=== PATIENT | female | born 1950 | race Caucasian/White ===

== ENCOUNTER 2016-06-03 09:07 | Emergency (ER) | payer OTHER, MEDICARE ==
--- NOTE | 2016-06-03 09:24 | UCPHY ---
H & P Patient Type: New Time Seen by Provider: 06/03/16 09:22 HPI/ROS: 65-year-old female presents complaining of right forearm swelling since last night, concerned because she has a recent history of elevated INR. She states despite her elevated INR she was not told to stop her warfarin. Review of systems General no fever no chills no weakness HEENT no eye pain no eye discharge. No eye redness, no sore throat Respiratory no cough, no shortness of breath Cardiac no chest pain, no peripheral edema GI no abdominal pain, no diarrhea, no constipation, no nausea, no vomiting no flank pain, no hematuria, no dysuria Musculoskeletal positive myalgias, no joint pain Heme no easy bruising, no easy bleeding Endo no polyuria, no polydipsia Skin no rashes, no pruritus Neuro no syncope, no dizziness, no headaches Psych is no suicidal ideation, no homicidal ideation Source: Patient Exam Limitations: Physical impairment - Personal History Current Tetanus/Diphtheria Vaccine: Yes - Medical/Surgical History Other PMH: Patient on long-term anticoagulant for blood clots - Family History Significant Family History: No pertinent family hx - Social History Smoking Status: Unknown if ever smoked Alcohol Use: None Drug Use: None - Physical Exam Exam: 65-year-old female 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, no acute distress nontoxic appearance afebrile Atraumatic normocephalic Neck supple Lungs clear to auscultation Heart regular rate and rhythm Abdomen NABS Right upper extremity with mild swelling to right distal forearm no ecchymosis, no open wounds Good range of motion, good strength Constitutional: Initial Vital Signs Temperature (C) 36.3 C 06/03/16 09:30 Heart Rate 65 06/03/16 09:30 Respiratory Rate 18 06/03/16 09:30 Blood Pressure 99/64 L 06/03/16 09:30 O2 Sat (%) 94 06/03/16 09:30 O2 Delivery Mode Room Air Medical Decision Making ED Course/Re-evaluation: Patient seen and evaluated for right arm swelling in the setting of an elevated INR Labs CBC within normal limits INR 8.5 BMP within normal limits Ultrasound negative for DVT negative for hematoma Impression/plan Warfarin toxicity, coagulopathy with no evidence of bleeding Patient advised to hold her warfarin for the next 4 days to have her INR repeated on [place] [address] Forearm with mild contusion no evidence of hematoma Follow up with primary care physician - Data Points Laboratory Results: Laboratory Results 06/03/16 10:50 06/03/16 10:50 06/03/16 10:50 WBC 8.06 10^3/uL (3.80-9.50) RBC 4.19 10^6/uL (4.18-5.33) Hgb 12.6 g/dL (12.6-16.3) Hct 35.9 L % (38.0-47.0) MCV 85.7 fL (81.5-99.8) MCH 30.1 pg (27.9-34.1) MCHC 35.1 g/dL (32.4-36.7) RDW 13.0 % (11.5-15.2) Plt Count 240 10^3/uL (150-400) MPV 9.8 fL (8.7-11.7) Neut % (Auto) 82.4 H % (39.3-74.2) Lymph % (Auto) 9.3 L % (15.0-45.0) [place] % (Auto) 6.0 % (4.5-13.0) Eos % (Auto) 1.9 % (0.6-7.6) Baso % (Auto) 0.2 L % (0.3-1.7) Nucleat RBC Rel Count 0.0 % (0.0-0.2) Absolute Neuts (auto) 6.64 H 10^3/uL (1.70-6.50) Absolute Lymphs (auto) 0.75 L 10^3/uL (1.00-3.00) Absolute Monos (auto) 0.48 10^3/uL (0.30-0.80) Absolute Eos (auto) 0.15 10^3/uL (0.03-0.40) Absolute Basos (auto) 0.02 10^3/uL (0.02-0.10) Absolute Nucleated RBC 0.00 10^3/uL (0-0.01) Immature Gran % 0.2 % (0.0-1.1) Immature Gran # 0.02 10^3/uL (0.00-0.10) PT 68.4 H SEC (12.0-15.0) INR 8.52 H* (0.83-1.16) APTT 77.9 H SEC (23.0-38.0) Sodium 130 L mEq/L (134-144) Potassium 4.3 mEq/L (3.5-5.2) Chloride 100 mEq/L (97-110) Carbon Dioxide 23 mEq/l (22-31) Anion Gap 7 mEq/L (8-16) BUN 12 mg/dL (7-23) Creatinine 0.5 L mg/dL (0.6-1.0) Estimated GFR > 60 Glucose 110 H mg/dL (70-100) Calcium 8.3 L mg/dL (8.5-10.4) Total Bilirubin 0.4 mg/dL (0.1-1.4) AST 20 IU/L (14-46) ALT 29 IU/L (9-52) Alkaline Phosphatase 88 IU/L (38-126) Total Protein 5.8 L g/dL (6.3-8.2) Albumin 2.9 L g/dL (3.5-5.0) Departure - Departure Disposition: Home, Routine, Self-Care Clinical Impression: Contusion of right forearm, initial encounter, Warfarin-induced coagulopathy Condition: Good Instructions: Contusion in Adults (ED), Warfarin Toxicity (ED) Additional Instructions: STOP warfain completely for the next 4 days, have your INR redrawn on Tuesday, and then your primary can advise how to continue your warfarin. Referrals: Adrian Smyth DO [Primary Care Provider] - As per Instructions - PQRS PQRS Measurement: na
[2016-06-03 09:35] VITALS: BP 99/64; PULSE 65; RESP 18; TEMP 97.3; O2SAT 94
[2016-06-03 11:02] LABS: % IMMATURE GRANULYOCYTES 0.2 % (0.0-1.1); ABSOLUTE IMMATURE GRANULOCYTES 0.02 10^3/uL (0.00-0.10); ADD DIFF? NO; ADD MORPH? NO; ADD SCAN? NO; ATYPICAL LYMPHOCYTE FLAG 10 (0-99); FRAGMENT RBC FLAG 0 (0-99); HEMATOCRIT 35.9 % (38.0-47.0); HEMOGLOBIN 12.6 g/dL (12.6-16.3); LEFT SHIFT FLG 0 (0-99); LIPEMIA HEMOLYSIS FLAG 90 (0-99); MEAN CELL HEMOGLOBIN 30.1 pg (27.9-34.1); MEAN CELL HEMOGLOBIN CONCENTR. 35.1 g/dL (32.4-36.7); MEAN CELL VOLUME 85.7 fL (81.5-99.8); MEAN PLATELET VOLUME 9.8 fL (8.7-11.7); PLATELET CLUMPS FLAG 10 (0-99); PLATELET COUNT 240 10^3/uL (150-400); RED BLOOD CELL COUNT 4.19 10^6/uL (4.18-5.33)
[2016-06-03 11:14] LABS: PROTIME(PATIENT) 68.4 SEC (12.0-15.0)
--- NOTE | 2016-06-03 11:17 | US ---
Duplex Doppler Sonography of the Right Upper Extremity Clinical History: 65-year-old female with an elevated INR and right forearm swelling and tenderness f or a few days. Evaluate for a hematoma, and rule out DVT. Technique: A high frequency transducer was used for imaging and Doppler study of the veins of the rig ht upper extremity. Pulsed Doppler and color Doppler were utilized, along with various maneuvers to assess flow in the veins. Cursory evaluation of the contralateral arm was obtained for comparison pu rposes. COMPARISON STUDY: None. Findings: The right basilic vein, cephalic vein, brachial vein(s), radial and ulnar veins, and the a xillary vein are normally compressible, and had normal waveforms. Normal color doppler flow is seen w ithin the subclavian vein, which is noted to have normal respiratory variation. The internal jugular vein is normally compressible, and has a normal Doppler flow. There is no deep or superficial venous thrombosis identified. There is no localized fluid collection. Impression: There is no sonographic evidence of venous thrombosis in the right arm, nor is there a fo rearm hematoma identified. Results were called to Dr. Macrina Moore. A Document Only message has been documented for Macrina Moore MD in the [employer] Result system on 06/03/2016 11:13, Message ID [id number].
[2016-06-03 11:25] LABS: APTT 77.9 SEC (23.0-38.0)
[2016-06-03 11:27] LABS: ALANINE AMINOTRANSFERASE 29 IU/L (9-52); ALBUMIN 2.9 g/dL (3.5-5.0); ALKALINE PHOSPHATASE 88 IU/L (38-126); ANION GAP 7 mEq/L (8-16); ASPARTATE AMINOTRANSFERASE 20 IU/L (14-46); BILIRUBIN,TOTAL 0.4 mg/dL (0.1-1.4); CALCIUM 8.3 mg/dL (8.5-10.4); CARBON DIOXIDE 23 mEq/l (22-31); CHLORIDE 100 mEq/L (97-110); CREATININE 0.5 mg/dL (0.6-1.0); GLOMERULAR FILTRATION RATE > 60; GLUCOSE 110 mg/dL (70-100); INR 8.52 (0.83-1.16); POTASSIUM 4.3 mEq/L (3.5-5.2); SODIUM 130 mEq/L (134-144); TOTAL PROTEIN 5.8 g/dL (6.3-8.2)
== END 2016-06-03 11:38 | disposition home or self-care (01) ==
LOC: CED 09:07
DX: S50.11XA Contusion of right forearm, initial encounter (principal); X58.XXXA Exposure to other specified factors, initial encounter; Z79.01 Long term (current) use of anticoagulants; Z89.611 Acquired absence of right leg above knee; Z89.612 Acquired absence of left leg above knee; Z99.3 Dependence on wheelchair
CPT/HCPCS: 76882; G0463; 80053-PO; 85025-PO; 85610-PO; 85730-PO; 99203-PO

== ENCOUNTER 2016-08-14 12:55 | Inpatient (IN) | payer OTHER, MEDICARE ==
--- NOTE | 2016-08-14 13:56 | UCPHY ---
H & P Patient Type: Established Smoking Status: Never smoked Time Seen by Provider: 08/14/16 13:52 HPI/ROS: Chief complaint. Abdominal pain HPI. 65-year-old female 3 day history low abdominal pain. She describes as crampy. All the way across the low abdomen. Nausea and vomiting. No diarrhea. No urinary symptoms. No fever. No chest discomfort or shortness of breath. It is associated with decreased appetite ROS Constitutional. no fever/chills, no weakness Eyes. no problems with vision ENT. no sore throat, no nasal drainage Cardiovascular. no chest pain Respiratory. no shortness of breath, no cough Abdominal. Low abdominal pain with nausea and vomiting . no problems urinating MS. no calf pain/swelling, no neck/back pain, no joint pain Skin. no rash Lymph. no swollen glands Neuro. No headache (Manuel Gracia) Past Medical/Surgical History: Seizure disorder, blood clots, bilateral leg amputation (Manuel Gracia) Social History: Single, nonsmoker, no alcohol (Manuel Gracia) Physical Exam: General Appearance: Alert well-developed female mild distress vital signs are stable though initial blood pressure is 98/78 Eyes: Pupils equal and round no pallor or injection. ENT, Mouth: Mucous membranes are moist. Respiratory: There are no retractions, lungs are clear to auscultation. Cardiovascular: Regular rate and rhythm. Gastrointestinal: Abdomen is soft with low abdominal tenderness. No masses. Normal bowel sounds Neurological: Awake and alert, sensory and motor exams grossly normal. Skin: Warm and dry, no rashes. Musculoskeletal: Neck is supple nontender. Extremities bilateral BKA Psychiatric: Patient is oriented X 3, there is no agitation. (Manuel Gracia) Constitutional: Initial Vital Signs Temperature (C) 36.6 C 08/14/16 13:03 Heart Rate 76 08/14/16 13:03 O2 Sat (%) 93 08/14/16 13:03 O2 Delivery Mode Room Air Allergies/Adverse Reactions: pseudoephedrine [From Sudafed] Allergy (Verified 08/14/16 12:59) Home Medications: Medication Instructions Recorded Keppra 08/14/16 Oxybutynin 08/14/16 PHENOBARBITAL 08/14/16 Warfarin Sodium 08/14/16 Medical Decision Making - Diagnostics EKG Interpretation: 12 lead EKG indication generalized weakness electrolyte abnormality rule out ischemia or significant conduction abnormalities 12 lead EKG performed at 4:50 p.m. reveals sinus rhythm at 62 Intervals: Normal throughout [place]: P of 55, QRS of 55, T of 66 ST [id number] elevation in V2 and V3 likely attributable to LVH. Overall assessment: sinus rhythm at 62 with LVH (Hero Marte) Imaging: CT abdomen pelvis: There is circumferential swelling the distal rectal sigmoid colon-[address] Medel, question infectious versus neoplastic. She also has significant constipation. Other abnormalities appear chronic. ( Hero Marte) Procedures: IV normal saline (Manuel Gracia) ED Course/Re-evaluation: Patient is stable. We do not have CT results yet. She has a sodium of 119 so she needs to be admitted. She does have a UTI and is given ceftriaxone. We are did have blood cultures. Her lactate is normal (Manuel Gracia) IV ceftriaxone for her UTI is completed. I counseled patient regarding her CT results and the need for admission. 500 cc normal saline bolus for hyponatremia I spoke with Dr. Drew Steward-hospitalist who accepts this patient for transfer to [facility]. Discussion: This patient presents with lower belly pain found to have a UTI as well as hyponatremia and distal sigmoid/rectal swelling circumferentially the bowel question colitis versus neoplasm warranting admission for further workup and treatment. (Hero Marte) Care Turn Over: Care to Dr. Marte at 3:20 p.m. (Manuel Gracia) - Data Points Laboratory Results: Laboratory Results 08/14/16 14:03 08/14/16 14:03 08/14/16 08/14/16 08/14/16 14:03 14:03 14:03 WBC 10.58 10^3/uL H 10^3/uL (3.80-9.50) RBC 3.11 10^6/uL L 10^6/uL (4.18-5.33) Hgb 9.5 g/dL L g/dL (12.6-16.3) Hct 26.1 % L % (38.0-47.0) MCV 83.9 fL fL (81.5-99.8) MCH 30.5 pg pg (27.9-34.1) MCHC 36.4 g/dL g/dL (32.4-36.7) RDW 13.1 % % (11.5-15.2) Plt Count 193 10^3/uL 10^3/uL (150-400) MPV 10.4 fL fL (8.7-11.7) Neut % (Auto) 86.4 % H % (39.3-74.2) Lymph % (Auto) 6.4 % L % (15.0-45.0) [place] % (Auto) 5.8 % % (4.5-13.0) Eos % (Auto) 0.4 % L % (0.6-7.6) Baso % (Auto) 0.1 % L % (0.3-1.7) Nucleat RBC Rel Count 0.0 % % (0.0-0.2) Absolute Neuts (auto) 9.15 10^3/uL H 10^3/uL (1.70-6.50) Absolute Lymphs (auto) 0.68 10^3/uL L 10^3/uL (1.00-3.00) Absolute Monos (auto) 0.61 10^3/uL 10^3/uL (0.30-0.80) Absolute Eos (auto) 0.04 10^3/uL 10^3/uL (0.03-0.40) Absolute Basos (auto) 0.01 10^3/uL L 10^3/uL (0.02-0.10) Absolute Nucleated RBC 0.00 10^3/uL 10^3/uL (0-0.01) Immature Gran % 0.9 % % (0.0-1.1) Immature Gran # 0.09 10^3/uL 10^3/uL (0.00-0.10) PT 39.7 SEC H SEC (12.0-15.0) INR 4.08 H (0.83-1.16) APTT 45.9 SEC H SEC (23.0-38.0) VBG Lactic Acid Sodium 119 mEq/L L* mEq/L (134-144) Potassium 4.0 mEq/L mEq/L (3.5-5.2) Chloride 90 mEq/L L mEq/L (97-110) Carbon Dioxide 22 mEq/l mEq/l (22-31) Anion Gap 7 mEq/L L mEq/L (8-16) BUN 18 mg/dL mg/dL (7-23) Creatinine 0.6 mg/dL mg/dL (0.6-1.0) Estimated GFR > 60 Glucose 99 mg/dL mg/dL (70-100) Calcium 7.9 mg/dL L mg/dL (8.5-10.4) Total Bilirubin 0.4 mg/dL mg/dL (0.1-1.4) Urine Color Urine Appearance Urine pH Ur Specific [place] Urine Protein Urine Ketones Urine Blood Urine Nitrate Urine Bilirubin Urine Urobilinogen Ur Leukocyte Esterase Urine RBC Urine WBC Ur Epithelial Cells Urine Bacteria Urine Glucose 08/14/16 08/14/16 14:03 13:35 WBC RBC Hgb Hct MCV MCH MCHC RDW Plt Count MPV Neut % (Auto) Lymph % (Auto) [place] % (Auto) Eos % (Auto) Baso % (Auto) Nucleat RBC Rel Count Absolute Neuts (auto) Absolute Lymphs (auto) Absolute Monos (auto) Absolute Eos (auto) Absolute Basos (auto) Absolute Nucleated RBC Immature Gran % Immature Gran # PT INR APTT VBG Lactic Acid 0.9 mmol/L mmol/L (0.7-2.1) Sodium Potassium Chloride Carbon Dioxide Anion Gap BUN Creatinine Estimated GFR Glucose Calcium Total Bilirubin Urine Color YELLOW Urine Appearance CLEAR Urine pH 5.5 (5.0-7.5) Ur Specific [place] <= 1.005 (1.002-1.030) Urine Protein TRACE H (NEGATIVE) Urine Ketones TRACE H (NEGATIVE) Urine Blood 2+ H (NEGATIVE) Urine Nitrate NEGATIVE (NEGATIVE) Urine Bilirubin NEGATIVE (NEGATIVE) Urine Urobilinogen 0.2 EU EU (0.2-1.0) Ur Leukocyte Esterase 2+ H (NEGATIVE) Urine RBC 3-5 /hpf H /hpf (0-3) Urine WBC 25-50 /hpf H /hpf (0-3) Ur Epithelial Cells 2+ /lpf H /lpf (NONE-1+) Urine Bacteria 2+ /hpf H /hpf (NONE SEEN) Urine Glucose NEGATIVE (NEGATIVE) Medications Given: Discontinued Medications Ceftriaxone Sodium 1 gm/ (Sodium Chloride) 100 mls @ 200 mls/hr IV EDNOW ONE PRN Reason: Protocol Stop: 08/14/16 15:52 Last Admin: 08/14/16 16:00 Dose: 100 mls Departure - Departure Disposition: [facility] Inpatient Acute Clinical Impression: Lower abdominal pain, Hyponatremia, Abnormality of colon Urinary tract infection Qualifiers: Urinary tract infection type: catheter-associated UTI Indwelling urinary catheter type: indwelling urethral catheter Encounter type: initial encounter Qualified Code(s): T83.511A - Infection and inflammatory reaction due to indwelling urethral catheter, initial encounter; N39.0 - Urinary tract infection , site not specified Condition: Fair - PQRS PQRS Measurement: 134: Depression screening and followup, PRIME MD-PHQ2 (12 years and older) Over the last 2 weeks, how often have you been bothered by any of the following problems? 1. Feeling down, depressed, or hopeless? 2. Little interest or pleasure in doing things? Patient answered no to both 1 and 2 130: Documentation of medications. Reviewed all patient medications, doses, route and frequency. 226: Do you smoke? [No.] 47: 65 and older: Advanced care planning. The patient has an advanced directive 51: 18 years old and older with diagnosis of COPD, spirometry performance. NA 52: 18 years old and older with COPD and symptoms of COPD or FEV1<60% predicted prescribed a B Agonist. NA (Hero Marte)
[2016-08-14 14:15] LABS: COLOR YELLOW; LEUKOCYTE ESTERASE,URINE 2+ (NEGATIVE); NITRITE,URINE NEGATIVE (NEGATIVE); PH,URINE 5.5 (5.0-7.5)
[2016-08-14] MEDS ORDERED: IOPAMIDOL (ISOVUE-300) 100 ML BTL IV ONE (14:21)
[2016-08-14 14:26] LABS: % IMMATURE GRANULYOCYTES 0.9 % (0.0-1.1); ABSOLUTE IMMATURE GRANULOCYTES 0.09 10^3/uL (0.00-0.10); ADD DIFF? NO; ADD MORPH? NO; ADD SCAN? NO; ATYPICAL LYMPHOCYTE FLAG 0 (0-99); FRAGMENT RBC FLAG 0 (0-99); HEMATOCRIT 26.1 % (38.0-47.0); HEMOGLOBIN 9.5 g/dL (12.6-16.3); LEFT SHIFT FLG 0 (0-99); LIPEMIA HEMOLYSIS FLAG 90 (0-99); MEAN CELL HEMOGLOBIN 30.5 pg (27.9-34.1); MEAN CELL HEMOGLOBIN CONCENTR. 36.4 g/dL (32.4-36.7); MEAN CELL VOLUME 83.9 fL (81.5-99.8); MEAN PLATELET VOLUME 10.4 fL (8.7-11.7); PLATELET CLUMPS FLAG 10 (0-99); PLATELET COUNT 193 10^3/uL (150-400); RED BLOOD CELL COUNT 3.11 10^6/uL (4.18-5.33); RED CELL DISTRIBUTION WIDTH 13.1 % (11.5-15.2)
[2016-08-14 14:31] LABS: WBC,URINE 25-50 /hpf (0-3)
[2016-08-14 14:32] LABS: BACTERIA 2+ /hpf (NONE SEEN)
[2016-08-14 14:39] LABS: INR 4.08 (0.83-1.16); PROTIME(PATIENT) 39.7 SEC (12.0-15.0)
[2016-08-14 14:40] LABS: APTT 45.9 SEC (23.0-38.0)
[2016-08-14 14:42] LABS: ANION GAP 7 mEq/L (8-16); BILIRUBIN,TOTAL 0.4 mg/dL (0.1-1.4); CALCIUM 7.9 mg/dL (8.5-10.4); CARBON DIOXIDE 22 mEq/l (22-31); CHLORIDE 90 mEq/L (97-110); CREATININE 0.6 mg/dL (0.6-1.0); GLOMERULAR FILTRATION RATE > 60; GLUCOSE 99 mg/dL (70-100)
[2016-08-14 14:50] LABS: SODIUM 119 mEq/L (134-144)
[2016-08-14] MEDS ORDERED: NS 500 ML IV ONE (16:50)
--- NOTE | 2016-08-14 16:52 | CPEKG ---
Heart Rate: 62 RR Interval: 968 P-R Interval: 116 QRSD Interval: 80 QT Interval: 408 QTC Interval: 415 P [place]: 55 QRS [place]: 55 T Wave [place]: 66 EKG Severity - ABNORMAL ECG - EKG Impression: SINUS RHYTHM EKG Impression: LEFT VENTRICULAR HYPERTROPHY Electronically Signed By: Hero Marte 14-Aug-2016 16:57:17
[2016-08-14] MEDS ORDERED: ACETAMINOPHEN 325 MG TAB PO PRN (20:58)
[2016-08-14] MEDS ORDERED: NS 1,000 ML IV SCH (21:00)
[2016-08-14] MEDS: OXYBUTYNIN CHLORIDE 5 MG TAB PO SCH (21:55)
[2016-08-14] MEDS: levETIRAcetam 500 MG TAB PO SCH (21:55)
[2016-08-14] MEDS: PHENobarbital 30 MG TAB PO SCH (21:55)
--- NOTE | 2016-08-14 22:12 | GHP ---
[f rep st] HISTORY AND PHYSICAL DATE OF ADMISSION: 08/14/2016 CHIEF COMPLAINT: Abdominal pain. 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 This happened in her 40s. She states she has been having 3 days o f lower abdominal pain which is crampy. She denies any dysuria. No fever or chills. No diarrhea, is actually constipated. She denies any weight loss. No blood in her stool. REVIEW OF SYSTEMS: A 10-point review of systems was obtained and was negative. PAST MEDICAL HISTORY: 1. 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 2. Seizure disorder. 3. Spinal cord injury prior to that, I believe, if I understood her right. MEDICATIONS: Reviewed. SOCIAL HISTORY: No smoking or alcohol. FAMILY HISTORY: Reviewed. PHYSICAL EXAM: VITAL SIGNS: Afebrile, blood pressure is 90/52, heart rate 96, oxygen saturation 91 % on room air. GENERAL: The patient is well developed, no apparent distress. HEENT: Nonicteric sc lerae. Extraocular movements intact. Moist mucous membranes. NECK: Supple. No thyromegaly. TIMOTHY GS: Clear to auscultation bilaterally. CARDIOVASCULAR: Regular rate and rhythm. No murmurs, gall ops. ABDOMEN: Positive bowel sounds. Soft, nontender, nondistended. No hepatosplenomegaly. EXTR EMITIES: Bilateral lower extremity amputations. PSYCH: Normal affect. LABS: White blood cell count 10, hemoglobin 9.5, platelets 193. INR is 4. Sodium 119, potassium 4 .0, BUN 18, creatinine 0.6. UA shows urinary tract infection. ASSESSMENT: This is a 65-year-old female, presenting with urinary tract infection, hyponatremia, an d colonic wall thickening. PLAN: 1. Urinary tract infection. Will treat with ceftriaxone. 2. Hyponatremia, probably related to poor p.o. intake. We will check urine studies. We will give a small amount of IV fluids. We will recheck another sodium in a few hours to make sure it is not c orrecting quickly. 3. Colon wall thickening on CT scan. We will get GI to see the patient tomorrow. Would probably p refer letting INR drift down and bridging her with heparin for colonoscopy. 4. Seizure disorder. Continue Keppra. 5. History of arterial embolism as above. We will hold Coumadin and consider colonoscopy. /[id number]/MODL
[2016-08-15 00:24] LABS: ANION GAP 7 mEq/L (8-16); CALCIUM 7.6 mg/dL (8.5-10.4); CARBON DIOXIDE 17 mEq/l (22-31); CHLORIDE 96 mEq/L (97-110); CREATININE 0.5 mg/dL (0.6-1.0); GLOMERULAR FILTRATION RATE > 60; GLUCOSE 100 mg/dL (70-100); POTASSIUM 3.8 mEq/L (3.5-5.2); SODIUM 120 mEq/L (134-144)
[2016-08-15 04:50] LABS: % IMMATURE GRANULYOCYTES 0.6 % (0.0-1.1); ABSOLUTE IMMATURE GRANULOCYTES 0.05 10^3/uL (0.00-0.10); ADD DIFF? NO; ADD MORPH? NO; ADD SCAN? NO; ATYPICAL LYMPHOCYTE FLAG 0 (0-99); FRAGMENT RBC FLAG 0 (0-99); LEFT SHIFT FLG 0 (0-99); LIPEMIA HEMOLYSIS FLAG 90 (0-99); MEAN CELL VOLUME 86.2 fL (81.5-99.8); MEAN PLATELET VOLUME 10.8 fL (8.7-11.7); PLATELET CLUMPS FLAG 0 (0-99); PLATELET COUNT 183 10^3/uL (150-400); RED CELL DISTRIBUTION WIDTH 13.2 % (11.5-15.2)
[2016-08-15 05:07] LABS: ALANINE AMINOTRANSFERASE 39 IU/L (9-52); ALBUMIN 2.3 g/dL (3.5-5.0); ALKALINE PHOSPHATASE 53 IU/L (38-126); ANION GAP 4 mEq/L (8-16); ASPARTATE AMINOTRANSFERASE 29 IU/L (14-46); BILIRUBIN,TOTAL 0.3 mg/dL (0.1-1.4); CALCIUM 7.2 mg/dL (8.5-10.4); CARBON DIOXIDE 19 mEq/l (22-31); CHLORIDE 98 mEq/L (97-110); CREATININE 0.5 mg/dL (0.6-1.0); GLOMERULAR FILTRATION RATE > 60; GLUCOSE 98 mg/dL (70-100); POTASSIUM 3.9 mEq/L (3.5-5.2); SODIUM 121 mEq/L (134-144); TOTAL PROTEIN 4.4 g/dL (6.3-8.2)
[2016-08-15] MEDS: levETIRAcetam 500 MG TAB PO SCH ×2 (08:53→21:11)
[2016-08-15] MEDS: OXYBUTYNIN CHLORIDE 5 MG TAB PO SCH ×3 (08:53→21:11)
[2016-08-15] MEDS: PHENobarbital 30 MG TAB PO SCH ×2 (08:54→22:17)
[2016-08-15] MEDS ORDERED: NS 1,000 ML IV ONE ×2 (10:29→14:00)
--- NOTE | 2016-08-15 10:49 | HOSPPROG ---
Hospitalist Progress Note Assessment/Plan: #Hypotension: called to bedside for SBP 60. She denies any symptoms. Suspect due UTI with chronic thompson (changed out last ) -+UA. Blood/urine cx pending. No abscess on abd CT. Lactate normal -IV bolus now. Repeat lactate, WBC now normal. Check trop. Less suspicion for PE since INR supratherapeutic on coumadin -cont Ceftriaxone #h/o bilateral DVTs: s/p BL leg amputation -INR supratherapeutic #Epilepsy: Keppra, Phenobarb #Acute abd pain: due to UTI vs. constipation. No abscess on CT, +UA. Plan as above. Bowel regimen #Supratherapeutic INR: holding coumadin #Hypovolemic hyponatremia: 119 at admit (BL 130) #Chronic indwelling thompson: just pulled out when transferring to wheelchair 3 Subjective: no dizziness, cough, bladder spasms, f/c/s Objective: Vital Signs Temp Pulse Resp BP Pulse Ox 36.7 C 105 H 18 60/46 L 97 08/15/16 10:05 08/15/16 10:05 08/15/16 10:05 08/15/16 10:14 08/15/16 10:05 Laboratory Results 08/15/16 04:20 08/15/16 04:20 08/14/16 08/15/16 08/16/16 05:59 05:59 05:59 Intake Total 1300 Output Total 350 Balance 950 PT 39.7 SEC (12.0-15.0) H 08/14/16 14:03 INR 4.08 (0.83-1.16) H 08/14/16 14:03 - Physical Exam Constitutional: no apparent distress, other (pale) Eyes: PERRL Ears, Nose, Mouth, Throat: moist mucous membranes, hearing normal Cardiovascular: regular rate and rhythym, no murmur, rub, or gallop Respiratory: no respiratory distress, no rales or rhonchi Gastrointestinal: normoactive bowel sounds, soft, non-tender abdomen Genitourinary: no bladder fullness, no bladder tenderness, thompson in urethra ( clear, yellow urine) Skin: warm Musculoskeletal: other (bilateral LE amputations) Neurologic: AAOx3 Psychiatric: interacting appropriately Lymph, Heme, Immunologic: no cervical LAD ICD10 Worksheet Patient Problems: Problems Problem Status Onset Abnormality of colon Acute Hyponatremia Acute Lower abdominal pain Acute Urinary tract infection Acute
[2016-08-15 11:28] LABS: % IMMATURE GRANULYOCYTES 0.4 % (0.0-1.1); ABSOLUTE IMMATURE GRANULOCYTES 0.04 10^3/uL (0.00-0.10); ADD DIFF? NO; ADD MORPH? NO; ADD SCAN? NO; ATYPICAL LYMPHOCYTE FLAG 0 (0-99); FRAGMENT RBC FLAG 20 (0-99); HEMATOCRIT 28.6 % (38.0-47.0); HEMOGLOBIN 10.1 g/dL (12.6-16.3); LEFT SHIFT FLG 0 (0-99); LIPEMIA HEMOLYSIS FLAG 90 (0-99); MEAN CELL HEMOGLOBIN CONCENTR. 35.3 g/dL (32.4-36.7); MEAN CELL VOLUME 84.9 fL (81.5-99.8); MEAN PLATELET VOLUME 10.7 fL (8.7-11.7); PLATELET CLUMPS FLAG 10 (0-99); PLATELET COUNT 220 10^3/uL (150-400); RED BLOOD CELL COUNT 3.37 10^6/uL (4.18-5.33); RED CELL DISTRIBUTION WIDTH 13.3 % (11.5-15.2)
[2016-08-15 11:35] LABS: APTT 43.5 SEC (23.0-38.0); INR 4.1 (0.83-1.16); PROTIME(PATIENT) 40.5 SEC (12.0-15.0)
[2016-08-15 11:55] LABS: ALANINE AMINOTRANSFERASE 43 IU/L (9-52); ALBUMIN 2.6 g/dL (3.5-5.0); ALKALINE PHOSPHATASE 61 IU/L (38-126); ANION GAP 8 mEq/L (8-16); ASPARTATE AMINOTRANSFERASE 33 IU/L (14-46); BILIRUBIN,TOTAL 0.3 mg/dL (0.1-1.4); BILIRUBIN-CONJUGATED 0.3 mg/dL (0.0-0.5); CALCIUM 7.7 mg/dL (8.5-10.4); CARBON DIOXIDE 20 mEq/l (22-31); CHLORIDE 95 mEq/L (97-110); CREATININE 0.6 mg/dL (0.6-1.0); GLOMERULAR FILTRATION RATE > 60; GLUCOSE 108 mg/dL (70-100); POTASSIUM 3.8 mEq/L (3.5-5.2); SODIUM 123 mEq/L (134-144); TOTAL PROTEIN 5.1 g/dL (6.3-8.2)
[2016-08-15 12:06] LABS: TROPONIN I 0.226 ng/mL (0-0.034)
--- NOTE | 2016-08-15 12:24 | WOCRNPDOC ---
WOCRN Advanced Assessment Note - Skin Integrity Problem, Advanced Assess Coccyx Pressure Injury Dressing Type: Allevyn Life Dressing Description: Intact Exudate Amount: Scant Exudate Color: Yellow Anastasia Wound Tissue: Erythema, Non-blanching Anastasia Wound Swelling: Mild Wound Bed Color: Red, Yellow Wound Bed Constitution: Granulation Tissue, Adhered Slough Site Odor: None Site Measurement - Head-to-Toe Length X Width X Depth (cm): Coccyx: 3.1cmx0.9cmx0.3cm. R coccyx: 1.9cmx0.5cmx0.1cm Pressure Injury Stage: Unstageable Pressure Injury Present on Admit: Yes (Nursing placed wound care consult upon admission) Skin Integrity Problem Comment: Two discrete areas of full-thickness tissue loss noted on coccyx and immediately to the R of coccyx, consistent in appearance w/ unstageable pressure injury. The wound over the coccyx is 80% adhered slough, 20% granulation tissue, w/ minimal clear yellow exudate. The wound immediately to the R of the coccyx is more shallow, but still has 60% slough indicating full-thickness injury. There is blanching erythema just proximal to the coccyx wound. There is also scar tissue throughout coccyx and surrounding tissue, indicating prior injury to this site. Patient reports she has had wounds to this area before, but was unable to recall any details regarding. Order for Therahoney gel to area to facilitate autolytic debridement , followed by Francisca. Wound care will follow up on Thursday 08/17. Report given to delivery technician Laura.
--- NOTE | 2016-08-15 12:31 | CPEKG ---
Heart Rate: 76 RR Interval: 789 P-R Interval: 140 QRSD Interval: 86 QT Interval: 376 QTC Interval: 423 P [place]: 74 QRS [place]: 21 T Wave [place]: 62 EKG Severity - NORMAL ECG - EKG Impression: SINUS RHYTHM EKG Impression: IN COMPARISON TO PRIOR ECG, THE ST ELEVATION TO V2 AND V3 IS NO LONGER PRESENT. Electronically Signed By: Roderick Bowers 15-Aug-2016 12:42:12
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
[2016-08-15] MEDS ORDERED: ALTEPLASE 2 MG VIAL IVP PRN (14:35)
[2016-08-15] MEDS ORDERED: CALCIUM CARBONATE 500 MG CHEWABLE TAB PO PRN (16:24)
[2016-08-15] MEDS: BISMUTH SUBSALICYLATE 262 MG CHEWABLE TAB PO PRN ×2 (16:56→22:17)
[2016-08-15 17:02] LABS: ANION GAP 8 mEq/L (8-16); CARBON DIOXIDE 20 mEq/l (22-31); CHLORIDE 97 mEq/L (97-110); CREATININE 0.5 mg/dL (0.6-1.0); GLOMERULAR FILTRATION RATE > 60; GLUCOSE 120 mg/dL (70-100); SODIUM 125 mEq/L (134-144)
[2016-08-15] MEDS: ASPIRIN EC 81 MG TAB PO SCH (21:11)
[2016-08-16 06:49] LABS: HEMATOCRIT 21.9 % (38.0-47.0); HEMOGLOBIN 7.8 g/dL (12.6-16.3); MEAN CELL HEMOGLOBIN 30.4 pg (27.9-34.1); MEAN CELL HEMOGLOBIN CONCENTR. 35.6 g/dL (32.4-36.7); MEAN CELL VOLUME 85.2 fL (81.5-99.8); RED BLOOD CELL COUNT 2.57 10^6/uL (4.18-5.33); RED CELL DISTRIBUTION WIDTH 13.4 % (11.5-15.2)
[2016-08-16 06:58] LABS: INR 2.31 (0.83-1.16); PROTIME(PATIENT) 25.6 SEC (12.0-15.0)
[2016-08-16 07:07] LABS: ANION GAP 2 mEq/L (8-16); CALCIUM 7.3 mg/dL (8.5-10.4); CARBON DIOXIDE 20 mEq/l (22-31); CHLORIDE 101 mEq/L (97-110); CREATININE 0.5 mg/dL (0.6-1.0); GLOMERULAR FILTRATION RATE > 60; GLUCOSE 96 mg/dL (70-100); POTASSIUM 3.4 mEq/L (3.5-5.2); SODIUM 123 mEq/L (134-144)
[2016-08-16] MEDS: PHENobarbital 30 MG TAB PO SCH (08:48)
[2016-08-16] MEDS: levETIRAcetam 500 MG TAB PO SCH ×2 (08:48→20:56)
[2016-08-16] MEDS: OXYBUTYNIN CHLORIDE 5 MG TAB PO SCH ×3 (08:49→20:56)
[2016-08-16] MEDS: ASPIRIN EC 81 MG TAB PO SCH (08:49)
[2016-08-16] MEDS: ONDANSETRON DISINTEGRATING 4 MG TAB PO PRN (10:35)
--- NOTE | 2016-08-16 11:05 | HOSPPROG ---
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 During hospitalization she has had very labile blood pressures ranging from a systolic of 60 up to 200 without specific treatment. She is relatively asymptomatic with these blood pressure fluctuations except she does feel like she gets flushed and hot at times. She denies any headache chest pain or shortness of breath. She has had slightly elevated troponins. 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 These changes typically occur while she is in bed. * Monitor blood pressure and would not treat specifically unless she has symptoms * Will rule out other causes such as PHeo or carcinoid or Drea's. Her a.m. cortisol was normal * Attempt to get records from her previous neurologist. # indeterminate troponin, echocardiogram without wall motion abnormalities and no significant LVH. Will continue to monitor and consider Lexiscan while she is here to rule out acute ischemia. I suspect this is from her fluctuating blood pressures. # history of bilateral DVT status post leg amputation, on Coumadin was therapeutic INR # unstageable coccyx ulcers wound care following # epilepsy on Keppra and phenobarb # abdominal pain, improving today, will continue treatment for possible UTI as well as bowel protocol # complicated UTI with chronic indwelling Sandhu catheter. Currently on ceftriaxone will follow up on cultures. # hyponatremia still low despite some fluids. Volume status today appears more euvolemic then hypovolemic as yesterday. Urine electrolytes and osmolality most consistent with this SAIDH * Place on fluid restriction * Push solute intake * Follow daily, reviewed medications unfortunately she is on anti seizure medicines which would be difficult to change. Subjective: Patient states her abdominal complaints are slightly improved she denies any chest pain or shortness of breath with her elevated blood pressures but due to his notes some flushing and feels hot. Objective: Vital Signs Temp Pulse Resp BP Pulse Ox 37.2 C 101 H 12 127/86 H 94 08/16/16 08:00 08/16/16 08:00 08/16/16 08:00 08/16/16 10:42 08/16/16 08:00 Laboratory Results 08/16/16 06:40 08/16/16 06:40 08/15/16 08/16/16 08/17/16 05:59 05:59 05:59 Intake Total 1300 2275 Output Total 350 1600 300 Balance 950 675 -300 PT 25.6 SEC (12.0-15.0) H D 08/16/16 06:40 INR 2.31 (0.83-1.16) H 08/16/16 06:40 - Physical Exam Constitutional: chronically ill appearing, uncomfortable Eyes: PERRL, EOMI Ears, Nose, Mouth, Throat: moist mucous membranes, hearing normal, ears appear normal Cardiovascular: regular rate and rhythym, systolic murmur, No edema (No lower extremities) Respiratory: no respiratory distress, no rales or rhonchi Gastrointestinal: normoactive bowel sounds, no palpable masses, No guarding, No rebound Genitourinary: no bladder fullness Skin: warm, normal color, No mottled Musculoskeletal: other (Status post bilateral AK amputations) Neurologic: AAOx3, No facial droop Psychiatric: interacting appropriately, not anxious, not encephalopathic ICD10 Worksheet Patient Problems: Problems Problem Status Onset Lower abdominal pain Acute Urinary tract infection Acute Hyponatremia Acute Abnormality of colon Acute
--- NOTE | 2016-08-16 12:56 | ECHO ---
[id number] + + [address] : : [place] [address] : : [phone] + + Adult Echocardiographic Report + ---+ :Name: CHASE MENJIVAR LStudy Date: 08/16/2016 09:00 AM : : Hospital Admission Number: [id number] Location: 216: :: 1950 Gender: Female Height: 62 in : :Age: 65 yrs Race: WH Weight: 62 lb : :Reason For Study: Eval LV Fx : : BSA: 1.2 meters2 : :History: Hypertensive Crisis : + ---+ MMode/2D Measurements \T\ Calculations IVSd: 0.69 cm LVIDd: 2.8 cm FS: 41.9 % MV Diam: 2.6 cm LVPWd: 0.88 cm LVIDs: 1.6 cm EDV(Teich): 29.2 ml ESV(Teich): 7.4 ml EF(Teich): 74.7 % Ao root diam: 2.9 cm LVOT diam: 1.4 cm ACS: 1.7 cm LVOT area: 1.7 cm2 Normal Measurement Values: + + :LVIDd (3.5-5.7cm) IVSd (0.6-1.1cm) LVPWd (0.6-1.1cm) Aortic Root (2.0-3.7cm)Left Atrium (1.5-4.0cm): :LV Vol(d) (76-115ml) LV Vol(s) (29-48ml) Ejec Fraction (50-65%)PV Reggie (0.6- 1.2m/s) TV Reggie (0.4-1.0m/s) : :MV E Reggie (0.8-1.0m/s)MV A Reggie (0.3-1.0m/s)LVOT Reggie (0.7-1.2m/s) Asc Ao Reggie ( 0.9-1.8m/s) : + + Doppler Measurements \T\ Calculations MV E max reggie: MV V2 mean: Ao V2 max: LV V1 max: 67.1 cm/sec 50.6 cm/sec 157.0 cm/sec 165.9 cm/sec MV A max reggie: MV mean PG: Ao max P.9 mmHgLV V1 max P.6 cm/sec 1.2 mmHg Ao mean P.0 mmHg MV E/A: 0.96 MV V2 VTI: 21.4 cm 8.6 mmHg LV V1 mean PG: MV area (1 diam): Ao V2 mean: 7.1 mmHg 142.1 cm/sec LV V1 mean: 5.5 cm2 Ao V2 VTI: 33.5 cm 123.4 cm/sec MVA(VTI): 2.5 cm2 LV V1 VTI: 31.7 cm MV Flow area CELESTE(I,D): 1.6 cm2 (1diam): 5.5 cm2 CELETSE(V,D): 1.7 cm2 MR max reggie: MR(RF 1 diam): SV(MV 1 diam): PA V2 max: 452.5 cm/sec 11.6 % 117.2 ml 97.7 cm/sec MR max PG: SI(MV 1 diam): PA max P.8 mmHg 3.8 mmHg 100.9 ml/m2 SV(LVOT): 52.4 ml RF(MV,Ao)(1 diam): -0.95 RF(MV,LVOT) (1diam): 0.55 Left Ventricle The left ventricle is normal in size. There is normal left ventricular wall thickness. The left ventricular ejection fraction is normal. There is Doppler evidence for diastolic dysfunction. Ejection Fraction = 75%. The left ventricular wall motion is normal. Right Ventricle The right ventricle is normal in size and function. Atria The left atrial size is normal. Right atrial size is normal. Mitral Valve The mitral valve is grossly normal in structure. There is moderate mercedes regurgitation directed posteriorly. There is no evidence of mitral valve prolapse. There is no mitral valve stenosis. There is moderate mitral regurgitation. Tricuspid Valve The tricuspid valve is normal in structure and function. There is trace tricuspid regurgitation. Aortic Valve The aortic valve is normal in structure and function. The aortic valve is trileaflet. There is no aortic stenosis. There is no aortic insufficiency. Pulmonic Valve There is no pulmonic valvular regurgitation. Great Vessels The aortic root is normal size. Pericardium/Pleural There is no pericardial effusion. Conclusion A complete two-dimensional transthoracic echocardiogram was performed (2D, M-mode, Doppler and color flow Doppler). 1. The left ventricle is normal in size with hyperdynamic systolic function. The Ejection Fraction = 75%. 2. The mitral valve is grossly normal in structure. There is moderate mercedes regurgitation directed posteriorly. 3. The aortic valve is trileaflet. There is no aortic stenosis. There is no aortic insufficiency. 4. The pulmonary artery pressure could not be adequately estimated. 5. No old studies for comparison. Final Reading Physician: Roderick Castellanos MD electronically signed on 08/16/2016 12:55 PM Ordering Physician: Corin Monroy Performed By: Everette Meyers, RDCS
[2016-08-16] MEDS: BISACODYL 10 MG SUPP PR PRN ×2 (13:37→15:19)
[2016-08-16] MEDS: WARFARIN SODIUM 5 MG TAB PO SCH (16:52)
[2016-08-17 06:38] LABS: % IMMATURE GRANULYOCYTES 0.7 % (0.0-1.1); ABSOLUTE IMMATURE GRANULOCYTES 0.05 10^3/uL (0.00-0.10); ADD DIFF? NO; ADD MORPH? NO; ADD SCAN? NO; ATYPICAL LYMPHOCYTE FLAG 10 (0-99); FRAGMENT RBC FLAG 0 (0-99); HEMATOCRIT 20.6 % (38.0-47.0); HEMOGLOBIN 7.2 g/dL (12.6-16.3); LEFT SHIFT FLG 0 (0-99); LIPEMIA HEMOLYSIS FLAG 90 (0-99); MEAN CELL HEMOGLOBIN 30.3 pg (27.9-34.1); MEAN CELL VOLUME 86.6 fL (81.5-99.8); MEAN PLATELET VOLUME 10.6 fL (8.7-11.7); PLATELET CLUMPS FLAG 10 (0-99); PLATELET COUNT 145 10^3/uL (150-400); RED BLOOD CELL COUNT 2.38 10^6/uL (4.18-5.33); RED CELL DISTRIBUTION WIDTH 13.3 % (11.5-15.2)
[2016-08-17 06:45] LABS: ALANINE AMINOTRANSFERASE 34 IU/L (9-52); ALBUMIN 1.7 g/dL (3.5-5.0); ALKALINE PHOSPHATASE 33 IU/L (38-126); ANION GAP 2 mEq/L (8-16); ASPARTATE AMINOTRANSFERASE 18 IU/L (14-46); BILIRUBIN,TOTAL 0.1 mg/dL (0.1-1.4); CARBON DIOXIDE 19 mEq/l (22-31); CHLORIDE 96 mEq/L (97-110); CREATININE 0.5 mg/dL (0.6-1.0); GLOMERULAR FILTRATION RATE > 60; GLUCOSE 102 mg/dL (70-100); POTASSIUM 3.7 mEq/L (3.5-5.2); TOTAL PROTEIN 3.5 g/dL (6.3-8.2)
[2016-08-17 06:58] LABS: SODIUM 117 mEq/L (134-144)
[2016-08-17 07:02] LABS: INR 2.36 (0.83-1.16)
[2016-08-17] MEDS: PHENobarbital 30 MG TAB PO SCH (08:26)
[2016-08-17] MEDS: OXYBUTYNIN CHLORIDE 5 MG TAB PO SCH ×3 (08:27→22:16)
[2016-08-17] MEDS: levETIRAcetam 500 MG TAB PO SCH ×2 (08:27→20:39)
[2016-08-17] MEDS: ASPIRIN EC 81 MG TAB PO SCH (08:27)
[2016-08-17 09:38] LABS: ANION GAP 1 mEq/L (8-16); CALCIUM 7.1 mg/dL (8.5-10.4); CARBON DIOXIDE 21 mEq/l (22-31); CHLORIDE 97 mEq/L (97-110); CREATININE 0.4 mg/dL (0.6-1.0); GLOMERULAR FILTRATION RATE > 60; GLUCOSE 101 mg/dL (70-100); POTASSIUM 3.9 mEq/L (3.5-5.2)
[2016-08-17] MEDS ORDERED: REGADENOSON 0.4 MG/5 ML SYR IVP ONE (09:43)
[2016-08-17 09:46] LABS: SODIUM 119 mEq/L (134-144)
[2016-08-17 09:47] LABS: % SATURATION 15 % (20-55); TOTAL IRON BINDING CAPACITY 176 ug/dL (260-490)
[2016-08-17 10:14] LABS: FERRITIN - BCH 26.6 ng/mL (6.2-264.0)
--- NOTE | 2016-08-17 10:29 | CPR ---
[f rep st] NONINVASIVE CARDIAC PROCEDURE REPORT DATE OF PROCEDURE: 08/17/2016 PROCEDURE: Nuclear Lexiscan stress test. REASON FOR TEST: Chest pain. RESTING PORTION: EKG shows a sinus rhythm with a rate of 74, late R-wave progression in anterior le ads. No ischemic changes noted. Resting blood pressure 116/68, oxygen saturation 96. STRESS PORTION: Lexiscan was injected rapidly followed by saline flush. Cardiolite was injected fo llowed by saline flush. She had no symptoms related to the infusion of Lexiscan. Her EKG remained stable. There were no ischemic changes noted. Her heart rate appropriately went up with the infusi on. Stress blood pressure 112/72, heart rate 86, peaked at 88, oxygen saturation 94%. Resting EKG remained stable. Resting heart rate 88, blood pressure 114/70, oxygen saturation 94%. She remained asymptomatic throughout the test. At this time, she currently is stable for nuclear im aging. /[id number]/MODL
[2016-08-17] MEDS: PANTOPRAZOLE SODIUM 40 MG in NS 100 ML IV SCH ×2 (12:11→20:41)
--- NOTE | 2016-08-17 13:35 | GCON ---
[f rep st] CONSULTATION NEPHROLOGY CONSULTATION DATE OF CONSULTATION: 08/17/2016 REASON FOR CONSULTATION: Hyponatremia. HISTORY OF PRESENT ILLNESS: This is an unfortunate 65-year-old female whose past medical history is dominated primarily from a spinal cord injury and bilateral leg amputations. She presented to [facility] on the due to lower abdominal pain as well as cramping. History is obtai demarco from the medical records as well as the medical staff. The patient is presently not a good hist orian. Because of her abdominal pain, she presented to the emergency room on the . At the time of her p resentation, her systolic blood pressure was 90 and her sodium level was 119. Her creatinine was 0. 6. During the course of her evaluation, she has been noted to have a urinary tract infection. She does have an indwelling Sandhu catheter. She also has had imaging of her abdomen. 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 Her right kidney was atrophic, and her left kidne y had cortical scarring. There was no comment on her adrenal glands. Her bladder was decompressed and she did not have hydronephrosis. At the time of admission, her serum sodium was low at 119. It gradually improved up to a level of 1 25, but since then has decreased. Her most recent reading is up to 119 from 117 earlier today. TSH is normal. Cortisol level is pending. The patient appears to be having GI bleeding. She has been somewhat hypotensive at times and hypert ensive other times. Presently, her blood pressure is improved. It is running around 130/100. Rela ting to the above findings, we were asked by Dr. Snell to assist in the patient's renal diagnosis and management. PAST MEDICAL HISTORY: 1. 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 2. Seizure disorder. 3. Spinal cord injury. PAST SURGICAL HISTORY: 1. Surgeries as noted above. 2. Suprapubic catheter. FAMILY HISTORY: Noncontributory. SOCIAL HISTORY: The patient does live at home and has assistance in place. She does not smoke ciga rettes or drink alcohol. REVIEW OF SYSTEMS: She denies fevers or chills. She does have occasional headaches. She denies a visual problem. She denies rhinitis or sore throat. She denies cough or shortness of breath. She denies chest pain or palpitations. She has abdominal pain. She does not have a history of diabetes or thyroid disease. PHYSICAL EXAM: GENERAL: At the time of exam, the patient is alert. Her voice is somewhat hoarse a nd soft. She is somewhat tangential in her answers to questions. VITAL SIGNS: Blood pressure 141/ 100, mean arterial pressure 113. HEENT: Eyes: Sclerae clear. Oropharynx: Clear. NECK: No lymp hadenopathy or thyromegaly. LUNGS: Clear to auscultation bilaterally. CARDIOVASCULAR: Tachycardi c. ABDOMEN: Soft, nontender. Suprapubic noted in place. EXTREMITIES: The patient has a very sma ll portion of her left lower extremity left. She has essentially a right-sided disarticulation. NE URO: No focal findings are noted, although this is somewhat difficult to assess. LABORATORY DATA: White count 6.68, hematocrit 20.6, platelets 145. Sodium 119, potassium 3.9, chlo ride 97, creatinine 0.4. Iron saturation 15%. Albumin 1.7. IMPRESSION AND PLAN: 1. Hyponatremia. The patient presented with severe hyponatremia, and she once again has become mor e hyponatremic. There could be several issues relating to this. First, she has had some element of past hyponatremia with a sodium level noted in May. Next, she may have hemodynamically release d ADH relating to gastrointestinal bleeding and hypovolemia. The patient has poor solute intake. F inally, the patient states she does drink large amounts of water. For now, I believe she will corre ct slowly. We will place her on a fluid restriction. Her volume disturbances will be corrected. W e will continue to follow her sodium levels in a serial fashion. Long-term maintenance will need to ensure further evaluation of her cause of hyponatremia and ensure she has complete resolution. How ever, I think it mainly will require a balance between her solute intake and water intake. 2. Gastrointestinal bleeding and CT abnormality. She does need further evaluation of her sigmoid c olon. She is receiving a transfusion at present. She does require chronic anticoagulation. 3. Malnutrition. The patient has an albumin level of 1.7. This will need to be addressed. I woul d like to see her on protein supplementation, which will also help with her hyponatremia. 4. Urinary tract infection. This is somewhat difficult to determine if she has an infection or col onization. We will continue to monitor. 5. Labile blood pressures. The patient did have some hypertensive spikes earlier. The patient may have the physiology of a paraplegic. She may be having pain deriving from bowel or bladder. It is not sensed, but it is causing autonomic discharge. I believe further evaluation is going to be low yield, but we will continue to follow and monitor as needed. A 24-hour urine has been initiated. She may have some element of renovascular disease. I will see if her CT with contrast revealed any clues of this. Thank you for allowing us to participate in this lady's care. We will continue to follow along stephany leonard with you. /[id number]/MODL
--- NOTE | 2016-08-17 15:06 | HOSPPROG ---
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 During hospitalization she has had very labile blood pressures ranging from a systolic of 60 up to 200 without specific treatment. She is relatively asymptomatic with these blood pressure fluctuations except she does feel like she gets flushed and hot at times. She denies any headache chest pain or shortness of breath. She has had slightly elevated troponins. 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 These changes typically occur while she is in bed. Her erratic blood pressure could also be results of sympathetic response to pain that she is unaware of due to her spinal cord injury * Monitor blood pressure and would not treat specifically unless she has symptoms * Will rule out other causes such as PHeo or carcinoid or [place]'s. Her a.m. cortisol was normal * Attempt to get records from her previous neurologist. # indeterminate troponin, echocardiogram without wall motion abnormalities and no significant LVH. Will continue to monitor and consider Lexiscan while she is here to rule out acute ischemia. I suspect this is from her fluctuating blood pressures. * Adenosine stress test showed no ischemia but they were not able to visualize the inferior wall * Her troponins have been flat and her echo is normal, will treat medically # anemia: Acute drop over the last 2 days relatively asymptomatic. Patient has had no hematemesis or black stools. She did receive a L of fluid and given her small body habitus I wonder if this is all dilutional. * Will transfuse slowly 1 unit possibly stopping at half the unit if she develops any symptoms * Check iron studies vitamin B12 and monitor * Hold her warfarin until her H&H stable * If her H&H remained stable, can proceed with outpatient workup in the meantime will start her on a proton pump inhibitor # history of bilateral DVT status post leg amputation, on Coumadin with supratherapeutic INR on admission currently between 2 and 3 however will hold until we know her H&H is stable # unstageable coccyx ulcers wound care following # epilepsy on Keppra and phenobarb # abdominal pain, improving today, will continue treatment for possible UTI as well as bowel protocol # complicated UTI with chronic indwelling Sandhu catheter. Will transition to ampicillin for enterococcus infection # hyponatremia significantly lower today. Patient was drinking fluids yesterday and also is quite anemic. Will follow up sodium tomorrow after unit of blood is given and continue fluid restriction. Appreciate Nephrology follow- up. Subjective: No symptoms today. His abdominal pain is better Objective: Vital Signs Temp Pulse Resp BP Pulse Ox 36.4 C 116 H 16 141/100 H 86 L 08/17/16 11:14 08/17/16 11:14 08/17/16 11:14 08/17/16 11:14 08/17/16 12:16 Laboratory Results 08/17/16 06:25 08/17/16 08:30 08/16/16 08/17/16 08/18/16 05:59 05:59 05:59 Intake Total 2275 650 300 Output Total 1600 950 300 Balance 675 -300 0 PT 26.0 SEC (12.0-15.0) H 08/17/16 06:25 INR 2.36 (0.83-1.16) H 08/17/16 06:25 - Physical Exam Constitutional: chronically ill appearing, uncomfortable Eyes: PERRL, anicteric sclera, EOMI Ears, Nose, Mouth, Throat: moist mucous membranes Cardiovascular: regular rate and rhythym, no murmur, rub, or gallop Respiratory: no respiratory distress, clear to auscultation, reduced air movement Gastrointestinal: normoactive bowel sounds, tenderness (Very mild without rebound or guarding), No ascites Genitourinary: no bladder fullness Skin: warm, No erythema Musculoskeletal: other (Bilateral lower extremity amputation) Neurologic: AAOx3 Psychiatric: interacting appropriately ICD10 Worksheet Patient Problems: Problems Problem Status Onset Lower abdominal pain Acute Urinary tract infection Acute Hyponatremia Acute Abnormality of colon Acute
[2016-08-17 17:19] LABS: RANDOM URINE POTASSIUM 30.6 mEq/L (0.5-35.0)
[2016-08-17 17:27] LABS: HEMATOCRIT 33.2 % (38.0-47.0)
[2016-08-17 18:03] LABS: ANION GAP 7 mEq/L (8-16); CALCIUM 7.8 mg/dL (8.5-10.4); CARBON DIOXIDE 21 mEq/l (22-31); CHLORIDE 92 mEq/L (97-110); CREATININE 0.6 mg/dL (0.6-1.0); GLOMERULAR FILTRATION RATE > 60; GLUCOSE 109 mg/dL (70-100); POTASSIUM 4.4 mEq/L (3.5-5.2); SODIUM 120 mEq/L (134-144)
[2016-08-17 18:26] LABS: FERRITIN - BCH 31.4 ng/mL (6.2-264.0)
--- NOTE | 2016-08-17 19:09 | WOCRNPDOC ---
[facility] Advanced Assessment Note - Skin Integrity Problem, Advanced Assess Buttock Dressing Type: Allevyn Life (small ) Dressing Description: Clean/Dry, Intact Exudate Color: Clear Exudate Characteristic(s): Serous (probably liquified Therahoney gel) Integumentary Issue Intervention: Dressing Changed, Dressing Initialed & Dated Anastasia Wound Tissue: Erythema, Non-blanching Anastasia Wound Swelling: None Wound Bed Color: Red, Yellow Wound Bed Constitution: Granulation Tissue, Adhered Slough Wound Edges: Well Defined Site Odor: None Site Measurement - Head-to-Toe Length X Width X Depth (cm): coccyx: 2.8 x 0.8 x 0.4. coccyx @ right: 1 x 0.5 x 0.2 Pressure Injury Stage: Unstageable Skin Integrity Problem Comment: Appearance at this assessment is consistent with [facility] description of 08/15. Continuing plan of care as ordered at that time. Assisted patient with turn to rest on left side after dressing change. Report to RAND Ochoa.
[2016-08-18] MEDS: BISMUTH SUBSALICYLATE 262 MG CHEWABLE TAB PO PRN (00:36)
[2016-08-18 00:43] LABS: HEMATOCRIT 23.7 % (38.0-47.0); HEMOGLOBIN 8.5 g/dL (12.6-16.3)
[2016-08-18 05:55] LABS: HEMATOCRIT 24.1 % (38.0-47.0); HEMOGLOBIN 8.6 g/dL (12.6-16.3)
[2016-08-18 06:05] LABS: INR 2.01 (0.83-1.16); PROTIME(PATIENT) 22.9 SEC (12.0-15.0)
[2016-08-18] MEDS: OXYBUTYNIN CHLORIDE 5 MG TAB PO SCH ×3 (09:20→21:37)
[2016-08-18] MEDS: ASPIRIN EC 81 MG TAB PO SCH (09:20)
[2016-08-18] MEDS: levETIRAcetam 500 MG TAB PO SCH ×2 (09:20→21:36)
[2016-08-18] MEDS: PHENobarbital 30 MG TAB PO SCH (09:20)
[2016-08-18] MEDS: PANTOPRAZOLE SODIUM 40 MG in NS 100 ML IV SCH ×2 (09:21→21:36)
[2016-08-18] MEDS: ONDANSETRON DISINTEGRATING 4 MG TAB PO PRN (09:30)
[2016-08-18 10:04] LABS: ANION GAP 3 mEq/L (8-16); CALCIUM 7.2 mg/dL (8.5-10.4); CARBON DIOXIDE 22 mEq/l (22-31); CHLORIDE 94 mEq/L (97-110); CREATININE 0.5 mg/dL (0.6-1.0); GLOMERULAR FILTRATION RATE > 60; GLUCOSE 87 mg/dL (70-100); POTASSIUM 3.8 mEq/L (3.5-5.2)
[2016-08-18 10:09] LABS: SODIUM 119 mEq/L (134-144)
[2016-08-18 11:55] LABS: HEMATOCRIT 25.4 % (38.0-47.0); HEMOGLOBIN 8.9 g/dL (12.6-16.3)
--- NOTE | 2016-08-18 12:10 | HOSPPROG ---
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 During hospitalization she has had very labile blood pressures ranging from a systolic of 60 up to 200 without specific treatment. She is relatively asymptomatic with these blood pressure fluctuations except she does feel like she gets flushed and hot at times. She denies any headache chest pain or shortness of breath. She has had slightly elevated troponins. 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 These changes typically occur while she is in bed. Her erratic blood pressure could also be results of sympathetic response to pain that she is unaware of due to her spinal cord injury * Monitor blood pressure and would not treat specifically unless she has symptoms * Will rule out other causes such as PHeo or carcinoid or [place]mer's. Her a.m. cortisol was normal * Attempt to get records from her previous neurologist. # indeterminate troponin, echocardiogram without wall motion abnormalities and no significant LVH. Will continue to monitor and consider Lexiscan while she is here to rule out acute ischemia. I suspect this is from her fluctuating blood pressures. * Adenosine stress test showed no ischemia but they were not able to visualize the inferior wall * Her troponins have been flat and her echo is normal, will treat medically * No CP, palpitations, or SOB at this time # anemia: Etiology unclear. Acute drop over the last 2 days relatively asymptomatic. Patient has had no hematemesis or black stools. * s/p transfusion of 1 unit 4/4 * iron studies and vitamin B12 unrevealing * Hold her warfarin until her H&H stable * Will cont serial H/H * Cont PPI BID # history of bilateral DVT status post leg amputation, on Coumadin with supratherapeutic INR on admission currently between 2 and 3 however will hold until we know her H&H is stable # unstageable coccyx ulcers wound care following # epilepsy on Keppra and phenobarb # abdominal pain, improving today, will continue treatment for possible UTI as well as bowel protocol # Acute complicated UTI with chronic indwelling Sandhu catheter. Will transition to ampicillin for enterococcus infection # hyponatremia, etiology is unclear. Urine studies consistent with appropriate retention of Na. Renal is following. On Fluid restriction. Plan: -She appears Hemodynamically stable -Cont PPI BID -Cont Serial H/H -Repeat Na and Hgb this afternoon. -await Renal reccs -Optimize Nutrition: order pediatrics physician Subjective: denies cp, sob, n/v/abd pain. VSS. First encounter with this patient Objective: Vital Signs Temp Pulse Resp BP Pulse Ox 36.7 C 86 19 83/56 L 96 08/18/16 11:38 08/18/16 11:38 08/18/16 11:38 08/18/16 11:38 08/18/16 11:38 Microbiology 08/15/16 12:30 Urine Culture - Final Urine,Catheterized Enterococcus Faecalis Pseudomonas Aeruginosa Laboratory Results 08/18/16 11:52 08/17/16 08/18/16 08/19/16 05:59 05:59 05:59 Intake Total 650 1950 Output Total 950 700 Balance -300 1250 PT 22.9 SEC (12.0-15.0) H 08/18/16 05:30 INR 2.01 (0.83-1.16) H 08/18/16 05:30 - Physical Exam Constitutional: no apparent distress, appears nourished, not in pain Eyes: PERRL, anicteric sclera, EOMI Ears, Nose, Mouth, Throat: moist mucous membranes, ears appear normal Cardiovascular: regular rate and rhythym, No JVD, No edema Respiratory: no respiratory distress, no rales or rhonchi, clear to auscultation Gastrointestinal: normoactive bowel sounds, soft, non-tender abdomen, No tenderness Genitourinary: no bladder fullness Skin: warm, normal color Neurologic: AAOx3 Psychiatric: interacting appropriately, not anxious ICD10 Worksheet Patient Problems: Problems Problem Status Onset Abnormality of colon Acute Hyponatremia Acute Lower abdominal pain Acute Urinary tract infection Acute
[2016-08-18 12:35] LABS: CALCIUM 7.2 mg/dL (8.5-10.4); CARBON DIOXIDE 20 mEq/l (22-31); CHLORIDE 93 mEq/L (97-110); CREATININE 0.4 mg/dL (0.6-1.0); GLOMERULAR FILTRATION RATE > 60; GLUCOSE 121 mg/dL (70-100); POTASSIUM 3.9 mEq/L (3.5-5.2)
[2016-08-18 12:46] LABS: ANION GAP 5 mEq/L (8-16)
[2016-08-18 12:50] LABS: SODIUM 118 mEq/L (134-144)
[2016-08-18] MEDS: BISACODYL 10 MG SUPP PR PRN (17:36)
--- NOTE | 2016-08-18 22:50 | SOAPPROG ---
SOAP Progress Note Assessment/Plan: Assessment: 1. Hyponatremia. Na back down to 118 at noon today. TSH, cortisol nl. Ur Na only 13, osm 545. Likely SIADH but low Ur Na and initial response to saline suggest possible hemodynamic issue. Will start by adding Na tabs. May need to tighten FR. Consider NS bolus again tomorrow. 2. Abdominal pain. CT showed rectosigmoid wall thickening. Will need GI/ endoscopic eval. H/h fairly stable right now. 3. UTI. Primarily enterococcus, sens to amp. Continue amox. Has SPC. 4. Labile BP. Possible neurogenic related to spinal cord injury. Running on low side. May need addl volume. Plan: 08/18/16 22:48 08/18/16 22:49 08/18/16 22:49 08/18/16 22:50 08/18/16 22:56 08/18/16 22:57 08/18/16 22:58 08/18/16 22:59 08/18/16 22:59 08/18/16 23:00 08/18/16 23:01 Subjective: C/o pain on her bottom. O/w no complaints. Objective: Vital Signs Temp Pulse Resp BP Pulse Ox 36.8 C 80 18 83/54 L 80 L 08/18/16 20:00 08/18/16 20:00 08/18/16 20:00 08/18/16 20:00 08/18/16 20:00 Microbiology 08/15/16 12:30 Urine Culture - Final Urine,Catheterized Enterococcus Faecalis Pseudomonas Aeruginosa Laboratory Results 08/18/16 11:52 08/18/16 11:52 08/17/16 08/18/16 08/19/16 05:59 05:59 05:59 Intake Total 650 1950 350 Output Total 950 700 350 Balance -300 1250 0 PT 22.9 SEC (12.0-15.0) H 08/18/16 05:30 INR 2.01 (0.83-1.16) H 08/18/16 05:30 Hoarse voice, mildly dyspneic wf in bed RRR, no m/b/r CTAB Abdom soft, nt Bilat leg amputations at hips ICD10 Worksheet Patient Problems: Problems Problem Status Onset Lower abdominal pain Acute Urinary tract infection Acute Hyponatremia Acute Abnormality of colon Acute
[2016-08-18] MEDS: SODIUM CHLORIDE 1,000 MG TAB PO SCH (23:37)
[2016-08-19 06:39] LABS: % IMMATURE GRANULYOCYTES 2.4 % (0.0-1.1); ABSOLUTE IMMATURE GRANULOCYTES 0.18 10^3/uL (0.00-0.10); ADD DIFF? NO; ADD MORPH? NO; ADD SCAN? NO; ATYPICAL LYMPHOCYTE FLAG 30 (0-99); FRAGMENT RBC FLAG 0 (0-99); HEMATOCRIT 29.7 % (38.0-47.0); HEMOGLOBIN 10.7 g/dL (12.6-16.3); LEFT SHIFT FLG 20 (0-99); LIPEMIA HEMOLYSIS FLAG 90 (0-99); MEAN CELL HEMOGLOBIN 30.6 pg (27.9-34.1); MEAN CELL VOLUME 84.9 fL (81.5-99.8); PLATELET CLUMPS FLAG 0 (0-99); PLATELET COUNT 237 10^3/uL (150-400); RED CELL DISTRIBUTION WIDTH 14.3 % (11.5-15.2)
[2016-08-19 06:59] LABS: INR 1.23 (0.83-1.16); PROTIME(PATIENT) 15.5 SEC (12.0-15.0)
[2016-08-19 07:46] LABS: ANION GAP 5 mEq/L (8-16); CARBON DIOXIDE 23 mEq/l (22-31); CHLORIDE 91 mEq/L (97-110); CREATININE 0.5 mg/dL (0.6-1.0); GLOMERULAR FILTRATION RATE > 60; GLUCOSE 90 mg/dL (70-100); POTASSIUM 4.1 mEq/L (3.5-5.2)
[2016-08-19] MEDS: levETIRAcetam 500 MG TAB PO SCH ×2 (08:14→20:17)
[2016-08-19] MEDS: SODIUM CHLORIDE 1,000 MG TAB PO SCH ×3 (08:14→18:29)
[2016-08-19] MEDS: PHENobarbital 30 MG TAB PO SCH (08:14)
[2016-08-19] MEDS: ASPIRIN EC 81 MG TAB PO SCH (08:14)
[2016-08-19] MEDS: OXYBUTYNIN CHLORIDE 5 MG TAB PO SCH ×3 (08:15→20:18)
[2016-08-19] MEDS: PANTOPRAZOLE SODIUM 40 MG in NS 100 ML IV SCH (08:23)
[2016-08-19 08:37] LABS: SODIUM 119 mEq/L (134-144)
--- NOTE | 2016-08-19 11:20 | SOAPPROG ---
SOAP Progress Note Assessment/Plan: Assessment: 1. Labile hemodynamics Seem better. 2. Anemia Stable, monitor 3. Severe hyponatremia Expect slow improvement on fluid restriction and NaCl orally 4. Cardiac Trop excursion, nuc study ok 5. Treating for enteroccus in urine Plan: 08/19/16 11:17 Subjective: Stable, no pain, no complaints Objective: Vital Signs Temp Pulse Resp BP Pulse Ox 37.0 C 85 16 110/81 H 93 08/19/16 07:52 08/19/16 07:52 08/19/16 07:52 08/19/16 07:52 08/19/16 07:52 Microbiology 08/15/16 12:30 Urine Culture - Final Urine,Catheterized Enterococcus Faecalis Pseudomonas Aeruginosa Laboratory Results 08/19/16 06:30 08/19/16 06:30 08/18/16 08/19/16 08/20/16 05:59 05:59 05:59 Intake Total 1950 500 Output Total 700 725 Balance 1250 -225 PT 15.5 SEC (12.0-15.0) H 08/19/16 06:30 INR 1.23 (0.83-1.16) H 08/19/16 06:30 Physical Exam - Physical Exam General Appearance: no apparent distress Respiratory: lungs clear Cardiac/Chest: regular rate, rhythm Pelvic Exam: other (suprapubic) Extremities: other (no hip edema) Neuro/Psych: alert ICD10 Worksheet Patient Problems: Problems Problem Status Onset Abnormality of colon Acute Hyponatremia Acute Lower abdominal pain Acute Urinary tract infection Acute
--- NOTE | 2016-08-19 13:41 | WOCRNPDOC ---
WOCRN Advanced Assessment Note - Skin Integrity Problem, Advanced Assess Buttock Dressing Type: Allevyn Life, Honey Gel, Telfa Dressing Description: Soiled Exudate Amount: Scant Exudate Color: Yellow (liquified Therahoney gel) Exudate Characteristic(s): Clear Integumentary Issue Intervention: Dressing Changed, Dressing Initialed & Dated Anastasia Wound Tissue: Erythema, Non-blanching Anastasia Wound Swelling: None Wound Bed Color: Red, Yellow Wound Bed Constitution: Granulation Tissue (15-20%), Adhered Slough (approx 80- 85%) Site Odor: None Skin Integrity Problem Comment: RAND Chery and aide on hand to assist w/anastasia care of soiling. Adherent slough occluding wound bases appears to be lessening in thickness of coverage. An opening through the slough in the larger wound reveals a spot of red, granular-appearing tissue. After a NS and gauze cleansing , skin prep was applied to intact periwounds, therahoney gel was applied to base , covered by Telfa, secured with an Allevyn sacrum dressing. Tx to continue with weekly monitoring by Wound Care.
[2016-08-19 15:13] LABS: COLLECTION DURATION VMA 24 h; URINE VOLUME VMA 825 mL; VANILLYLMANDELIC ACID URINE 5.3 mg/24 h (<8.0)
[2016-08-19 16:24] LABS: ANION GAP 2 mEq/L (8-16); CALCIUM 7.1 mg/dL (8.5-10.4); CARBON DIOXIDE 24 mEq/l (22-31); CHLORIDE 94 mEq/L (97-110); CREATININE 0.5 mg/dL (0.6-1.0); GLOMERULAR FILTRATION RATE > 60; GLUCOSE 127 mg/dL (70-100); POTASSIUM 3.5 mEq/L (3.5-5.2); SODIUM 120 mEq/L (134-144)
[2016-08-19] MEDS ORDERED: PANTOPRAZOLE SODIUM 40 MG TAB PO ONE (16:39)
--- NOTE | 2016-08-19 16:39 | HOSPPROG ---
Hospitalist Progress Note Assessment/Plan: # labile hemodynamics likely d/t autonomic dysregulation # elevated trop - davon non-diagnostic - cards c/s - discussed with Dr Ortiz # colon wall thickening/Fe defic anemia - needs colonoscopy - I have placed a call to GI - s/p 1U PRBC transfusion - change to daily PO PPI # hypoNa - low Zara - fluid restrict, salt tabe # hx bilat LE amputations - she tells me venous clots but the H&P states arterial - hold warfarin, start lovenox # enterococcus UTI - initially treated with rocephin, now on amoxicillin # seizure d/o - phenobarb, keppra # unstageable coccyx ulcers ## chart reviewed discussed with Dr Ortiz - she will c/s Subjective: abd pain better Objective: Vital Signs Temp Pulse Resp BP Pulse Ox 36.3 C 71 17 87/47 L 91 L 08/19/16 15:29 08/19/16 15:29 08/19/16 15:29 08/19/16 15:50 08/19/16 15:29 Laboratory Results 08/19/16 06:30 08/19/16 15:55 08/18/16 08/19/16 08/20/16 05:59 05:59 05:59 Intake Total 1950 500 225 Output Total 700 725 Balance 1250 -225 225 PT 15.5 SEC (12.0-15.0) H 08/19/16 06:30 INR 1.23 (0.83-1.16) H 08/19/16 06:30 - Physical Exam Constitutional: no apparent distress, appears nourished Cardiovascular: regular rate and rhythym, systolic murmur, No irregularly irregular, No diastolic murmur Respiratory: no respiratory distress, no rales or rhonchi, clear to auscultation Gastrointestinal: normoactive bowel sounds, soft, non-tender abdomen, no palpable masses Musculoskeletal: other (bilat LE amputations) ICD10 Worksheet Patient Problems: Problems Problem Status Onset Lower abdominal pain Acute Urinary tract infection Acute Hyponatremia Acute Abnormality of colon Acute
[2016-08-19] MEDS: ENOXAPARIN 40 MG/0.4 ML SYR SC SCH (20:18)
[2016-08-20 05:51] LABS: ADD DIFF? YES; ADD MORPH? NO; ADD SCAN? NO; ATYPICAL LYMPHOCYTE FLAG 30 (0-99); FRAGMENT RBC FLAG 0 (0-99); HEMATOCRIT 26.3 % (38.0-47.0); HEMOGLOBIN 9.4 g/dL (12.6-16.3); LEFT SHIFT FLG 30 (0-99); LIPEMIA HEMOLYSIS FLAG 90 (0-99); MEAN CELL HEMOGLOBIN 30.9 pg (27.9-34.1); MEAN CELL HEMOGLOBIN CONCENTR. 35.7 g/dL (32.4-36.7); MEAN CELL VOLUME 86.5 fL (81.5-99.8); MEAN PLATELET VOLUME 10.6 fL (8.7-11.7); PLATELET CLUMPS FLAG 0 (0-99); PLATELET COUNT 204 10^3/uL (150-400); RED BLOOD CELL COUNT 3.04 10^6/uL (4.18-5.33); RED CELL DISTRIBUTION WIDTH 14.4 % (11.5-15.2)
[2016-08-20 06:04] LABS: INR 1.17 (0.83-1.16); PROTIME(PATIENT) 14.9 SEC (12.0-15.0)
[2016-08-20 06:23] LABS: PLATELET ESTIMATE ADEQUATE (ADEQ); POLYCHROMASIA 1+
[2016-08-20] MEDS: ONDANSETRON DISINTEGRATING 4 MG TAB PO PRN (06:24)
[2016-08-20] MEDS: ONDANSETRON 4 MG/2 ML VIAL IVP PRN (07:22)
[2016-08-20] MEDS: SODIUM CHLORIDE 1,000 MG TAB PO SCH ×3 (07:22→17:28)
[2016-08-20] MEDS: PHENobarbital 30 MG TAB PO SCH (07:39)
[2016-08-20] MEDS: ENOXAPARIN 40 MG/0.4 ML SYR SC SCH ×2 (08:33→21:08)
[2016-08-20] MEDS: levETIRAcetam 500 MG TAB PO SCH ×2 (08:33→21:08)
[2016-08-20] MEDS: ASPIRIN EC 81 MG TAB PO SCH (08:33)
[2016-08-20] MEDS: OXYBUTYNIN CHLORIDE 5 MG TAB PO SCH ×3 (08:33→21:08)
[2016-08-20 10:01] LABS: 5-HYDROXYINDOLEACETIC ACID UR 5.4 mg/24 h (<=8.0); COLLECTION DURATION 24 h; URINE VOLUME 825 mL
--- NOTE | 2016-08-20 10:15 | HOSPPROG ---
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 During hospitalization she has had very labile blood pressures ranging from a systolic of 60 up to 200 without specific treatment. She is relatively asymptomatic with these blood pressure fluctuations except she does feel like she gets flushed and hot at times. She denies any headache chest pain or shortness of breath. She has had slightly elevated troponin. Today is my first encounter w the patient/ chart reviewed. Discussed her care with Dr Annie Ortiz (cardiology) and Dr Pankaj Klein (with nephrology). # labile hemodynamics likely d/t autonomic dysregulation bp stable # indeterminate troponin, echocardiogram without wall motion abnormalities and no significant LVH. davon scan non diagnostic # Iron def anemia/colon wall thickening - spoke with GI physician who will see [place] - colonoscopy in apr 2016/rectal ulcers due to constipation (left report in chart) - s/p 1U PRBC transfusion - change to daily PO PPI - needs further evaluation by GI / cont to bleed - has 2 positive heme stools # history of bilateral DVT status post leg amputation -on Lovenox /treatment dose -Coumadin on hold due to concern of bleeding # unstageable coccyx ulcers wound care following # seizure d/o - phenobarb, keppra # constipation -check an abd xray/ patient has been having some abdominal discomfort -add lactulose # complicated UTI with chronic indwelling Sandhu catheter. Will transition to ampicillin for enterococcus infection # hyponatremia -slowly improving / on fluid restriction #Plan: cont supportive management/ suspect much of her abdominal pain is from constipation. Subjective: [place] has no specific complaints. Objective: Vital Signs Temp Pulse Resp BP Pulse Ox 36.4 C 76 18 122/86 H 95 08/20/16 07:00 08/20/16 07:00 08/20/16 07:00 08/20/16 07:00 08/20/16 07:00 Laboratory Results 08/20/16 05:00 08/19/16 15:55 08/19/16 08/20/16 08/21/16 05:59 05:59 05:59 Intake Total 500 775 Output Total 725 750 Balance -225 25 PT 14.9 SEC (12.0-15.0) 08/20/16 05:00 INR 1.17 (0.83-1.16) H 08/20/16 05:00 - Physical Exam Constitutional: no apparent distress, appears nourished, chronically ill appearing Eyes: PERRL Ears, Nose, Mouth, Throat: hearing normal Cardiovascular: regular rate and rhythym Respiratory: no respiratory distress Gastrointestinal: normoactive bowel sounds, distension (slight) Genitourinary: other (suprapubic catheter) Skin: warm, normal color Musculoskeletal: other (no lower extremities) Neurologic: AAOx3 Psychiatric: interacting appropriately, not anxious, not encephalopathic ICD10 Worksheet Patient Problems: Problems Problem Status Onset Abnormality of colon Acute Hyponatremia Acute Lower abdominal pain Acute Urinary tract infection Acute
--- NOTE | 2016-08-20 10:49 | GCON ---
[f rep st] CONSULTATION CARDIOLOGY CONSULTATION DATE OF CONSULTATION: 08/20/2016 CHIEF COMPLAINT: Positive troponin. HISTORY OF PRESENT ILLNESS: We were asked by Dr. Villalobos to visit with the patient. The patient is a 65-year-old female who has had an unfortunate history of spinal cord injury as well as bilateral lower extremity amputations. The latter was apparently due to embolic phenomenon. We do not have t he detailed history around this. She also has a seizure disorder and chronic hyponatremia as well a s an indwelling Sandhu catheter. She was admitted on August 14 with abdominal pain. She was found to have an enterococcal UTI, signi ficant iron-deficiency anemia with fecal blood testing positive. Her abdominal CT is abnormal, show ing thickening of the rectosigmoid, concerning for neoplasm. She has received a transfusion. She h as been seen by [facility] for her hyponatremia, which appears to be multifactorial, and her blood pressu re has been labile. With all of this, she was found to have a troponin of 0.2. She did have an echocardiogram, which I reviewed. Overall normal LV size and systolic function. No regional wall motion abnormalities. Moderate mitral regurgitation. She also had a nuclear stress test, which I personally reviewed. There is significant bowel artifact present on the stress images which limits interpretation of the inferolateral wall. However, I do not think that there is signi ficant ischemic myocardium. The patient reports that she really only notices chest discomfort if she has eaten something unusual . She states that she is short of breath all the time. In general, she seems to be a poor historia n. REVIEW OF SYSTEMS: Unable as the patient is not a good historian. ALLERGIES: Pseudoephedrine. PAST MEDICAL HISTORY: 1. 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 2. Seizure disorder. 3. Hyponatremia. 4. Anemia. 5. Cervical spine injury with autonomic dysfunction. 6. Chronic Sandhu catheter. MEDICATIONS: Keppra, multivitamin, Ditropan, phenobarbital, senna/Colace, and warfarin. SOCIAL HISTORY: The patient is single. Her mother is her primary caregiver. She does not smoke ci garettes or drink alcohol. FAMILY HISTORY: Not applicable to the current case. PHYSICAL EXAM: VITAL SIGNS: Blood pressure 122/86, heart rate 76, oxygen saturation 95% on 1 L coleman al cannula, respiratory rate is 18. She is afebrile. GENERAL: Chronically ill-appearing older fem gabriel in no acute distress. HEENT: Sclerae are clear and free of jaundice. Mucous membranes are paresh st. CARDIOVASCULAR: Regular rate and rhythm with soft systolic murmur at the apex. LUNGS: Clear to auscultation bilaterally without wheezes, rhonchi, or rales. EXTREMITIES: Bilateral lower extre mity amputations from the hips down. LABORATORY DATA: White count 4.8, hematocrit 26.3, platelets 204. INR 1.17. Sodium 120, potassium 3.5, chloride 95, bicarb 24, BUN 11, creatinine 0.5, calcium 7.1. LFTs are normal except for an al bumin that has ranged from 1.7-2.6. TSH is normal. Morning cortisol is 19, which is normal. Plasm a metanephrines are pending. Stool occult blood screen is positive. 24-hour urine is pending. Her urine sodium is low. Urinalysis shows Enterococcus faecalis. EKG reviewed by me times 2: Sinus rhythm with minimal anterior ST elevation, not consistent with is chemic pattern, likely early repolarization. Echocardiogram reviewed by me as detailed above. Nuclear stress test detailed above. Abdomen CT reviewed with radiology. 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 After this, the aorta tapers essentially to virtually no lumen. There is evidence of likely decreased trena w to the right kidney based on its small size. There is not significant atherosclerotic disease. ASSESSMENT AND PLAN: A 65-year-old female with a long medical history surrounding her cervical spin e injury and bilateral lower extremity amputations. She is admitted with abdominal pain, urinary tr act infection, and borderline positive troponin. I do not think that her troponin represents acute coronary syndrome, but likely demand ischemia in the setting of her labile blood pressure. She is n ot having anginal chest pain. EKG is not diagnostic of significant ischemia. Her nuclear stress te st appears fairly normal, as does her echocardiogram. 1. Positive troponin: No further cardiac intervention at this time. She is anticoagulated long-te rm with warfarin, currently on Lovenox. I see no indication for statin therapy. Certainly, if she has concerning chest pain, change in troponin or EKG, we could consider coronary angiogram from a ra dial approach. 2. Labile hypertension: This is likely related to autonomic dysfunction from her cervical spine in [facility]. She is not on antihypertensives, and I would avoid this at this time. 3. Abdominal pain and abnormal abdominal CT: She does have significant constipation on admission. She did have a colonoscopy at an outside institution in April with pathology from that showing n o malignancy. The case has been discussed with GI by the hospitalist. She does continue to have ir on deficiency, however. May require outpatient followup. 4. 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 Followed by Renal. 5. Bilateral lower extremity amputations: Etiology of this is not completely clear. This happened several years ago, perhaps around the time of childbirth. 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 6. Urinary tract infection and chronic Sandhu: I believe she is seeing urology. She has been treat ed with antibiotics. Thank you for allowing us to participate in this patient's care. At this point, we will sign off as there is no further cardiac intervention or evaluation. Please feel free to call with questions. /[id number]/MODL
--- NOTE | 2016-08-20 11:11 | SOAPPROG ---
SOAP Progress Note Assessment/Plan: Assessment: 1. Hyponatremia. Na 120. TSH, cortisol nl. Ur Na only 13, osm 545. Likely SIADH but low Ur Na and initial response to saline suggest possible hemodynamic issue. Would suspect low solute intake contributing. Continue Na tabs, fluid restriction. Anticipate gradual improvement. Reluctant to add demeclocycline given GI issues. Schedule ensure TID. 2. Abdominal pain. CT showed rectosigmoid wall thickening. Will need GI/ endoscopic eval at some point, would wait until Na >125. H/h fairly stable right now. 3. UTI. Primarily enterococcus, sens to amp. Continue amox. Has SPC. 4. Labile BP. Possible neurogenic related to spinal cord injury. Running on low side. May need addl volume. Plan: 08/18/16 22:48 08/18/16 22:49 08/18/16 22:49 08/18/16 22:50 08/18/16 22:56 08/18/16 22:57 08/18/16 22:58 08/18/16 22:59 08/18/16 22:59 08/18/16 23:00 08/18/16 23:01 08/20/16 11:08 08/20/16 11:09 08/20/16 11:10 08/20/16 11:11 Subjective: No complaints. Still with some abdominal pain. Objective: Vital Signs Temp Pulse Resp BP Pulse Ox 36.4 C 76 18 122/86 H 95 08/20/16 07:00 08/20/16 07:00 08/20/16 07:00 08/20/16 07:00 08/20/16 07:00 Laboratory Results 08/20/16 05:00 08/19/16 15:55 08/19/16 08/20/16 08/21/16 05:59 05:59 05:59 Intake Total 500 775 Output Total 725 750 Balance -225 25 PT 14.9 SEC (12.0-15.0) 08/20/16 05:00 INR 1.17 (0.83-1.16) H 08/20/16 05:00 Eating a small lunch In bed RRR, no m/g/r CTAB Abdom soft, mildly distended, nontender No detectable edema ICD10 Worksheet Patient Problems: Problems Problem Status Onset Lower abdominal pain Acute Urinary tract infection Acute Hyponatremia Acute Abnormality of colon Acute
--- NOTE | 2016-08-20 13:44 | GCON ---
[f rep st] CONSULTATION GASTROENTEROLOGY CONSULTATION ASSESSMENT: The patient is a 65-year-old female with a history of spinal cord injury and bilateral leg amputations, who initially presented to the hospital with hyponatremia. In addition, was found to have abnormal abdominal CT scan which showed a distal rectosigmoid 9 cm length circumferential wall thickening. Infectious inflammatory malignant etiologies were considered. She also has intermittent rectal bleeding. She had a recent colonoscopy in April of last year which showed rectal ulcers are related to constipation. Stercoral ulcers were biopsied and were negative for malignancy. Most likely, her rectal bleeding is related to constipation and stercoral ulcers. Given a normal colonoscopy in April, I think it is unlikely that she has a malignancy in her sigmoid colon. However, an infectious and inflammatory process is possible. With her low sodium, at this point I do not feel it is safe to have her undergo a colon prep or sedation. We did discuss the option of repeating a colonoscopy in the future, however, to exclude/further evaluate the findings on her recent CT scan. RECOMMENDATIONS: 1. Treatment for her constipation. 2. Consider getting abdominal x-ray, and if she is markedly constipated, to be more aggressive with her stool regimen. 3. Will follow along. CHIEF COMPLAINT: I was asked to see the patient in consultation by Dr. Steward for the chief complaint of rectal bleeding and abnormal CT scan. HISTORY OF PRESENT ILLNESS: The patient is a 65-year-old female who has a history of spinal cord injury and bilateral leg amputation secondary to embolic phenomenon, who initially presented with lower abdominal crampy pain. She was found to have a urinary tract infection which was treated with ceftriaxone. She was also found to have marked hyponatremia, as well as colonic wall thickening on CT scan. She has 9 cm abnormal area in her rectosigmoid junction. She recently had a colonoscopy in April [address] Giron which showed constipation and stercoral ulcers in the rectum. Since hospital admission, she has had some intermittent rectal bleeding, as well as labile blood pressures. Her hemoglobin is 9.4 today. Today she denies any abdominal pain. REVIEW OF SYSTEMS: CONSTITUTIONAL: Negative. HEENT: Negative. RESPIRATORY: Negative. CARDIOVASCULAR: Negative. GASTROINTESTINAL: See History of Present Illness. GENITOURINARY: Positive for Enterococcus UTI currently being treated. REPRODUCTIVE/ENDOCRINE: Negative. MUSCULOSKELETAL: Bilateral lower extremity amputations. HEMATOLOGIC/LYMPHATIC: Negative. IMMUNOLOGIC/ALLERGIC/RHEUMATOLOGIC: Negative. SKIN: Negative. NEUROLOGIC: Negative. MENTAL HEALTH: Negative. PAST MEDICAL HISTORY: 1. 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 2. Spinal cord injury. 3. Seizure disorder. FAMILY HISTORY: No family history noted related to the chief complaint. SOCIAL HISTORY: The patient lives at home and has an grooming assistant available for care giving. She does not smoke cigarettes or drink alcohol. ALLERGIES: She has no known drug allergies. MEDICATIONS: 1. Tylenol. 2. Amoxicillin. 3. Aspirin. 4. Bisacodyl. 5. TUMS. 6. Lovenox. 7. Keppra. 8. Zofran. 9. Oxybutynin. 10. Phenobarbital. 11. Salt tablet. 12. Coumadin. 13. IV pantoprazole. PHYSICAL EXAMINATION: VITAL SIGNS: Blood pressure is 153/59, heart rate 82, respirations 20, O2 saturation 94% on 1 L. She is afebrile at 36.3. GENERAL: She is awake, alert and oriented, lying in bed. HEENT: PERRLA. Oral mucosa is intact. CHEST: Clear to auscultation bilaterally. No wheezing. CARDIOVASCULAR: Regular rate and rhythm. No murmurs, rubs, or gallops. ABDOMEN: Soft, nontender, nondistended. \E\ MUSCULOSKELETAL: She has bilateral lower extremity amputations. She has full range of motion in her arms. SKIN: Gypsy, warm, well perfused. NEUROLOGIC: Grossly nonfocal. LYMPHATICS: No palpable lymph nodes. PSYCHIATRIC: Oriented x3. No mood disorder. LABORATORY: Hemoglobin 9.4, hematocrit 26, platelets 204. INR is 1.17. Sodium is 120 today, potassium 3.5, chloride 94, BUN 12, creatinine 0.5, glucose 127, calcium 7. Abdominal CT scan shows distal rectal sigmoid 9 cm circumferential wall thickening which may represent neoplasm or colitis such as infectious or inflammatory etiology. PROCEDURES: Recent colonoscopy by Dr. Giron, which showed rectal stercoral ulceration secondary to constipation. Biopsies negative for malignancy. /[id number]/MODL MTDD
[2016-08-20] MEDS: BISACODYL 10 MG SUPP PR PRN (15:48)
[2016-08-20] MEDS: LACTULOSE 20 GM/30 ML UDCUP PO PRN (21:09)
[2016-08-21 03:32] LABS: ADD DIFF? YES; ADD MORPH? NO; ADD SCAN? NO; ATYPICAL LYMPHOCYTE FLAG 20 (0-99); FRAGMENT RBC FLAG 0 (0-99); HEMATOCRIT 25.4 % (38.0-47.0); HEMOGLOBIN 8.9 g/dL (12.6-16.3); LEFT SHIFT FLG 20 (0-99); LIPEMIA HEMOLYSIS FLAG 90 (0-99); MEAN CELL HEMOGLOBIN 30.1 pg (27.9-34.1); MEAN CELL VOLUME 85.8 fL (81.5-99.8); PLATELET CLUMPS FLAG 0 (0-99); PLATELET COUNT 219 10^3/uL (150-400); RED BLOOD CELL COUNT 2.96 10^6/uL (4.18-5.33); RED CELL DISTRIBUTION WIDTH 14.5 % (11.5-15.2)
[2016-08-21 04:10] LABS: ALBUMIN 2.2 g/dL (3.5-5.0); ANION GAP 3 mEq/L (8-16); CALCIUM 7.6 mg/dL (8.5-10.4); CARBON DIOXIDE 24 mEq/l (22-31); CHLORIDE 94 mEq/L (97-110); CREATININE 0.4 mg/dL (0.6-1.0); GLOMERULAR FILTRATION RATE > 60; GLUCOSE 104 mg/dL (70-100); POTASSIUM 3.9 mEq/L (3.5-5.2); SODIUM 121 mEq/L (134-144)
[2016-08-21 04:38] LABS: MICROCYTES 1+; PLATELET ESTIMATE ADEQUATE (ADEQ)
--- NOTE | 2016-08-21 09:50 | SOAPPROG ---
SOAP Progress Note Assessment/Plan: Assessment: 1. Abnormal CT - DDx includes false positive study, ischemia, infection, inflammation, malignancy - malignancy unlikely, however, given recent colonoscopy (04/2016) 2. Heme positive stool - prior w/u of BRBPR, heme positive stool showed stercoral ulceration - could be infectious, inflammatory, ischemia too (assuming new diagnosis at play?) - no overt evidence of bleeding 3. Constipation Plan: 1. continue laxative care 2. no merit to colonoscopy at this point - infectious/inflammatory/ischemic etiologies for abn CT seem unlikely given lack of diarrhea and abdominal pain - even if one of those factors is at play, endoscopy not indicated at this point anyway - consider stool testing if diarrhea occurs - continue supportive care - colonoscopy and prep would be high risk in setting of hyponatremia - if has more clinically significant blood loss, or change in clinical picture (worsening pain, fever, etc), would reconsider - 25min spent in patient care, over 50% spent in coordination of care. - will sign off, call with questions of for evidence of clinical worsening 08/21/16 09:52 Subjective: CC: "problems with bowel movement" S: feeling hungry no fever mild abdominal pain "difficulty" with BMs continues RN reports no diarrhea, but overall more constipation Objective: Vital Signs Temp Pulse Resp BP Pulse Ox 36.4 C 80 24 H 137/87 H 94 08/21/16 04:00 08/21/16 04:00 08/21/16 04:00 08/21/16 04:00 08/21/16 04:00 Laboratory Results 08/21/16 03:25 08/21/16 03:25 08/20/16 08/21/16 08/22/16 05:59 05:59 05:59 Intake Total 775 860 150 Output Total 750 700 Balance 25 160 150 PT 14.9 SEC (12.0-15.0) 08/20/16 05:00 INR 1.17 (0.83-1.16) H 08/20/16 05:00 Physical Exam - Physical Exam General Appearance: alert, no apparent distress Respiratory: lungs clear Cardiac/Chest: regular rate, rhythm Abdomen: normal bowel sounds, non-tender, soft, No organomegaly, No distended, No rebound, No mass, No hepatomegaly Skin: normal color ICD10 Worksheet Patient Problems: Problems Problem Status Onset Abnormality of colon Acute Hyponatremia Acute Lower abdominal pain Acute Urinary tract infection Acute
[2016-08-21] MEDS: levETIRAcetam 500 MG TAB PO SCH ×2 (10:20→21:31)
[2016-08-21] MEDS: ASPIRIN EC 81 MG TAB PO SCH (10:20)
[2016-08-21] MEDS: PHENobarbital 30 MG TAB PO SCH (10:20)
[2016-08-21] MEDS: SODIUM CHLORIDE 1,000 MG TAB PO SCH ×3 (10:20→18:08)
[2016-08-21] MEDS: OXYBUTYNIN CHLORIDE 5 MG TAB PO SCH ×3 (10:21→21:31)
[2016-08-21] MEDS: ENOXAPARIN 40 MG/0.4 ML SYR SC SCH ×2 (10:21→21:32)
[2016-08-21] MEDS: FLUDROCORTISONE ACETATE 0.1 MG TAB PO SCH (13:33)
--- NOTE | 2016-08-21 14:31 | SOAPPROG ---
SOAP Progress Note Assessment/Plan: Assessment: hyponatremia, slow to improve despite fluid restriction and salt tablets Plan: add Yumiko follow sodiums 08/21/16 14:26 Subjective: family at bedside, spirits good denies pain nausea or vomiting no cp or SOB Objective: Vital Signs Temp Pulse Resp BP Pulse Ox 35.8 C L 81 21 H 138/78 H 98 08/21/16 12:00 08/21/16 12:00 08/21/16 12:00 08/21/16 12:00 08/21/16 12:00 Laboratory Results 08/21/16 03:25 08/21/16 03:25 08/20/16 08/21/16 08/22/16 05:59 05:59 05:59 Intake Total 775 860 150 Output Total 750 700 Balance 25 160 150 PT 14.9 SEC (12.0-15.0) 08/20/16 05:00 INR 1.17 (0.83-1.16) H 08/20/16 05:00 Physical Exam - Physical Exam General Appearance: alert Respiratory: No rales, No rhonchi, No wheezing Cardiac/Chest: regular rate, rhythm, No edema, No friction rub Abdomen: normal bowel sounds, non-tender, soft, No organomegaly Skin: normal color, warm/dry Neuro/Psych: alert, oriented x 3 ICD10 Worksheet Patient Problems: Problems Problem Status Onset Abnormality of colon Acute Hyponatremia Acute Lower abdominal pain Acute Urinary tract infection Acute
[2016-08-21] MEDS: WARFARIN SODIUM 5 MG TAB PO SCH ×3 (15:43→15:58)
--- NOTE | 2016-08-21 16:03 | HOSPPROG ---
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 During hospitalization she has had very labile blood pressures ranging from a systolic of 60 up to 200 without specific treatment. She is relatively asymptomatic with these blood pressure fluctuations except she does feel like she gets flushed and hot at times. She denies any headache chest pain or shortness of breath. She has had slightly elevated troponin. Today is my first encounter w the patient/ chart reviewed. Discussed her care with Dr Annie Ortiz (cardiology) and Dr Pankaj Klein (with nephrology). labile hemodynamics likely d/t autonomic dysregulation from spinal cord injury bp stable pheochromocytoma workup sent hyponatremia: fluid restriction and salt tabs edwina added indeterminate troponin, echocardiogram without wall motion abnormalities and no significant LVH. davon scan non diagnostic seen by cardiolog- no further workup recommended Iron def anemia/colon wall thickening - spoke with GI physician who will see [place] - colonoscopy in apr 2016/rectal ulcers due to constipation (left report in chart) - s/p 1U PRBC transfusion discussed w GI- no plan for inpatient endoscopy history of bilateral DVT status post leg amputation -on Lovenox /treatment dose restart coumadin follow inr daily unstageable coccyx ulcers wound care following seizure d/o - phenobarb, keppra constipation -check an abd xray/ patient has been having some abdominal discomfort -add lactulose complicated UTI with chronic indwelling Thompson catheter. Will transition to ampicillin for enterococcus infection hyponatremia -slowly improving / on fluid restriction Plan: cont supportive management/ suspect much of her abdominal pain is from constipation. Subjective: case d/w dr ritter. tele: no events (interp by me) Objective: Vital Signs Temp Pulse Resp BP Pulse Ox 35.8 C L 81 21 H 138/78 H 98 08/21/16 12:00 08/21/16 12:00 08/21/16 12:00 08/21/16 12:00 08/21/16 12:00 Laboratory Results 08/21/16 03:25 08/21/16 03:25 08/20/16 08/21/16 08/22/16 05:59 05:59 05:59 Intake Total 775 860 150 Output Total 750 700 Balance 25 160 150 PT 14.9 SEC (12.0-15.0) 08/20/16 05:00 INR 1.17 (0.83-1.16) H 08/20/16 05:00 - Physical Exam Constitutional: no apparent distress, appears nourished Eyes: PERRL, anicteric sclera Ears, Nose, Mouth, Throat: moist mucous membranes, hearing normal Cardiovascular: regular rate and rhythym, no murmur, rub, or gallop Respiratory: no respiratory distress, no rales or rhonchi Gastrointestinal: normoactive bowel sounds, soft, non-tender abdomen Genitourinary: No thompson in urethra Skin: warm Musculoskeletal: other (s/p b/l leg amputation) Neurologic: AAOx3, sensation intact bilaterally Psychiatric: interacting appropriately ICD10 Worksheet Patient Problems: Problems Problem Status Onset Abnormality of colon Acute Hyponatremia Acute Lower abdominal pain Acute Urinary tract infection Acute
[2016-08-22] MEDS: LACTULOSE 20 GM/30 ML UDCUP PO PRN (05:49)
[2016-08-22 07:10] LABS: % IMMATURE GRANULYOCYTES 2.2 % (0.0-1.1); ABSOLUTE IMMATURE GRANULOCYTES 0.15 10^3/uL (0.00-0.10); ADD DIFF? NO; ADD MORPH? NO; ADD SCAN? NO; ATYPICAL LYMPHOCYTE FLAG 10 (0-99); FRAGMENT RBC FLAG 0 (0-99); HEMATOCRIT 27.5 % (38.0-47.0); HEMOGLOBIN 9.6 g/dL (12.6-16.3); LEFT SHIFT FLG 20 (0-99); LIPEMIA HEMOLYSIS FLAG 90 (0-99); MEAN CELL HEMOGLOBIN 30.3 pg (27.9-34.1); MEAN CELL HEMOGLOBIN CONCENTR. 34.9 g/dL (32.4-36.7); MEAN CELL VOLUME 86.8 fL (81.5-99.8); MEAN PLATELET VOLUME 9.6 fL (8.7-11.7); PLATELET CLUMPS FLAG 0 (0-99); PLATELET COUNT 263 10^3/uL (150-400); RED BLOOD CELL COUNT 3.17 10^6/uL (4.18-5.33); RED CELL DISTRIBUTION WIDTH 14.7 % (11.5-15.2)
[2016-08-22 07:21] LABS: INR 1.03 (0.83-1.16); PROTIME(PATIENT) 13.4 SEC (12.0-15.0)
[2016-08-22 07:36] LABS: ALBUMIN 2.4 g/dL (3.5-5.0); ANION GAP 2 mEq/L (8-16); CALCIUM 7.9 mg/dL (8.5-10.4); CARBON DIOXIDE 28 mEq/l (22-31); CHLORIDE 95 mEq/L (97-110); CREATININE 0.4 mg/dL (0.6-1.0); GLOMERULAR FILTRATION RATE > 60; GLUCOSE 96 mg/dL (70-100); POTASSIUM 3.9 mEq/L (3.5-5.2); SODIUM 125 mEq/L (134-144)
[2016-08-22] MEDS: ENOXAPARIN 40 MG/0.4 ML SYR SC SCH ×2 (11:16→20:30)
[2016-08-22] MEDS: SODIUM CHLORIDE 1,000 MG TAB PO SCH ×3 (11:21→17:22)
[2016-08-22] MEDS: ASPIRIN EC 81 MG TAB PO SCH (11:22)
[2016-08-22] MEDS: levETIRAcetam 500 MG TAB PO SCH ×2 (11:22→20:30)
[2016-08-22] MEDS: OXYBUTYNIN CHLORIDE 5 MG TAB PO SCH ×3 (11:22→20:32)
[2016-08-22] MEDS: FLUDROCORTISONE ACETATE 0.1 MG TAB PO SCH (11:22)
[2016-08-22] MEDS: PHENobarbital 30 MG TAB PO SCH (11:23)
--- NOTE | 2016-08-22 12:29 | SOAPPROG ---
SOAP Progress Note Assessment/Plan: Assessment: hyponatremia, slow to improve despite fluid restriction and salt tablets nice increase with addition of Florinef Plan: added Florinef yesterday follow sodiums continue Na and fluid restriction 08/21/16 14:26 08/22/16 12:25 Subjective: up to chair warm today, turned on the fan for her no cp sob nausea or vomiting spirits good Objective: Vital Signs Temp Pulse Resp BP Pulse Ox 36.8 C 68 16 123/80 H 98 08/22/16 08:00 08/22/16 08:00 08/22/16 08:00 08/22/16 08:00 08/22/16 08:00 Laboratory Results 08/22/16 07:00 08/22/16 07:00 08/21/16 08/22/16 08/23/16 05:59 05:59 05:59 Intake Total 860 710 Output Total 700 450 Balance 160 260 PT 13.4 SEC (12.0-15.0) 08/22/16 07:00 INR 1.03 (0.83-1.16) 08/22/16 07:00 Physical Exam - Physical Exam General Appearance: alert Respiratory: No rhonchi, No wheezing Cardiac/Chest: regular rate, rhythm, No edema, No friction rub Abdomen: normal bowel sounds, non-tender Neuro/Psych: alert, normal mood/affect, oriented x 3 ICD10 Worksheet Patient Problems: Problems Problem Status Onset Abnormality of colon Acute Hyponatremia Acute Lower abdominal pain Acute Urinary tract infection Acute
--- NOTE | 2016-08-22 14:30 | HOSPPROG ---
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 During hospitalization she has had very labile blood pressures ranging from a systolic of 60 up to 200 without specific treatment. She is relatively asymptomatic with these blood pressure fluctuations except she does feel like she gets flushed and hot at times. She denies any headache chest pain or shortness of breath. She has had slightly elevated troponin. Today is my first encounter w the patient/ chart reviewed. Discussed her care with Dr Annie Ortiz (cardiology) and Dr Pankaj Klein (with nephrology). labile hemodynamics likely d/t autonomic dysregulation from spinal cord injury bp stable pheochromocytoma workup sent hyponatremia: fluid restriction and salt tabs florinef added improving indeterminate troponin, echocardiogram without wall motion abnormalities and no significant LVH. davon scan non diagnostic seen by cardiology- no further workup recommended ok to dc tele Iron def anemia/colon wall thickening - colonoscopy in apr 2016/rectal ulcers due to constipation (left report in chart) - s/p 1U PRBC transfusion discussed w GI- no plan for inpatient endoscopy 08/22- is having ongoing bleeding- will follow hct daily history of bilateral DVT status post leg amputation -on Lovenox /treatment dose restart coumadin follow inr daily unstageable coccyx ulcers wound care following afebruile seizure d/o - phenobarb, keppra constipation -check an abd xray/ patient has been having some abdominal discomfort -add lactulose complicated UTI with chronic indwelling Thompson catheter. day 6/7 ampicillin for enterococcal uti will ensure that thompson has been changed dispo: lives at home w family will likely benefit from inpatient rehab Subjective: case d/w dr ritter. no events tele (interp by me) Objective: Vital Signs Temp Pulse Resp BP Pulse Ox 36.6 C 81 23 H 81/53 L 98 08/22/16 12:00 08/22/16 12:00 08/22/16 12:00 08/22/16 12:00 08/22/16 12:00 Laboratory Results 08/22/16 07:00 08/22/16 07:00 08/21/16 08/22/16 08/23/16 05:59 05:59 05:59 Intake Total 860 710 Output Total 700 450 Balance 160 260 PT 13.4 SEC (12.0-15.0) 08/22/16 07:00 INR 1.03 (0.83-1.16) 08/22/16 07:00 - Physical Exam Constitutional: no apparent distress, appears nourished Eyes: PERRL, anicteric sclera Ears, Nose, Mouth, Throat: moist mucous membranes, hearing normal Cardiovascular: regular rate and rhythym, no murmur, rub, or gallop, No systolic murmur, No tachycardia Respiratory: no respiratory distress, no rales or rhonchi Gastrointestinal: normoactive bowel sounds, soft, non-tender abdomen, No guarding, No rebound Genitourinary: thompson in urethra Skin: warm, normal color, other (did not see coccyx wounds (POA)) Neurologic: AAOx3 Psychiatric: interacting appropriately ICD10 Worksheet Patient Problems: Problems Problem Status Onset Abnormality of colon Acute Hyponatremia Acute Lower abdominal pain Acute Urinary tract infection Acute
[2016-08-22] MEDS: WARFARIN SODIUM 5 MG TAB PO SCH (17:22)
[2016-08-23 05:28] LABS: % IMMATURE GRANULYOCYTES 2.5 % (0.0-1.1); ABSOLUTE IMMATURE GRANULOCYTES 0.13 10^3/uL (0.00-0.10); ADD DIFF? NO; ADD MORPH? NO; ADD SCAN? NO; ATYPICAL LYMPHOCYTE FLAG 10 (0-99); FRAGMENT RBC FLAG 0 (0-99); HEMATOCRIT 28.3 % (38.0-47.0); HEMOGLOBIN 9.5 g/dL (12.6-16.3); LEFT SHIFT FLG 20 (0-99); LIPEMIA HEMOLYSIS FLAG 80 (0-99); MEAN CELL HEMOGLOBIN 30.2 pg (27.9-34.1); MEAN CELL HEMOGLOBIN CONCENTR. 33.6 g/dL (32.4-36.7); MEAN CELL VOLUME 89.8 fL (81.5-99.8); MEAN PLATELET VOLUME 9.6 fL (8.7-11.7); PLATELET CLUMPS FLAG 0 (0-99); PLATELET COUNT 285 10^3/uL (150-400); RED BLOOD CELL COUNT 3.15 10^6/uL (4.18-5.33); RED CELL DISTRIBUTION WIDTH 15.1 % (11.5-15.2)
[2016-08-23 05:35] LABS: INR 1.05 (0.83-1.16); PROTIME(PATIENT) 13.6 SEC (12.0-15.0)
[2016-08-23 05:42] LABS: ALBUMIN 2.3 g/dL (3.5-5.0); ANION GAP 3 mEq/L (8-16); CALCIUM 7.6 mg/dL (8.5-10.4); CARBON DIOXIDE 28 mEq/l (22-31); CHLORIDE 98 mEq/L (97-110); CREATININE 0.4 mg/dL (0.6-1.0); GLOMERULAR FILTRATION RATE > 60; GLUCOSE 89 mg/dL (70-100); POTASSIUM 3.6 mEq/L (3.5-5.2); SODIUM 129 mEq/L (134-144)
[2016-08-23] MEDS: PHENobarbital 30 MG TAB PO SCH (10:15)
[2016-08-23] MEDS: ASPIRIN EC 81 MG TAB PO SCH (10:16)
[2016-08-23] MEDS: FLUDROCORTISONE ACETATE 0.1 MG TAB PO SCH (10:17)
[2016-08-23] MEDS: SODIUM CHLORIDE 1,000 MG TAB PO SCH ×3 (10:17→17:08)
[2016-08-23] MEDS: levETIRAcetam 500 MG TAB PO SCH ×2 (10:18→21:29)
[2016-08-23] MEDS: OXYBUTYNIN CHLORIDE 5 MG TAB PO SCH ×3 (10:18→21:29)
[2016-08-23] MEDS: ENOXAPARIN 40 MG/0.4 ML SYR SC SCH ×2 (10:19→21:29)
--- NOTE | 2016-08-23 10:26 | SOAPPROG ---
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 Now improving nicely with addition of Florinef, Na up to 129 today. - Will continue Florinef. - Will continue salt tablets, ideally would like to decrease tomorrow if Na continues to uptrend. - Continue fluid restriction of 1000ml daily. - Will continue to monitor. Subjective: No acute events overnight. Pt notes that she is coughing and gets short of breath sometimes. She struggles with fluid restriction as she usually drinks a lot of water. Objective: Vital Signs Temp Pulse Resp BP Pulse Ox 36.6 C 81 14 136/88 H 90 L 08/22/16 20:00 08/23/16 08:00 08/23/16 08:00 08/23/16 08:00 08/23/16 08:00 Laboratory Results 08/23/16 04:10 08/23/16 04:10 08/22/16 08/23/16 08/24/16 05:59 05:59 05:59 Intake Total 710 750 Output Total 450 550 Balance 260 200 PT 13.6 SEC (12.0-15.0) 08/23/16 04:10 INR 1.05 (0.83-1.16) 08/23/16 04:10 General: alert and oriented, no acute distress Eyes; EOMI, PERRL OP: Clear CV: RRR Resp: nonlabored respirations on RA Abd; Soft, NT Neuro: CN II-XII grossly intact, no asterixis Psych: cooperative, appropriate mood and affect ICD10 Worksheet Patient Problems: Problems Problem Status Onset Abnormality of colon Acute Hyponatremia Acute Lower abdominal pain Acute Urinary tract infection Acute
--- NOTE | 2016-08-23 16:52 | HOSPPROG ---
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 During hospitalization she has had very labile blood pressures ranging from a systolic of 60 up to 200 without specific treatment. She is relatively asymptomatic with these blood pressure fluctuations except she does feel like she gets flushed and hot at times. She denies any headache chest pain or shortness of breath. She has had slightly elevated troponin. Today is my first encounter w the patient/ chart reviewed. Discussed her care with Dr Annie Ortiz (cardiology) and Dr Pankaj Klein (with nephrology). labile hemodynamics likely d/t autonomic dysregulation from spinal cord injury bp stable pheochromocytoma workup sent hyponatremia: fluid restriction and salt tabs edwina added improving would like to liberalize fluid restriction and decrease salt tabs in AM I have learned that keppra is a relatively new medicine and should she have recurrent hyponatremia, alternative AED should be considered indeterminate troponin, echocardiogram without wall motion abnormalities and no significant LVH. davon scan non diagnostic seen by cardiology- no further workup recommended ok to dc tele Iron def anemia/colon wall thickening - colonoscopy in apr 2016/rectal ulcers due to constipation (left report in chart) - s/p 1U PRBC transfusion discussed w GI- no plan for inpatient endoscopy 08/22- is having ongoing bleeding- will follow hct daily history of bilateral DVT status post leg amputation -on Lovenox /treatment dose restart coumadin follow inr daily unstageable coccyx ulcers wound care following afebruile seizure d/o - phenobarb, keppra constipation -check an abd xray/ patient has been having some abdominal discomfort -add lactulose complicated UTI with chronic indwelling Thompson catheter. day 6/7 ampicillin for enterococcal uti will ensure that thompson has been changed dispo: lives at home w family will likely benefit from inpatient rehab Subjective: case discussed w renal Objective: Vital Signs Temp Pulse Resp BP Pulse Ox 36.9 C 73 20 103/62 93 08/23/16 16:15 08/23/16 16:15 08/23/16 16:15 08/23/16 16:15 08/23/16 16:15 Laboratory Results 08/23/16 04:10 08/23/16 04:10 08/22/16 08/23/1608/24/17 05:59 05:59 05:59 Intake Total 710 750 Output Total 450 550 Balance 260 200 PT 13.6 SEC (12.0-15.0) 08/23/16 04:10 INR 1.05 (0.83-1.16) 08/23/16 04:10 - Physical Exam Constitutional: no apparent distress, appears nourished Eyes: PERRL, anicteric sclera Ears, Nose, Mouth, Throat: moist mucous membranes, hearing normal Cardiovascular: regular rate and rhythym, no murmur, rub, or gallop Respiratory: no respiratory distress, no rales or rhonchi Gastrointestinal: normoactive bowel sounds, soft, non-tender abdomen Genitourinary: No thompson in urethra Skin: warm Musculoskeletal: full muscle strength ICD10 Worksheet Patient Problems: Problems Problem Status Onset Abnormality of colon Acute Hyponatremia Acute Lower abdominal pain Acute Urinary tract infection Acute
[2016-08-23] MEDS: WARFARIN SODIUM 5 MG TAB PO SCH (17:05)
--- NOTE | 2016-08-23 19:52 | WOCRNPDOC ---
WOCRN Advanced Assessment Note - Skin Integrity Problem, Advanced Assess Buttock Dressing Type: Allevyn Life, Honey Gel Dressing Description: Clean/Dry, Intact Exudate Amount: Scant Exudate Color: Yellow (therahoney) Exudate Characteristic(s): Serous Integumentary Issue Intervention: Dressing Changed (Continuing per orders: sskin prep to periwound; therahoney gel to base; telfa, Allevyn), Dressing Initialed & Dated Anastasia Wound Tissue: Intact Anastasia Wound Swelling: None Wound Bed Color: [place], Yellow Wound Bed Constitution: Granulation Tissue, Adhered Slough (75%, thinning) Wound Edges: Well Defined Site Odor: None Site Measurement - Head-to-Toe Length X Width X Depth (cm): Coccyx: 1.5 x 0.5 x 0.2. R of coccyx: 0.8 x 0.3 x 0.2 Skin Integrity Problem Comment: Slough at bases continues to thin; margins appear to be re-epithelializing inward. Continuing plan of care. Wound Care to round next: Alfie 08/31
[2016-08-24 05:29] LABS: % IMMATURE GRANULYOCYTES 1.8 % (0.0-1.1); ABSOLUTE IMMATURE GRANULOCYTES 0.09 10^3/uL (0.00-0.10); ADD DIFF? NO; ADD MORPH? NO; ADD SCAN? NO; ATYPICAL LYMPHOCYTE FLAG 10 (0-99); FRAGMENT RBC FLAG 0 (0-99); HEMATOCRIT 28.7 % (38.0-47.0); HEMOGLOBIN 9.7 g/dL (12.6-16.3); LEFT SHIFT FLG 10 (0-99); LIPEMIA HEMOLYSIS FLAG 90 (0-99); MEAN CELL HEMOGLOBIN CONCENTR. 33.8 g/dL (32.4-36.7); MEAN CELL VOLUME 88.9 fL (81.5-99.8); MEAN PLATELET VOLUME 9.1 fL (8.7-11.7); PLATELET CLUMPS FLAG 10 (0-99); PLATELET COUNT 317 10^3/uL (150-400); RED BLOOD CELL COUNT 3.23 10^6/uL (4.18-5.33); RED CELL DISTRIBUTION WIDTH 14.8 % (11.5-15.2)
[2016-08-24 05:41] LABS: INR 1.32 (0.83-1.16); PROTIME(PATIENT) 16.4 SEC (12.0-15.0)
[2016-08-24 05:44] LABS: ALBUMIN 2.3 g/dL (3.5-5.0); ANION GAP 5 mEq/L (8-16); CALCIUM 7.6 mg/dL (8.5-10.4); CARBON DIOXIDE 28 mEq/l (22-31); CHLORIDE 97 mEq/L (97-110); CREATININE 0.4 mg/dL (0.6-1.0); GLOMERULAR FILTRATION RATE > 60; GLUCOSE 84 mg/dL (70-100); POTASSIUM 3.1 mEq/L (3.5-5.2); SODIUM 130 mEq/L (134-144)
[2016-08-24] MEDS: ONDANSETRON 4 MG/2 ML VIAL IVP PRN ×2 (10:14→16:00)
[2016-08-24] MEDS: FLUDROCORTISONE ACETATE 0.1 MG TAB PO SCH (11:22)
[2016-08-24] MEDS: ASPIRIN EC 81 MG TAB PO SCH (11:22)
[2016-08-24] MEDS: PHENobarbital 30 MG TAB PO SCH (11:22)
[2016-08-24] MEDS: SODIUM CHLORIDE 1,000 MG TAB PO SCH ×3 (11:23→17:58)
[2016-08-24] MEDS: levETIRAcetam 500 MG TAB PO SCH ×2 (11:23→20:57)
[2016-08-24] MEDS: ENOXAPARIN 40 MG/0.4 ML SYR SC SCH ×2 (11:24→20:57)
[2016-08-24] MEDS: OXYBUTYNIN CHLORIDE 5 MG TAB PO SCH ×3 (11:24→20:57)
--- NOTE | 2016-08-24 11:28 | HOSPPROG ---
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 During hospitalization she has had very labile blood pressures ranging from a systolic of 60 up to 200 without specific treatment. She is relatively asymptomatic with these blood pressure fluctuations except she does feel like she gets flushed and hot at times. She denies any headache chest pain or shortness of breath. She has had slightly elevated troponin. Today is my first encounter w the patient/ chart reviewed. Discussed her care with Dr Annie Ortiz (cardiology) and Dr Pankaj Klein (with nephrology). labile hemodynamics likely d/t autonomic dysregulation from spinal cord injury bp stable pheochromocytoma workup sent resolved hyponatremia: fluid restriction and salt tabs edwina added increase fluids to 1500 per day decrease salt tabs I have learned that keppra is a relatively new medicine and should she have recurrent hyponatremia, alternative AED should be considered indeterminate troponin, echocardiogram without wall motion abnormalities and no significant LVH. davon scan non diagnostic seen by cardiology- no further workup recommended ok to dc tele Iron def anemia/colon wall thickening - colonoscopy in apr 2016/rectal ulcers due to constipation (left report in chart) - s/p 1U PRBC transfusion discussed w GI- no plan for inpatient endoscopy 08/22- is having ongoing bleeding- will follow hct daily history of bilateral DVT status post leg amputation -on Lovenox /treatment dose restart coumadin follow inr daily unstageable coccyx ulcers wound care following afebruile seizure d/o - phenobarb, keppra constipation -check an abd xray/ patient has been having some abdominal discomfort -add lactulose add miralax complicated UTI with chronic indwelling Thompson catheter. day 11/19 ampicillin for enterococcal uti will ensure that thompson has been changed dispo: lives at home w family will likely benefit from inpatient rehab Subjective: constipated Objective: Vital Signs Temp Pulse Resp BP Pulse Ox 36.3 C 92 16 123/82 H 93 08/24/16 07:23 08/24/16 07:23 08/24/16 07:23 08/24/16 07:23 08/24/16 07:23 Laboratory Results 08/24/16 05:00 08/24/16 05:00 08/23/16 08/24/16 08/25/16 05:59 05:59 05:59 Intake Total 750 1080 Output Total 550 1325 Balance 200 -245 PT 16.4 SEC (12.0-15.0) H 08/24/16 05:00 INR 1.32 (0.83-1.16) H 08/24/16 05:00 - Physical Exam Constitutional: no apparent distress, appears nourished Eyes: PERRL, anicteric sclera Ears, Nose, Mouth, Throat: moist mucous membranes, hearing normal Cardiovascular: regular rate and rhythym, no murmur, rub, or gallop Respiratory: no respiratory distress, no rales or rhonchi Gastrointestinal: normoactive bowel sounds, soft, non-tender abdomen, No guarding, No rebound Genitourinary: No thompson in urethra Skin: warm, normal color Musculoskeletal: full muscle strength, no muscle tenderness ICD10 Worksheet Patient Problems: Problems Problem Status Onset Abnormality of colon Acute Hyponatremia Acute Lower abdominal pain Acute Urinary tract infection Acute
--- NOTE | 2016-08-24 15:10 | SOAPPROG ---
SOAP Progress Note Assessment/Plan: Assessment: 1. hypoNa: steadily improving on current rx. Changes made earlier today noted, seem reasonable. Plan: 08/24/16 15:06 Subjective: No particular c/o. Objective: Vital Signs Temp Pulse Resp BP Pulse Ox 36.3 C 92 16 123/82 H 93 08/24/16 07:23 08/24/16 07:23 08/24/16 07:23 08/24/16 07:23 08/24/16 07:23 Laboratory Results 08/24/16 05:00 08/24/16 05:00 08/23/16 08/24/16 08/25/16 05:59 05:59 05:59 Intake Total 750 1080 Output Total 550 1325 Balance 200 -245 PT 16.4 SEC (12.0-15.0) H 08/24/16 05:00 INR 1.32 (0.83-1.16) H 08/24/16 05:00 Physical Exam - Physical Exam General Appearance: no apparent distress Respiratory: lungs clear Cardiac/Chest: regular rate, rhythm Back: Other (no dependent edema) ICD10 Worksheet Patient Problems: Problems Problem Status Onset Abnormality of colon Acute Hyponatremia Acute Lower abdominal pain Acute Urinary tract infection Acute
[2016-08-24] MEDS: WARFARIN SODIUM 5 MG TAB PO SCH (15:57)
[2016-08-24] MEDS: POLYETHYLENE GLYCOL 3350 17 GM PKT PO SCH (15:58)
[2016-08-24 16:07] LABS: COLLECTION DURATION CORTISOL U 24 h; URINE VOLUME CORTISOL URINE 825 mL
[2016-08-25 05:31] LABS: % IMMATURE GRANULYOCYTES 1.2 % (0.0-1.1); ABSOLUTE IMMATURE GRANULOCYTES 0.06 10^3/uL (0.00-0.10); ADD DIFF? NO; ADD MORPH? NO; ADD SCAN? NO; ATYPICAL LYMPHOCYTE FLAG 40 (0-99); FRAGMENT RBC FLAG 0 (0-99); HEMATOCRIT 27.2 % (38.0-47.0); HEMOGLOBIN 9.2 g/dL (12.6-16.3); LEFT SHIFT FLG 10 (0-99); LIPEMIA HEMOLYSIS FLAG 90 (0-99); MEAN CELL HEMOGLOBIN 29.9 pg (27.9-34.1); MEAN CELL HEMOGLOBIN CONCENTR. 33.8 g/dL (32.4-36.7); MEAN CELL VOLUME 88.3 fL (81.5-99.8); MEAN PLATELET VOLUME 8.7 fL (8.7-11.7); PLATELET CLUMPS FLAG 0 (0-99); PLATELET COUNT 293 10^3/uL (150-400); RED BLOOD CELL COUNT 3.08 10^6/uL (4.18-5.33); RED CELL DISTRIBUTION WIDTH 14.7 % (11.5-15.2)
[2016-08-25 05:44] LABS: INR 1.53 (0.83-1.16); PROTIME(PATIENT) 18.4 SEC (12.0-15.0)
[2016-08-25 05:59] LABS: ALBUMIN 2.1 g/dL (3.5-5.0); ANION GAP 1 mEq/L (8-16); CALCIUM 7.1 mg/dL (8.5-10.4); CARBON DIOXIDE 33 mEq/l (22-31); CHLORIDE 96 mEq/L (97-110); CREATININE 0.4 mg/dL (0.6-1.0); GLOMERULAR FILTRATION RATE > 60; GLUCOSE 86 mg/dL (70-100); POTASSIUM 3.3 mEq/L (3.5-5.2); SODIUM 130 mEq/L (134-144)
[2016-08-25 07:45] VITALS: BP 151/95; PULSE 79; RESP 18; TEMP 97.6; O2SAT 92
[2016-08-25] MEDS: FLUDROCORTISONE ACETATE 0.1 MG TAB PO SCH (08:25)
[2016-08-25] MEDS: ASPIRIN EC 81 MG TAB PO SCH (08:25)
[2016-08-25] MEDS: OXYBUTYNIN CHLORIDE 5 MG TAB PO SCH (08:25)
[2016-08-25] MEDS: PHENobarbital 30 MG TAB PO SCH (08:25)
[2016-08-25] MEDS: SODIUM CHLORIDE 1,000 MG TAB PO SCH ×2 (08:25→12:49)
[2016-08-25] MEDS: levETIRAcetam 500 MG TAB PO SCH (08:25)
[2016-08-25] MEDS: ENOXAPARIN 40 MG/0.4 ML SYR SC SCH (08:25)
[2016-08-25] MEDS: POLYETHYLENE GLYCOL 3350 17 GM PKT PO SCH (08:25)
--- NOTE | 2016-08-25 10:03 | SOAPPROG ---
SOAP Progress Note Assessment/Plan: Assessment: 1. Hyponatremia. Na improved to 130 on florinef, Na tabs. Ur Na was low. May have SIADH, also suspect poor perfusion due to neurogenic hypotension. 2. Hypokalemia. Will decrease florinef to 0.05 micrograms po daily, replace. 3. Hypotension. BPs labile but fewer lows on florinef. Plan: 08/25/16 10:01 Subjective: Sleeping soundly. Objective: Vital Signs Temp Pulse Resp BP Pulse Ox 36.4 C 79 18 151/95 H 92 08/25/16 07:45 08/25/16 07:45 08/25/16 07:45 08/25/16 07:45 08/25/16 07:45 Laboratory Results 08/25/16 05:15 08/25/16 05:15 08/24/16 08/25/16 08/26/16 05:59 05:59 05:59 Intake Total 1080 1070 Output Total 1325 1275 Balance -245 -205 PT 18.4 SEC (12.0-15.0) H 08/25/16 05:15 INR 1.53 (0.83-1.16) H 08/25/16 05:15 Comfortably sleeping RRR, no m/g/r CTAB Abdom soft, nontender Bilat LE absent ICD10 Worksheet Patient Problems: Problems Problem Status Onset Lower abdominal pain Acute Urinary tract infection Acute Hyponatremia Acute Abnormality of colon Acute
[2016-08-25] MEDS ORDERED: POTASSIUM CL 20 MEQ/15 ML UDCUP PO ONE ×2 (10:05→13:00)
[2016-08-25] MEDS ORDERED: FLUDROCORTISONE ACETATE 0.1 MG TAB PO SCH (10:06)
--- NOTE | 2016-08-25 13:43 | HOSPPROG ---
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 During hospitalization she has had very labile blood pressures ranging from a systolic of 60 up to 200 without specific treatment. She is relatively asymptomatic with these blood pressure fluctuations except she does feel like she gets flushed and hot at times. She denies any headache chest pain or shortness of breath. She has had slightly elevated troponin. Today is my first encounter w the patient/ chart reviewed. Discussed her care with Dr Annie Ortiz (cardiology) and Dr Pankaj Klein (with nephrology). labile hemodynamics likely d/t autonomic dysregulation from spinal cord injury bp stable pheochromocytoma workup sent resolved hyponatremia: fluid restriction and salt tabs edwina added increase fluids to 1500 per day decrease salt tabs I have learned that keppra is a relatively new medicine and should she have recurrent hyponatremia, alternative AED should be considered indeterminate troponin, echocardiogram without wall motion abnormalities and no significant LVH. 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 day 7/ ampicillin for enterococcal uti will ensure that thompson has been changed dispo: lives at home w family will likely benefit from inpatient rehab Subjective: has bed at inpatient rehab. amenable to dc Objective: Vital Signs Temp Pulse Resp BP Pulse Ox 36.4 C 79 18 151/95 H 92 08/25/16 07:45 08/25/16 07:45 08/25/16 07:45 08/25/16 07:45 08/25/16 07:45 Laboratory Results 04/12/17 05:15 08/25/16 05:15 08/24/16 08/25/16 08/26/16 05:59 05:59 05:59 Intake Total 1080 1070 370 Output Total 1325 1275 Balance -245 -205 370 PT 18.4 SEC (12.0-15.0) H 08/25/16 05:15 INR 1.53 (0.83-1.16) H 08/25/16 05:15 - Physical Exam Constitutional: no apparent distress, appears nourished, other (more alert) Eyes: PERRL, anicteric sclera Ears, Nose, Mouth, Throat: moist mucous membranes, hearing normal Cardiovascular: regular rate and rhythym, no murmur, rub, or gallop Respiratory: no respiratory distress, no rales or rhonchi Gastrointestinal: normoactive bowel sounds, soft, non-tender abdomen Genitourinary: No thompson in urethra Skin: warm, normal color Musculoskeletal: full muscle strength, no muscle tenderness Neurologic: AAOx3 Psychiatric: interacting appropriately, not anxious Lymph, Heme, Immunologic: no cervical LAD ICD10 Worksheet Patient Problems: Problems Problem Status Onset Abnormality of colon Acute Hyponatremia Acute Lower abdominal pain Acute Urinary tract infection Acute
[2016-08-25] MEDS ORDERED: RIVAROXABAN 20 MG TAB PO SCH ×2 (14:00→18:30)
--- NOTE | 2016-08-25 14:19 | PDIAF ---
- Diagnosis Diagnosis: hyponatremia Code Status: Full Code - Medication Management Discharge Medications: Medications to Continue on Transfer Multivitamins [Multivitamin (*)] 1 each PO DAILY 08/14/16 [Last Taken 08/14/16] Oxybutynin Chloride [Ditropan] 5 mg PO TID 08/14/16 [Last Taken Unknown] PHENobarbital [PHENobarbital 30mg (*)] 15 mg PO AD 08/14/16 [Last Taken 09:00] Sennosides/Docusate Sodium [Senokot-S] 1 each PO MWF 08/14/16 [Last Taken ] levETIRAcetam [Keppra 500 mg (*)] 500 mg PO BID 08/14/16 [Last Taken 08/14/16 07 :00] Alteplase [Cathflo Activase 2 mg (*)] 2 mg IVP PRN PRN #0 vial 08/25/16 [Last Taken Unknown] Aspirin EC [Aspirin EC 81 mg (*)] 81 mg PO DAILY #0 tab 08/25/16 [Last Taken Unknown] Bismuth Subsalicylate [Pepto-Bismol (*)] 262 mg PO QID PRN #0 tab.chew 08/25/16 [Last Taken Unknown] Calcium Carbonate [Tums 500MG (*)] 500 mg PO TID PRN #0 tab.chew 08/25/16 [Last Taken Unknown] Fludrocortisone Acetate [Florinef] 0.05 mg PO DAILY #0 tab 08/25/16 [Last Taken Unknown] Rivaroxaban [Xarelto] 20 mg PO DAILY #0 tab 08/25/16 [Last Taken Unknown] Discharge Medications: Refer to the Discharge Home Medication list for PRN reason. - Orders Services needed: Registered Nurse, Physical Therapy, Occupational Therapy Diet Texture: Regular Texture Diet, Thin Liquids - Follow Up Care Current Providers and Referrals: Lianna Ulloa MD [Primary Care Provider] - As per Instructions
--- NOTE | 2016-08-25 14:47 | GDS ---
[f rep st] DISCHARGE SUMMARY DISCHARGE DIAGNOSES: 1. Hyponatremia, felt secondary to poor p.o. intake and hypovolemia. 2. 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 It is unclear these are ve nous or arterial; I suspect they are venous. 3. Seizure disorder. 4. Remote spinal cord injury in her 20s. 5. Labile blood pressures. Pending studies at the time of this dictation include a 24-hour urine f or epinephrine, norepinephrine, and metabolites. This is part of a pheochromocytoma workup. She di d have a high urine cortisol. 6. Colon thickening with negative colonoscopy and some bright red blood per rectum with stable madhu tocrit. 7. Functional debility. 8. Enterococcal urinary tract infection, status post 7 days of amoxicillin. 9. Weakly positive troponin with nondiagnostic stress test; cardiology consult recommended aspirin. HOSPITAL COURSE: Please see admission history and physical by Dr. Drew Steward. The patient presente d from home where she was living with lower abdominal pain that was crampy. 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 She was admitted. She was found to be profoundly hyponatremic to 119. 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 Sodium was slow to correct, initially corrected to 125 and then dipped as low as 118. She was started on salt tabs and Florinef and fluid restriction. Her sodium has corrected to 130. At this point in time, I have discontinued her salt tabs for discharge. We are going to keep her on Florinef, and I recommended this be weaned in the coming days. Her sodium should be followed q.3 days. The patient's Keppra is relatively new, and t his may be contributing to her hyponatremia. If it becomes refractory, this is worth considering. Regarding her rectosigmoid thickening, she had a little bit of bright red blood per rectum. GI revi ewed her colonoscopies. Her previous one was without malignancy. No further workup was undertaken. She had a stable hematocrit despite systemic anticoagulation while here. Regarding anticoagulation, she has seen a microsoft bi architect as an outpatient. I discussed this with her primary care physician, and there is a plan to switch her over to a novel oral anticoagulant. I yen ified the dose of Xarelto. She is being discharged on Xarelto 20 daily. She will receive her 1st d ose here. Indwelling Sandhu: She had a nosocomial UTI. She completed 7 days of antibiotics. Her Sandhu was ch anged on the 3rd. Functional debility: She is going to inpatient rehab. /[id number]/MODL
--- NOTE | 2016-08-30 10:20 | PQFORM ---
PHYSICIAN QUERY FORM Needs Your Response This query form is being sent to you to assure this patient record is coded properly. Please respond to the question below: RETAIL WORKER QUESTION: Dear Dr. Whittaker, This patient presented with a UTI, noted to have a 'chronic indwelling Sandhu. ' After study, can this patient UTI be further specified as: Please document your response below without deleting any of the text below. Catheter associated UTI present on admission _yes UTI likely due to indwelling Sandhu catheter Other more appropriate diagnosis Unable to determine Thank you [facility] HIM/Coding Dept. [phone] INSTRUCTIONS FOR RESPONSE: Answer question by clicking on the "Edit Document" button. Move cursor to area below the stars. When complete, hit "Save." Click on the "Sign" button, then click "Sign" again. Type in your PIN and hit "Enter." MTDD
[2016-09-09 17:53] LABS: NOREPINEPHRINE URINE 24 HOUR 69 ug/24 hr (15-100); URINE VOLUME 825 mL
[2016-09-09 17:54] LABS: COLLECTION DURATION METU 24 hours; METANEPHRINES QUEST 156 ug/24hrs (90-315); NORMETANEPHRINES QUEST 549 ug/24hrs (122-676); TOTAL METANEPHRINES (M+N) QST 705 ug/24hrs (224-832); URINE VOLUME METU 825 mL
== END 2016-08-25 14:41 | DRG 699 ==
LOC: CED 12:55 → CEDHOLD 16:35 → F1N 18:17 → F2W 08-15 18:42
PROVIDERS: ADMIT Internal Medicine; ATTEND Internal Medicine
PROC: 05HA33Z Insertion of Infusion Device into Left Brachial Vein, Percutaneous Approach (ICD-10-PCS; principal; 2016-08-16)
PROC: 30233N1 Transfusion of Nonautologous Red Blood Cells into Peripheral Vein, Percutaneous Approach (ICD-10-PCS; 2016-08-17)
DX: T83.518A Infection and inflammatory reaction due to other urinary catheter, initial encounter (principal); E87.1 Hypo-osmolality and hyponatremia; E86.1 Hypovolemia; G40.909 Epilepsy, unspecified, not intractable, without status epilepticus; B95.2 Enterococcus as the cause of diseases classified elsewhere; K59.00 Constipation, unspecified; D50.9 Iron deficiency anemia, unspecified; L89.150 Pressure ulcer of sacral region, unstageable; Z86.718 Personal history of other venous thrombosis and embolism; Z99.3 Dependence on wheelchair; Z89.511 Acquired absence of right leg below knee; Z89.512 Acquired absence of left leg below knee; Z79.01 Long term (current) use of anticoagulants
CPT/HCPCS: 74177-PO; 80048-PO; 81003-PO; 81015-PO; 82247-PO; 82384-90; 82530-90; 82607-90; 83497-90; 83605-PO; 83835-90; 84585-90; 85025-PO; 85610-PO; 85730-PO; 92610-GN; 96361-PO; 96365-PO; 97163-GP; 97165-GO; 97168-GO; 97530-GO; 97530-GP; 97535-GO; A9500; C1751; C1769; G0463-PO; G8978-GP-CM; G8979-GP-CJ; G8987-GO-CJ; G8987-GO-CK; G8987-GO-CL; G8988-GO-CJ; G8989-GO-CJ; G8996-GN-CH; G8997-GN-CH; G8998-GN-CH; J0696; J1650; J2405; J2785; J2997; P9016; Q9967

== ENCOUNTER 2016-08-25 15:21 | Inpatient (IN) | payer OTHER, MEDICARE ==
[2016-08-25] MEDS ORDERED: CALCIUM CARBONATE 500 MG CHEWABLE TAB PO PRN (17:09)
[2016-08-25] MEDS ORDERED: ALTEPLASE 2 MG VIAL IVP PRN (17:09)
[2016-08-25] MEDS ORDERED: SENNOSIDES 1 TAB PO PRN (17:12)
[2016-08-25] MEDS ORDERED: MAG HYDROX/AL HYDROX/SIMETH 30 ML UDCUP PO PRN (17:14)
[2016-08-25] MEDS ORDERED: PHENobarbital 30 MG TAB PO SCH (17:30)
[2016-08-25] MEDS: BISACODYL 10 MG SUPP PR SCH ×3 (18:08→18:27)
--- NOTE | 2016-08-25 18:13 | GHP ---
[f rep st] HISTORY AND PHYSICAL POST ADMISSION PHYSICIAN EVALUATION AND REHABILITATION TREATMENT PLAN DATE OF ADMISSION: 08/25/2016 DATE OF EVALUATION: 08/25/2016 TIME OF EVALUATION: 1600 REFERRING FACILITY: [facility]. REFERRING PHYSICIAN: Dr. Whittaker. IMPAIRMENT GROUP: 16 ETIOLOGIC DIAGNOSIS: Debility (noncardiac, nonpulmonary). DATE OF ONSET: 08/14/2016 CONSULTING PHYSICIANS: She had consultations in the hospital with: 1. Nephrology, Dr. Casanova. 2. Cardiology, Dr. Ortiz. 3. Gastroenterology, Dr. Patterson. 4. Also seen by the wound care nurse. REHABLITATION DIAGNOSIS: Debility following hospitalization for multiple conditions. HISTORY OF PRESENT ILLNESS: The patient is a 65-year-old woman with a history of a spinal cord injury when she was 27, and bilateral [id number] amputations for thromboses in the . She was admitted to [facility] on 08/18/2016 with abdominal pain. Evaluation revealed a urinary tract infection, profound hyponatremia, colon wall thickening on abdominal CT scan, and unstageable coccyx ulcer. She had episodes of hypotension and hypertension that were suspected to be due to autonomic dysreflexia in a spinal cord injury patient. She had an elevated troponin in evaluation for chest pain. This was felt to be due to demand ischemia from labile blood pressure. An echocardiogram was done, which was unremarkable, as was a nuclear cardiac scan. She had anemia with heme-positive stools. Coagulation studies revealed a supratherapeutic INR at 4.08. She was taken off warfarin, and rivaroxaban was begun. She had a blood transfusion. Gastroenterology nursing education consultant considered the source to be stercoral ulcers, and given the hyponatremia and anemia that she was suffering, did not think it was appropriate to do a colonoscopy, specifically because of the hyponatremia and the effect of the bowel prep. She had a colonoscopy in April, which was negative for malignancy, and there was no explanation at present, during the current hospitalization, for the colon wall thickening. The plan was to repeat a colonoscopy once her other issues were stabilized. She was seen by Nephrology for her hyponatremia. The etiology was considered multifactorial, including low oral intake, and possible polydipsia. Her anemia was stabilized. Her bowels moved with the addition of laxatives; however her last bowel movement was 2 days ago. She was treated with amoxicillin for urinary tract infection. Her hyponatremia improved, though it did not normaliz,e and was stable, and she was considered ready for inpatient rehabilitation. Other labs and studies during her hospitalization: On the day of discharge, CBC revealed anemia with a hemoglobin of 9.2 and hematocrit of 27.2. The day before, hemoglobin was 9.7 and hematocrit was 28.7. At her mannie, hemoglobin was 7.2 and hematocrit was 20.6. Serum chemistry on admission revealed a sodium of 119. Renal function and electrolytes were otherwise overall within normal limits. Her albumin was 2.3 the day after admission, and otherwise liver function tests were unremarkable. TSH was normal. Morning cortisol was normal. There was an evaluation done for possible pheochromocytoma due to her labile blood pressure, and results are still pending. Urine studies were consistent with a urinary tract infection with elevated leukocyte esterase and white blood cells. She also had elevated urine epithelial cells. Urinary cortisol was markedly elevated at 338 with the upper limit of normal being 45. Microbiology of the urine grew Enterococcus faecalis with resistance to tetracycline and a pansensitive pseudomonas. The enterococcus grew a 100,000 colony-forming units per mL and the pseudomonas at 8000 colony-forming units per mL. She currently reports a reduced appetite and no bowel movement x2 days. She has some mild abdominal pain at the left upper quadrant and otherwise is without acute complaints. She has been on oxygen while in the hospital, but did not use oxygen previously. Her mother reports that she has had abdominal bloating since hospitalization at [facility] in January of 2016; her mother is not completely sure why she was hospitalized at that time. PRECAUTIONS: She has seizure precautions. ACTIVE COMORBIDITIES: There are no active tier 1, tier 2, or tier 3 comorbidities. PAST MEDICAL HISTORY: 1. Spinal cord injury at age 27. 2. Bilateral lower extremity amputations for thrombosis in the . 3. Seizure disorder since childhood with recurrent seizures when phenobarbital was stopped in the past. 4. Neurogenic bladder. PAST SURGICAL HISTORY: She has had the amputations, and she has had placement of a suprapubic catheter. MEDICATIONS: Prior to admission: 1. Keppra. 2. Oxybutynin. 3. Phenobarbital. 4. Warfarin. ADMISSION MEDICATIONS: 1. Alteplase p.r.n. PICC line occlusion. 2. Aspirin 81 mg p.o. daily. 3. Bismuth subsalicylate 260 mg p.o. q.i.d. p.r.n. 4. Calcium carbonate 500 mg p.o. t.i.d. p.r.n. 5. Fludrocortisone 0.05 mg p.o. daily. 6. Levetiracetam 500 mg p.o. b.i.d. 7. Multivitamin 1 p.o. daily. 8. Oxybutynin 5 mg p.o. t.i.d. 9. Phenobarbital 15 mg as directed. I understood from the patient's mother that this was to be discontinued. 10. Rivaroxaban 20 mg p.o. daily. 11. Senna/docusate 1 tab p.o. every Tuesday, Tuesday, and Tuesday. ALLERGIES: There is an allergy listed to pseudoephedrine. FAMILY HISTORY: Noncontributory. PSYCHOSOCIAL HISTORY: She lives with her mother, and she has 1 adult son who is involved in her care. She is a nonsmoker and does not use alcohol. REVIEW OF SYSTEMS: She reports she was not using oxygen before this hospitalization. She denies cough or dyspnea. She denies chest pain or palpitations. She has a reduced appetite. Her last bowel movement was 2 days ago. She has some abdominal pain in the left upper quadrant. She reports that she does not have a sensory level and has sensation throughout her body, though her mother reports that she does not have sensation from the waist down. She reports that prior to admission, she was completely independent in self-care, including transfers, bathing, and dressing. She was not driving. Otherwise, a 10-point review of systems is negative. PHYSICAL EXAM: VITAL SIGNS: Blood pressure is 143/91, heart rate is 80, respiratory rate is 18, oxygen saturation is 95% on 2 L. Temperature is 36.6 degrees centigrade. GENERAL: This is a well-nourished, well-developed woman, appears younger than her chronologic age, cooperative, and in no acute distress , in bed in hospital garb. HEENT: Extraocular movements are intact. Pupils are equal, round, and reactive to light. Mucous membranes are moist. Dentition is in good condition. NECK: Supple. HEART: There is a regular rate and rhythm with no murmurs, rubs, or gallops. LUNGS: Clear to auscultation bilaterally. ABDOMEN: Soft, slightly tender in the left upper quadrant, moderately distended, with normoactive bowel sounds. EXTREMITIES: She is a bilateral pzwbk-fan-[id number] amputee. Her upper extremities are without cyanosis, clubbing, or edema. NEUROLOGIC: She is alert and oriented x3. Cranial nerves 2 through 12 are grossly intact. There is no focal weakness in the upper extremities or trunk. Her bed mobility is independent in terms of rolling from [id number]. Sensation appears to be intact to light touch overall. SKIN: There is approximately a 1/2 x 2 cm linear ulcer over her coccyx that is approximately 1/2 cm deep, and there is slough at the base. There is surrounding blanching erythema. CURRENT LEVEL OF FUNCTION: Per the pre-admission screen: DIET, FEEDING AND SWALLOWING: She was taking a regular texture diet with thin liquids. GROOMING: She required set up. BATHING: She required assistance. DRESSING: She required assistance. TOILETING: She needed total assistance for clothing management. BLADDER: She was noted to be incontinent, however, she also has a suprapubic catheter. BOWEL: She was continent. BED MOBILITY: Required minimal to moderate assistance of 2. TRANSFERS: Required minimal to moderate assistance with prone positioning and commando crawling. EQUIPMENT: She was using a wheelchair and a transfer board. BALANCE: Seated required minimal to moderate assistance of 2. ENDURANCE: Poor to fair, though she was able to tolerate therapies. COMMUNICATION: Not impaired. COGNITION: Regarding cognition, she was noted to have decreased insight into her current situation. She was considered a fall risk. IMPRESSION: The patient is a 65-year-old woman with a long history of spinal cord injury, seizure disorder, and status post bilateral lower extremity above- the-knee amputations. She has been hospitalized for the past 12 days, initially for abdominal pain. She was found to have a profoundly low sodium, which was slowly corrected. She was found to have anemia and Hemoccult- positive stools, which were likely due to stercoral ulcers related to constipation. She received blood transfusions. She was treated for urinary tract infection. Her hemoglobin and hematocrit were relatively stable, and her sodium was still low but stable. She was debilitated after her prolonged hospitalization and is appropriate for inpatient rehabilitation. She will benefit from physical and occupational therapy to optimize her mobility and functional status. She needs nursing care regarding bowel and bladder, skin integrity, fall risk, and medication management, and she needs the care of a physician regarding anemia, hyponatremia, and seizure disorder. Her goal is to complete a rehabilitation stay and return home with her family. For a safe discharge, it is anticipated that she will be independent with eating , grooming, and bed mobility. She will be modified independent for transfers. It is likely that she will continue to require standby assist to minimal assist for bathing and dressing. She will require assistance for instrumental activities of daily living, including shopping, meal preparation, and household management. She will require reassessment of her seating system due to her pressure ulcer. She will have physical therapy, occupational therapy on a modified schedule, 60- 90 minutes per day for each discipline on 5-7 days per week to total 15 hours per week or more. Her expected duration of stay is 7-10 days. It is anticipated that upon return home, she will continue to benefit from home health services, including nursing, a nurse's aide, social media specialist, occupational therapy, physical therapy, and amputation as well as spinal cord injury support groups. ASSESSMENT/PLAN: 1. Debility following hospitalization in a previously independent woman with history of spinal cord injury and bilateral lower extremity amputations. Physical therapy and occupational therapy to optimize mobility and activities of daily living. 2. Hyponatremia. Continue fludrocortisone. Salt supplement has been discontinued shortly prior to her hospital discharge. Her basic metabolic profile and sodium status will be followed. 3. Seizure disorder. Continue levetiracetam, though this was suspected as a possible contributing etiology to her hyponatremia. Phenobarbital had been continued in the acute care hospital, though Mrs. Saab's mother indicated that the intention was to discontinue it; will not continue phenobarbital for now. She will have seizure precautions. Would consider discontinuation of levetiracetam and initiation of an alternative anticonvulsant should she become more hyponatremic. 4. Anemia and bright red blood per rectum. Likely stercoral ulcers due to constipation. Will monitor her blood counts. 5. Constipation. Will establish a bowel regimen and rehabilitation bowel program for possible neurogenic contribution to her constipation. 6. Neurogenic bladder with suprapubic catheter. Unclear utility of oxybutynin in this situation. Oxybutynin will be discontinued, and she will be observed for recurrence of any symptoms. Family reports that she has been on it ever since her spinal cord injury with no clear indication. 7. Urinary tract infection was treated in the hospital, and the suprapubic catheter was changed during the first week of August. 8. Colon thickening seen on abdominal CT of unclear etiology, likely not malignant, given report of a colonoscopy in April. She will follow up with Gastroenterology after her discharge. 9. Labile blood pressure possibly due to autonomic dysreflexia. Laboratory studies are pending to evaluate for possible pheochromocytoma. 10. History of thrombotic events causing bilateral lower extremity amputation. Continue rivaroxaban. If she has worsening anemia, this may be reconsidered. 11. Positive troponin in the hospital with normal cardiac function on echocardiogram and no ischemia seen on nuclear cardiac imaging. Continue aspirin as recommended by the advertising consultant. 12. Presence of a PICC line. This will be continued as she and her family report that she is a rather difficult blood draw, until it is certain that her sodium is stable and her anemia is stable or improving. 13. Report of abdominal bloating since hospitalization in January. We will request records from [facility]. 14. Prophylaxis. She is on rivaroxaban, which is sufficient for deep venous thrombosis prophylaxis. There is no indication that she had an upper GI bleed, so there is no indication for a proton pump inhibitor. She has very minimal residual limbs on the lower extremities, and so there is no indication for DAVID hose or sequential compression devices. /[id number]/MODL MTDD
[2016-08-25] MEDS: RIVAROXABAN 20 MG TAB PO SCH (21:02)
[2016-08-25] MEDS: levETIRAcetam 500 MG TAB PO SCH (21:02)
[2016-08-26 08:18] LABS: % IMMATURE GRANULYOCYTES 0.6 % (0.0-1.1); ABSOLUTE IMMATURE GRANULOCYTES 0.04 10^3/uL (0.00-0.10); ADD DIFF? NO; ADD MORPH? NO; ADD SCAN? NO; ATYPICAL LYMPHOCYTE FLAG 30 (0-99); FRAGMENT RBC FLAG 0 (0-99); HEMATOCRIT 29.8 % (38.0-47.0); HEMOGLOBIN 9.8 g/dL (12.6-16.3); LEFT SHIFT FLG 0 (0-99); LIPEMIA HEMOLYSIS FLAG 80 (0-99); MEAN CELL HEMOGLOBIN 29.6 pg (27.9-34.1); MEAN CELL HEMOGLOBIN CONCENTR. 32.9 g/dL (32.4-36.7); MEAN PLATELET VOLUME 9.7 fL (8.7-11.7); PLATELET CLUMPS FLAG 10 (0-99); PLATELET COUNT 350 10^3/uL (150-400); RED BLOOD CELL COUNT 3.31 10^6/uL (4.18-5.33); RED CELL DISTRIBUTION WIDTH 14.6 % (11.5-15.2)
[2016-08-26 08:34] LABS: ANION GAP 0 mEq/L (8-16); CALCIUM 7.3 mg/dL (8.5-10.4); CARBON DIOXIDE 32 mEq/l (22-31); CHLORIDE 96 mEq/L (97-110); CREATININE 0.4 mg/dL (0.6-1.0); GLOMERULAR FILTRATION RATE > 60; GLUCOSE 86 mg/dL (70-100); SODIUM 128 mEq/L (134-144)
--- NOTE | 2016-08-26 08:46 | SOAPPROG ---
SOAP Progress Note Assessment/Plan: Assessment:Plan: Courtesy Note Patient discharged to Rehab Hyponatremia Na = 128 Goal is to normalize this as even mild hyponatremia can be symptomatic, leading to gait instability and falls. Patient had been on sodium chloride tablets up until 08/25/16. Would resume with 1 gram Bid. Daily labs ordered On florinef, which may allow us to decrease sodium chloride tab dose. I do not see that patient is on any fluid restriction. We can see how that works. Will follow peripherally. 08/26/16 08:46 Objective: Vital Signs Temp Pulse Resp BP Pulse Ox 36.4 C 83 16 137/101 H 96 08/26/16 06:17 08/26/16 06:17 08/26/16 06:17 08/26/16 06:17 08/26/16 06:17 Laboratory Results 08/26/16 06:10 08/26/16 06:10 08/25/16 08/26/16 08/27/16 05:59 05:59 05:59 Intake Total 150 Output Total 1200 Balance -1050 ICD10 Worksheet Patient Problems: Problems Problem Status Onset Abnormality of colon Acute Hyponatremia Acute Lower abdominal pain Acute Urinary tract infection Acute
[2016-08-26] MEDS ORDERED: RIVAROXABAN 20 MG TAB PO SCH (09:00)
[2016-08-26] MEDS ORDERED: LIDOCAINE 2% JELLY 5 ML TUBE TP PRN (09:16)
[2016-08-26] MEDS: levETIRAcetam 500 MG TAB PO SCH ×2 (09:36→21:22)
[2016-08-26] MEDS: POLYETHYLENE GLYCOL 3350 17 GM PKT PO SCH (09:51)
--- NOTE | 2016-08-26 09:59 | PDOREHIP ---
Admission [facility] - Admission - 3 Day Assessment Period Admission Date/Day 1: 08/25/16 Day 2: 08/26/16 Day 3: 08/27/16 - Active Diagnoses Comorbidities and Co-existing Conditions at Admission: 56072. None of the Above - Skin Conditions Unhealed Pressure Ulcer (1 or more/Stage 1 or >)-Admission: 1. Yes # Unstageable Pressure Ulcers (Slough/Eschar)-Admission: 1 (Coccyx)
--- NOTE | 2016-08-26 09:59 | SOAPPROG ---
SOAP Progress Note Assessment/Plan: Assessment: * Debility following hospitalization in a previously independent woman with history of spinal cord injury and bilateral lower extremity amputations. Physical therapy and occupational therapy to optimize mobility and activities of daily living. * Hyponatremia. Appreciate the assistance of Nephrology. Continue fludrocortisone. Salt supplement was discontinued shortly prior to her hospital discharge; restarted 08/26/16 per Nephrology. Na decreased 130 to 128 as of 08/26/16. COnsider fluid restriction; consider changing anticonvulsant. * Seizure disorder. Continue levetiracetam, though this was suspected as a possible contributing etiology to her hyponatremia. Phenobarbital had been continued in the acute care hospital, though Mrs. Saab's mother indicated that the intention was to discontinue it; will not continue phenobarbital for now. She will have seizure precautions. * Anemia and bright red blood per rectum. Likely stercoral ulcers due to constipation. Will monitor her blood counts. * Constipation. Will establish a bowel regimen and rehabilitation bowel program for possible neurogenic contribution to her constipation. * Neurogenic bladder with suprapubic catheter. Unclear utility of oxybutynin in this situation, but may have reduced leakage around catheter; consider restarting. Family reports that she has been on it ever since her spinal cord injury. * Urinary tract infection was treated in the hospital, and the suprapubic catheter was changed during the first week of August. * Colon thickening seen on abdominal CT of unclear etiology, likely not malignant, given report of a colonoscopy in April. She will follow up with Gastroenterology after her discharge. 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 Laboratory studies are pending to evaluate for possible pheochromocytoma. 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 Continue rivaroxaban. If she has worsening anemia, this may be reconsidered. * Positive troponin in the hospital with normal cardiac function on echocardiogram and no ischemia seen on nuclear cardiac imaging. Continue aspirin as recommended by the mgmt consultant. * Presence of a PICC line. This will be continued as she and her family report that she is a rather difficult blood draw, until it is certain that her sodium is stable and her anemia is stable or improving. * Report of abdominal bloating since hospitalization in January. We will request records from [facility]. * Prophylaxis. She is on rivaroxaban, which is sufficient for deep venous thrombosis prophylaxis. There is no indication that she had an upper GI bleed, so there is no indication for a proton pump inhibitor. She has very minimal residual limbs on the lower extremities, and so there is no indication for DAVID hose or sequential compression devices. 08/26/16 12:34 Subjective: No complaints. Slept well. Denies pain, f/c, cough/dyspnea. Nurse notes suprapubic catheter leakage. Objective: Vital Signs Temp Pulse Resp BP Pulse Ox 36.4 C 83 16 137/101 H 96 08/26/16 06:17 08/26/16 06:17 08/26/16 06:17 08/26/16 06:17 08/26/16 06:17 Laboratory Results 08/26/16 06:10 08/26/16 06:10 08/25/16 08/26/16 08/27/16 05:59 05:59 05:59 Intake Total 150 Output Total 1200 Balance -1050 Physical Exam - Physical Exam General Appearance: WD/WN, alert, no apparent distress Respiratory: normal breath sounds, No crackles, No rhonchi, No wheezing Cardiac/Chest: regular rate, rhythm, No diastolic murmur, No systolic murmur Skin: normal color, warm/dry Neuro/Psych: no motor/sensory deficits, alert, normal mood/affect, cognition abnormalities (concrete thinking, reduced memory) ICD10 Worksheet Patient Problems: Problems Problem Status Onset Abnormality of colon Acute Hyponatremia Acute Lower abdominal pain Acute Urinary tract infection Acute
[2016-08-26] MEDS: FLUDROCORTISONE ACETATE 0.1 MG TAB PO SCH (10:07)
[2016-08-26] MEDS: MULTIVITAMINS 1 EACH TAB PO SCH (10:08)
[2016-08-26] MEDS: ASPIRIN EC 81 MG TAB PO SCH (10:08)
[2016-08-26] MEDS: SODIUM CHLORIDE 1,000 MG TAB PO SCH ×2 (11:16→18:30)
--- NOTE | 2016-08-26 16:14 | WOCRNPDOC ---
WOCRN Advanced Assessment Note - Skin Integrity Problem, Advanced Assess Coccyx Dressing Type: Allevyn Life Dressing Description: Clean/Dry, Intact Exudate Amount: None Integumentary Issue Intervention: Dressing Changed Niles Wound Tissue: Blanching, Erythema Niles Wound Swelling: None Wound Bed Constitution: Adhered Slough (100% slough mixed loose and adhered), Loose Slough Wound Edges: Attached (from 12-6), Epibole (from 6-12 oclock) Site Odor: None Site Measurement - Head-to-Toe Length X Width X Depth (cm): 2x1.5x0.3 Pressure Injury Stage: Stage 3 (after debridement) Skin Integrity Problem Comment: Cleaned with ns and gauze after debridement. Skin prep niles directly niles wound. Anti fungal barrier cream to satellite lesions /erythema niles wound that appears to have some fungal involvement. Iodosorb to wound bed and that was covered with a small piece of telfa and secured with Allevyn life. Wound care will round again on 09/01. Conservative Sharp Bedside Debridement Performed: Yes Consent Signed for Debridement: Yes Timeout Performed per Protocol: Yes Instrument Used for Debridement: Currette Measurements After Debridement: same as post debridement Conservative Sharp Bedside Debridement Outcome: Down to Viable Tissue, Hemostasis Achieved
[2016-08-26] MEDS ORDERED: SODIUM CHLORIDE 1,000 MG TAB PO SCH (18:00)
[2016-08-26] MEDS: RIVAROXABAN 20 MG TAB PO SCH (21:22)
[2016-08-27 07:40] LABS: ALBUMIN 2.4 g/dL (3.5-5.0); ANION GAP 3 mEq/L (8-16); CALCIUM 7.7 mg/dL (8.5-10.4); CARBON DIOXIDE 30 mEq/l (22-31); CHLORIDE 100 mEq/L (97-110); CREATININE 0.5 mg/dL (0.6-1.0); GLOMERULAR FILTRATION RATE > 60; GLUCOSE 86 mg/dL (70-100); POTASSIUM 3.9 mEq/L (3.5-5.2); SODIUM 133 mEq/L (134-144)
[2016-08-27] MEDS: POLYETHYLENE GLYCOL 3350 17 GM PKT PO SCH (08:57)
[2016-08-27] MEDS: SODIUM CHLORIDE 1,000 MG TAB PO SCH ×2 (08:58→17:21)
[2016-08-27] MEDS: FLUDROCORTISONE ACETATE 0.1 MG TAB PO SCH (08:58)
[2016-08-27] MEDS: ASPIRIN EC 81 MG TAB PO SCH (08:58)
[2016-08-27] MEDS: levETIRAcetam 500 MG TAB PO SCH ×2 (08:59→21:57)
[2016-08-27] MEDS: MULTIVITAMINS 1 EACH TAB PO SCH (08:59)
--- NOTE | 2016-08-27 13:32 | SOAPPROG ---
SOAP Progress Note Assessment/Plan: Assessment: * Debility following hospitalization in woman with history of spinal cord injury and bilateral lower extremity amputations. Initial FIM 55. Does prone crawl transfers; concern re effect of suprapubic catheter. Slide board transfers to commode. Her custom wheelchair needs repair, arranged by PT. Concern re slide board and wheelchair positioning re coccyx decubitus ulcer. Continue physical therapy and occupational therapy to optimize mobility and activities of daily living. * Hyponatremia. Appreciate the assistance of Nephrology. Continue fludrocortisone. Salt supplement was discontinued shortly prior to her hospital discharge; restarted 08/26/16 per Nephrology. Na decreased 130 to 128 as of 08/26/16. Consider fluid restriction; consider changing anticonvulsant. * Seizure disorder. Continue levetiracetam, though this was suspected as a possible contributing etiology to her hyponatremia. Phenobarbital had been continued in the acute care hospital, though Mrs. Saab's mother indicated that the intention was to discontinue it; will not continue phenobarbital for now. She will have seizure precautions. * Anemia and bright red blood per rectum. Likely stercoral ulcers due to constipation. Will monitor her blood counts. * Decubitus ulcer over coccyx, stage 3. Appreciate assistance of wound nurse. PT & OT to work on wheelchair portioning and transfer issues to promote healing. Frequent turning while in bed per nursing. * Constipation. Will establish a bowel regimen and rehabilitation bowel program for possible neurogenic contribution to her constipation. * Neurogenic bladder with suprapubic catheter. Restart oxybutynin leakage around catheter; d/c if leakage continues * Urinary tract infection was treated in the hospital, and the suprapubic catheter was changed during the first week of August. * Colon thickening seen on abdominal CT of unclear etiology, likely not malignant, given report of a colonoscopy in April. She will follow up with Gastroenterology after her discharge. 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 Laboratory studies are pending to evaluate for possible pheochromocytoma. 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 Continue rivaroxaban. If she has worsening anemia, this may be reconsidered. * Positive troponin in the hospital with normal cardiac function on echocardiogram and no ischemia seen on nuclear cardiac imaging. Continue aspirin as recommended by the digital marketing consultant. * Presence of a PICC line. This will be continued as she and her family report that she is a rather difficult blood draw, until it is certain that her sodium is stable and her anemia is stable or improving. * Report of abdominal bloating since hospitalization in January. We will request records from [facility]. * Prophylaxis. She is on rivaroxaban, which is sufficient for deep venous thrombosis prophylaxis. There is no indication that she had an upper GI bleed, so there is no indication for a proton pump inhibitor. She has very minimal residual limbs on the lower extremities, and so there is no indication for DAVID hose or sequential compression devices. Attended staffing, 15 min. D/W case mgmt, nursing, PT, OT, pharmacist, calender roll operator. She had assistance with dressing at home; was o/w I with ADLs. Goal to recover independence, and promote healing of coccyx decubitus ulcer. Plan for discharge home 09/09/16. 08/27/16 13:36 Subjective: No complaints. Bowels moving easier. Not in pain, slept well, no f/c, cough/ dyspnea. Objective: Vital Signs Temp Pulse Resp BP Pulse Ox 36.7 C 74 16 152/101 H 95 08/27/16 07:04 08/27/16 07:04 08/27/16 07:04 08/27/16 07:04 08/27/16 07:04 Laboratory Results 08/26/16 06:10 08/27/16 06:15 08/26/16 08/27/16 08/28/16 05:59 05:59 05:59 Intake Total 150 1080 900 Output Total 1200 2000 Balance -1050 -920 900 - Time Spent With Patient Time Spent With Patient: Greater than 35 minutes floor time today, including more than 50% of time in coordination of care during staffing meeting, and counseling patient. Physical Exam - Physical Exam General Appearance: WD/WN, alert, no apparent distress Respiratory: No respiratory distress, No accessory muscle use Skin: normal color, warm/dry Neuro/Psych: alert, normal mood/affect ICD10 Worksheet Patient Problems: Problems Problem Status Onset Abnormality of colon Acute Hyponatremia Acute Lower abdominal pain Acute Urinary tract infection Acute
[2016-08-27] MEDS: OXYBUTYNIN CHLORIDE 5 MG TAB PO SCH ×2 (17:15→21:57)
[2016-08-27] MEDS: RIVAROXABAN 20 MG TAB PO SCH (21:57)
[2016-08-27] MEDS: BISACODYL 10 MG SUPP PR SCH (21:58)
[2016-08-28] MEDS: ONDANSETRON DISINTEGRATING 4 MG TAB PO PRN (09:53)
[2016-08-28 10:33] LABS: ALBUMIN 2.3 g/dL (3.5-5.0); ANION GAP 5 mEq/L (8-16); CALCIUM 7.6 mg/dL (8.5-10.4); CARBON DIOXIDE 28 mEq/l (22-31); CHLORIDE 101 mEq/L (97-110); CREATININE 0.5 mg/dL (0.6-1.0); GLOMERULAR FILTRATION RATE > 60; GLUCOSE 69 mg/dL (70-100); SODIUM 134 mEq/L (134-144)
[2016-08-28] MEDS: POLYETHYLENE GLYCOL 3350 17 GM PKT PO SCH (10:50)
[2016-08-28] MEDS: SODIUM CHLORIDE 1,000 MG TAB PO SCH ×2 (10:50→17:47)
[2016-08-28] MEDS: FLUDROCORTISONE ACETATE 0.1 MG TAB PO SCH (10:51)
[2016-08-28] MEDS: ASPIRIN EC 81 MG TAB PO SCH (10:51)
[2016-08-28] MEDS: MULTIVITAMINS 1 EACH TAB PO SCH (10:52)
[2016-08-28] MEDS: OXYBUTYNIN CHLORIDE 5 MG TAB PO SCH ×3 (10:52→20:49)
[2016-08-28] MEDS: levETIRAcetam 500 MG TAB PO SCH ×2 (10:52→20:48)
--- NOTE | 2016-08-28 12:35 | SOAPPROG ---
SOAP Progress Note Assessment/Plan: Assessment: sessment/Plan: Assessment: * Debility following hospitalization in woman with history of spinal cord injury and bilateral lower extremity amputations. Initial FIM 55. Does prone crawl transfers; concern re effect of suprapubic catheter. Slide board transfers to commode. Her custom wheelchair needs repair, arranged by PT. Concern re slide board and wheelchair positioning re coccyx decubitus ulcer. Continue physical therapy and occupational therapy to optimize mobility and activities of daily living. * Hyponatremia. Appreciate the assistance of Nephrology. Continue fludrocortisone. SODIUM LEVEL THIS AM 134. Salt supplement was discontinued shortly prior to her hospital discharge; restarted 08/26/16 per Nephrology. Na decreased 130 to 128 as of 08/26/16. Consider fluid restriction; consider changing anticonvulsant. * Seizure disorder. Continue levetiracetam, though this was suspected as a possible contributing etiology to her hyponatremia. Phenobarbital had been continued in the acute care hospital, though Mrs. Saab's mother indicated that the intention was to discontinue it; will not continue phenobarbital for now. She will have seizure precautions. * Anemia and bright red blood per rectum. Likely stercoral ulcers due to constipation. Will monitor her blood counts. HGB/HCT 9.8/29.8 PULSE 80 * Decubitus ulcer over coccyx, stage 3. Appreciate assistance of wound nurse. PT & OT to work on wheelchair portioning and transfer issues to promote healing. Frequent turning while in bed per nursing. THIS IS GOING TO BE AGGRAVATED BY PROLONGED PERIODS OF SITTING IN WHEELCHAIR. * Constipation. Will establish a bowel regimen and rehabilitation bowel program for possible neurogenic contribution to her constipation. * Neurogenic bladder with suprapubic catheter. SHE REPORTS NO LEAKAGE AT CATHETER SITE. * Urinary tract infection was treated in the hospital, and the suprapubic catheter was changed during the first week of August. * Colon thickening seen on abdominal CT of unclear etiology, likely not malignant, given report of a colonoscopy in April. She will follow up with Gastroenterology after her discharge. 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 Laboratory studies are pending to evaluate for possible pheochromocytoma. 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 Continue rivaroxaban. If she has worsening anemia, this may be reconsidered. * Positive troponin in the hospital with normal cardiac function on echocardiogram and no ischemia seen on nuclear cardiac imaging. Continue aspirin as recommended by the etl consultant. * Presence of a PICC line. This will be continued as she and her family report that she is a rather difficult blood draw, until it is certain that her sodium is stable and her anemia is stable or improving. * Report of abdominal bloating since hospitalization in January. We will request records from [facility]. * Prophylaxis. She is on rivaroxaban, which is sufficient for deep venous thrombosis prophylaxis. There is no indication that she had an upper GI bleed, so there is no indication for a proton pump inhibitor. She has very minimal residual limbs on the lower extremities, and so there is no indication for DAVID hose or sequential compression devices. Plan: 08/28/16 12:36 Subjective: No c/o this am. She reports no leakage from suprapubic catheter. She reports her LBP HAS RESOLVED. Objective: Vital Signs Temp Pulse Resp BP Pulse Ox 37.0 C 80 15 130/88 H 92 08/28/16 06:10 08/28/16 06:10 08/28/16 06:10 08/28/16 06:10 08/28/16 06:10 Laboratory Results 08/26/16 06:10 08/28/16 05:40 08/27/16 08/28/16 08/29/16 05:59 05:59 05:59 Intake Total 1080 1640 236 Output Total 2000 1300 Balance -920 340 236 Physical Exam - Physical Exam General Appearance: WD/WN, alert, no apparent distress Respiratory: chest non-tender, lungs clear, normal breath sounds Cardiac/Chest: edema (no UE edema), No JVD Abdomen: normal bowel sounds, non-tender, soft, distended, No rebound Skin: normal color, warm/dry, No cyanosis Extremities: normal range of motion (UEs. B/L AKA. RESIDUAL LIMBS NONTENDER), other (NO RIGHT OR LEFT SUBACROMIAL PAIN.) Neuro/Psych: normal mood/affect, No motor weakness (UPPER EXTREMITY STRENGTH WFLS. ) ICD10 Worksheet Patient Problems: Problems Problem Status Onset Abnormality of colon Acute Hyponatremia Acute Lower abdominal pain Acute Urinary tract infection Acute
[2016-08-28] MEDS: RIVAROXABAN 20 MG TAB PO SCH (20:49)
[2016-08-29 08:00] LABS: ALBUMIN 2.3 g/dL (3.5-5.0); ANION GAP 2 mEq/L (8-16); CALCIUM 7.7 mg/dL (8.5-10.4); CARBON DIOXIDE 28 mEq/l (22-31); CHLORIDE 99 mEq/L (97-110); CREATININE 0.5 mg/dL (0.6-1.0); GLOMERULAR FILTRATION RATE > 60; GLUCOSE 85 mg/dL (70-100); POTASSIUM 4.6 mEq/L (3.5-5.2); SODIUM 129 mEq/L (134-144)
[2016-08-29] MEDS: SODIUM CHLORIDE 1,000 MG TAB PO SCH ×2 (08:06→17:57)
[2016-08-29] MEDS: POLYETHYLENE GLYCOL 3350 17 GM PKT PO SCH (08:51)
[2016-08-29] MEDS: ASPIRIN EC 81 MG TAB PO SCH (08:52)
[2016-08-29] MEDS: levETIRAcetam 500 MG TAB PO SCH ×2 (08:52→20:21)
[2016-08-29] MEDS: OXYBUTYNIN CHLORIDE 5 MG TAB PO SCH ×3 (08:52→20:24)
[2016-08-29] MEDS: FLUDROCORTISONE ACETATE 0.1 MG TAB PO SCH (08:53)
[2016-08-29] MEDS: MULTIVITAMINS 1 EACH TAB PO SCH (08:53)
--- NOTE | 2016-08-29 09:59 | SOAPPROG ---
SOAP Progress Note Assessment/Plan: Assessment: sessment/Plan: Assessment: * Debility following hospitalization in woman with history of spinal cord injury and bilateral lower extremity amputations. Initial FIM 55. Does prone crawl transfers; concern re effect of suprapubic catheter. Slide board transfers to commode. Her custom wheelchair needs repair, arranged by PT. Concern re slide board and wheelchair positioning re coccyx decubitus ulcer. Continue physical therapy and occupational therapy to optimize mobility and activities of daily living. * Hyponatremia. Appreciate the assistance of Nephrology. Continue fludrocortisone. SODIUM LEVEL THIS AM 129. Salt supplement was discontinued shortly prior to her hospital discharge; restarted 08/26/16 per Nephrology. Na decreased 130 to 128 as of 08/26/16. NEERAJ BEGIN FLUID RESTRICTION 1500 CC/24 HRS * Seizure disorder. Continue levetiracetam, though this was suspected as a possible contributing etiology to her hyponatremia. Phenobarbital had been continued in the acute care hospital, though Mrs. Saab's mother indicated that the intention was to discontinue it; will not continue phenobarbital for now. She will have seizure precautions. * Anemia and bright red blood per rectum. Likely stercoral ulcers due to constipation. Will monitor her blood counts. HGB/HCT 9.8/29.8 PULSE 80 * Decubitus ulcer over coccyx, stage 3. Appreciate assistance of wound nurse. PT & OT to work on wheelchair portioning and transfer issues to promote healing. Frequent turning while in bed per nursing. THIS IS GOING TO BE AGGRAVATED BY PROLONGED PERIODS OF SITTING IN WHEELCHAIR. * Constipation. Will establish a bowel regimen and rehabilitation bowel program for possible neurogenic contribution to her constipation. * Neurogenic bladder with suprapubic catheter. SHE REPORTS NO LEAKAGE AT CATHETER SITE. * Urinary tract infection was treated in the hospital, and the suprapubic catheter was changed during the first week of August. * Colon thickening seen on abdominal CT of unclear etiology, likely not malignant, given report of a colonoscopy in April. She will follow up with Gastroenterology after her discharge. 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 Laboratory studies are pending to evaluate for possible pheochromocytoma. 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 Continue rivaroxaban. If she has worsening anemia, this may be reconsidered. * Positive troponin in the hospital with normal cardiac function on echocardiogram and no ischemia seen on nuclear cardiac imaging. Continue aspirin as recommended by the proposal consultant. * Presence of a PICC line. This will be continued as she and her family report that she is a rather difficult blood draw, until it is certain that her sodium is stable and her anemia is stable or improving. * Report of abdominal bloating since hospitalization in January. We will request records from [facility]. * Prophylaxis. She is on rivaroxaban, which is sufficient for deep venous thrombosis prophylaxis. There is no indication that she had an upper GI bleed, so there is no indication for a proton pump inhibitor. She has very minimal residual limbs on the lower extremities, and so there is no indication for DAVID hose or sequential compression devices. Plan: 08/28/16 12:36 08/29/16 09:55 Subjective: No c/o this am. Objective: Vital Signs Temp Pulse Resp BP Pulse Ox 36.5 C 92 16 132/84 H 92 08/29/16 05:44 08/29/16 05:44 08/29/16 05:44 08/29/16 05:44 08/29/16 05:44 Laboratory Results 08/26/16 06:10 08/29/16 06:20 08/28/16 08/29/16 08/30/16 05:59 05:59 05:59 Intake Total 1640 386 Output Total 1300 900 Balance 340 -514 Physical Exam - Physical Exam General Appearance: WD/WN, alert, no apparent distress Respiratory: lungs clear, normal breath sounds Cardiac/Chest: No edema, No JVD Abdomen: normal bowel sounds, non-tender, soft Back: Normal inspection Skin: normal color, warm/dry Neuro/Psych: alert (blunt affect. Truncated speech) ICD10 Worksheet Patient Problems: Problems Problem Status Onset Abnormality of colon Acute Hyponatremia Acute Lower abdominal pain Acute Urinary tract infection Acute
[2016-08-29] MEDS: ONDANSETRON DISINTEGRATING 4 MG TAB PO PRN (12:34)
[2016-08-29] MEDS: RIVAROXABAN 20 MG TAB PO SCH (20:21)
[2016-08-30] MEDS: SODIUM CHLORIDE 1,000 MG TAB PO SCH ×2 (08:12→17:28)
[2016-08-30] MEDS: POLYETHYLENE GLYCOL 3350 17 GM PKT PO SCH (09:04)
[2016-08-30] MEDS: levETIRAcetam 500 MG TAB PO SCH ×2 (09:04→20:49)
[2016-08-30] MEDS: FLUDROCORTISONE ACETATE 0.1 MG TAB PO SCH (09:04)
[2016-08-30] MEDS: MULTIVITAMINS 1 EACH TAB PO SCH (09:05)
[2016-08-30] MEDS: OXYBUTYNIN CHLORIDE 5 MG TAB PO SCH ×3 (09:05→20:49)
[2016-08-30] MEDS: ASPIRIN EC 81 MG TAB PO SCH (09:05)
[2016-08-30] MEDS: BISACODYL 10 MG SUPP PR SCH (09:40)
[2016-08-30 10:37] LABS: ALBUMIN 2.4 g/dL (3.5-5.0); ANION GAP 3 mEq/L (8-16); CALCIUM 7.7 mg/dL (8.5-10.4); CARBON DIOXIDE 27 mEq/l (22-31); CHLORIDE 100 mEq/L (97-110); CREATININE 0.5 mg/dL (0.6-1.0); GLOMERULAR FILTRATION RATE > 60; GLUCOSE 74 mg/dL (70-100); POTASSIUM 4.6 mEq/L (3.5-5.2); SODIUM 130 mEq/L (134-144)
[2016-08-30] MEDS: ONDANSETRON DISINTEGRATING 4 MG TAB PO PRN (13:11)
--- NOTE | 2016-08-30 14:32 | SOAPPROG ---
SOAP Progress Note Assessment/Plan: Assessment: * Debility following hospitalization in woman with history of spinal cord injury and bilateral lower extremity amputations. Initial FIM 55. Does prone crawl transfers; concern re effect on suprapubic catheter. Slide board transfers to commode. Her custom wheelchair needs repair, arranged by PT. Concern re slide board and wheelchair positioning re coccyx decubitus ulcer. Continue physical therapy and occupational therapy to optimize mobility and activities of daily living. * Hyponatremia. Appreciate the assistance of Nephrology. Continue fludrocortisone. Salt supplement was discontinued shortly prior to her hospital discharge; restarted 08/26/16 per Nephrology. Na stable in rangeof 128 - 134. Consider fluid restriction. * Seizure disorder. Continue levetiracetam, though this was suspected as a possible contributing etiology to her hyponatremia. Phenobarbital had been continued in the acute care hospital, though Mrs. Saab's mother indicated that the intention was to discontinue it; will not continue phenobarbital for now. She will have seizure precautions. * Anemia and bright red blood per rectum. Likely stercoral ulcers due to constipation. Will monitor her blood counts. * Decubitus ulcer over coccyx, stage 3. Appreciate assistance of wound nurse. PT & OT to work on wheelchair portioning and transfer issues to promote healing. Frequent turning while in bed per nursing. * Constipation. Will establish a bowel regimen and rehabilitation bowel program for possible neurogenic contribution to her constipation. Bowel movement 08/30/16 with manual disimpaction. * Neurogenic bladder with suprapubic catheter. Restart oxybutynin leakage around catheter; leakage resolved. * Urinary tract infection was treated in the hospital, and the suprapubic catheter was changed during the first week of August. * Colon thickening seen on abdominal CT of unclear etiology, likely not malignant, given report of a colonoscopy in April. She will follow up with Gastroenterology after her discharge. 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 Laboratory studies are pending to evaluate for possible pheochromocytoma. 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 Continue rivaroxaban. If she has worsening anemia, this may be reconsidered. * Positive troponin in the hospital with normal cardiac function on echocardiogram and no ischemia seen on nuclear cardiac imaging. Continue aspirin as recommended by the senior analytic consultant. * Presence of a PICC line. This will be continued as she and her family report that she is a rather difficult blood draw, until it is certain that her sodium is stable and her anemia is stable or improving. * Report of abdominal bloating since hospitalization in January. We will request records from [facility]. * Prophylaxis. She is on rivaroxaban, which is sufficient for deep venous thrombosis prophylaxis. There is no indication that she had an upper GI bleed, so there is no indication for a proton pump inhibitor. She has very minimal residual limbs on the lower extremities, and so there is no indication for DAVID hose or sequential compression devices. he had assistance with dressing at home; was o/w I with ADLs. Goal to recover independence, and promote healing of coccyx decubitus ulcer. Plan for discharge home 09/09/16. 08/30/16 14:29 Subjective: No complaints other than wanting to go home. Suprapubic cath not leaking. Denies pain, f/c, cough/dyspnea. Objective: Vital Signs Temp Pulse Resp BP Pulse Ox 36.6 C 84 16 130/89 H 93 08/30/16 07:55 08/30/16 08:00 08/30/16 08:00 08/30/16 07:55 08/30/16 08:36 Laboratory Results 08/26/16 06:10 08/30/16 06:23 08/29/16 08/30/16 08/31/16 05:59 05:59 05:59 Intake Total 386 950 510 Output Total 900 950 Balance -514 0 510 Physical Exam - Physical Exam General Appearance: WD/WN, alert, no apparent distress Respiratory: normal breath sounds, No crackles, No rhonchi, No wheezing Cardiac/Chest: regular rate, rhythm, No diastolic murmur, No systolic murmur Skin: normal color, warm/dry ICD10 Worksheet Patient Problems: Problems Problem Status Onset Abnormality of colon Acute Hyponatremia Acute Lower abdominal pain Acute Urinary tract infection Acute
[2016-08-30] MEDS: RIVAROXABAN 20 MG TAB PO SCH (20:49)
[2016-08-31] MEDS: ASPIRIN EC 81 MG TAB PO SCH (08:22)
[2016-08-31] MEDS: SODIUM CHLORIDE 1,000 MG TAB PO SCH ×2 (08:22→17:10)
[2016-08-31] MEDS: FLUDROCORTISONE ACETATE 0.1 MG TAB PO SCH (08:23)
[2016-08-31] MEDS: MULTIVITAMINS 1 EACH TAB PO SCH (08:23)
[2016-08-31] MEDS: levETIRAcetam 500 MG TAB PO SCH ×2 (08:23→20:59)
[2016-08-31] MEDS: OXYBUTYNIN CHLORIDE 5 MG TAB PO SCH ×3 (08:23→20:59)
[2016-08-31] MEDS: POLYETHYLENE GLYCOL 3350 17 GM PKT PO SCH (08:24)
[2016-08-31 08:29] LABS: ALBUMIN 2.6 g/dL (3.5-5.0); ANION GAP 7 mEq/L (8-16); CALCIUM 7.8 mg/dL (8.5-10.4); CARBON DIOXIDE 24 mEq/l (22-31); CHLORIDE 100 mEq/L (97-110); CREATININE 0.5 mg/dL (0.6-1.0); GLOMERULAR FILTRATION RATE > 60; GLUCOSE 79 mg/dL (70-100); POTASSIUM 4.6 mEq/L (3.5-5.2); SODIUM 131 mEq/L (134-144)
[2016-08-31] MEDS: ONDANSETRON DISINTEGRATING 4 MG TAB PO PRN ×2 (10:53→15:55)
[2016-08-31] MEDS ORDERED: NITROGLYCERIN 2% 1 GM PACKET TP PRN (12:35)
[2016-08-31] MEDS ORDERED: hydrALAZINE 10 MG TAB PO PRN (12:39)
--- NOTE | 2016-08-31 13:26 | SOAPPROG ---
SOAP Progress Note Assessment/Plan: Assessment/ plan: 08/31/2016- sodium improving, 131 today, fluid restriction started over weekend by Dr. De Luna, but order just entered today by me. 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 She is not familiar with the term, and will need education. A liberalized AD protocol was instituted today with staff education, difficult given the likelihood that she is frequently in a state of low level AD due to her pressure ulcer and rectal pathology. Regardless, will attempt to control at high BP to reduce risk of re-stroke or cardiac event, etc. To clarify, her spinal cord injury level per her report is C6-7 incomplete. Will also work with staff on overall AD education and consider sending patient with an AD kit on discharge. 60 minutes was spent on her care today on the floor, the majority of which was spent in the counseling and coordination of care regarding AD management. * Debility following hospitalization in woman with history of spinal cord injury and bilateral lower extremity amputations. Initial FIM 55. Does prone crawl transfers; concern re effect on suprapubic catheter. Slide board transfers to commode. Her custom wheelchair needs repair, arranged by PT. Concern re slide board and wheelchair positioning re coccyx decubitus ulcer. Continue physical therapy and occupational therapy to optimize mobility and activities of daily living. * Hyponatremia. Appreciate the assistance of Nephrology. Continue fludrocortisone. Salt supplement was discontinued shortly prior to her hospital discharge; restarted 08/26/16 per Nephrology. Na stable in range of 128 - 134. Fluid restriction started over weekend, but order being placed today - 1500 cc daily, started by Dr. De Luna. * Seizure disorder. Continue levetiracetam, though this was suspected as a possible contributing etiology to her hyponatremia. Phenobarbital had been continued in the acute care hospital, though Mrs. Saab's mother indicated that the intention was to discontinue it; will not continue phenobarbital for now. She will have seizure precautions. * Anemia and bright red blood per rectum. Likely stercoral ulcers due to constipation. Will monitor her blood counts. * Pressure ulcer over coccyx, stage 3. Appreciate assistance of wound nurse. PT & OT to work on wheelchair portioning and transfer issues to promote healing. Frequent turning while in bed per nursing. * Constipation. Will establish a bowel regimen and rehabilitation bowel program for possible neurogenic contribution to her constipation. Bowel movement 08/30/16 with manual disimpaction. * Neurogenic bladder with suprapubic catheter. Restarted oxybutynin leakage around catheter; leakage resolved. * Urinary tract infection was treated in the hospital, and the suprapubic catheter was changed during the first week of August. * Colon thickening seen on abdominal CT of unclear etiology, likely not malignant, given report of a colonoscopy in April. She will follow up with Gastroenterology after her discharge. 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 Laboratory studies are pending to evaluate for possible pheochromocytoma. Liberalized AD guidelines in place with PRN nitropaste and hydralazine. Her AD symptoms in the past have been a throbbing headache, often associated with a clogged urinary catheter. 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 Continue rivaroxaban. If she has worsening anemia, this may be reconsidered. * Positive troponin in the hospital with normal cardiac function on echocardiogram and no ischemia seen on nuclear cardiac imaging. Continue aspirin as recommended by the workforce management consultant. * Presence of a PICC line. This will be continued as she and her family report that she is a rather difficult blood draw, until it is certain that her sodium is stable and her anemia is stable or improving. * Report of abdominal bloating since hospitalization in January. We will request records from [facility]. * Prophylaxis. She is on rivaroxaban, which is sufficient for deep venous thrombosis prophylaxis. There is no indication that she had an upper GI bleed, so there is no indication for a proton pump inhibitor. She has very minimal residual limbs on the lower extremities, and so there is no indication for DAVID hose or sequential compression devices. he had assistance with dressing at home; was o/w I with ADLs. Goal to recover independence, and promote healing of coccyx pressure ulcer. Plan for discharge home 09/09/16. 08/31/16 13:17 Subjective: CC: labile blood pressures and hyponatremia No acute events overnight. Pt relays hx of C6-7 incomplete SCI with history of headaches associated with clogged foleys or injury below the level of her injury. She is not familiar with the term "Autonomic Dysreflexia". She had a niles- stroke in the years following her SCI. She has never taken her blood pressure during episodes of headache, etiology and plan around her niles- stroke was not readily clear. Otherwise participating well in therapies. Home structure not particularly supportive per staff reports. Objective: Vital Signs Temp Pulse Resp BP Pulse Ox 36.4 C 81 16 137/94 H 94 08/31/16 07:17 08/31/16 07:17 08/31/16 07:17 08/31/16 07:17 08/31/16 07:17 Laboratory Results 08/26/16 06:10 08/31/16 06:36 08/30/16 08/31/16 09/01/16 05:59 05:59 05:59 Intake Total 950 1820 240 Output Total 950 800 300 Balance 0 1020 -60 Physical Exam - Physical Exam General Appearance: alert, no apparent distress EENT: other (scar on face), No scleral icterus (R), No scleral icterus (L) Neck: No full range of motion Respiratory: lungs clear, normal breath sounds, No respiratory distress, No accessory muscle use, No rales, No rhonchi, No stridor Cardiac/Chest: normal peripheral pulses, regular rate, rhythm Abdomen: normal bowel sounds, non-tender, soft Pelvic Exam: other (Sandhu in place, suprapubic. Urine clear. ) Skin: normal color, warm/dry Lymphatic: no adenopathy Extremities: other (bilat AKA, not closely examined. ) Neuro/Psych: alert, normal mood/affect, sensory deficit, speech abnormalities ( slowed speech, difficulty hearing) ICD10 Worksheet Patient Problems: Problems Problem Status Onset At risk for autonomic dysreflexia Acute Abnormality of colon Acute Hyponatremia Acute Lower abdominal pain Acute Urinary tract infection Acute - ICD10 Problem Qualifiers (1) At risk for autonomic dysreflexia
[2016-08-31] MEDS: RIVAROXABAN 20 MG TAB PO SCH (20:59)
[2016-09-01] MEDS: POLYETHYLENE GLYCOL 3350 17 GM PKT PO SCH (08:32)
[2016-09-01] MEDS: SODIUM CHLORIDE 1,000 MG TAB PO SCH ×2 (08:33→18:59)
[2016-09-01] MEDS: ASPIRIN EC 81 MG TAB PO SCH (08:34)
[2016-09-01] MEDS: FLUDROCORTISONE ACETATE 0.1 MG TAB PO SCH (08:34)
[2016-09-01] MEDS: OXYBUTYNIN CHLORIDE 5 MG TAB PO SCH ×3 (08:35→21:41)
[2016-09-01] MEDS: MULTIVITAMINS 1 EACH TAB PO SCH (08:35)
[2016-09-01] MEDS: levETIRAcetam 500 MG TAB PO SCH ×2 (08:36→21:41)
[2016-09-01 09:03] LABS: ALBUMIN 2.2 g/dL (3.5-5.0); ANION GAP 2 mEq/L (8-16); CALCIUM 7.6 mg/dL (8.5-10.4); CARBON DIOXIDE 26 mEq/l (22-31); CHLORIDE 101 mEq/L (97-110); CREATININE 0.5 mg/dL (0.6-1.0); GLOMERULAR FILTRATION RATE > 60; GLUCOSE 76 mg/dL (70-100); POTASSIUM 4.5 mEq/L (3.5-5.2); SODIUM 129 mEq/L (134-144)
--- NOTE | 2016-09-01 09:48 | SOAPPROG ---
SOAP Progress Note Assessment/Plan: Assessment: * Debility following hospitalization in woman with history of spinal cord injury and bilateral lower extremity amputations. Initial FIM 55 on 08/27/16; improved to 60 as of 09/01/16. Does prone crawl transfers. Slide board transfers to commode. Her custom wheelchair needs repair, arranged by PT; has custom back for scoliosis. Concern re slide board and wheelchair positioning re coccyx decubitus ulcer. Continue physical therapy and occupational therapy to optimize mobility and activities of daily living. * Hyponatremia. Appreciate the assistance of Nephrology. Continue fludrocortisone. Salt supplement was discontinued shortly prior to her hospital discharge; restarted 08/26/16 per Nephrology. On low-dose fludrocortisone. Na stable in rangeof 128 - 134. Initiated fluid restriction 1500 cc/day. * Seizure disorder. Continue levetiracetam, though this was suspected as a possible contributing etiology to her hyponatremia. Phenobarbital had been continued in the acute care hospital, though Mrs. Saab's mother indicated that the intention was to discontinue it; will not continue phenobarbital for now. She will have seizure precautions. * Autonomic dysreflexia. Protocol initiated 08/31/16 with NTG paste and hydralazine. Laboratory studies are pending to evaluate for possible pheochromocytoma. * Anemia and bright red blood per rectum. Likely stercoral ulcers due to constipation. Will monitor her blood counts. * Decubitus ulcer over coccyx, stage 3. Appreciate assistance of wound nurse. PT & OT to work on wheelchair portioning and transfer issues to promote healing. Frequent turning while in bed per nursing. Healing. * Constipation. Continue polyethylene glycol scheduled and senna PRN. Continue rehabilitation bowel program for possible neurogenic contribution to her constipation. Bowel movement 08/30/16 with manual disimpaction. * Neurogenic bladder with suprapubic catheter. Restarted oxybutynin for leakage around catheter; leakage resolved initially but still leaks at times. Skin care per nursing.. * Urinary tract infection was treated in the hospital, and the suprapubic catheter was changed during the first week of August. * Colon thickening seen on abdominal CT of unclear etiology, likely not malignant, given report of a colonoscopy in April. She will follow up with Gastroenterology after her discharge. 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 Continue rivaroxaban. If she has worsening anemia, this may be reconsidered. * Positive troponin in the hospital with normal cardiac function on echocardiogram and no ischemia seen on nuclear cardiac imaging. Continue aspirin as recommended by the disaster recovery consultant. * Presence of a PICC line. This will be continued as she and her family report that she is a rather difficult blood draw, until it is certain that her sodium is stable and her anemia is stable or improving. * Prophylaxis. She is on rivaroxaban, which is sufficient for deep venous thrombosis prophylaxis. There is no indication that she had an upper GI bleed, so there is no indication for a proton pump inhibitor. She has very minimal residual limbs on the lower extremities, and so there is no indication for DAVID hose or sequential compression devices. Attended staffing, 15 min. D/W case mgmt, nursing, PT, OT, patternmaker helper, pharmacist. Had impromptu family meeting, 20 min. May not return to level of independence prior to hospitalization. She had assistance with dressing at home ; was o/w I with ADLs. Goal to optimize independence, and promote healing of coccyx decubitus ulcer. Plan for discharge home 09/09/16. Follow-up wheelchair clinic 09/14/16. 09/01/16 12:04 Subjective: No complaints. Nurse reported that she was coughing and had abnormal lung sounds. She denies cough or dyspnea, f/c, CP. Objective: Vital Signs Temp Pulse Resp BP Pulse Ox 36.9 C 82 18 145/94 H 94 09/01/16 07:44 09/01/16 07:44 09/01/16 07:44 09/01/16 07:44 09/01/16 07:44 Laboratory Results 08/26/16 06:10 09/01/16 06:12 08/31/16 09/01/16 09/02/16 05:59 05:59 05:59 Intake Total 1820 1160 300 Output Total 800 900 Balance 1020 260 300 - Time Spent With Patient Time Spent With Patient: Greater than 35 minutes floor time today, including more than 50% of time in coordination of care during staffing and family meetings, and counseling patient and family. Physical Exam - Physical Exam General Appearance: WD/WN, alert, no apparent distress Respiratory: normal breath sounds, No crackles, No rhonchi, No wheezing Cardiac/Chest: regular rate, rhythm, No diastolic murmur, No systolic murmur Skin: normal color, warm/dry ICD10 Worksheet Patient Problems: Problems Problem Status Onset At risk for autonomic dysreflexia Acute Abnormality of colon Acute Hyponatremia Acute Lower abdominal pain Acute Urinary tract infection Acute
[2016-09-01] MEDS: ONDANSETRON DISINTEGRATING 4 MG TAB PO PRN (13:16)
--- NOTE | 2016-09-01 17:50 | WOCRNPDOC ---
WOCRN Advanced Assessment Note - Skin Integrity Problem, Advanced Assess Coccyx Dressing Type: Allevyn Life, Iodosorb, Telfa Dressing Description: Clean/Dry, Intact Exudate Amount: None Exudate Characteristic(s): None Integumentary Issue Intervention: Visualized Under Dressing Anastasia Wound Tissue: Erythema (associated with margin) Anastasia Wound Swelling: None Wound Bed Color: Red, Yellow Wound Bed Constitution: Granulation Tissue (80%), Adhered Slough (20%) Wound Edges: Attached, Epibole (absent), Well Defined Site Odor: None Site Measurement - Head-to-Toe Length X Width X Depth (cm): 2 x 1.5 x 0.4 Pressure Injury Stage: Stage 3 Pressure Injury Present on Admit: Yes (on admission to ) Skin Integrity Problem Comment: Follow-up eval: Visualized wound with RAND Elaine , who had earlier changed the dressing per orders. Moving the iodosorb gel aside , a thin, linear tract of adherent slough is visible at the wound base; with early granulation appearance of tissue along cabrales. Erythema that has been noted previously, along with fungal appearance of intact periwound tissue appears to be receding. RAND Elaine commented that she has observed improvement with the use of the antifungal cream. Iodosorb and dressing were put back in place. The general impression is of improvement, and that current plan of care may be continued. Wound Care will round next: Tuesday, 09/08.
[2016-09-01 18:53] LABS: COLOR YELLOW; LEUKOCYTE ESTERASE,URINE 3+ (NEGATIVE); NITRITE,URINE NEGATIVE (NEGATIVE)
[2016-09-01 19:11] LABS: AMORPHOUS PRESENT /hpf (NONE-1+); BACTERIA TRACE /hpf (NONE SEEN); WBC,URINE 50-182 /hpf (0-3)
[2016-09-01 19:14] LABS: RENAL EPITHELIAL CELLS OCCASIONAL /hpf (NONE SEEN)
[2016-09-01] MEDS: BISACODYL 10 MG SUPP PR SCH (19:51)
[2016-09-01] MEDS: RIVAROXABAN 20 MG TAB PO SCH (21:41)
[2016-09-01 22:55] LABS: HEMATOCRIT 30.8 % (38.0-47.0); MEAN CELL HEMOGLOBIN 29.5 pg (27.9-34.1); MEAN CELL HEMOGLOBIN CONCENTR. 32.5 g/dL (32.4-36.7); MEAN CELL VOLUME 90.9 fL (81.5-99.8); RED BLOOD CELL COUNT 3.39 10^6/uL (4.18-5.33); RED CELL DISTRIBUTION WIDTH 14.6 % (11.5-15.2)
[2016-09-02] MEDS: OXYBUTYNIN CHLORIDE 5 MG TAB PO SCH ×3 (08:11→20:50)
[2016-09-02] MEDS: POLYETHYLENE GLYCOL 3350 17 GM PKT PO SCH (08:11)
[2016-09-02] MEDS: FLUDROCORTISONE ACETATE 0.1 MG TAB PO SCH (08:11)
[2016-09-02] MEDS: SODIUM CHLORIDE 1,000 MG TAB PO SCH ×2 (08:12→17:00)
[2016-09-02] MEDS: levETIRAcetam 500 MG TAB PO SCH ×2 (08:12→20:50)
[2016-09-02] MEDS: ASPIRIN EC 81 MG TAB PO SCH (08:12)
[2016-09-02] MEDS: MULTIVITAMINS 1 EACH TAB PO SCH (08:12)
[2016-09-02 08:18] LABS: ALBUMIN 2.3 g/dL (3.5-5.0); ANION GAP 2 mEq/L (8-16); CALCIUM 7.9 mg/dL (8.5-10.4); CARBON DIOXIDE 26 mEq/l (22-31); CHLORIDE 103 mEq/L (97-110); CREATININE 0.5 mg/dL (0.6-1.0); GLOMERULAR FILTRATION RATE > 60; GLUCOSE 79 mg/dL (70-100); POTASSIUM 4.6 mEq/L (3.5-5.2); SODIUM 131 mEq/L (134-144)
--- NOTE | 2016-09-02 11:44 | SOAPPROG ---
SOAP Progress Note Assessment/Plan: Assessment/ plan: 09/02: UA + but likely colonization, no other systemic signs or symptoms of infection. Low level AD may be related, but more likely AD is related to wounds or other source. SP catheter leak, OK to change out catheter. Expressed desire to go home, ok with working with team for now. Sodium mildly low but stable today at 131, monitor and continue plan. * Debility following hospitalization in woman with history of spinal cord injury and bilateral lower extremity amputations. Initial FIM 55 on 08/27/16; improved to 60 as of 09/01/16. Does prone crawl transfers. Slide board transfers to commode. Her custom wheelchair needs repair, arranged by PT; has custom back for scoliosis. Concern re slide board and wheelchair positioning re coccyx decubitus ulcer. Continue physical therapy and occupational therapy to optimize mobility and activities of daily living. Goal to make sure she is safe and capable upon discharge. * Hyponatremia. Appreciate the assistance of Nephrology. Continue fludrocortisone. Salt supplement was discontinued shortly prior to her hospital discharge; restarted 08/26/16 per Nephrology. On low-dose fludrocortisone. Na stable in range of 128 - 134. Initiated fluid restriction 08/31/16 1500 cc/day. Stable hyponatremia. * Seizure disorder. Continue levetiracetam, though this was suspected as a possible contributing etiology to her hyponatremia. Phenobarbital had been continued in the acute care hospital, though Mrs. Saab's mother indicated that the intention was to discontinue it; will not continue phenobarbital for now. She will have seizure precautions. * Autonomic dysreflexia. Protocol initiated 08/31/16 with NTG paste and hydralazine. Laboratory studies are pending to evaluate for possible pheochromocytoma. Education * Anemia and bright red blood per rectum. Likely stercoral ulcers due to constipation. Will monitor her blood counts. * Decubitus ulcer over coccyx, stage 3. Appreciate assistance of wound nurse. PT & OT to work on wheelchair portioning and transfer issues to promote healing. Frequent turning while in bed per nursing. Healing. May be contributing to low level AD. * Constipation. Continue polyethylene glycol scheduled and senna PRN. Continue rehabilitation bowel program for possible neurogenic contribution to her constipation. Bowel movement 08/30/16 with manual disimpaction. * Neurogenic bladder with suprapubic catheter. Restarted oxybutynin for leakage around catheter; leakage resolved initially but still leaks at times. Skin care per nursing. * Urinary tract infection was treated in the hospital, and the suprapubic catheter was changed during the first week of August. 09/02 has +UA but likely colonization, will culture and monitor clinically. * Colon thickening seen on abdominal CT of unclear etiology, likely not malignant, given report of a colonoscopy in April. She will follow up with Gastroenterology after her discharge. 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 Continue rivaroxaban. If she has worsening anemia, this may be reconsidered. * Positive troponin in the hospital with normal cardiac function on echocardiogram and no ischemia seen on nuclear cardiac imaging. Continue aspirin as recommended by the compensation consultant. * Presence of a PICC line. This will be continued as she and her family report that she is a rather difficult blood draw, until it is certain that her sodium is stable and her anemia is stable or improving. * Prophylaxis. She is on rivaroxaban, which is sufficient for deep venous thrombosis prophylaxis. There is no indication that she had an upper GI bleed, so there is no indication for a proton pump inhibitor. She has very minimal residual limbs on the lower extremities, and so there is no indication for DAVID hose or sequential compression devices. Attended staffing, 15 min. D/W case mgmt, nursing, PT, OT, ammunition assembly ii laborer, pharmacist. Had impromptu family meeting, 20 min. May not return to level of independence prior to hospitalization. She had assistance with dressing at home ; was o/w I with ADLs. Goal to optimize independence, and promote healing of coccyx decubitus ulcer. Plan for discharge home 09/09/16. Follow-up wheelchair clinic 09/14/16. 08/31/16 13:17 09/02/16 11:40 Subjective: CC: Hyponatremia, neurogenic bladder No acute events overnight, pt has mild catheter leak. + UA, but denies fever, chills, sweats, etc. Continues to have labile blood pressure, 81-145/52-98 range in the past 24 hr. Denies headaches or other symptoms of AD. Denies confusion. Otherwise no changes, working with therapies. Wants to go home, tired of the hospital. Objective: Vital Signs Temp Pulse Resp BP Pulse Ox 36.9 C 90 16 143/98 H 96 09/02/16 06:42 09/02/16 06:42 09/02/16 06:42 09/02/16 06:42 09/02/16 06:42 Laboratory Results 09/01/16 21:06 09/02/16 06:20 09/01/16 09/02/16 09/03/16 05:59 05:59 05:59 Intake Total 1160 650 Output Total 900 400 Balance 260 250 Physical Exam - Physical Exam General Appearance: alert, no apparent distress EENT: No scleral icterus (R), No scleral icterus (L) Respiratory: normal breath sounds, No respiratory distress Cardiac/Chest: normal peripheral pulses, regular rate, rhythm Pelvic Exam: other (thompson in place, urine not checked) Skin: normal color, warm/dry Extremities: other (B AKA), No swelling Neuro/Psych: alert, normal mood/affect (appears a bit down, declined to talk about mood), cognition abnormalities, speech abnormalities (slow speech) ICD10 Worksheet Patient Problems: Problems Problem Status Onset At risk for autonomic dysreflexia Acute Abnormality of colon Acute Hyponatremia Acute Lower abdominal pain Acute Urinary tract infection Acute - ICD10 Problem Qualifiers (1) At risk for autonomic dysreflexia
[2016-09-02] MEDS: RIVAROXABAN 20 MG TAB PO SCH (20:50)
[2016-09-03] MEDS: POLYETHYLENE GLYCOL 3350 17 GM PKT PO SCH (08:40)
[2016-09-03] MEDS: OXYBUTYNIN CHLORIDE 5 MG TAB PO SCH ×3 (08:40→22:01)
[2016-09-03] MEDS: levETIRAcetam 500 MG TAB PO SCH ×2 (08:40→22:01)
[2016-09-03] MEDS: MULTIVITAMINS 1 EACH TAB PO SCH (08:40)
[2016-09-03] MEDS: SODIUM CHLORIDE 1,000 MG TAB PO SCH ×2 (08:40→18:09)
[2016-09-03] MEDS: FLUDROCORTISONE ACETATE 0.1 MG TAB PO SCH (08:40)
[2016-09-03] MEDS: ASPIRIN EC 81 MG TAB PO SCH (08:40)
--- NOTE | 2016-09-03 14:22 | SOAPPROG ---
SOAP Progress Note Assessment/Plan: Assessment: 09/03: UA +, culture with Pseudomonas, south-sensitive, and second bacteria, not yet identified, Likely colonization, no other systemic signs or symptoms of infection. Low level AD may be related, but more likely AD is related to wounds or other source. * Debility following hospitalization in woman with history of spinal cord injury and bilateral lower extremity amputations. Initial FIM 55 on 08/27/16; improved to 60 as of 09/01/16. Does prone crawl transfers. Slide board transfers to commode. Her custom wheelchair needs repair, arranged by PT; has custom back for scoliosis. Concern re slide board and wheelchair positioning re coccyx decubitus ulcer. Continue physical therapy and occupational therapy to optimize mobility and activities of daily living. * Hyponatremia. Appreciate the assistance of Nephrology. Continue fludrocortisone. Salt supplement was discontinued shortly prior to her hospital discharge; restarted 08/26/16 per Nephrology. On low-dose fludrocortisone. Na stable in rangeof 128 - 134. Initiated fluid restriction 1500 cc/day. * Seizure disorder. Continue levetiracetam, though this was suspected as a possible contributing etiology to her hyponatremia. Phenobarbital had been continued in the acute care hospital, though Mrs. Saab's mother indicated that the intention was to discontinue it; will not continue phenobarbital for now. She will have seizure precautions. * Autonomic dysreflexia. Protocol initiated 08/31/16 with NTG paste and hydralazine. Laboratory studies are pending to evaluate for possible pheochromocytoma. * Anemia and bright red blood per rectum. Likely stercoral ulcers due to constipation. Will monitor her blood counts. * Decubitus ulcer over coccyx, stage 3. Appreciate assistance of wound nurse. PT & OT to work on wheelchair portioning and transfer issues to promote healing. Frequent turning while in bed per nursing. Healing. * Constipation. Continue polyethylene glycol scheduled and senna PRN. Continue rehabilitation bowel program for possible neurogenic contribution to her constipation. Bowel movement 08/30/16 with manual disimpaction. * Neurogenic bladder with suprapubic catheter. Restarted oxybutynin for leakage around catheter; leakage resolved initially but still leaks at times. Skin care per nursing.. * Urinary tract infection was treated in the hospital, and the suprapubic catheter was changed during the first week of August. * Colon thickening seen on abdominal CT of unclear etiology, likely not malignant, given report of a colonoscopy in April. She will follow up with Gastroenterology after her discharge. 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 Continue rivaroxaban. If she has worsening anemia, this may be reconsidered. * Positive troponin in the hospital with normal cardiac function on echocardiogram and no ischemia seen on nuclear cardiac imaging. Continue aspirin as recommended by the learning consultant. * Presence of a PICC line. This will be continued as she and her family report that she is a rather difficult blood draw, until it is certain that her sodium is stable and her anemia is stable or improving. * Prophylaxis. She is on rivaroxaban, which is sufficient for deep venous thrombosis prophylaxis. There is no indication that she had an upper GI bleed, so there is no indication for a proton pump inhibitor. She has very minimal residual limbs on the lower extremities, and so there is no indication for DAVID hose or sequential compression devices. May not return to level of independence prior to hospitalization. She had assistance with dressing at home; was o/w I with ADLs. Goal to optimize independence, and promote healing of coccyx decubitus ulcer. Plan for discharge home 09/09/16. Follow-up wheelchair clinic 09/14/16. 09/03/16 14:16 Subjective: No complaints. Denies f/c, pelvic or flank pain/discomfort, cough, dyspnea. Objective: Vital Signs Temp Pulse Resp BP Pulse Ox 36.5 C 85 18 137/96 H 94 09/03/16 08:00 09/03/16 08:00 09/03/16 08:00 09/03/16 08:00 09/03/16 08:00 Laboratory Results 09/01/16 21:06 09/02/16 06:20 09/02/16 09/03/16 09/04/16 05:59 05:59 05:59 Intake Total 650 970 Output Total 400 300 Balance 250 670 Physical Exam - Physical Exam General Appearance: WD/WN, alert, no apparent distress Respiratory: No respiratory distress, No accessory muscle use Skin: normal color, warm/dry Neuro/Psych: alert, normal mood/affect ICD10 Worksheet Patient Problems: Problems Problem Status Onset At risk for autonomic dysreflexia Acute Abnormality of colon Acute Hyponatremia Acute Lower abdominal pain Acute Urinary tract infection Acute
[2016-09-03] MEDS: BISACODYL 10 MG SUPP PR SCH (19:45)
[2016-09-03] MEDS: RIVAROXABAN 20 MG TAB PO SCH (22:00)
[2016-09-04] MEDS: ASPIRIN EC 81 MG TAB PO SCH (08:32)
[2016-09-04] MEDS: FLUDROCORTISONE ACETATE 0.1 MG TAB PO SCH (08:32)
[2016-09-04] MEDS: MULTIVITAMINS 1 EACH TAB PO SCH (08:33)
[2016-09-04] MEDS: levETIRAcetam 500 MG TAB PO SCH ×2 (08:33→20:04)
[2016-09-04] MEDS: OXYBUTYNIN CHLORIDE 5 MG TAB PO SCH ×3 (08:34→20:04)
[2016-09-04] MEDS: POLYETHYLENE GLYCOL 3350 17 GM PKT PO SCH (08:34)
[2016-09-04] MEDS: SODIUM CHLORIDE 1,000 MG TAB PO SCH ×2 (08:35→16:31)
--- NOTE | 2016-09-04 13:51 | SOAPPROG ---
SOAP Progress Note Assessment/Plan: Assessment: 09/04: Pseudomonas and ecoli susceptible to levofloxacin, with WBC on UA, sediment, catheter leakage, and low level AD. Will initiate 7 day course with thompson change on Tuesday. Remainder of plan unchanged below. * Debility following hospitalization in woman with history of spinal cord injury and bilateral lower extremity amputations. Initial FIM 55 on 08/27/16; improved to 60 as of 09/01/16. Does prone crawl transfers. Slide board transfers to commode. Her custom wheelchair needs repair, arranged by PT; has custom back for scoliosis. Concern re slide board and wheelchair positioning re coccyx decubitus ulcer. Continue physical therapy and occupational therapy to optimize mobility and activities of daily living. * Hyponatremia. Appreciate the assistance of Nephrology. Continue fludrocortisone. Salt supplement was discontinued shortly prior to her hospital discharge; restarted 08/26/16 per Nephrology. On low-dose fludrocortisone. Na stable in range of 128 - 134. Initiated fluid restriction 08/31/16 1500 cc/day. * Seizure disorder. Continue levetiracetam, though this was suspected as a possible contributing etiology to her hyponatremia. Phenobarbital had been continued in the acute care hospital, though Mrs. Saab's mother indicated that the intention was to discontinue it; will not continue phenobarbital for now. She will have seizure precautions. * Autonomic dysreflexia. Protocol initiated 08/31/16 with NTG paste and hydralazine. Laboratory studies are pending to evaluate for possible pheochromocytoma. * Anemia and bright red blood per rectum. Likely stercoral ulcers due to constipation. Will monitor her blood counts. * Decubitus ulcer over coccyx, stage 3. Appreciate assistance of wound nurse. PT & OT to work on wheelchair portioning and transfer issues to promote healing. Frequent turning while in bed per nursing. Healing. * Constipation. Continue polyethylene glycol scheduled and senna PRN. Continue rehabilitation bowel program for possible neurogenic contribution to her constipation. Bowel movement 08/30/16 with manual disimpaction. * Neurogenic bladder with suprapubic catheter. Restarted oxybutynin for leakage around catheter; leakage resolved initially but still leaks at times. Skin care per nursing. Treating pseudomonas and ecoli UTI with 7 day course of levofloxacin (per susceptibilities). * Colon thickening seen on abdominal CT of unclear etiology, likely not malignant, given report of a colonoscopy in April. She will follow up with Gastroenterology after her discharge. 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 Continue rivaroxaban. If she has worsening anemia, this may be reconsidered. * Positive troponin in the hospital with normal cardiac function on echocardiogram and no ischemia seen on nuclear cardiac imaging. Continue aspirin as recommended by the makeup sales consultant. * Presence of a PICC line. This will be continued as she and her family report that she is a rather difficult blood draw, until it is certain that her sodium is stable and her anemia is stable or improving. * Prophylaxis. She is on rivaroxaban, which is sufficient for deep venous thrombosis prophylaxis. There is no indication that she had an upper GI bleed, so there is no indication for a proton pump inhibitor. She has very minimal residual limbs on the lower extremities, and so there is no indication for DAVID hose or sequential compression devices. May not return to level of independence prior to hospitalization. She had assistance with dressing at home; was o/w I with ADLs. Goal to optimize independence, and promote healing of coccyx decubitus ulcer. Plan for discharge home 09/09/16. Follow-up wheelchair clinic 09/14/16. Subjective: CC: UTI No acute events overnight. She continues to have some urine leakage, no fever, chills, or sweats. No new numbness, tingling or weakness. Participating well in therapies. Thompson with sediment, foul fruity smell per Inga (nursing). Objective: Vital Signs Temp Pulse Resp BP Pulse Ox 36.4 C 85 15 123/83 H 95 09/04/16 05:43 09/04/16 05:43 09/04/16 05:43 09/04/16 05:43 09/04/16 05:43 Microbiology 09/01/16 18:55 Urine Culture - Final Urine,Clean Catch Pseudomonas Aeruginosa Escherichia Coli Laboratory Results 09/01/16 21:06 09/02/16 06:20 09/03/16 09/04/16 09/05/16 05:59 05:59 05:59 Intake Total 970 1050 600 Output Total 300 450 500 Balance 670 600 100 Physical Exam - Physical Exam General Appearance: alert, no apparent distress EENT: anisocoria, No scleral icterus (R), No scleral icterus (L) Respiratory: No respiratory distress, No accessory muscle use Cardiac/Chest: regular rate, rhythm, No edema Abdomen: soft Pelvic Exam: other (Thompson with sediment, fruity smell in room) Skin: normal color, warm/dry Extremities: other (B AKA) Neuro/Psych: alert, normal mood/affect, cognition abnormalities, speech abnormalities ICD10 Worksheet Patient Problems: Problems Problem Status Onset At risk for autonomic dysreflexia Acute Abnormality of colon Acute Hyponatremia Acute Lower abdominal pain Acute Urinary tract infection Acute - ICD10 Problem Qualifiers (1) At risk for autonomic dysreflexia
[2016-09-04] MEDS: RIVAROXABAN 20 MG TAB PO SCH (20:05)
[2016-09-05] MEDS: FLUDROCORTISONE ACETATE 0.1 MG TAB PO SCH (09:41)
[2016-09-05] MEDS: ASPIRIN EC 81 MG TAB PO SCH (09:41)
[2016-09-05] MEDS: levETIRAcetam 500 MG TAB PO SCH ×2 (09:42→20:22)
[2016-09-05] MEDS: SODIUM CHLORIDE 1,000 MG TAB PO SCH ×2 (09:42→17:38)
[2016-09-05] MEDS: OXYBUTYNIN CHLORIDE 5 MG TAB PO SCH ×3 (09:42→22:30)
[2016-09-05] MEDS: MULTIVITAMINS 1 EACH TAB PO SCH (09:43)
[2016-09-05] MEDS: POLYETHYLENE GLYCOL 3350 17 GM PKT PO SCH (09:43)
--- NOTE | 2016-09-05 12:44 | SOAPPROG ---
SOAP Progress Note Assessment/Plan: Assessment: 09/05/2016: Continued mildly elevated blood pressure. Consider addition of low dose antihypertensive if it continues. Likely related to low level AD, may improve with improving wound healing. Urine clearing on levofloxacin, will monitor BP and catheter leakage. * Debility following hospitalization in woman with history of spinal cord injury and bilateral lower extremity amputations. Initial FIM 55 on 08/27/16; improved to 60 as of 09/01/16. Does prone crawl transfers. Slide board transfers to commode. Her custom wheelchair needs repair, arranged by PT; has custom back for scoliosis. Concern re slide board and wheelchair positioning re coccyx decubitus ulcer. Continue physical therapy and occupational therapy to optimize mobility and activities of daily living. * Hyponatremia. Appreciate the assistance of Nephrology. Continue fludrocortisone. Salt supplement was discontinued shortly prior to her hospital discharge; restarted 08/26/16 per Nephrology. On low-dose fludrocortisone. Na stable in range of 128 - 134. Initiated fluid restriction 08/31/16 1500 cc/day. * Seizure disorder. Continue levetiracetam, though this was suspected as a possible contributing etiology to her hyponatremia. Phenobarbital had been continued in the acute care hospital, though Mrs. Saab's mother indicated that the intention was to discontinue it; will not continue phenobarbital for now. She will have seizure precautions. * Autonomic dysreflexia. Protocol initiated 08/31/16 with NTG paste and hydralazine. Laboratory studies are pending to evaluate for possible pheochromocytoma. * Anemia and bright red blood per rectum. Likely stercoral ulcers due to constipation. Will monitor her blood counts. * Decubitus ulcer over coccyx, stage 3. Appreciate assistance of wound nurse. PT & OT to work on wheelchair portioning and transfer issues to promote healing. Frequent turning while in bed per nursing. Healing. * Constipation. Continue polyethylene glycol scheduled and senna PRN. Continue rehabilitation bowel program for possible neurogenic contribution to her constipation. Bowel movement 08/30/16 with manual disimpaction. * Neurogenic bladder with suprapubic catheter. Restarted oxybutynin for leakage around catheter; leakage resolved initially but still leaks at times. Skin care per nursing. Treating pseudomonas and ecoli UTI with 7 day course of levofloxacin (per susceptibilities). Will change catheter on 09/06 * Colon thickening seen on abdominal CT of unclear etiology, likely not malignant, given report of a colonoscopy in April. She will follow up with Gastroenterology after her discharge. 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 Continue rivaroxaban. If she has worsening anemia, this may be reconsidered. * Positive troponin in the hospital with normal cardiac function on echocardiogram and no ischemia seen on nuclear cardiac imaging. Continue aspirin as recommended by the customer care consultant. * Presence of a PICC line. This will be continued as she and her family report that she is a rather difficult blood draw, until it is certain that her sodium is stable and her anemia is stable or improving. * Prophylaxis. She is on rivaroxaban, which is sufficient for deep venous thrombosis prophylaxis. There is no indication that she had an upper GI bleed, so there is no indication for a proton pump inhibitor. She has very minimal residual limbs on the lower extremities, and so there is no indication for DAVID hose or sequential compression devices. May not return to level of independence prior to hospitalization. She had assistance with dressing at home; was o/w I with ADLs. Goal to optimize independence, and promote healing of coccyx decubitus ulcer. Plan for discharge home 09/09/16. Follow-up wheelchair clinic 09/14/16. 09/05/16 12:40 Subjective: cc: UTI, HTN No acute events overnight. Denies fever, chills, sweats, or headache/ vision changes. Working well with therapies. No other concerns today Objective: Vital Signs Temp Pulse Resp BP Pulse Ox 36.5 C 82 16 140/96 H 94 09/05/16 06:17 09/05/16 06:17 09/05/16 06:17 09/05/16 06:17 09/05/16 06:17 Microbiology 09/01/16 18:55 Urine Culture - Final Urine,Clean Catch Pseudomonas Aeruginosa Escherichia Coli Laboratory Results 09/01/16 21:06 09/02/16 06:20 09/04/16 09/05/16 09/06/16 05:59 05:59 05:59 Intake Total 1050 900 480 Output Total 450 1700 150 Balance 600 -800 330 Physical Exam - Physical Exam General Appearance: alert, no apparent distress EENT: anisocoria, No scleral icterus (R), No scleral icterus (L) Respiratory: No respiratory distress, No accessory muscle use Cardiac/Chest: normal peripheral pulses, regular rate, rhythm Skin: normal color, warm/dry Extremities: other (B AKA) Neuro/Psych: alert, normal mood/affect, other (slightly slurred speech, unchanged. ) ICD10 Worksheet Patient Problems: Problems Problem Status Onset At risk for autonomic dysreflexia Acute Abnormality of colon Acute Hyponatremia Acute Lower abdominal pain Acute Urinary tract infection Acute - ICD10 Problem Qualifiers (1) At risk for autonomic dysreflexia
[2016-09-05] MEDS: RIVAROXABAN 20 MG TAB PO SCH (20:22)
[2016-09-06] MEDS: ASPIRIN EC 81 MG TAB PO SCH (10:11)
[2016-09-06] MEDS: FLUDROCORTISONE ACETATE 0.1 MG TAB PO SCH (10:12)
[2016-09-06] MEDS: OXYBUTYNIN CHLORIDE 5 MG TAB PO SCH ×3 (10:12→20:46)
[2016-09-06] MEDS: levETIRAcetam 500 MG TAB PO SCH ×2 (10:12→20:46)
[2016-09-06] MEDS: MULTIVITAMINS 1 EACH TAB PO SCH (10:12)
[2016-09-06] MEDS: POLYETHYLENE GLYCOL 3350 17 GM PKT PO SCH (10:13)
[2016-09-06] MEDS: SODIUM CHLORIDE 1,000 MG TAB PO SCH ×2 (10:19→17:28)
--- NOTE | 2016-09-06 14:31 | SOAPPROG ---
SOAP Progress Note Assessment/Plan: Assessment: * Debility following hospitalization in woman with history of spinal cord injury and bilateral lower extremity amputations. Initial FIM 55 on 08/27/16; improved to 60 as of 09/01/16. Does prone crawl transfers. Slide board transfers to commode. Her custom wheelchair needs repair, arranged by PT; has custom back for scoliosis. Concern re slide board and wheelchair positioning re coccyx decubitus ulcer. Continue physical therapy and occupational therapy to optimize mobility and activities of daily living. * Hyponatremia. Appreciate the assistance of Nephrology. Continue fludrocortisone. Salt supplement was discontinued shortly prior to her hospital discharge; restarted 08/26/16 per Nephrology. Na stable in rangeof 128 - 134. Initiated fluid restriction 08/31/16 1500 cc/day. * Seizure disorder. Continue levetiracetam, though this was suspected as a possible contributing etiology to her hyponatremia. Phenobarbital had been continued in the acute care hospital, though Mrs. Saab's mother indicated that the intention was to discontinue it; will not continue phenobarbital for now. She will have seizure precautions. * Autonomic dysreflexia. Protocol initiated 08/31/16 with NTG paste and hydralazine. Laboratory studies are pending to evaluate for possible pheochromocytoma. * Anemia and bright red blood per rectum. Likely stercoral ulcers due to constipation. Will monitor her blood counts. * Decubitus ulcer over coccyx, stage 3, healed. Appreciate assistance of wound nurse. PT & OT to work on wheelchair portioning and transfer issues to promote healing. Frequent turning while in bed per nursing. Continue progressive seating schedule. * Constipation. Continue polyethylene glycol scheduled and senna PRN. Continue rehabilitation bowel program for possible neurogenic contribution to her constipation. Bowel movement 08/30/16 with manual disimpaction. * Neurogenic bladder with suprapubic catheter. Restarted oxybutynin for leakage around catheter; leakage resolved initially but still leaks at times. Skin care per nursing.. * Urinary tract infection with south-sensitive Pseudomonas, on appropriate Abx. * Colon thickening seen on abdominal CT of unclear etiology, likely not malignant, given report of a colonoscopy in April. She will follow up with Gastroenterology after her discharge. 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 Continue rivaroxaban. If she has worsening anemia, this may be reconsidered. * Positive troponin in the hospital with normal cardiac function on echocardiogram and no ischemia seen on nuclear cardiac imaging. Continue aspirin as recommended by the software security consultant. * Presence of a PICC line. This will be continued as she and her family report that she is a rather difficult blood draw, until it is certain that her sodium is stable and her anemia is stable or improving. * Prophylaxis. She is on rivaroxaban, which is sufficient for deep venous thrombosis prophylaxis. There is no indication that she had an upper GI bleed, so there is no indication for a proton pump inhibitor. She has very minimal residual limbs on the lower extremities, and so there is no indication for DAVID hose or sequential compression devices. May not return to level of independence prior to hospitalization. She had assistance with dressing at home; was o/w I with ADLs. Goal to optimize independence, and promote healing of coccyx decubitus ulcer. Plan for discharge home 09/09/16. Follow-up wheelchair clinic 09/14/16. 09/06/16 14:27 Subjective: No complaints. Nurse notes coccyx decubitus ulcer has healed. Objective: Vital Signs Temp Pulse Resp BP Pulse Ox 36.6 C 88 15 125/90 H 90 L 09/06/16 06:22 09/06/16 06:22 09/06/16 06:22 09/06/16 06:22 09/06/16 06:22 Laboratory Results 09/01/16 21:06 09/02/16 06:20 09/05/16 09/06/16 09/07/16 05:59 05:59 05:59 Intake Total 900 1360 240 Output Total 1700 375 Balance -800 985 240 Physical Exam - Physical Exam General Appearance: WD/WN, alert, no apparent distress Respiratory: No respiratory distress, No accessory muscle use Skin: normal color, warm/dry Neuro/Psych: alert, normal mood/affect, oriented x 3 ICD10 Worksheet Patient Problems: Problems Problem Status Onset At risk for autonomic dysreflexia Acute Abnormality of colon Acute Hyponatremia Acute Lower abdominal pain Acute Urinary tract infection Acute
[2016-09-06] MEDS: BISACODYL 10 MG SUPP PR SCH (19:13)
[2016-09-06] MEDS: RIVAROXABAN 20 MG TAB PO SCH (20:46)
[2016-09-07] MEDS: OXYBUTYNIN CHLORIDE 5 MG TAB PO SCH ×3 (08:59→21:07)
[2016-09-07] MEDS: POLYETHYLENE GLYCOL 3350 17 GM PKT PO SCH (08:59)
[2016-09-07] MEDS: MULTIVITAMINS 1 EACH TAB PO SCH (08:59)
[2016-09-07] MEDS: SODIUM CHLORIDE 1,000 MG TAB PO SCH ×2 (08:59→17:09)
[2016-09-07] MEDS: FLUDROCORTISONE ACETATE 0.1 MG TAB PO SCH (09:00)
[2016-09-07] MEDS: levETIRAcetam 500 MG TAB PO SCH ×2 (09:00→21:07)
[2016-09-07] MEDS: ASPIRIN EC 81 MG TAB PO SCH (09:04)
[2016-09-07] MEDS ORDERED: NS 500 ML IV ONE (10:08)
--- NOTE | 2016-09-07 10:26 | SOAPPROG ---
SOAP Progress Note Assessment/Plan: Assessment: 09/07/2016- Hypotension, symptomatic, mildly tachy with no localizing symptoms. Nausea treated with ondansetron. Given 500 cc NS bolus, pinky CBC (anemia check) and BMP for sodium. No hx of Long QT, recent ECG had normal QT. Patient will require a re-evaluation of her home care plan including ability to do bowel program, frequency of program, and equipment. Starting SCI additional education. SCI level approx C6, incomplete. * Debility following hospitalization in woman with history of spinal cord injury and bilateral lower extremity amputations. Initial FIM 55 on 08/27/16; improved to 60 as of 09/01/16. Does prone crawl transfers. Slide board transfers to commode. Her custom wheelchair needs repair, arranged by PT; has custom back for scoliosis. Concern re slide board and wheelchair positioning re coccyx decubitus ulcer. Continue physical therapy and occupational therapy to optimize mobility and activities of daily living. * Hyponatremia. Appreciate the assistance of Nephrology. Continue fludrocortisone. Salt supplement was discontinued shortly prior to her hospital discharge; restarted 08/26/16 per Nephrology. Na stable in rangeof 128 - 134. rechecking 09/07 along with fluid bolus, liberalizing fluid intake to 2000 cc per day. * Seizure disorder. Continue levetiracetam, though this was suspected as a possible contributing etiology to her hyponatremia. Phenobarbital had been continued in the acute care hospital, though Mrs. Saab's mother indicated that the intention was to discontinue it; will not continue phenobarbital for now. She will have seizure precautions. * Autonomic dysreflexia. Protocol initiated 08/31/16 with NTG paste and hydralazine. Laboratory studies are pending to evaluate for possible pheochromocytoma. * Anemia and bright red blood per rectum. Likely stercoral ulcers due to constipation. Will monitor her blood counts. * pressure ulcer over coccyx, stage 3, healed. Appreciate assistance of wound nurse. PT & OT to work on wheelchair portioning and transfer issues to promote healing. Frequent turning while in bed per nursing. Continue progressive seating schedule. * Constipation. Continue polyethylene glycol scheduled and senna PRN. Continue rehabilitation bowel program for possible neurogenic contribution to her constipation. Bowel movement 08/30/16 with manual disimpaction. Re-eval frequency and protocol for bowel program, equipment. * Neurogenic bladder with suprapubic catheter. Restarted oxybutynin for leakage around catheter; leakage resolved initially but still leaks at times. Skin care per nursing.. * Urinary tract infection with south-sensitive Pseudomonas, on appropriate Abx. * Colon thickening seen on abdominal CT of unclear etiology, likely not malignant, given report of a colonoscopy in April. She will follow up with Gastroenterology after her discharge. 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 Continue rivaroxaban. If she has worsening anemia, this may be reconsidered. * Positive troponin in the hospital with normal cardiac function on echocardiogram and no ischemia seen on nuclear cardiac imaging. Continue aspirin as recommended by the independent beauty consultant. * Presence of a PICC line. This will be continued as she and her family report that she is a rather difficult blood draw, until it is certain that her sodium is stable and her anemia is stable or improving. * Prophylaxis. She is on rivaroxaban, which is sufficient for deep venous thrombosis prophylaxis. There is no indication that she had an upper GI bleed, so there is no indication for a proton pump inhibitor. She has very minimal residual limbs on the lower extremities, and so there is no indication for DAVID hose or sequential compression devices. May not return to level of independence prior to hospitalization. She had assistance with dressing at home; was o/w I with ADLs. Goal to optimize independence, and promote healing of coccyx pressure ulcer. Plan for discharge home 09/09/16, but will need intensive SW and self care re-eval. Follow-up wheelchair clinic 09/14/16. 09/07/16 10:19 Subjective: CC: hypotension called into the room by RAND Xiong for hypotension. Pt describes some nausea, but no other new symptoms. Ate good breakfast, on fluid restriction. No fever, chills, sweats, dyspnea. Also notified by Inga that patient was observed to be unsafe with home commode chair transfers and bowel program. pt performed an aggressive bowel program, which she does MWF, but has significantly impaired hand function. Has had to be disimpacted this hospitalization. No headache. Objective: Vital Signs Temp Pulse Resp BP Pulse Ox 36.8 C 81 18 142/89 H 92 09/06/16 20:00 09/06/16 20:00 09/06/16 20:00 09/06/16 20:00 09/06/16 20:00 Laboratory Results 09/01/16 21:06 09/02/16 06:20 09/06/16 09/07/16 09/08/16 05:59 05:59 05:59 Intake Total 1360 540 Output Total 375 1550 Balance 985 -1010 Physical Exam - Physical Exam General Appearance: alert, mild distress EENT: anisocoria, No scleral icterus (R), No scleral icterus (L) Respiratory: lungs clear, No respiratory distress, No accessory muscle use Cardiac/Chest: normal peripheral pulses, regular rate, rhythm, systolic murmur Abdomen: normal bowel sounds, non-tender, soft Skin: normal color, warm/dry, No cyanosis Extremities: other (B AKA), No swelling Neuro/Psych: alert, normal mood/affect, oriented x 3 ICD10 Worksheet Patient Problems: Problems Problem Status Onset At risk for autonomic dysreflexia Acute Abnormality of colon Acute Hyponatremia Acute Lower abdominal pain Acute Urinary tract infection Acute - ICD10 Problem Qualifiers (1) At risk for autonomic dysreflexia
[2016-09-07] MEDS: ONDANSETRON DISINTEGRATING 4 MG TAB PO PRN ×3 (10:47→20:01)
[2016-09-07 11:02] LABS: % IMMATURE GRANULYOCYTES 0.2 % (0.0-1.1); ABSOLUTE IMMATURE GRANULOCYTES 0.01 10^3/uL (0.00-0.10); ADD DIFF? NO; ADD MORPH? NO; ADD SCAN? NO; ATYPICAL LYMPHOCYTE FLAG 40 (0-99); FRAGMENT RBC FLAG 0 (0-99); HEMATOCRIT 28.3 % (38.0-47.0); HEMOGLOBIN 9.4 g/dL (12.6-16.3); LEFT SHIFT FLG 70 (0-99); LIPEMIA HEMOLYSIS FLAG 80 (0-99); MEAN CELL HEMOGLOBIN 29.5 pg (27.9-34.1); MEAN CELL HEMOGLOBIN CONCENTR. 33.2 g/dL (32.4-36.7); MEAN CELL VOLUME 88.7 fL (81.5-99.8); PLATELET CLUMPS FLAG 10 (0-99); PLATELET COUNT 191 10^3/uL (150-400); RED BLOOD CELL COUNT 3.19 10^6/uL (4.18-5.33); RED CELL DISTRIBUTION WIDTH 14.1 % (11.5-15.2)
[2016-09-07 11:31] LABS: ANION GAP 5 mEq/L (8-16); CALCIUM 7.9 mg/dL (8.5-10.4); CARBON DIOXIDE 23 mEq/l (22-31); CHLORIDE 104 mEq/L (97-110); CREATININE 0.7 mg/dL (0.6-1.0); GLOMERULAR FILTRATION RATE > 60; GLUCOSE 114 mg/dL (70-100); POTASSIUM 3.4 mEq/L (3.5-5.2); SODIUM 132 mEq/L (134-144)
[2016-09-07] MEDS: BISACODYL 10 MG SUPP PR SCH (13:41)
[2016-09-07] MEDS ORDERED: MAGNESIUM CITRATE 300 ML BOTTLE PO ONE (16:16)
[2016-09-07] MEDS ORDERED: POTASSIUM CL 20 MEQ/15 ML UDCUP PO ONE ×2 (18:00→22:00)
[2016-09-07] MEDS: RIVAROXABAN 20 MG TAB PO SCH (21:07)
[2016-09-07] MEDS ORDERED: POTASSIUM CL 20 MEQ/15 ML UDCUP ONE (21:23)
[2016-09-08] MEDS: ONDANSETRON DISINTEGRATING 4 MG TAB PO PRN (00:05)
[2016-09-08 08:19] LABS: ANION GAP 1 mEq/L (8-16); CARBON DIOXIDE 26 mEq/l (22-31); CHLORIDE 106 mEq/L (97-110); CREATININE 0.6 mg/dL (0.6-1.0); GLOMERULAR FILTRATION RATE > 60; GLUCOSE 102 mg/dL (70-100); POTASSIUM 4.9 mEq/L (3.5-5.2); SODIUM 133 mEq/L (134-144)
[2016-09-08] MEDS: SODIUM CHLORIDE 1,000 MG TAB PO SCH ×2 (08:45→17:27)
[2016-09-08] MEDS: POLYETHYLENE GLYCOL 3350 17 GM PKT PO SCH (08:45)
[2016-09-08] MEDS: ASPIRIN EC 81 MG TAB PO SCH (08:46)
[2016-09-08] MEDS: levETIRAcetam 500 MG TAB PO SCH ×2 (08:46→21:53)
[2016-09-08] MEDS: FLUDROCORTISONE ACETATE 0.1 MG TAB PO SCH (08:47)
[2016-09-08] MEDS: MULTIVITAMINS 1 EACH TAB PO SCH (08:47)
[2016-09-08] MEDS: OXYBUTYNIN CHLORIDE 5 MG TAB PO SCH ×3 (08:48→21:53)
--- NOTE | 2016-09-08 16:35 | WOCRNPDOC ---
[facility] Advanced Assessment Note - Skin Integrity Problem, Advanced Assess Coccyx Dressing Type: Allevyn Life Dressing Description: Clean/Dry, Intact Exudate Amount: None Integumentary Issue Intervention: Dressing Changed, Dressing Initialed & Dated Anastasia Wound Tissue: Blanching, Erythema, Intact Anastasia Wound Swelling: None Wound Bed Color: Opdyke, Red Wound Bed Constitution: Granulation Tissue Wound Edges: Epithelizing, Well Defined Site Odor: None Site Measurement - Head-to-Toe Length X Width X Depth (cm): 1.1 x 0.5 x 0.1 Pressure Injury Stage: Stage 3 (healing) Skin Integrity Problem Comment: Significantly improved: 100% granular base, surrounded by pink, blanchable intact tissue. DC'ing iodosorb gel, maintaining dressing for protection as healing process continues. Discussed with patient. RAND Elaine present at assessment. WC management Complete: Please re-consult [facility] if any new concerns. Measurements After Debridement: same as post debridement
--- NOTE | 2016-09-08 17:26 | SOAPPROG ---
SOAP Progress Note Assessment/Plan: Assessment: * Debility following hospitalization in woman with history of spinal cord injury and bilateral lower extremity amputations. Initial FIM 55 on 08/27/16; improved to 60 as of 09/01/16; decline to 57 on 09/08/16 but lost 5 points on eating due to IV hydration yesterday. Does prone crawl transfers, min to mod A. Slide board transfers to commode, 2 person assist. Would benefit from custom commode. Continue physical therapy and occupational therapy to optimize mobility and activities of daily living. * Hyponatremia. Appreciate the assistance of Nephrology. Continue fludrocortisone. Salt supplement was discontinued shortly prior to her hospital discharge; restarted 08/26/16 per Nephrology. Na stable in rangeof 128 - 134. Initiated fluid restriction 08/31/16 1500 cc/day. * Cognitive impairment. SLUMS 04/14. * Seizure disorder. Continue levetiracetam, though this was suspected as a possible contributing etiology to her hyponatremia. Phenobarbital had been continued in the acute care hospital, though Mrs. Saab's mother indicated that the intention was to discontinue it; will not continue phenobarbital for now. She will have seizure precautions. * Autonomic dysreflexia. Protocol initiated 08/31/16 with NTG paste and hydralazine. Laboratory studies are pending to evaluate for possible pheochromocytoma. * Anemia and bright red blood per rectum. Likely stercoral ulcers due to constipation. Will monitor her blood counts. * Decubitus ulcer over coccyx, stage 3, healed. Appreciate assistance of wound nurse. PT & OT to work on wheelchair portioning and transfer issues to promote healing. Frequent turning while in bed per nursing. Continue progressive seating schedule. * Constipation. Continue polyethylene glycol scheduled and senna PRN. Continue rehabilitation bowel program for possible neurogenic contribution to her constipation. * Neurogenic bladder with suprapubic catheter. Restarted oxybutynin for leakage around catheter; leakage resolved initially but still leaks at times. Skin care per nursing.. * Urinary tract infection with south-sensitive Pseudomonas, on appropriate Abx. * Colon thickening seen on abdominal CT of unclear etiology, likely not malignant, given report of a colonoscopy in April. She will follow up with Gastroenterology after her discharge. 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 Continue rivaroxaban. If she has worsening anemia, this may be reconsidered. * Positive troponin in the hospital with normal cardiac function on echocardiogram and no ischemia seen on nuclear cardiac imaging. Continue aspirin as recommended by the [employer] database consultant. * Presence of a PICC line. This will be continued as she and her family report that she is a rather difficult blood draw, until it is certain that her sodium is stable and her anemia is stable or improving. * Prophylaxis. She is on rivaroxaban, which is sufficient for deep venous thrombosis prophylaxis. There is no indication that she had an upper GI bleed, so there is no indication for a proton pump inhibitor. She has very minimal residual limbs on the lower extremities, and so there is no indication for DAVID hose or sequential compression devices. Attended staffing, 15 min. D/W case mgmt, nursing, PT, OT, PHYSICAL LABORATORY ASSISTANT, statistics manager, pharmacist. SNF discharge tomorrow 09/09/16. 09/08/16 17:27 Subjective: No complaints, other than feeling bored. Denies cough, dyspnea, f/c. No BM today despite mag citrate yesterday. Expects to be "cleaned out" today per M, W , F bowel protocol. Objective: Vital Signs Temp Pulse Resp BP Pulse Ox 36.8 C 98 18 95/63 L 93 09/08/16 10:15 09/08/16 10:15 09/08/16 10:15 09/08/16 10:15 09/08/16 10:15 Laboratory Results 09/07/16 10:37 09/08/16 06:00 09/07/16 09/08/16 09/09/16 05:59 05:59 05:59 Intake Total 540 2180 1900 Output Total 1550 300 350 Balance -1010 1880 1550 - Time Spent With Patient Time Spent With Patient: Greater than 35 minutes floor time today, including more than 50% of time in coordination of care during staffing meeting, and counselingpatient. Physical Exam - Physical Exam General Appearance: WD/WN, alert, no apparent distress Respiratory: normal breath sounds, No crackles, No rhonchi, No wheezing Cardiac/Chest: regular rate, rhythm, No diastolic murmur, No systolic murmur Skin: normal color, warm/dry Neuro/Psych: alert, normal mood/affect ICD10 Worksheet Patient Problems: Problems Problem Status Onset At risk for autonomic dysreflexia Acute Abnormality of colon Acute Hyponatremia Acute Lower abdominal pain Acute Urinary tract infection Acute
[2016-09-08] MEDS: RIVAROXABAN 20 MG TAB PO SCH (21:53)
[2016-09-09] MEDS: POLYETHYLENE GLYCOL 3350 17 GM PKT PO SCH (08:04)
[2016-09-09] MEDS: SODIUM CHLORIDE 1,000 MG TAB PO SCH ×2 (08:05→18:44)
[2016-09-09] MEDS: levETIRAcetam 500 MG TAB PO SCH ×2 (08:05→21:41)
[2016-09-09] MEDS: MULTIVITAMINS 1 EACH TAB PO SCH (08:05)
[2016-09-09] MEDS: OXYBUTYNIN CHLORIDE 5 MG TAB PO SCH ×3 (08:05→21:41)
[2016-09-09] MEDS: ASPIRIN EC 81 MG TAB PO SCH (08:05)
[2016-09-09] MEDS: FLUDROCORTISONE ACETATE 0.1 MG TAB PO SCH (08:09)
[2016-09-09] MEDS ORDERED: MAGNESIUM CITRATE 300 ML BOTTLE PO ONE (09:43)
--- NOTE | 2016-09-09 11:18 | SOAPPROG ---
SOAP Progress Note Assessment/Plan: Assessment/ plan: 09/09/2016- Pt was not able to tolerate full mag citrate, minimal bowel movements per pt and reports. Last KUB showed substantial stool, has had poor appetite and nausea intermittently. Mag citrate today, enema, regular daily bowel program. Hold on patient DC to SNF until resolved. * Debility following hospitalization in woman with history of spinal cord injury and bilateral lower extremity amputations. Initial FIM 55 on 08/27/16; improved to 60 as of 09/01/16; decline to 57 on 09/08/16 but lost 5 points on eating due to IV hydration yesterday. Does prone crawl transfers, min to mod A. Slide board transfers to commode, 2 person assist. Would benefit from custom commode. Continue physical therapy and occupational therapy to optimize mobility and activities of daily living. * Neurogenic bowel: Aggressive treatment with mag citrate, enema, and daily bowel program with suppository. She appears to have significant complications of neurogenic bowel and she will require additional education and retraining. Goal to at least disimpact before discharge, goal to have education done and be on a regular scheduled bowel program. May benefit from an evaluation by a colorectal surgeon after discharge, possibly one at an [facility] given the complexity of her neurogenic bowel and history of stroke with procedures (likely related to AD). * Hyponatremia. Appreciate the assistance of Nephrology. Continue fludrocortisone. Salt supplement was discontinued shortly prior to her hospital discharge; restarted 08/26/16 per Nephrology. Na stable in rangeof 128 - 134. Initiated fluid restriction 08/31/16 1500 cc/day. * Cognitive impairment. SLUMS 04/14. * Seizure disorder. Continue levetiracetam, though this was suspected as a possible contributing etiology to her hyponatremia. Phenobarbital had been continued in the acute care hospital, though Mrs. Saab's mother indicated that the intention was to discontinue it; will not continue phenobarbital for now. She will have seizure precautions. * Autonomic dysreflexia. Protocol initiated 08/31/16 with NTG paste and hydralazine. Laboratory studies are pending to evaluate for possible pheochromocytoma. * Anemia and bright red blood per rectum. Likely stercoral ulcers due to constipation. Will monitor her blood counts. Treat neurogenic bowel. * Pressure ulcer over coccyx, stage 3, healed. Appreciate assistance of wound nurse. PT & OT to work on wheelchair portioning and transfer issues to promote healing. Frequent turning while in bed per nursing. Continue progressive seating schedule. * Neurogenic bladder with suprapubic catheter. Restarted oxybutynin for leakage around catheter; leakage resolved initially but still leaks at times. Skin care per nursing.. * Urinary tract infection with south-sensitive Pseudomonas, on appropriate Abx. * Colon thickening seen on abdominal CT of unclear etiology, likely not malignant, given report of a colonoscopy in April. She will follow up with Gastroenterology after her discharge. 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 Continue rivaroxaban. If she has worsening anemia, this may be reconsidered. * Positive troponin in the hospital with normal cardiac function on echocardiogram and no ischemia seen on nuclear cardiac imaging. Continue aspirin as recommended by the outplacement consultant. * PICC DCd on 09/08 * Prophylaxis. She is on rivaroxaban, which is sufficient for deep venous thrombosis prophylaxis. There is no indication that she had an upper GI bleed, so there is no indication for a proton pump inhibitor. She has very minimal residual limbs on the lower extremities, and so there is no indication for DAVID hose or sequential compression devices. SNF discharge pending soon, goal for 09/10/16. 09/09/16 11:12 Subjective: CC: neurogenic bowel No acute events overnight. Poor appetite, low results from bowel program since last KUB. Occasional nausea, better today. She is amenable to additional bowel management and teaching, as well as longer IPR admission if necessary. She has some resistance to change, I expressed understanding and options for improving her longstanding cares. No new numbness, tingling, or weakness. No dyspnea, but she has a worsening cough. Objective: Vital Signs Temp Pulse Resp BP Pulse Ox 36.4 C 94 17 114/85 H 93 09/09/16 06:30 09/09/16 06:30 09/09/16 06:30 09/09/16 06:30 09/09/16 06:30 Laboratory Results 09/07/16 10:37 09/08/16 06:00 09/08/16 09/09/16 09/10/16 05:59 05:59 05:59 Intake Total 2180 2250 Output Total 300 675 Balance 1880 1575 Physical Exam - Physical Exam General Appearance: alert, no apparent distress EENT: anisocoria, No scleral icterus (R), No scleral icterus (L) Respiratory: lungs clear, normal breath sounds (decreased breath sounds on the right. ), No respiratory distress, No accessory muscle use Cardiac/Chest: normal peripheral pulses, regular rate, rhythm, No edema Abdomen: soft, distended, No guarding, No rebound Pelvic Exam: other (suprapubic catheter in place) Rectal: hemorrhoids (also has extra discolored tissue, extending from the rectum. Retained fecal matter, no bleeding. ) Skin: normal color, warm/dry Extremities: other (B AKA) Neuro/Psych: alert, normal mood/affect, cognition abnormalities ICD10 Worksheet Patient Problems: Problems Problem Status Onset At risk for autonomic dysreflexia Acute Neurogenic bowel Acute Spinal cord injury at C5-C7 level without injury of spinal bone Acute Spinal cord injury, incomplete Acute Abnormality of colon Acute Hyponatremia Acute Lower abdominal pain Acute Urinary tract infection Acute - ICD10 Problem Qualifiers (1) At risk for autonomic dysreflexia (2) Neurogenic bowel (3) Spinal cord injury at C5-C7 level without injury of spinal bone Qualifiers: Encounter type: sequela Qualified Code(s): S14.109S - Unspecified injury at unspecified level of cervical spinal cord, sequela (4) Spinal cord injury, incomplete
[2016-09-09] MEDS: RIVAROXABAN 20 MG TAB PO SCH (21:41)
[2016-09-10] MEDS: SODIUM CHLORIDE 1,000 MG TAB PO SCH ×2 (07:55→17:52)
[2016-09-10 08:44] LABS: ANION GAP 2 mEq/L (8-16); CALCIUM 7.4 mg/dL (8.5-10.4); CARBON DIOXIDE 24 mEq/l (22-31); CHLORIDE 99 mEq/L (97-110); CREATININE 0.5 mg/dL (0.6-1.0); GLOMERULAR FILTRATION RATE > 60; GLUCOSE 93 mg/dL (70-100); POTASSIUM 3.7 mEq/L (3.5-5.2); SODIUM 125 mEq/L (134-144)
[2016-09-10] MEDS: MULTIVITAMINS 1 EACH TAB PO SCH (09:17)
[2016-09-10] MEDS: FLUDROCORTISONE ACETATE 0.1 MG TAB PO SCH (09:17)
[2016-09-10] MEDS: ASPIRIN EC 81 MG TAB PO SCH (09:17)
[2016-09-10] MEDS: levETIRAcetam 500 MG TAB PO SCH ×2 (09:17→21:01)
[2016-09-10] MEDS: OXYBUTYNIN CHLORIDE 5 MG TAB PO SCH ×3 (09:17→21:01)
[2016-09-10] MEDS: POLYETHYLENE GLYCOL 3350 17 GM PKT PO SCH (09:20)
--- NOTE | 2016-09-10 09:47 | SOAPPROG ---
SOAP Progress Note Assessment/Plan: Assessment: * Debility following hospitalization in woman with history of spinal cord injury and bilateral lower extremity amputations. Initial FIM 55 on 08/27/16; improved to 60 as of 09/01/16; decline to 57 on 09/08/16 but lost 5 points on eating due to IV hydration yesterday. Does prone crawl transfers, min to mod A. Slide board transfers to commode, 2 person assist. Would benefit from custom commode. Continue physical therapy and occupational therapy to optimize mobility and activities of daily living. * Hyponatremia. Appreciate the assistance of Nephrology. Continue fludrocortisone. Salt supplement was discontinued shortly prior to her hospital discharge; restarted 08/26/16 per Nephrology. Na stable in rangeof 128 - 134. Initiated fluid restriction 08/31/16 1500 cc/day. Na dropped to 125 today 09/10/16 after fluid restriction liberalized to 3000 cc/day. Resume 1500 cc/day. * Hypoxia, cough: chest CT today to follow-up on pleural effusion+/- pneumonia on CXR yesterday: has RUL pneumonia, pulmonary embolus RUL and pleural effusion (mod on R, small on L) . Will treat with enoxaparin and initiate warfarin, and 5 days levofloxacin. Discharge delayed until 09/13/16 to ensure she's stable. Should have follow-up CXR in 4 weeks to ensure that pleural effusion has resolved. Plan for anticoagulation 3 - 6 months. Follow-up with pulmonology. * Cognitive impairment. SLUMS 04/14. * Seizure disorder. Continue levetiracetam, though this was suspected as a possible contributing etiology to her hyponatremia. Phenobarbital had been continued in the acute care hospital, though Mrs. Saab's mother indicated that the intention was to discontinue it; will not continue phenobarbital for now. She will have seizure precautions. * Autonomic dysreflexia. Protocol initiated 08/31/16 with NTG paste and hydralazine. Laboratory studies are pending to evaluate for possible pheochromocytoma. * Anemia and bright red blood per rectum. Likely stercoral ulcers due to constipation. Will monitor her blood counts. * Decubitus ulcer over coccyx, stage 3, healed. Appreciate assistance of wound nurse. PT & OT to work on wheelchair portioning and transfer issues to promote healing. Frequent turning while in bed per nursing. Continue progressive seating schedule. * Constipation. Continue polyethylene glycol scheduled and senna PRN. Continue rehabilitation bowel program for possible neurogenic contribution to her constipation. * Neurogenic bladder with suprapubic catheter. Restarted oxybutynin for leakage around catheter; leakage resolved initially but still leaks at times. Skin care per nursing.. * Urinary tract infection with south-sensitive Pseudomonas, on appropriate Abx. * Colon thickening seen on abdominal CT of unclear etiology, likely not malignant, given report of a colonoscopy in April. She will follow up with Gastroenterology after her discharge. 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 Continue rivaroxaban. If she has worsening anemia, this may be reconsidered. * Positive troponin in the hospital with normal cardiac function on echocardiogram and no ischemia seen on nuclear cardiac imaging. Continue aspirin as recommended by the consultant nurse. * Presence of a PICC line. This will be continued as she and her family report that she is a rather difficult blood draw, until it is certain that her sodium is stable and her anemia is stable or improving. * Prophylaxis. She is on rivaroxaban, which is sufficient for deep venous thrombosis prophylaxis. There is no indication that she had an upper GI bleed, so there is no indication for a proton pump inhibitor. She has very minimal residual limbs on the lower extremities, and so there is no indication for DAVID hose or sequential compression devices. SNF discharge 09/13/16. 09/10/16 14:22 Subjective: Has a cough, no sputum. Otherwise w/out complaint. Denies f/c, sweats, nocturnal dyspnea, chest pain. Large liquid stool yesterday. Objective: Vital Signs Temp Pulse Resp BP Pulse Ox 36.4 C 93 18 103/75 91 L 09/10/16 06:41 09/10/16 06:41 09/10/16 06:41 09/10/16 06:41 09/10/16 06:41 Laboratory Results 09/07/16 10:37 09/10/16 06:00 09/09/16 09/10/16 09/11/16 05:59 05:59 05:59 Intake Total 2250 1245 Output Total 675 1975 Balance 1575 730 - Time Spent With Patient Time Spent With Patient: Greater than 35 minutes floor time today, including detailed physical exam, and discussion with radiologist, nurse and case management director. Physical Exam - Physical Exam General Appearance: WD/WN, alert, no apparent distress Respiratory: decreased breath sounds (LLL), No crackles, No rhonchi, No wheezing Cardiac/Chest: regular rate, rhythm, No bradycardia, No tachycardia, No diastolic murmur, No systolic murmur Neuro/Psych: alert, normal mood/affect ICD10 Worksheet Patient Problems: Problems Problem Status Onset At risk for autonomic dysreflexia Acute Neurogenic bowel Acute Spinal cord injury at C5-C7 level without injury of spinal bone Acute Spinal cord injury, incomplete Acute Abnormality of colon Acute Hyponatremia Acute Lower abdominal pain Acute Urinary tract infection Acute
[2016-09-10] MEDS ORDERED: IOPAMIDOL (ISOVUE 370) 100 ML BTL IV ONE (12:40)
[2016-09-10] MEDS ORDERED: FUROSEMIDE 20 MG TAB PO ONE (15:07)
[2016-09-10] MEDS: BISACODYL 10 MG SUPP PR SCH (19:51)
[2016-09-10] MEDS: RIVAROXABAN 20 MG TAB PO SCH (21:01)
[2016-09-11] MEDS: SODIUM CHLORIDE 1,000 MG TAB PO SCH ×2 (09:13→16:34)
[2016-09-11] MEDS: ASPIRIN EC 81 MG TAB PO SCH (09:13)
[2016-09-11] MEDS: MULTIVITAMINS 1 EACH TAB PO SCH (09:14)
[2016-09-11] MEDS: FLUDROCORTISONE ACETATE 0.1 MG TAB PO SCH (09:14)
[2016-09-11] MEDS: levETIRAcetam 500 MG TAB PO SCH ×2 (09:14→21:35)
[2016-09-11] MEDS: BENZONATATE 100 MG CAP PO PRN ×2 (09:15→16:34)
[2016-09-11] MEDS: OXYBUTYNIN CHLORIDE 5 MG TAB PO SCH ×3 (09:15→21:35)
[2016-09-11] MEDS: POLYETHYLENE GLYCOL 3350 17 GM PKT PO SCH (09:15)
--- NOTE | 2016-09-11 15:37 | SOAPPROG ---
SOAP Progress Note Assessment/Plan: Assessment/Plan: Assessment: * Debility following hospitalization in woman with history of spinal cord injury and bilateral lower extremity amputations. Initial FIM 55 on 08/27/16; improved to 60 as of 09/01/16; decline to 57 on 09/08/16 but lost 5 points on eating due to IV hydration yesterday. Does prone crawl transfers, min to mod A. Slide board transfers to commode, 2 person assist. Would benefit from custom commode. Continue physical therapy and occupational therapy to optimize mobility and activities of daily living. * Hyponatremia. Appreciate the assistance of Nephrology. Continue fludrocortisone. Salt supplement was discontinued shortly prior to her hospital discharge; restarted 08/26/16 per Nephrology. Na stable in rangeof 128 - 134. Initiated fluid restriction 08/31/16 1500 cc/day. Na dropped to 125 today 09/10/16 after fluid restriction liberalized to 3000 cc/day. Resume 1500 cc/day. * Hypoxia, cough: chest CT to follow-up on pleural effusion+/- pneumonia on CXR yesterday: has RUL pneumonia, pulmonary embolus RUL and pleural effusion ( mod on R, small on L) . Will treat with enoxaparin and initiate warfarin, and 5 days levofloxacin. Discharge delayed until 09/13/16 to ensure she's stable. Should have follow-up CXR in 4 weeks to ensure that pleural effusion has resolved. Plan for anticoagulation 3 - 6 months. Follow-up with pulmonology. * Cognitive impairment. SLUMS 04/14. * Seizure disorder. Continue levetiracetam, though this was suspected as a possible contributing etiology to her hyponatremia. Phenobarbital had been continued in the acute care hospital, though Mrs. Saab's mother indicated that the intention was to discontinue it; will not continue phenobarbital for now. She will have seizure precautions. * Autonomic dysreflexia. Protocol initiated 08/31/16 with NTG paste and hydralazine. Laboratory studies are pending to evaluate for possible pheochromocytoma. * Anemia and bright red blood per rectum. Likely stercoral ulcers due to constipation. Will monitor her blood counts. * Decubitus ulcer over coccyx, stage 3, healed. Appreciate assistance of wound nurse. PT & OT to work on wheelchair portioning and transfer issues to promote healing. Frequent turning while in bed per nursing. Continue progressive seating schedule. * Constipation-> Now diarrhea, Cdiff neg will hold polyethylene glycol scheduled and senna PRN. Continue rehabilitation bowel program for possible neurogenic contribution * Neurogenic bladder with suprapubic catheter. Restarted oxybutynin for leakage around catheter; leakage resolved initially but still leaks at times. Skin care per nursing.. * Urinary tract infection with south-sensitive Pseudomonas s/p Levaquin 7 day course, Stopped 09/11 * Colon thickening seen on abdominal CT of unclear etiology, likely not malignant, given report of a colonoscopy in April. She will follow up with Gastroenterology after her discharge. 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 Continue rivaroxaban. If she has worsening anemia, this may be reconsidered. * Positive troponin in the hospital with normal cardiac function on echocardiogram and no ischemia seen on nuclear cardiac imaging. Continue aspirin as recommended by the custom decorating consultant. * Presence of a PICC line. This will be continued as she and her family report that she is a rather difficult blood draw, until it is certain that her sodium is stable and her anemia is stable or improving. * Prophylaxis. She is on rivaroxaban, which is sufficient for deep venous thrombosis prophylaxis. There is no indication that she had an upper GI bleed, so there is no indication for a proton pump inhibitor. She has very minimal residual limbs on the lower extremities, and so there is no indication for DAVID hose or sequential compression devices. SNF discharge 09/13/16. Subjective: Notes ongoing nonproductive cough overnight, Better with Tesselon pearls this a.m. Ongoing loose stools, Cdiff neg. Denies pain/SOB. Objective: Vital Signs Temp Pulse Resp BP Pulse Ox 36.8 C 95 19 149/74 H 93 09/11/16 06:44 09/11/16 06:44 09/11/16 06:44 09/11/16 06:44 09/11/16 06:44 Laboratory Results 09/07/16 10:37 09/10/16 06:00 09/10/16 09/11/16 09/12/16 05:59 05:59 05:59 Intake Total 1245 1764 250 Output Total 1975 1150 550 Balance -730 614 -300 - Pending Discharge Pending Discharge Within 24 Hours: No Pending Discharge Within 48 Hours: Yes Pending Discharge Date: 09/13/16 Pending Discharge Time: 11:00 Physical Exam - Physical Exam General Appearance: alert, no apparent distress Neck: supple Respiratory: lungs clear, normal breath sounds, No respiratory distress Cardiac/Chest: regular rate, rhythm Abdomen: non-tender, soft Pelvic Exam: other (+cath) Skin: decubitus Extremities: other (b/l high AKA) Neuro/Psych: alert, normal mood/affect ICD10 Worksheet Patient Problems: Problems Problem Status Onset At risk for autonomic dysreflexia Acute Neurogenic bowel Acute Spinal cord injury at C5-C7 level without injury of spinal bone Acute Spinal cord injury, incomplete Acute Abnormality of colon Acute Hyponatremia Acute Lower abdominal pain Acute Urinary tract infection Acute
[2016-09-11] MEDS ORDERED: FUROSEMIDE 20 MG/2 ML VIAL IVP ONE (16:31)
[2016-09-11] MEDS ORDERED: FUROSEMIDE 40 MG/4 ML VIAL IVP ONE (17:00)
--- NOTE | 2016-09-11 17:09 | GCON ---
[f rep st] CONSULTATION PULMONARY CONSULTATION DATE OF CONSULTATION: 09/11/2016 REFERRING PHYSICIAN: Kev Shaw MD REASON FOR CONSULTATION: Evaluation and management of pleural effusion and pulmonary infiltrate, as well as pulmonary embolism. 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 She was admitted to [facility] 3 weeks ago with abdominal pain. She was found to have a urinary tract and hyponatremia. She has been on chronic anticoagulation with Coumadin, which was changed to rivaroxaban during the hospitali zation. She also had hyponatremia that was treated with fluid restriction. She was transferred to rehabilitation on 08/25. She developed a urinary tract infection on about September 05, and started o n a 7-day course of Levaquin. For the last few days, she has been a bit more short of breath. A [facility] x-ray showed a possible right lower lobe pneumonia on 09/07. She has also had a cough for the p ast few days, and it was a bit bothersome last night, but is improved today. She has been treated w beto Tessalon, but does not think that has particularly helped the cough. She denies any fevers or c hest pains. She had a PICC line in her left upper extremity, but has not had any swelling, redness or tenderness associated with that. PAST MEDICAL HISTORY: 1. 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 2. Hyponatremia. 3. History of a seizure disorder. 4. Anemia. 5. Constipation. 6. Recent urinary tract infection. MEDICATIONS: Include aspirin, Tessalon, fludrocortisone, hydralazine, Keppra, oxybutynin, and rivar oxaban 20 mg daily. ALLERGIES: Pseudoephedrine. SOCIAL HISTORY: The patient does not smoke or use alcohol. FAMILY HISTORY: Unremarkable. REVIEW OF SYSTEMS: A 10-point review of systems adds nothing to the History of Present Illness. PHYSICAL EXAMINATION: GENERAL: The patient is awake, alert, and in no acute distress. VITAL SIGNS : Blood pressure is 149/74, heart rate of 95. She is afebrile. Oxygen saturations are 93% on 2 L, and 91% on room air. HEENT: Normocephalic and atraumatic. No icterus. NECK: No adenopathy. Tr achea is midline. CHEST: Decreased breath sounds in the right base. She has a few rales in the le ft base. CARDIAC: Regular rate and rhythm without murmur. No jugular venous distention. ABDOMEN: Soft, nontender. Bowel sounds are present. EXTREMITIES: Legs are surgically absent below mid fe mur. No edema. In her left upper extremity, her PICC line site is nontender, with no erythema or p alpable cord. LABORATORY DATA: White blood count is 4.3, hemoglobin is 9.4. Sodium is 125 yesterday, down from 1 33. INR is 1.5. A CT scan from 09/10 demonstrates a moderate right and small left pleural effusion. She has minimal atelectasis associated with this. There is a small faint area of alveolar infiltrate in the right upper lobe. There is a small right upper lobe pulmonary embolism. ASSESSMENT: 1. Pleural effusions. These are present on the right more so than left, and are the predominant fi nding on a CAT scan. She has minimal hypoxemia from this. This could be residual from her recent h ospitalization/illness. She is currently on fluid restriction, and does not appear to be fluid over loaded, but might benefit from a small dose of Lasix. I do not think that thoracentesis is warrante d, given that she is asymptomatic and currently afebrile. In addition, this would be complicated a bit by her anticoagulation. 2. An area of pneumonitis. This could represent a small area of pneumonia. The patient has been o n 7 days of Levaquin, which I think is appropriate, and no further antibiotics are warranted. 3. Pulmonary embolism. This is a small right upper lobe pulmonary embolism. I do not see any prio r imaging to determine if this is new, but I think it should be presumed to be new. There is a niles od from approximately from August 19 to August 25, during which time, she was only on prophylactic doses of enoxaparin prior to being started on rivaroxaban. She could have had a thrombosis starting at that time. In addition, she had a PICC line, and this could be associated with that PICC line. She is anticoagulated with rivaroxaban, currently at 20 mg daily. I do not think that doing a furt her investigation for the source, such as an ultrasound of her upper extremities, to look for a thro mbosis or an ultrasound to look for ileal thrombosis, or a CT scan to look for IVC thrombosis would be fruitful, but I think that given that this is most likely a new thrombosis, I would treat her wit h a higher dose rivaroxaban for 3 weeks. RECOMMENDATIONS: 1. Increase rivaroxaban to 15 twice daily for 3 weeks, then reduce back down to 20 daily. 2. Repeat a dose of Lasix 20 mg. 3. Follow up with a chest x-ray in approximately 3-4 weeks, sooner if she has increased dyspnea or hypoxemia. 4. Reinstitute fluid restriction, as previously done. /[id number]/MODL
[2016-09-11] MEDS: RIVAROXABAN 20 MG TAB PO SCH (21:35)
[2016-09-12] MEDS: BENZONATATE 100 MG CAP PO PRN (02:06)
[2016-09-12] MEDS: FLUDROCORTISONE ACETATE 0.1 MG TAB PO SCH (08:59)
[2016-09-12] MEDS: ASPIRIN EC 81 MG TAB PO SCH (08:59)
[2016-09-12 09:00] LABS: ANION GAP 3 mEq/L (8-16); CALCIUM 7.3 mg/dL (8.5-10.4); CARBON DIOXIDE 26 mEq/l (22-31); CHLORIDE 102 mEq/L (97-110); CREATININE 0.5 mg/dL (0.6-1.0); GLOMERULAR FILTRATION RATE > 60; GLUCOSE 91 mg/dL (70-100); POTASSIUM 3.4 mEq/L (3.5-5.2); SODIUM 131 mEq/L (134-144)
[2016-09-12] MEDS: MULTIVITAMINS 1 EACH TAB PO SCH (09:00)
[2016-09-12] MEDS: levETIRAcetam 500 MG TAB PO SCH ×2 (09:00→21:50)
[2016-09-12] MEDS: OXYBUTYNIN CHLORIDE 5 MG TAB PO SCH ×3 (09:00→22:40)
[2016-09-12] MEDS: RIVAROXABAN 15 MG TAB PO SCH ×2 (09:00→17:07)
[2016-09-12] MEDS: SODIUM CHLORIDE 1,000 MG TAB PO SCH ×2 (09:00→17:07)
--- NOTE | 2016-09-12 22:27 | SOAPPROG ---
SOAP Progress Note Assessment/Plan: Assessment/Plan: Assessment: * Debility following hospitalization in woman with history of spinal cord injury and bilateral lower extremity amputations. Initial FIM 55 on 08/27/16; improved to 60 as of 09/01/16; decline to 57 on 09/08/16 but lost 5 points on eating due to IV hydration yesterday. Does prone crawl transfers, min to mod A. Slide board transfers to commode, 2 person assist. Would benefit from custom commode. Continue physical therapy and occupational therapy to optimize mobility and activities of daily living. * Hyponatremia. Appreciate the assistance of Nephrology. Continue fludrocortisone. Salt supplement was discontinued shortly prior to her hospital discharge; restarted 08/26/16 per Nephrology. Na stable in rangeof 128 - 134. Initiated fluid restriction 08/31/16 1500 cc/day. Na dropped to 125 today 09/10/16 after fluid restriction liberalized to 3000 cc/day. Resume 1500 cc/day on 09/10 with Na improvment to 131 on 09/11. * Hypoxia, cough: chest CT to follow-up on pleural effusion+/- pneumonia on CXR yesterday: has RUL pneumonia, pulmonary embolus RUL and pleural effusion ( mod on R, small on L) . Will treat with enoxaparin and initiate warfarin, and 5 days levofloxacin. Discharge delayed until 09/13/16 to ensure she's stable. Should have follow-up CXR in 4 weeks to ensure that pleural effusion has resolved. Plan for anticoagulation 3 - 6 months, on xeralto 15BID for 3 weeks then 20daily until Follow-up with pulmonology. 20mg lasix today, appreciate pulm recs, improving symptoms * Cognitive impairment. SLUMS 04/14. * Seizure disorder. Continue levetiracetam, though this was suspected as a possible contributing etiology to her hyponatremia. Phenobarbital had been continued in the acute care hospital, though Mrs. Saab's mother indicated that the intention was to discontinue it; will not continue phenobarbital for now. She will have seizure precautions. * Autonomic dysreflexia. Protocol initiated 08/31/16 with NTG paste and hydralazine. Laboratory studies are pending to evaluate for possible pheochromocytoma. * Anemia and bright red blood per rectum. Likely stercoral ulcers due to constipation. Will monitor her blood counts. * Decubitus ulcer over coccyx, stage 3, healed. Appreciate assistance of wound nurse. PT & OT to work on wheelchair portioning and transfer issues to promote healing. Frequent turning while in bed per nursing. Continue progressive seating schedule. * Constipation-> Now diarrhea, Cdiff neg will hold polyethylene glycol scheduled and senna PRN, improving. Continue rehabilitation bowel program for possible neurogenic contribution * Neurogenic bladder with suprapubic catheter. Restarted oxybutynin for leakage around catheter; leakage resolved initially but still leaks at times. Skin care per nursing.. * Urinary tract infection with south-sensitive Pseudomonas s/p Levaquin 7 day course, Stopped 09/11 * Colon thickening seen on abdominal CT of unclear etiology, likely not malignant, given report of a colonoscopy in April. She will follow up with Gastroenterology after her discharge. 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 Continue rivaroxaban. If she has worsening anemia, this may be reconsidered. * Positive troponin in the hospital with normal cardiac function on echocardiogram and no ischemia seen on nuclear cardiac imaging. Continue aspirin as recommended by the senior sales consultant. * Presence of a PICC line. This will be continued as she and her family report that she is a rather difficult blood draw, until it is certain that her sodium is stable and her anemia is stable or improving. * Prophylaxis. She is on rivaroxaban, which is sufficient for deep venous thrombosis prophylaxis. There is no indication that she had an upper GI bleed, so there is no indication for a proton pump inhibitor. She has very minimal residual limbs on the lower extremities, and so there is no indication for DAVID hose or sequential compression devices. SNF discharge 09/13/16. Subjective: No events. No complaints today reports improving cough and SOB. Denies chills or CP Objective: Vital Signs Temp Pulse Resp BP Pulse Ox 36.8 C 85 18 140/86 H 93 09/12/16 19:58 09/12/16 19:58 09/12/16 19:58 09/12/16 19:58 09/12/16 19:58 Laboratory Results 09/07/16 10:37 09/12/16 06:00 09/11/16 09/12/16 09/13/16 05:59 05:59 05:59 Intake Total 4399 002 7606 Output Total 1150 2250 300 Balance 614 -1660 700 - Pending Discharge Pending Discharge Within 24 Hours: Yes Pending Discharge Within 48 Hours: Yes Pending Discharge Date: 09/13/16 Pending Discharge Time: 11:00 Physical Exam - Physical Exam General Appearance: alert, no apparent distress Neck: supple Respiratory: lungs clear, decreased breath sounds, No respiratory distress, No accessory muscle use Cardiac/Chest: regular rate, rhythm Abdomen: non-tender, soft Skin: normal color, warm/dry Extremities: other (Bilat AKA) Neuro/Psych: alert, normal mood/affect, oriented x 3 ICD10 Worksheet Patient Problems: Problems Problem Status Onset At risk for autonomic dysreflexia Acute Neurogenic bowel Acute Spinal cord injury at C5-C7 level without injury of spinal bone Acute Spinal cord injury, incomplete Acute Abnormality of colon Acute Hyponatremia Acute Lower abdominal pain Acute Urinary tract infection Acute
[2016-09-13 06:46] VITALS: BP 135/94; PULSE 79; RESP 16; TEMP 97.5; O2SAT 91
[2016-09-13] MEDS: RIVAROXABAN 15 MG TAB PO SCH (08:40)
[2016-09-13] MEDS: MULTIVITAMINS 1 EACH TAB PO SCH (08:41)
[2016-09-13] MEDS: SODIUM CHLORIDE 1,000 MG TAB PO SCH (08:41)
[2016-09-13] MEDS: levETIRAcetam 500 MG TAB PO SCH (08:41)
[2016-09-13] MEDS: FLUDROCORTISONE ACETATE 0.1 MG TAB PO SCH (08:41)
[2016-09-13] MEDS: OXYBUTYNIN CHLORIDE 5 MG TAB PO SCH (08:41)
[2016-09-13] MEDS: ASPIRIN EC 81 MG TAB PO SCH (08:41)
[2016-09-13] MEDS ORDERED: FUROSEMIDE 20 MG TAB PO ONE (09:31)
[2016-09-13] MEDS: BISACODYL 10 MG SUPP PR SCH (12:22)
--- NOTE | 2016-09-14 05:14 | GDS ---
[f rep st] DISCHARGE SUMMARY ADMITTING DIAGNOSIS: Debility status post hospitalization. DISCHARGE DIAGNOSIS: Debility status post hospitalization. ADDITIONAL DIAGNOSES: 1. Hyponatremia. 2. Hypoxia with pneumonia and pulmonary emboli. 3. Cognitive impairment. 4. Seizure disorder. 5. Autonomic dysreflexia. 6. Coccyx decubitus ulcer. 7. Constipation and neurogenic bowel. 8. Neurogenic bladder with suprapubic catheter. 9. Urinary tract infection. CONSULTATIONS: There was consultation with Dr. Pollard, Pulmonology, and with the wound care nurse. PROCEDURES: There were none. COMPLICATIONS: There were none. HISTORY AND HOSPITAL COURSE: 1. The patient was admitted to inpatient rehabilitation after being hospitalized with abdominal pain and noted to have markedly reduced functional status regarding mobility and activities of daily living. She has a history of seizure disorder, spinal cord injury, and bilateral [id number] amputations for thrombotic complications. She came to inpatient rehabilitation where she had gradual improvement in her functional status. Her initial functional independence measure on 08/27/2016 was 55, consistent with usp level of function. Her FIM improved to 60 on 09/01/2016 and to 63 on 09/08/2016. She was able to do transfers with a prone crawl with minimal to moderate assistance. She could transfer by slide board to the commode with a 2-person assist. 2. She had hyponatremia. This has been a chronic issue. Nephrology assisted in managing, though they did not come to see her on the inpatient rehabilitation unit. She was on fludrocortisone, a sodium chloride supplement, and a 1,500 cc per day fluid restriction. The fluid restriction was liberalized and her sodium dropped to 125 and it improved to 131 when the fluid restriction was resumed. 3. There was hypoxia and cough. This worsened during her stay. She had a chest x-ray which showed a pleural effusion and possibly a pneumonia. There was a chest CT done to evaluate this further. She was found to have a right upper lobe pneumonia and pulmonary embolus in the right upper lobe. Additionally, there were pleural effusions seen, moderate on the right and small on the left. She was seen by Pulmonology who considered the pneumonia to be rather trivial and possibly resolving, but it was unclear the acuity of the pulmonary embolus. She had been on rivaroxaban 20 mg daily due to her history of thromboses. At the advice of Pulmonology, this was increased to 15 mg b.i.d. for 3 weeks with a plan to then reduce it back to 20 mg daily. She had a dose of IV Lasix per Pulmonology and then today, on the day of discharge, she had a dose of oral Lasix. She was advised to have a followup chest x-ray in 4 weeks and to follow up with Pulmonology subsequently. 4. She was noted to have cognitive impairment. The [facility] mental status exam was administered and she scored 11/30 which is significantly in the demented range. 5. Regarding her seizure disorder, she was continued on levetiracetam. Phenobarbital had been discontinued while she was in the acute hospital. She had no evidence of active seizure disorder while she was in inpatient rehabilitation. 6. She had variable blood pressures. A laboratory workup had been initiated in the acute care hospital for pheochromocytoma. At inpatient rehabilitation, it was considered more consistent with autonomic dysreflexia with the stimulus being either her bladder infection, her constipation, or her decubitus ulcer. An autonomic dysreflexia protocol was initiated with hydralazine and nitroglycerin, but this was not needed during the course of her stay. The results of serum metanephrines and normetanephrines study were found to be within normal limits, as were urinary tests to screen for a pheochromocytoma. 7. Anemia and bright-red blood per rectum. In the acute hospital, this was considered to be due to stercoral ulcers due to constipation. Her blood counts were monitored. She had a slight decrease in her hemoglobin and hematocrit. On 09/07/2016, these were 9.5 and 28.3. 8. Decubitus ulcer over the coccyx. This was a stage III when she was admitted and it healed during the course of her stay with frequent turning and with a specialty mattress and a progressive seating schedule. 9. She had constipation, as well as neurogenic bladder. She was initiated on a bowel protocol with laxatives. She had diarrhea eventually, after being treated finally with magnesium citrate, and subsequently had improved regularity of her bowel movements and less difficulty evacuating her rectum with her neurogenic bowel. 10. She had a neurogenic bladder with a suprapubic catheter. Oxybutynin was continued, as it prevented leakage around the catheter. 11. She had a urinary tract infection with pansensitive Pseudomonas which was treated with levofloxacin. 12. In the acute care hospital, she had colon thickening noted on abdominal CT. There had been a colonoscopy in April of last year and it was considered likely not malignant. She was advised to follow up with Gastroenterology. PHYSICAL EXAMINATION: GENERAL: On the day of discharge, this is a chronically ill-appearing woman in a wheelchair with bilateral [id number] amputations, cooperative and in no acute distress. VITALS: Blood pressure is 135/94, heart rate is 79, respiratory rate is 16, oxygen saturation is 91% on 2 L, temperature is 36.4 degrees Celsius. HEART: There is regular rate and rhythm with no murmurs, rubs, or gallops. LUNGS: There are crackles audible in the left lower lung field. Otherwise, lungs are clear to auscultation bilaterally. ABDOMEN: Soft, nontender, nondistended with normoactive bowel sounds. DISCHARGE PLAN: CONDITION ON DISCHARGE: Fair. ACTIVITY: Ad kay when she is in her power wheelchair. She requires assistance for all transfers and for lower extremity dressing. DIET: Regular. FOLLOWUP: Date of next appointment: She will follow up with her new attending at the senior care facility to which she is discharging which is [facility]. She is to follow up with [facility], presumably, regarding her seizure disorder, within 3 days. She is to follow up with [facility] and with her primary care provider, Dr. Adrian Smyth. Additionally, she should follow up with [facility] of the [facility] regarding colon thickening and with Pulmonology with a chest x-ray in approximately 3-4 weeks regarding her pulmonary issues. DISCHARGE MEDICATIONS: 1. Fludrocortisone 0.5 mg p.o. daily. 2. Hydralazine 10 mg p.o. q.i.d. 3. Ondansetron 4 mg p.o. q.4 hours p.r.n. 4. Polyethylene glycol 17 g p.o. daily. 5. Senna 1-2 tabs p.o. b.i.d. p.r.n. 6. Sodium chloride tablets 1,000 mg p.o. b.i.d. with meals. 7. Benzonatate 100 mg p.o. t.i.d. p.r.n. cough. 8. Rivaroxaban 15 mg p.o. b.i.d. through September 30 and then resuming 20 mg daily starting October 01. 9. Oxybutynin 5 mg p.o. t.i.d. 10. Levetiracetam 500 mg p.o. b.i.d. 11. Multivitamin 1 p.o. daily. 12. Aspirin 81 mg p.o. daily. 13. Calcium carbonate 500 mg p.o. t.i.d. p.r.n. 14. Pepto-Bismol p.o. q.i.d. p.r.n. indigestion. Greater than 35 minutes floor time today, including physical exam and medication adjustment, and coordination of care for discharge. /[id number]/MODL [email or web address]
--- NOTE | 2016-09-14 15:40 | PDOREHIP ---
Admission IRF-CHARU - Admission - 3 Day Assessment Period Admission Date/Day 1: 08/25/16 Day 2: 08/26/16 Day 3: 08/27/16 Discharge IRF-CHARU - Discharge - 3 Day Assessment Period 2 Days Prior to Anticipated Discharge Date: 09/11/16 1 Day Prior to Anticipated Discharge Date: 09/12/16 Anticipated Discharge Date: 09/13/16 - Discharge Skin Conditions Unhealed Pressure Ulcer (1 or more/Stage 1 or >)-Discharge: 0. No - Healed Pressure Ulcer(s) # Stage 3 Pressure Ulcers Present on Admit and Healed on DC: 1 (Coccyx)
--- NOTE | 2016-09-21 22:37 | GPROG ---
[f rep st] PROGRESS NOTE DISCHARGE ORDER The patient was discharged on 09/13/2016, and this is her discharge order. /[id number]/MODL
== END 2016-09-13 14:30 | DRG 945 ==
LOC: BREH 15:21
PROVIDERS: ADMIT Internal Medicine; ATTEND Internal Medicine
PROC: F0636ZZ Communicative/Cognitive Integration Skills Treatment of Neurological System - Whole Body (ICD-10-PCS; principal; 2016-08-25)
PROC: F07M3ZZ Motor Function Treatment of Musculoskeletal System - Whole Body (ICD-10-PCS; principal; 2016-08-25)
DX: R53.81 Other malaise (principal); E87.1 Hypo-osmolality and hyponatremia; G40.909 Epilepsy, unspecified, not intractable, without status epilepticus; D64.9 Anemia, unspecified; K59.00 Constipation, unspecified; N31.9 Neuromuscular dysfunction of bladder, unspecified; Z86.718 Personal history of other venous thrombosis and embolism; Z89.611 Acquired absence of right leg above knee; Z89.612 Acquired absence of left leg above knee; Z99.3 Dependence on wheelchair; J18.9 Pneumonia, unspecified organism; I26.99 Other pulmonary embolism without acute cor pulmonale; L89.153 Pressure ulcer of sacral region, stage 3; N39.0 Urinary tract infection, site not specified; J90 Pleural effusion, not elsewhere classified; K59.2 Neurogenic bowel, not elsewhere classified; R41.89 Other symptoms and signs involving cognitive functions and awareness
CPT/HCPCS: 92507-GN; 92522-GN; 97110-GO; 97110-GP; 97116-GP; 97163-GP; 97167-GO; 97530-GO; 97530-GP; 97535-GO; 97542-GP; Q9967

== ENCOUNTER → 2016-11-19 | Outpatient (CLI) | payer OTHER, MEDICARE | LOC: CIMAGING 16:42 | PROVIDERS: ATTEND Family Medicine | DX: R22.31 Localized swelling, mass and lump, right upper limb (principal); Z86.718 Personal history of other venous thrombosis and embolism | CPT/HCPCS: 93971-PO ==

== ENCOUNTER → 2016-11-23 | Outpatient (CLI) | payer OTHER, MEDICARE ==
[~2016-11-23] MED LIST: IOPAMIDOL (ISOVUE-300) 100 ML BTL ONE
== END ==
LOC: CIMAGING 11:04
PROVIDERS: ATTEND Family Medicine
DX: L89.159 Pressure ulcer of sacral region, unspecified stage (principal); I74.09 Other arterial embolism and thrombosis of abdominal aorta; I70.1 Atherosclerosis of renal artery; I31.9 Disease of pericardium, unspecified; E27.9 Disorder of adrenal gland, unspecified; K44.9 Diaphragmatic hernia without obstruction or gangrene; K59.00 Constipation, unspecified; Z86.718 Personal history of other venous thrombosis and embolism; Z89.619 Acquired absence of unspecified leg above knee
CPT/HCPCS: 72132; Q9967

== ENCOUNTER → 2018-02-01 | Day surgery (SDC) | payer OTHER, MEDICARE | END | disposition home or self-care (01) | LOC: FIMAGING 13:08 | PROVIDERS: ATTEND Internal Medicine Hematology & Oncology | PROC: 02HV33Z Insertion of Infusion Device into Superior Vena Cava, Percutaneous Approach (ICD-10-PCS; principal; 2018-02-01) | DX: I82.512 Chronic embolism and thrombosis of left femoral vein (principal) | CPT/HCPCS: 36569; 77001; C1751; C1769; 84481-90; Q9967 ==

== ENCOUNTER → 2018-02-09 | Outpatient (CLI) | payer OTHER, MEDICARE | LOC: CIMAGING 17:47 | PROVIDERS: ATTEND Family Medicine | DX: I82.722 Chronic embolism and thrombosis of deep veins of left upper extremity (principal) | CPT/HCPCS: 93971-PO ==

== ENCOUNTER 2018-02-10 15:34 | Inpatient (IN) | payer OTHER, MEDICARE ==
--- NOTE | 2018-02-10 15:51 | EDPHY ---
H & P Time Seen by Provider: 02/10/18 15:44 HPI/ROS: Chief complaint. DVT left arm HPI. 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 She had a PICC line in her left arm placed February 01 and removed February 07. Subsequent swelling to the left upper extremity an ultrasound yesterday shows extensive DVT in the subclavian, axillary, brachial, basilic veins. The PICC line was removed and she had 1 placed in the right arm for an iron infusion it was taken out and now she has swelling in the right arm. She apparently had been on oral anticoagulation and had a GI bleed in November secondary to a anticoagulation. She has also a pressure sore in the left thigh that is ongoing and getting worse. She has been seen by Dr. Kapoor and for General surgery. Patient did get a Xarelto last night after the finding of the upper extremity DVT. Her PCP has been in contact with Dr. Casey for Hematology and Dr. Rutledge for surgery. The plan is admission with heparin for better control should bleeding developed. She has no fever, chest discomfort, shortness of breath. ROS 10 systems were reviewed and negative with the exception of the elements mentioned in the history of present illness Past Medical/Surgical History: Past medical history significant for seizure disorder, CVA, DVT, brain aneurysm couple, double amputee, indwelling Sandhu catheter, pressure sores Social History: Single, nonsmoker, no alcohol Smoking Status: Never smoked Physical Exam: General Appearance: Alert well-developed female mild distress vital signs show temp 37.2 degrees heart rate 115 Eyes: Pupils equal and round no pallor or injection. ENT, Mouth: Mucous membranes are moist. Respiratory: There are no retractions, lungs are clear to auscultation. Cardiovascular: Regular rate and rhythm. Gastrointestinal: Abdomen is soft and nontender, no masses, bowel sounds normal. Neurological: Awake and alert, sensory and motor exams grossly normal. Skin: Deep pressure sore that is foul smelling in the left medial thigh. Pressure sores over the coccyx Musculoskeletal: Neck is supple nontender. Extremities both upper extremities are swollen down to the hand. Both legs have been amputated Psychiatric: Patient is oriented X 3, there is no agitation. Constitutional: Initial Vital Signs Temperature (C) 37.2 C 02/10/18 15:38 Heart Rate 115 H 02/10/18 15:38 Respiratory Rate 18 02/10/18 15:38 Blood Pressure 132/109 H 02/10/18 15:38 O2 Sat (%) 95 02/10/18 15:38 O2 Delivery Mode Room Air Allergies/Adverse Reactions: pseudoephedrine [From Sudafed] Allergy (Verified 08/14/16 12:59) Home Medications: Medication Instructions Recorded Multivitamins [Multivitamin (*)] 1 each PO DAILY 08/14/16 Oxybutynin Chloride [Ditropan] 5 mg PO TID 08/14/16 levETIRAcetam [Keppra 500 mg (*)] 500 mg PO BID 08/14/16 Aspirin EC [Aspirin EC 81 mg (*)] 81 mg PO DAILY #0 tab 08/25/16 Calcium Carbonate [Tums 500MG (*)] 500 mg PO TID PRN #0 tab.chew 08/25/16 Bismuth Subsalicylate 262 mg PO QID PRN #0 tab.chew 09/08/16 [Pepto-Bismol (*)] Fludrocortisone Acetate [Florinef] 0.05 mg PO DAILY #0 tab 09/08/16 Lidocaine 2% Jelly [Lidocaine 2% 1 lety TP DAILY PRN #0 jelly 09/08/16 Jelly (*)] Ondansetron Odt [Zofran Odt 4 mg 4 mg PO Q4HRS PRN #0 tab 09/08/16 (*)] Polyethylene Glycol 3350 [Miralax 17 gm PO DAILY #0 pkt 09/08/16 17 gm (*)] Sennosides [Senokot] 1 - 2 tab PO BID PRN #0 tab 09/08/16 Sodium Chloride [Salt Tablet] 1,000 mg PO BIDMEAL #0 tab 09/08/16 hydrALAZINE [Apresoline 10 mg (*)] 10 mg PO QID PRN #0 tab 09/08/16 levOFLOXACIN [levAQUIN (*)] 500 mg PO DAILY AT 10AM #0 tab 09/08/16 Benzonatate [Tessalon Pearles] 100 mg PO TID PRN #0 cap 09/13/16 Rivaroxaban [Xarelto 15mg (*)] 15 mg PO BIDMEAL #0 tab 05/01/17 Rivaroxaban [Xarelto] 20 mg PO DAILY #0 tab 09/13/16 Medical Decision Making - Diagnostics Imaging Results: Imaging Impressions Extremity Venous Study 02/10/18 16:21 Impression: Bilateral upper extremity DVT as described. These findings were discussed with Dr. Gracia in the emergency department at 6:00 PM on 02/10/2018. Ultrasound right upper extremity also shows extensive DVT ; reviewed by me and discussed with Radiology Procedures: IV normal saline ED Course/Re-evaluation: I consulted discussed case Dr. Durán who will see the patient in the emergency department for evaluation of her pressure sore I consulted discussed the case with Hematology and they are agreeable with the plan for heparin drip I consulted and discussed case Dr. Oglesby, hospitalist, who agrees to the admission Differential Diagnosis: Bilateral upper extremity DVT apparently secondary to PICC line. She also has a deep pressure sore on her left thigh and will go to the operating room tonight. - Data Points Laboratory Results: Laboratory Results 02/10/18 17:05 02/10/18 17:05 02/10/18 02/10/18 02/10/18 17:05 17:05 17:05 WBC RBC Hgb Hct MCV MCH MCHC RDW Plt Count MPV Neut % (Auto) Lymph % (Auto) Harney % (Auto) Eos % (Auto) Baso % (Auto) Nucleat RBC Rel Count Absolute Neuts (auto) Absolute Lymphs (auto) Absolute Monos (auto) Absolute Eos (auto) Absolute Basos (auto) Absolute Nucleated RBC Immature Gran % Seg Neutrophils % Band Neutrophils % Lymphocytes % Monocytes % Eosinophils % Basophils % Metamyelocytes % Myelocytes % Promyelocytes % Blast Cells % Immature Gran # Absolute Seg Neuts Absolute Band Neuts Absolute Lymphocytes Absolute Monocytes Absolute Eosinophils Absolute Basophils Absolute Metamyelocyte Absolute Myelocytes Absolute Promyelocytes Absolute Plasma Cells Nucleated RBCs Absolute Blast Cells Plasma Cells % Platelet Estimate Polychromasia Hypochromasia Keratocytes PT INR APTT VBG Lactic Acid 1.9 mmol/L mmol/L (0.7-2.1) Sodium 134 mEq/L L mEq/L (135-145) Potassium 3.9 mEq/L mEq/L (3.3-5.0) Chloride 105 mEq/L mEq/L (97-110) Carbon Dioxide 23 mEq/l mEq/l (22-31) Anion Gap 6 mEq/L L mEq/L (8-16) BUN 19 mg/dL mg/dL (7-23) Creatinine 0.7 mg/dL mg/dL (0.6-1.0) Estimated GFR > 60 Glucose 107 mg/dL H mg/dL (70-100) Calcium 8.0 mg/dL L mg/dL (8.5-10.4) Patient ABO/Rh A POSITIVE Antibody Screen POSITIVE Antibody Identification Pending 02/10/18 02/10/18 17:05 17:05 WBC 14.76 10^3/uL H 10^3/uL (3.80-9.50) RBC 2.92 10^6/uL L 10^6/uL (4.18-5.33) Hgb 7.1 g/dL L g/dL (12.6-16.3) Hct 23.0 % L % (38.0-47.0) MCV 78.8 fL L fL (81.5-99.8) MCH 24.3 pg L pg (27.9-34.1) MCHC 30.9 g/dL L g/dL (32.4-36.7) RDW 22.0 % H % (11.5-15.2) Plt Count 140 10^3/uL L 10^3/uL (150-400) MPV 10.7 fL fL (8.7-11.7) Neut % (Auto) Not Reported Lymph % (Auto) Not Reported Harney % (Auto) Not Reported Eos % (Auto) Not Reported Baso % (Auto) Not Reported Nucleat RBC Rel Count Not Reported Absolute Neuts (auto) Not Reported Absolute Lymphs (auto) Not Reported Absolute Monos (auto) Not Reported Absolute Eos (auto) Not Reported Absolute Basos (auto) Not Reported Absolute Nucleated RBC Not Reported Immature Gran % Not Reported Seg Neutrophils % 88.8 % % Band Neutrophils % 9.2 % % Lymphocytes % 0.0 % % Monocytes % 1.0 % % Eosinophils % 0.0 % % Basophils % 0.0 % % Metamyelocytes % 1.0 % % Myelocytes % 0.0 % % Promyelocytes % 0.0 % % Blast Cells % 0.0 % % Immature Gran # Not Reported Absolute Seg Neuts 13.11 10^/uL H 10^/uL (1.70-6.50) Absolute Band Neuts 1.36 10^3/uL H 10^3/uL (0.00-0.70) Absolute Lymphocytes 0.00 10^3/uL L 10^3/uL (1.00-3.00) Absolute Monocytes 0.15 10^3/uL L 10^3/uL (0.30-0.80) Absolute Eosinophils 0.00 10^3/uL L 10^3/uL (0.03-0.40) Absolute Basophils 0.00 10^3/uL L 10^3/uL (0.02-0.10) Absolute Metamyelocyte 0.15 10^3/mL H 10^3/mL (0.00-0.00) Absolute Myelocytes 0.00 10^3/mL 10^3/mL (0.00-0.00) Absolute Promyelocytes 0.00 10^3/uL 10^3/uL (0.00-0.00) Absolute Plasma Cells 0.00 10^3/uL 10^3/uL (0.00-0.00) Nucleated RBCs 0 /100 WBC /100 WBC (0-0) Absolute Blast Cells 0.00 10^3/uL 10^3/uL (0.00-0.00) Plasma Cells % 0.0 % % Platelet Estimate DECREASED L (ADEQ) Polychromasia 1+ H Hypochromasia 1+ H Keratocytes 1+ H PT 35.2 SEC H SEC (12.0-15.0) INR 3.54 H (0.83-1.16) APTT 49.5 SEC H SEC (23.0-38.0) VBG Lactic Acid Sodium Potassium Chloride Carbon Dioxide Anion Gap BUN Creatinine Estimated GFR Glucose Calcium Patient ABO/Rh Antibody Screen Antibody Identification Microbiology Results: MICROBIOLOGY 02/10/18 16:00 Thigh - Swab Gram Stain - Final Medications Given: Discontinued Medications Lactated Ringer's (Lr) 1,000 mls @ 0 mls/hr IV ONCE ONE PRN Reason: As Directed Stop: 02/10/18 17:20 Last Admin: 02/10/18 17:57 Dose: 1,000 mls Departure - Departure Disposition: [facility] Acute Clinical Impression: DVT of axillary vein, acute bilateral Pressure ulcer Qualifiers: Pressure injury location: thigh Pressure injury stage: unspecified pressure injury stage Laterality: left Qualified Code(s): L89.229 - Pressure ulcer of left hip, unspecified stage Condition: Fair
[2018-02-10] MEDS ORDERED: HEPARIN/DEXTROSE 500 ML IV ONE (16:34)
[2018-02-10 17:17] LABS: PLATELET COUNT 140 10^3/uL (150-400)
[2018-02-10] MEDS ORDERED: LR 1,000 ML IV ONE (17:19)
[2018-02-10] MEDS ORDERED: BUPIVACAINE 0.5% 30 ML SDV ONE (17:31)
--- NOTE | 2018-02-10 17:55 | PDGENHP ---
History and Physical - Chief Complaint arm pain, foul smelling ulcer - History of Present Illness 67yo F. Longstanding paraplegic, had both legs amputated in 20s 2/2 infection. Has been seen in the wound clinic and is followed by Zain. Briefly, presents with arm pain, has nasty foul smelling leg/devub ulcer. Denies fevers. 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 History Information - Allergies/Home Medication List Allergies/Adverse Reactions: pseudoephedrine [From Sudafed] Allergy (Verified 08/14/16 12:59) Home Medications: Multivitamins [Multivitamin (*)] 1 each PO DAILY 08/14/16 [Last Taken 08/14/16] Oxybutynin Chloride [Ditropan] 5 mg PO TID 08/14/16 [Last Taken 08/25/16 08:25] levETIRAcetam [Keppra 500 mg (*)] 500 mg PO BID 08/14/16 [Last Taken 08/25/16 08 :25] I have personally reviewed and updated: medical history, social history, surgical history Past Medical History: seizure disorder, CVA, DVT, brain aneurysm, chronic pressure sores - Surgical History Additional surgical history: AKA for infecion, s/p debridement of ulcers - Family History Positive for: non-pertinent - Social History Smoking Status: Never smoked Additional social history: 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 alone, 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 Review of Systems Review of Systems: ROS: 10pt was reviewed & negative except for what was stated in HPI & below Physical Exam Physical Exam: Temp Pulse Resp BP Pulse Ox 36.6 C 98 16 129/90 H 93 02/10/18 17:40 02/10/18 17:40 02/10/18 17:40 02/10/18 17:40 02/10/18 17:40 Constitutional: no apparent distress, appears nourished, not in pain Eyes: PERRL, anicteric sclera, EOMI Ears, Nose, Mouth, Throat: moist mucous membranes, hearing normal, ears appear normal, no oral mucosal ulcers Cardiovascular: regular rate and rhythym, no murmur, rub, or gallop, No edema Respiratory: no respiratory distress, no rales or rhonchi, clear to auscultation Gastrointestinal: normoactive bowel sounds, soft, non-tender abdomen, no palpable masses Genitourinary: no bladder fullness, no bladder tenderness Skin: warm, normal color, no rashes or abrasions, no fluctuance, no induration, No mottled Musculoskeletal: full muscle strength, no muscle tenderness, normal joint ROM, no joint effusions, other (ricardo [place] amputee, L groin/ischium there is a 5x5cm ulcer with necrotic tissue and is foul smelling. ) Psychiatric: interacting appropriately, not anxious, not encephalopathic, thought process linear Lymph, Heme, Immunologic: no cervical LAD, no supraclavicular LAD Lab Data & Imaging Review 02/10/18 17:05 02/10/18 17:05 WBC 14.76 10^3/uL (3.80-9.50) H 02/10/18 17:05 RBC 2.92 10^6/uL (4.18-5.33) L 02/10/18 17:05 Hgb 7.1 g/dL (12.6-16.3) L 02/10/18 17:05 Hct 23.0 % (38.0-47.0) L 02/10/18 17:05 MCV 78.8 fL (81.5-99.8) L 02/10/18 17:05 MCH 24.3 pg (27.9-34.1) L 02/10/18 17:05 MCHC 30.9 g/dL (32.4-36.7) L 02/10/18 17:05 RDW 22.0 % (11.5-15.2) H 02/10/18 17:05 Plt Count 140 10^3/uL (150-400) L 02/10/18 17:05 MPV 10.7 fL (8.7-11.7) 02/10/18 17:05 VBG Lactic Acid 1.9 mmol/L (0.7-2.1) 02/10/18 17:05 Sodium 134 mEq/L (135-145) L 02/10/18 17:05 Potassium 3.9 mEq/L (3.3-5.0) 02/10/18 17:05 Chloride 105 mEq/L (97-110) 02/10/18 17:05 Carbon Dioxide 23 mEq/l (22-31) 02/10/18 17:05 Anion Gap 6 mEq/L (8-16) L 02/10/18 17:05 BUN 19 mg/dL (7-23) 02/10/18 17:05 Creatinine 0.7 mg/dL (0.6-1.0) 02/10/18 17:05 Estimated GFR > 60 02/10/18 17:05 Glucose 107 mg/dL (70-100) H 02/10/18 17:05 Calcium 8.0 mg/dL (8.5-10.4) L 02/10/18 17:05 Assessment & Plan Assessment: 67yo F c decub ulcer Plan: to OR for debridement before she start anticoag. RBA dsicussed. Plan for VAC. Zain had already spoke with plastics in [place] for flap, will eventually need Tx there for definitive management
[2018-02-10] MEDS ORDERED: ceFAZolin 2 GM/DEXTROSE 100 ML IV ONE (18:30)
[2018-02-10] MEDS ORDERED: MIDAZOLAM 2 MG/2 ML VIAL IVP ONE (18:49)
--- NOTE | 2018-02-10 18:49 | PDANEPAE ---
ANE Past Medical History - Cardiovascular History Hx Hypertension: No Hx Arrhythmias: No Hx Chest Pain: No Hx Coronary Artery / Peripheral Vascular Disease: No Hx CHF / Valvular Disease: No Hx Palpitations: No - Pulmonary History Hx COPD: No Hx Asthma/Reactive Airway Disease: No Hx Recent Upper Respiratory Infection: No Hx Oxygen in Use at Home: No Hx Sleep Apnea: No - Endocrine History Hx Diabetes: No Hypothyroid: No Hyperthyroid: No Obesity: no - Neurological & Psychiatric Hx Hx Neurological and Psychiatric Disorders: Yes - Other Health History Other Health History: b/l aka - Chronic Pain History Chronic Pain: No ANE Review of Systems Review of Systems: - Exercise capacity Exercise capacity: limited by disability ANE Patient History - Allergies Allergies/Adverse Reactions: pseudoephedrine [From Sudafed] Allergy (Verified 08/14/16 12:59) - Home Medications Home Medications: Multivitamins [Multivitamin (*)] 1 each PO DAILY 08/14/16 [Last Taken 08/14/16] Oxybutynin Chloride [Ditropan] 5 mg PO TID 08/14/16 [Last Taken 08/25/16 08:25] levETIRAcetam [Keppra 500 mg (*)] 500 mg PO BID 08/14/16 [Last Taken 08/25/16 08 :25] - NPO status NPO Since - Liquids (Date): 02/10/18 NPO Since - Liquids (Time): 09:00 NPO Since - Solids (Date): 02/10/18 NPO Since - Solids (Time): 09:00 - Smoking Hx Smoking Status: Never smoked ANE Labs/Vital Signs - Labs Result Diagrams: 02/10/18 17:05 02/10/18 17:05 - Vital Signs Blood Pressure: 120/90 Heart Rate: 98 Respiratory Rate: 16 O2 Sat (%): 93 Height: 121.92 cm Weight: 38.555 kg ANE Anesthesia Plan Anesthesia Plan: MAC Total IV Anesthesia: Yes
[2018-02-10] MEDS ORDERED: MIDAZOLAM 2 MG/2 ML VIAL ONE (18:50)
[2018-02-10] MEDS ORDERED: fentaNYL 100 MCG/2 ML INJ ONE ×3 (18:59→20:47)
[2018-02-10] MEDS ORDERED: PROPOFOL/EMULSION 500 MG/50 ML BOTTLE IV ONE (19:01)
[2018-02-10 19:07] LABS: INR 3.54 (0.83-1.16); PROTIME(PATIENT) 35.2 SEC (12.0-15.0)
[2018-02-10] MEDS ORDERED: LIDOCAINE 2% 2 ML INJ ONE (19:07)
[2018-02-10] MEDS ORDERED: PHENYLEPHRINE HCL 100 MCG/ML SYR ONE (19:22)
--- NOTE | 2018-02-10 20:30 | POSTOPPROG ---
Post Op Note Date of Operation: 02/10/18 Surgeon: Sky Durán Anesthesiologist: Eric Anesthesia: GET(General Endotracheal) Pre-op Diagnosis: Stage 4 pressure ulcer Post-op Diagnosis: same Procedure: I&D of large decubitus pressulcer Findings: tracked to bone [id number] Inf/Abcess present in the surg proc area at time of surgery?: Yes Depth: Deep Incisional (Fascial) EBL: Minimal Total fluids administered: 3L wshout Drains: Wound Vac Specimen(s): tissue for cx
[2018-02-10] MEDS ORDERED: PHENYLEPHRINE HCL 100 MCG/ML SYR IVP PRN (20:37)
[2018-02-10] MEDS ORDERED: LR 500 ML IV PRN (20:37)
[2018-02-10] MEDS ORDERED: ONDANSETRON 4 MG/2 ML VIAL IVP PRN (20:37)
[2018-02-10] MEDS ORDERED: HYDROCODONE/APAP 5/325 TAB PO PRN (20:37)
[2018-02-10] MEDS ORDERED: ACETAMINOPHEN 500 MG TAB PO PRN (20:37)
[2018-02-10] MEDS ORDERED: NALOXONE HCL 0.4 MG/ML INJ IVP PRN (20:37)
[2018-02-10] MEDS ORDERED: PROMETHAZINE HCL 25 MG/ML INJ IVP PRN (20:37)
--- NOTE | 2018-02-10 20:38 | POSTANESTH ---
Post Anesthetic Evaluation Cardiovascular Status: Similar to Pre-Op Cond Respiratory Status: Similar to Pre-op Cond. Level of Consciousness/Mental Status: Can Participate in Eval Pain Control: Adequate, Prn Tx Ordered Nausea/Vomiting Control: Adequate, Prn Tx Ordered Complications Possibly Related to Anesthesia: None Noted
[2018-02-10] MEDS ORDERED: fentaNYL 100 MCG/2 ML INJ IVP PRN (20:45)
[2018-02-10] MEDS: NS 1,000 ML IV SCH (22:23)
[2018-02-10] MEDS: HEPARIN/DEXTROSE 500 ML IV SCH (22:26)
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
--- NOTE | 2018-02-10 22:46 | GOP ---
DATE OF OPERATION: 02/10/2018 SURGEON: Sky Durán MD CUSTOMER RESOURCE SPECIALIST: None. ANESTHESIA: General endotracheal. ANESTHESIOLOGIST: Dr. Arun Reyes. PREOPERATIVE DIAGNOSIS: Stage IV decubitus ulcer. POSTOPERATIVE DIAGNOSIS: Stage IV decubitus ulcer. PROCEDURE PERFORMED: Incision and drainage with washout of large decubitus ulcer. FINDINGS: Wound measured 5 x 5 x 4. It tracked down to bone. It was debrided down to bone, to good , healthy, bleeding tissue. Hemostasis was achieved with gentle pressure. SPECIMENS: Tissue taken for culture. ESTIMATED BLOOD LOSS: 10 cc. DESCRIPTION OF PROCEDURE: The patient was greeted in the preoperative suite. Once again, risks, prabha efits, and alternatives were discussed. The consent was then signed. She was then brought back to t operative suite, placed on the OR table in supine position. After all anesthesia machines includi ng SCDs were on and functioning, a [employer] time-out was performed. After successfu l induction of anesthesia, the patient's pelvic and perineal area was prepped and draped in typical s terile fashion. I commenced the procedure by sharply debriding a significant amount of what appeared to be necrotic fat and skin. I did this circumferentially. It did appear to track down to the pelv ic bone, which I debrided sharply with a curette. After all necrotic material was successfully remov ed, hemostasis was achieved with gentle pressure and electrocautery. I then irrigated the wound with 3 L sterile saline. After successfully irrigation, I once again achieved hemostasis with gentle pre ssure. I then packed the area with a single black sponge, covered it with the wound VAC drapes and a ttached it to suction at 125 mmHg, which was well tolerated by the patient. She was then gently awak ened and taken to the PACU in satisfactory condition. COUNTS: All counts were reported as correct x2. /[id number]/MODL
[2018-02-10] MEDS: HYDROmorphONE/DILAUDID 1 MG/ML INJ IVP PRN (23:07)
[2018-02-10] MEDS ORDERED: NS 1,000 ML IV ONE (23:44)
[2018-02-11 00:19] LABS: PLATELET COUNT 109 10^3/uL (150-400)
--- NOTE | 2018-02-11 00:31 | HOSPPROG ---
Hospitalist Progress Note Assessment/Plan: XC: BP low/normal this evening 80s/40s so administered 1 L NS bolus and checked stat CBC. BP improved to 128/68 after bolus but CBC resulted H/H 5.5/17.5. No signs of active bleeding noted. I will order 2u pRBCs and repeat CBC in the morning. Objective: Vital Signs Temp Pulse Resp BP Pulse Ox 36.6 C 81 12 88/48 L 96 02/10/18 22:00 02/10/18 23:59 02/10/18 23:59 02/10/18 23:59 02/10/18 23:59 Microbiology 02/10/18 19:50 Gram Stain - Final Arm - Other Laboratory Results 02/10/18 21:30 02/09/18 02/10/18 02/11/18 05:59 05:59 05:59 Intake Total 1520 Output Total 120 Balance 1400 PT 35.2 SEC (12.0-15.0) H 02/10/18 17:05 INR 3.54 (0.83-1.16) H 02/10/18 17:05 ICD10 Worksheet Patient Problems: Problems Problem Status Onset Lower abdominal pain Acute Urinary tract infection Acute Hyponatremia Acute Abnormality of colon Acute At risk for autonomic dysreflexia Acute Neurogenic bowel Acute Spinal cord injury at C5-C7 level without injury of spinal bone Acute Spinal cord injury, incomplete Acute DVT of axillary vein, acute bilateral Acute Pressure ulcer Acute
[2018-02-11] MEDS: NS 1,000 ML IV SCH ×2 (00:41→18:21)
[2018-02-11 06:36] LABS: PLATELET COUNT 135 10^3/uL (150-400)
[2018-02-11 06:49] LABS: INR 1.95 (0.83-1.16); PROTIME(PATIENT) 22.3 SEC (12.0-15.0)
[2018-02-11] MEDS ORDERED: VANCOMYCIN 750 MG in D5W 150 ML IV ONE (07:00)
--- NOTE | 2018-02-11 08:58 | SOAPPROG ---
SOAP Progress Note Assessment/Plan: Assessment: 67-year-old female status post debridement of stage IV decubitus ulcer - vitals stable this morning - hemoglobin of 5 last night was likely spurious is hemoglobin is 10 this morning and I did not have a large blood loss intraop - continue wound VAC to suction - tissue cultures were taken follow those up, blood cultures positive, continue broad-spectrum antibiotics. Plan: 02/11/18 08:57 Subjective: Looks good feels good denies pain Objective: Vital Signs Temp Pulse Resp BP Pulse Ox 36.7 C 91 17 112/68 96 02/11/18 07:52 02/11/18 07:52 02/11/18 07:52 02/11/18 07:52 02/11/18 07:52 Microbiology 02/10/18 19:50 Gram Stain - Final Arm - Other Laboratory Results 02/11/18 06:00 02/11/18 06:00 02/10/18 02/11/18 02/12/18 05:59 05:59 05:59 Intake Total 2919 Output Total 130 Balance 2789 PT 22.3 SEC (12.0-15.0) H 02/11/18 04:30 INR 1.95 (0.83-1.16) H 02/11/18 04:30 ICD10 Worksheet Patient Problems: Problems Problem Status Onset DVT of axillary vein, acute bilateral Acute Pressure ulcer Acute Abnormality of colon Acute At risk for autonomic dysreflexia Acute Hyponatremia Acute Lower abdominal pain Acute Neurogenic bowel Acute Spinal cord injury at C5-C7 level without injury of spinal bone Acute Spinal cord injury, incomplete Acute Urinary tract infection Acute
--- NOTE | 2018-02-11 11:36 | PDMN ---
Medical Necessity Medical necessity: Pt meets IP criteria per MD; est los >2 mn for eval/tx of stage IV pressure ulcer (tracked to bone) s/p I&D w/wound vac placement POD #0, anemia & BUE DVT secondary to PICC line; admit for further monitoring, Heparin drip, IV abx, IVFs, follow-up labs, possible blood transfusion, ID/Wound Care/ Dietary/SW consults & therapies; comorbid paraplegic, cognitive impairment, bilateral AKA, neurogenic bladder w/suprapubic catheter, seizures, PE/DVT currently off AC due to GI bleed, SIADH; per H&P & order 02/10/18
--- NOTE | 2018-02-11 12:08 | GCON ---
DATE OF CONSULTATION: 02/11/2018 REFERRING PHYSICIAN: Josy Shepard MD OUTPATIENT ONCOLOGIST: Dr. Roderick Rowell. REASON FOR CONSULTATION: Anticoagulation management. HISTORY OF ILLNESS: Ms. Saab is a 67-year-old woman with a history of quadriplegia, iron deficiency, and recurrent deep vein thrombosis. She was initially seen in our clinic earlier in the month for evaluation of iron deficiency anemia. It was suspected that she had a chronic GI bleed and this had not been fully evaluated. She also has extensive sacral decubitus ulcers that are nonhealing and is followed by Dr. Robbins in [facility]. She has a history of pulmonary embolism as well as bilateral uuxex-kwr-yjak amputations secondary to lower extremity thromboembolic events in the past. She was started on intravenous iron and has received 2 doses. She has not been on anticoagulation recently. She had a PICC line placed due to poor venous access in the left arm. She had another PICC line placed in the right arm and this too thrombosed. She has bilateral arm swelling and was admitted to the hospital. She was also taken to the operating room yesterday by Dr. Durán for some debridement. Currently, she complains of some discomfort in her right arm. She has not to my knowledge had any sort of hypercoagulable workup. PAST MEDICAL HISTORY: 1. Spinal cord injury at age 27. 2. Bilateral qelxz-yxd-tuuz amputations. 3. History of pulmonary embolism. 4. Cognitive impairment. CURRENT MEDICATIONS: Include heparin drip, Zosyn. ALLERGIES: No known drug allergies. FAMILY HISTORY: Noncontributory. SOCIAL HISTORY: She lives with her son and her mother. REVIEW OF SYSTEMS: Aside from pertinent positives in HPI, a 14-point review of system is negative. EXAMINATION: VITAL SIGNS: Her temperature was 36.7, blood pressure 90/50, heart rate 101, oxygen saturation 98% on room air. GENERAL: She is a chronically ill-appearing woman, breathing comfortably. HEENT: Sclerae anicteric. Oropharynx is clear. NECK: Supple without lymphadenopathy. LUNGS : Clear to auscultation bilaterally. CARDIAC EXAMINATION: Regular rate and rhythm. No murmurs, gallops, rubs. ABDOMEN: Normoactive bowel sounds. Nontender. EXTREMITIES: Status post bilateral umwjq-vvk-zedx amputations. Her arms have 3+ edema. NEUROLOGICAL: She was alert and oriented x3. LABORATORY DATA: White count 16, hemoglobin 10.2, platelets of 135. Basic metabolic panel was normal. Ferritin was elevated at 1600, iron saturation 100% . IMPRESSION: This is a 67-year-old woman with quadriplegia and severe decubitus ulcers, who now presents with bilateral arm deep venous thrombosis in the setting of PICC line placement. She also apparently has history of thromboembolism in the past that may have led to her hzfts-pyg-hfeq amputations , though the patient is not able to provide much history in this regard. Clearly, for the time being, she needs to be on heparin to help manage the DVTs. 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 Also, it is somewhat suspicious for her to develop 2 clots in rapid succession as well as the possibility of arterial thromboembolism in the past. For that reason, I will order a hypercoagulable workup as some conditions such as antiphospholipid antibody syndrome or antithrombin 3 deficiency might be managed differently depending on whether they were found. Regardless, the patient will require some sort of therapeutic anticoagulation indefinitely. She may also require port placement for the continued administration of the IV iron. This will have to wait until her bacteremia clears. I do note that her ferritin is markedly elevated today. I know in the past it has been low and the elevated value today likely reflects the recent administration of the IV iron. It also appears that she received red blood cell transfusions yesterday in the operating room. Thank you for this consultation. We will continue to follow the patient with you while she is in the hospital. /[id number]/MODL MTDD
[2018-02-11] MEDS: PIPERACILLIN/TAZO 3.375 GM/DEX 50 ML IV SCH ×3 (12:22→23:42)
--- NOTE | 2018-02-11 13:01 | HOSPPROG ---
Hospitalist Progress Note Assessment/Plan: B/L UE DVT - both related to PICC lines which are since removed. Pt has h/o PE , DVT, and arterial emboli. Discussed with heme, who will evaluate for hypercoagulable state including APLA. Apparently Xarelto would not be a good choice if she is APLA positive. -cont IV heparin for now, consider alternative NOAC at dc B/L leg amputation with infected groin ulcer - s/p I&D 02/10. Wound vac in place. -cont wound care / wound vac -cont atbx GPC bacteremia - clusters and chains, ID thus far is MSSA, source is likely groin wound -IV Zosyn per ID, appreciate assistance -check echo -need to address group home IV access once bacteremia clears, possibly a port Fe deficiency anemia - hgb down to 5.5, s/p 2 units prbc's. She has been receiving iron infusions at [facility] -cont to monitor h&h, no e/o bleeding, prior c-scopes negative per H&P -check heme stool -PICC lines d/c'd -iron levels high here, defer further iron therapy for now Neurogenic bladder with chronic SPC Cognitive impairment - speech eval requested for cog eval DNR Dispo - cont inpt, warrants ongoing ICU status due to art line for BP monitoring Subjective: Pt is soft spoken. Denies pain. No fevers/chills. No CP or SOB. Taking po well. Objective: Vital Signs Temp Pulse Resp BP Pulse Ox 37.1 C 102 H 19 90/52 L 98 02/11/18 12:00 02/11/18 12:00 02/11/18 12:00 02/11/18 12:00 02/11/18 12:00 Microbiology 02/10/18 19:50 Gram Stain - Final Arm - Other Laboratory Results 02/11/18 06:00 02/11/18 06:00 02/10/18 02/11/18 02/12/18 05:59 05:59 05:59 Intake Total 2919 Output Total 130 Balance 2789 PT 22.3 SEC (12.0-15.0) H 02/11/18 04:30 INR 1.95 (0.83-1.16) H 02/11/18 04:30 - Physical Exam Constitutional: no apparent distress Eyes: PERRL Ears, Nose, Mouth, Throat: moist mucous membranes Cardiovascular: regular rate and rhythym Respiratory: no respiratory distress, clear to auscultation Gastrointestinal: normoactive bowel sounds, soft, non-tender abdomen Skin: warm Musculoskeletal: other (left groin with wound vac, no surrounding erythema) Neurologic: AAOx3 Psychiatric: interacting appropriately ICD10 Worksheet Patient Problems: Problems Problem Status Onset DVT of axillary vein, acute bilateral Acute Pressure ulcer Acute Abnormality of colon Acute At risk for autonomic dysreflexia Acute Hyponatremia Acute Lower abdominal pain Acute Neurogenic bowel Acute Spinal cord injury at C5-C7 level without injury of spinal bone Acute Spinal cord injury, incomplete Acute Urinary tract infection Acute
--- NOTE | 2018-02-11 13:05 | ECHO ---
[email or web address] [address] [address] Main: [phone] Fax: Transthoracic Echocardiogram Name: CHASE MENJIVAR MR#: [id number] Study Date: 02/11/2018 Study Time: 10:47 AM Date of : 1950 Age: 67 year(s) Height: 121.9 cm (48 in.) Weight: 38.1 kg (84 lb.) BSA: 1.1 m2 Gender: Female Examination: Echo Indication: gpc bacteremia Image Quality: Technically Difficult Contrast: Requested by: Josy Shepard BP: 88 mmHg/51 mmHg Heart Rate: Rhythm: Indication: gpc bacteremia Procedure Staff Driver License Technician: Corin Vincent RDCS Reading Physician: Annie Ortiz MD Requesting Provider: Conclusions: Normal size left ventricle. No LV hypertrophy. Normal global systolic LV function. EF is 66 %. Grade 1 diastolic dysfunction (abnormal relaxation). Normal size right ventricle. Normal RV function. There is an echodensity in the right atrium, associated with the tricuspid annulus. This was seen on prior study in August 2016 and may represent normal anatomic variant, however LUCY could further clarify. Mild mitral valve regurgitation is present. Mild tricuspid regurgitation is present. Right ventricular systolic pressure measures 35mmHg. Small pericardial effusion. No echocardiographic evidence of hemodynamic compromise. There is a pleural effusion present. Compared with previous study dated 08/16/2016 small pericardial effusion and pleural effusion are now present. Measurements: Chambers Valvular Assessment AV/MV Valvular Assessment TV/PV Normal Normal Normal Name Value Range Name Value Range Name Value Range Ao Candace (2D): 2.4 cm (1.4 cm-2.6 AV Vmax: 1.59 m/s (1 m/s-1.7 TR Vmax: 2.76 mm/s ( - ) cm) m/s) TR PGmax: 30 mmHg ( - ) IVSd (2D): 0.7 cm (0.6 cm-1.1 AV maxP mmHg ( - ) syst. PAP: 35 mmHg ( - ) cm) AV meanP mmHg ( - ) PV Vmax: 0.66 m/s (0.6 m/s-0.9 LVDd (2D): 3.2 cm (3.9 cm-5.3 CELESTE (VTI): 2.1 cm ( - ) m/s) cm) MV E Vmax: 0.74 m/s ( - ) PV PGmax: 2 mmHg ( - ) Patient: CHASE MENJIVAR Study Date: 02/11/2018 Page 1 of 3 10:47 AM LVDs (2D): 2.0 cm (2.1 cm-4 MV A Vmax: 0.94 m/s ( - ) cm) MV E/A: 0.79 ( - ) LVPWd (2D): 0.8 cm ( - ) MV PHT: 0.063 s ( - ) LVOTd 1.8 cm 1.8 cm mm MVA (PHT): 3.5 s ( - ) LVEF (BP): 66 % (>=55 %) RVDd(2D): 2.8 cm (1.9 cm-3.8 cmmm) Continued Measurements: Chambers Valvular Assessment AV/MV Valvular Assessment TV/PV Name Value Name Value Name Value LADs: 2.3 cm MV DecTime: 201 m/s CVP (est.): 5 mmHg LADs Lon.8 cm MV E' Septal: 0.10 m/s LA Area: 10.1 cm2 MV E/E' Septal: 7.60 LA Volume: 24 ml MV E/E' Lateral: 10.60 LA Volume Index: 21.8 ml/m2 RA Area: 7.5 cm2 Additional Vessels Name Value Ao Ascendin.2 cm Inferior Vena Cava: 1.1 cm Findings: Left Ventricle: Normal size left ventricle. No LV hypertrophy. Normal global systolic LV function. EF is 66 %. No regional wall motion abnormality. Grade 1 diastolic dysfunction (abnormal relaxation). Right Ventricle: Normal size right ventricle. Normal RV function. Left Atrium: The left atrium is normal in size. Right Atrium: The right atrium is normal in size. There is an echodensity in the right atrium, associated with the tricuspid annulus. This was seen on prior study in August 2016 and may represent normal anatomic variant, however LUCY could further clarify. Mitral Valve: The mitral valve is normal in appearance and function. Mild mitral valve regurgitation is present. No mitral stenosis is present. Aortic Valve: The aortic valve is tri-leaflet. There is no significant aortic valve regurgitation. No aortic valve stenosis is present. Tricuspid Valve: The tricuspid valve is normal in appearance and function. Mild tricuspid regurgitation is present. The pulmonary artery pressure is normal. Right ventricular systolic pressure measures 35mmHg. Pulmonic Valve: The pulmonic valve is normal in appearance and function. Aorta: The aorta is normal. Normal size aortic root measuring 2.4 cm. Normal size ascending aorta measuring 3.2 cm. IVC: The IVC is normal sized. Pericardium: Small pericardial effusion. No echocardiographic evidence of hemodynamic compromise. Respiratory variation is less than 25%. There is a pleural effusion present. Exam Comments: Patient: CHASE MENJIVAR Study Date: 02/11/2018 Page 2 of 3 10:47 AM (No Signature Object) Patient: CHASE MENJIVAR Study Date: 02/11/2018 Page 3 of 3 10:47 AM [id number]
--- NOTE | 2018-02-11 13:44 | GCON ---
INFECTIOUS DISEASES CONSULTATION DATE OF CONSULTATION: 02/11/2018 REFERRING PHYSICIAN: Josy Shepard MD REASON FOR CONSULTATION: Bacteremia. HISTORY OF PRESENT ILLNESS: Patient is a 67-year-old female with a past medical history of bilateral above the knee amputations and left ischial decubitus ulcer, who I am asked to see in consultation f or bacteremia. The patient recently has had issues with deep venous thrombosis in both upper extremi ties associated with PICC line use. The patient had undergone PICC line placement in the left upper extremity on 02/01/18, with subsequent complication of DVT prompting its removal. She had a right up per extremity PICC line subsequently placed which also was associated with DVT. Both PICC lines have been removed. The patient has arm swelling and tenderness present. The patient also has a chronic ischial decubitus ulceration which was debrided at time of admission on 02/10/18, noting necrotic fat and skin with tracking to the pelvic bone and subsequent wound VAC placement. Initial examination b y Surgery noted a foul smell to the decubitus ulceration. Patient also had concomitant leukocytosis with white blood cell count of 14.8. Blood cultures were obtained and 2 of 2 sets have shown growth of MSSA and a 2nd organism with gram-positive cocci in chain morphology growing only in the anaerobic bottles without further identification by BCID. Wound cultures currently growing a lactose-fermenti ng gram-negative megan. The patient was receiving empiric antibiotic therapy with vancomycin. Current ly she has peripheral IV access. Given the above findings, I am now asked to assist in her ongoing m anagement. PAST MEDICAL HISTORY: Paraplegia from spinal cord injury at age 27, bilateral ooeey-hkj-xdmt amputat ions secondary to vascular emboli, neurogenic bladder, seizure disorder, DVTs as above, history of pu lmonary emboli, SIADH, cognitive impairment, history of gastrointestinal bleeding from stercoral ulce rs. PAST SURGICAL HISTORY: Bilateral above the knee amputations, suprapubic catheter placement. CURRENT MEDICATIONS: Vancomycin 750 mg IV x1, heparin drip, Dilaudid as needed. ALLERGIES: Pseudoephedrine without further characterization. SOCIAL HISTORY: The patient does not smoke or drink alcohol. FAMILY HISTORY: Alcoholism in her mother. REVIEW OF SYSTEMS: Outside that noted in the HPI, the remainder of 10-system review is unremarkable except for some sacral skin breakdown. Patient has been receiving IV iron for anemia. PHYSICAL EXAMINATION: VITAL SIGNS: Temperature 37.1, heart rate 102, respiratory rate 19, blood pre ssure 90/52, oxygen saturation 98% on 2 L. GENERAL: Patient is chronically ill appearing, in no acu te distress. She appears nontoxic. HEENT: There is no scleral icterus, conjunctival injection, or conjunctival petechiae. Oropharynx shows dry mucous membranes. No nasal discharge or sinus tenderne ss. NECK: Supple without lymphadenopathy or palpable thyromegaly. CHEST: Clear to auscultation bi laterally without adventitious sounds. Respiratory effort was normal. CARDIOVASCULAR: Tachycardic without murmurs, gallops, or rubs. ABDOMEN: Soft, nontender, nondistended. Mild erythema around combs prapubic catheter site. Bowel sounds are hypoactive. MUSCULOSKELETAL: Bilateral above the knee amp utation. A wound VAC is in place over the patient's left posterior thigh adjacent to the peroneal re gion without surrounding cellulitis. Both upper extremities have edema present with mild tenderness. SKIN: See musculoskeletal exam; there is also pressure breakdown over the sacral region with some early ulceration; no surrounding cellulitis or drainage. No stigmata of endocarditis. Skin is warm and dry to touch. NEUROLOGIC: The patient interacts appropriately with the examiner. Cranial nerve s 2-12 are grossly intact. Patient is paraplegic. LYMPHATICS: No cervical or supraclavicular nodes . LABORATORY DATA: White blood cell count 16.2, hematocrit 30.6, platelets 135, neutrophils 93%. Seru m creatinine is 0.6. Iron level is 989 with ferritin of 1630 and iron saturation of 100%. Albumin i s 1.6, AST 22, ALT 28, bilirubin 0.9, alkaline phosphatase 110. Blood culture showing 2 of 2 sets wi th gram-positive cocci in clusters and gram-positive cocci in chains with growth of MSSA and a 2nd gr am-positive organism which is only growing anaerobically and has not been further identified by BCID; operative culture showing growth of a lactose fermenting gram-negative megan. Ultrasounds with eviden ce of DVT in both upper extremities with occlusive thrombus noted in the right subclavian veins with extensive surrounding collaterals, and the left upper extremity shows DVT of the subclavian, axillary , brachial and basilic veins. IMPRESSION: Polymicrobial gram-positive bacteremia including methicillin-sensitive Staphylococcus au reus and 2nd organism with morphologic features of streptococcus: Suspect this is most likely from t he patient's ischial decubitus given the polymicrobial nature, although, could also be associated wit h septic thrombophlebitis with both upper extremities having deep vein thrombosis and recent peripher ally-inserted central catheter line use. Operative cultures from the patient's decubitus also showed growth of lactose fermenting gram-negative megan. This ulceration tracked all the way to bone with co ncern for concomitant osteomyelitis. RECOMMENDATIONS: 1. Zosyn 3.375 g IV q.6 hours. 2. Transthoracic echocardiogram in the setting of Staph aureus bacteremia. 3. Repeat blood cultures in a.m. to assess for clearing of bacteremia. 4. Await identification of 2nd gram-positive organism, and we will follow wound cultures for additio nal information with modification of antibiotics accordingly. 5. Follow clinical course in response to above measures. Thank you for this consultation. We will continue to follow the patient with you. /[id number]/MODL
--- NOTE | 2018-02-11 13:55 | ASMTCMCOM ---
CM Note CM Note Notes: Patient admitted via ED for bilateral UE DVT, also found to have a stage IV pressure ulcer on L hip. She was taken to the OR yesterday by Dr Durán where he debrided the wound and placed a vac. It was reported to me that patient lives with her adult son and elderly mother, but staff have had a lot of questions about that situation. Patient was not very forthcoming with answers; however, we received a call that patient is current with [facility], so I tracked down her RN Keila who gave a lot of background. Keila corroborated that patient lives with 85 yo mother (also named Monserrat) and 45 yo son Mario. Until recently, pt's mother Monserrat has been her primary caregiver. Pt is a bilateral amputee for 40 years, has suprapubic cath, does bowel protocol, etc. Again, her elderly [facility] has been her [facility] cath care. However, in December, patient had a GI bleed and went to [facility]. At the same time, her mother had an IL/CVA. Both of them were eventually discharged home which thrust pt's son Mario into a new caregiving role. Per Keila RN, he has not taken well to the new responsibility ("he can be sorta slow"). Vikash has been working with him extensively, especially around how to provide PICC care (pt got a PICC because she needed Fe infusions), but unfortunately, patient has been deteriorating. In fact, Keila the RN has started coming daily rather than monthly during the last two weeks. She has seen what was a manageble State 1 or 2 wound become unstageable very quickly. Keila says that patient is followed by Dr Pittman and had planned to have surgery next week. It's quite impressive that Vikash has remained in this family's home - they see both the patient and her mother for RN/PT/OT services and have recently added Social Work, as well. Conversations have begun regarding moving the mother to an [facility], but she has been resistant. Apparently her PCP, as well as patient's PCP Dr Smyth, are both very involved with the family. It seems that everyone is anticipating that patient will need SNF or LTAC after this hospitalization. Fortunately [facility] has not been involved with this family because they have been so well supported by their PCPs and this home health agency. Per Keila, the RN, things really took a turn for the worse with the unfortunate events that befell patient's elderly mother and caregiver. D/C needs TBD, Case Management will follow closely. Date Signed: 02/11/2018 01:54 PM Electronically Signed By:Kadie Whitt RN
[2018-02-11] MEDS ORDERED: SENNOSIDES/DOCUSATE SODIUM TAB PO PRN (15:30)
[2018-02-11] MEDS ORDERED: NS 250 ML IV ONE (18:45)
--- NOTE | 2018-02-11 20:15 | GCON ---
FUEL BUYER CONSULTATION REASON FOR ADMISSION: Bilateral upper extremity DVT, severe pressure ulcer requiring surgical interv ention. HISTORY OF PRESENT ILLNESS: The patient is a 67-year-old female with an extensive past medical histo ry including a spinal cord injury in her 20s causing paraplegia. She also has had bilateral above-kn ee amputations secondary to lower extremity emboli. She had a PICC line in the left arm and was subs equently diagnosed with a DVT. PICC line was removed and placed in the right arm, where she also dev eloped a DVT. She was brought to the emergency room. She has a known pressure ulcer in the left thi gh that has worsened, requiring surgical debridement. The patient is somewhat sedated. All history is gleaned from the medical record. This patient has a history of recurrent PE/DVT. She likely has some sort of antiphospholipid antibody; workup is in progress. REVIEW OF SYSTEMS: A 10-point review of systems is performed, is negative except for what is listed in HPI. PAST MEDICAL HISTORY: Significant for cognitive impairment, SIADH, pulmonary embolism with some undi agnosed hypercoagulable state, seizure disorder, neurogenic bladder, spinal care injury with parapleg ia, and bilateral above-knee amputations. ALLERGIES: Pseudoephedrine. SOCIAL HISTORY: No history of tobacco use. No history of alcohol use. She resides with her son and mother. She is do not resuscitate. FAMILY HISTORY: Noncontributory. PHYSICAL EXAM: VITAL SIGNS: Blood pressure 131/79, pulse 109, respirations 23, temperature 37.1, ox ygen saturation 97% on 2 L. GENERAL: She is an ill-appearing 67-year-old female. She is somewhat f rail. HEENT: Eyes are SHANTA, EOMI. Throat shows no erythema or tonsillar hypertrophy. NECK: Suppl e. There is no cervical adenopathy. HEART: Regular rate and rhythm without murmurs, rubs, gallops. LUNGS: Clear to auscultation. No wheeze or rhonchi. ABDOMEN: Soft, nontender. She has bilatera l high above-knee amputations. Wound exam is deferred. LABORATORIES: White count 16, hemoglobin 10, hematocrit 30, platelet count is 135. Sodium 135, pota ssium 3.8, chloride 109, CO2 22, BUN 15, creatinine 0.6, glucose is 109. Echocardiogram: Recent ejection fraction of 66%. Has a pleural effusion present. Chest x-ray: Reveals moderate to marked peribronchial thickening. There is possible pleural effusio n present. IMPRESSION: 1. Bilateral upper extremity deep venous thrombosis. 2. Hypercoagulable state, as yet undiagnosed. 3. Severe decubitus ulcer. This is a stage 4 pressure ulcer, status post debridement. 4. Anemia. 5. Bilateral above-knee amputations secondary to lower extremity deep venous thrombosis. 6. Spinal cord injury, neurogenic. 7. Neurogenic bladder. PLAN: 1. Patient being admitted. 2. Surgery to follow. 3. Patient will likely need Plastics. 4. Agree with hematology consult. 5. Adequate pain control. /[id number]/MODL
[2018-02-11] MEDS: OXYBUTYNIN CHLORIDE 5 MG TAB PO SCH (20:24)
[2018-02-11] MEDS: levETIRAcetam 500 MG TAB PO SCH (20:24)
[2018-02-12 04:55] LABS: PLATELET COUNT 102 10^3/uL (150-400)
[2018-02-12] MEDS: PIPERACILLIN/TAZO 3.375 GM/DEX 50 ML IV SCH ×4 (05:53→23:10)
[2018-02-12] MEDS ORDERED: PROTOCOL POTASSIUM 1 DOSE MISC PRN (07:03)
[2018-02-12] MEDS ORDERED: POTASSIUM CL 10 MEQ TAB PO ONE ×2 (07:16→19:06)
[2018-02-12] MEDS ORDERED: POTASSIUM CL 20 MEQ/15 ML UDCUP TUBE ONE (08:15)
[2018-02-12] MEDS ORDERED: POTASSIUM CL 20 MEQ/15 ML UDCUP PO ONE (08:30)
[2018-02-12] MEDS: levETIRAcetam 500 MG TAB PO SCH ×2 (08:37→19:45)
[2018-02-12] MEDS: OXYBUTYNIN CHLORIDE 5 MG TAB PO SCH ×2 (08:37→19:45)
--- NOTE | 2018-02-12 09:23 | SOAPPROG ---
SOAP Progress Note Assessment/Plan: Assessment: 67-year-old female status post debridement of stage IV decubitus ulcer - vitals stable this morning - hemoglobin stable at 11 - continue wound VAC to suction output minimal. Change tomorrow - tissue cultures going acholic, blood cultures growing what appears to be MSSA. Plan: 02/11/18 08:57 02/12/18 09:22 Subjective: No complaints Objective: Vital Signs Temp Pulse Resp BP Pulse Ox 36.4 C 115 H 29 H 112/72 94 02/12/18 07:00 02/12/18 08:00 02/12/18 08:00 02/12/18 08:00 02/12/18 08:00 Microbiology 02/10/18 19:50 Gram Stain - Final Arm - Other 02/10/18 19:50 Mycobacterial Smear (VALERIY) - Final Arm - Other Laboratory Results 02/12/18 04:30 02/12/18 04:30 02/11/18 02/12/18 02/13/18 05:59 05:59 05:59 Intake Total 2919 2799 Output Total 130 355 Balance 2789 2444 PT 22.3 SEC (12.0-15.0) H 02/11/18 04:30 INR 1.95 (0.83-1.16) H 02/11/18 04:30 ICD10 Worksheet Patient Problems: Problems Problem Status Onset DVT of axillary vein, acute bilateral Acute Pressure ulcer Acute Abnormality of colon Acute At risk for autonomic dysreflexia Acute Hyponatremia Acute Lower abdominal pain Acute Neurogenic bowel Acute Spinal cord injury at C5-C7 level without injury of spinal bone Acute Spinal cord injury, incomplete Acute Urinary tract infection Acute
[2018-02-12] MEDS: HEPARIN 10,000 UNIT/10 ML MDV (1,000 UNIT/ML) IVP PRN ×3 (10:20→23:40)
--- NOTE | 2018-02-12 10:57 | PDINTPN ---
Telephone Advice Nurse Progress Note Assessment/Plan: Assessment/plan: * Paraplegia * Status post bilateral AKA * Bilateral upper extremity DVT * Probable hypercoagulable state * Severe decubitus pressure ulcer-status post debridement -per surgery -antibiotics per Infectious Disease * Anemia * Neurogenic bladder Subjective: Sitting up in bed. Resting comfortably. Objective: Vital Signs Temp Pulse Resp BP Pulse Ox 36.4 C 102 H 22 H 98/61 L 97 02/12/18 07:00 02/12/18 10:00 02/12/18 10:00 02/12/18 10:00 02/12/18 10:00 Microbiology 02/10/18 19:50 Gram Stain - Final Arm - Other 02/10/18 19:50 Mycobacterial Smear (VALERIY) - Final Arm - Other Laboratory Results 02/12/18 04:30 02/12/18 04:30 02/11/18 02/12/18 02/13/18 05:59 05:59 05:59 Intake Total 2919 2799 Output Total 130 355 Balance 2789 2444 PT 22.3 SEC (12.0-15.0) H 02/11/18 04:30 INR 1.95 (0.83-1.16) H 02/11/18 04:30 Laboratory Results 02/12/18 04:30 02/12/18 04:30 02/10/18 19:50 Gram Stain - Final Arm - Other Anaerobic Culture - Preliminary Escherichia Coli 02/10/18 17:05 Blood Culture - Preliminary Blood Staphylococcus Aureus Gram Positive Cocci Chains 02/10/18 17:05 Blood Culture - Preliminary Blood Blood Panel (PCR) - Final Staphylococcus Aureus Gram Positive Cocci Chains S.aureus Methicillin Suscept. 02/10/18 16:00 Gram Stain - Final Thigh - Swab Wound Culture - Preliminary Escherichia Coli Staphylococcus Aureus Beta Hemoylytic Streptococcus - Time Spent With Patient Time Spent With Patient: 25 min of time spent with patient, over 1/2 involved coordination of care counseling. Case discussed with surgery and nursing Physical Exam - Physical Exam General Appearance: alert, no apparent distress EENT: PERRL/EOMI Neck: non-tender Respiratory: chest non-tender, lungs clear Cardiac/Chest: normal peripheral pulses, regular rate, rhythm Abdomen: normal bowel sounds, non-tender, soft Pelvic Exam: deferred Rectal: deferred Neuro/Psych: alert ICD10 Worksheet Patient Problems: Problems Problem Status Onset DVT of axillary vein, acute bilateral Acute Pressure ulcer Acute Abnormality of colon Acute At risk for autonomic dysreflexia Acute Hyponatremia Acute Lower abdominal pain Acute Neurogenic bowel Acute Spinal cord injury at C5-C7 level without injury of spinal bone Acute Spinal cord injury, incomplete Acute Urinary tract infection Acute
--- NOTE | 2018-02-12 11:22 | HOSPPROG ---
Hospitalist Progress Note Assessment/Plan: B/L UE DVT - both related to PICC lines which are since removed. Pt has h/o PE , DVT, and arterial emboli. Discussed with heme, who will evaluate for hypercoagulable state including APLA. Apparently Xarelto would not be a good choice if she is APLA positive. -cont IV heparin for now, consider alternative NOAC at dc MSSA bacteremia - polymicrobial with GPC clusters (MSSA) and chains (no ID yet) , source is likely groin wound -IV Zosyn per ID -no obvious vegetation on echo -need to address skilled nursing IV access once bacteremia clears, possibly a port B/L leg amputation with infected groin ulcer - s/p I&D 02/10. Polymicrobial culture. Wound vac in place. Discussed with surgery. -cont wound care / wound vac -cont atbx -when stable from above issues, will likely transfer to [place] for flap by plastic surgery, Dr. Pittman has discussed this with [facility] surgeon, need to find out which hospital, CM involved Fe deficiency anemia - s/p 2 units prbc's. She has been receiving iron infusions at [facility]. No e/o bleeding, prior c-scopes negative per H&P. Heme neg stool here. -cont to monitor h&h -defer further iron therapy for now Neurogenic bladder with chronic SPC - possibly some drainage. Unclear when SPC last changed, RN to look into this. -may warrant urology consult tuesday to evaluate / change SPC Cognitive impairment - speech eval requested for cog eval DNR Dispo - cont inpt, warrants ongoing ICU status due to art line for BP monitoring. Probable transfer to [facility] for plastics to do flap when stable, surgery is looking into this. Subjective: PT is in fairly good spirits. Denies pain. No fevers/chills. No CP or SOB. DOesn't take much po, which she says is her routine. Can't recall when her SPC was last changed. Objective: Vital Signs Temp Pulse Resp BP Pulse Ox 36.4 C 85 26 H 143/85 H 98 02/12/18 07:00 02/12/18 11:00 02/12/18 11:00 02/12/18 11:00 02/12/18 11:00 Microbiology 09/28/18 19:50 Gram Stain - Final Arm - Other 02/10/18 19:50 Mycobacterial Smear (VALERIY) - Final Arm - Other Laboratory Results 02/12/18 04:30 02/12/18 04:30 02/11/18 02/12/18 02/13/18 05:59 05:59 05:59 Intake Total 2919 2799 Output Total 130 355 Balance 2789 2444 PT 22.3 SEC (12.0-15.0) H 02/11/18 04:30 INR 1.95 (0.83-1.16) H 02/11/18 04:30 - Physical Exam Constitutional: no apparent distress Eyes: PERRL Ears, Nose, Mouth, Throat: moist mucous membranes Cardiovascular: regular rate and rhythym Respiratory: no respiratory distress Gastrointestinal: normoactive bowel sounds, soft, non-tender abdomen Skin: warm, other (wound vac on left groin functioning) Neurologic: AAOx3 Psychiatric: interacting appropriately ICD10 Worksheet Patient Problems: Problems Problem Status Onset DVT of axillary vein, acute bilateral Acute Pressure ulcer Acute Abnormality of colon Acute At risk for autonomic dysreflexia Acute Hyponatremia Acute Lower abdominal pain Acute Neurogenic bowel Acute Spinal cord injury at C5-C7 level without injury of spinal bone Acute Spinal cord injury, incomplete Acute Urinary tract infection Acute
--- NOTE | 2018-02-12 11:33 | PCMIDPN ---
Assessment/Plan: Assessment/Plan: * Polymicrobial Gram-positive bacteremia including MSSA and 2nd organism with morphology of gram-positive cocci in chains pending further identification: Most likely this is related to patient's decubitus ulceration rather than bilateral upper extremity DVTs although this would be additional consideration given preceding PICC line use. E coli also growing from patient's decubitus ulcer as well as other organisms which are pending further identification. Will continue Zosyn (prior history of colonization with Pseudomonas) as cultures mature. Suspect may be able to narrow this therapy as additional information available. Repeat blood cultures to assess for clearing of bacteremia. 02/12/18 11:30 Subjective: Patient without specific complaints. Operative findings reviewed with Dr. Durán. Objective: Vital Signs Temp Pulse Resp BP Pulse Ox 36.4 C 85 26 H 143/85 H 98 02/12/18 07:00 02/12/18 11:00 02/12/18 11:00 02/12/18 11:00 02/12/18 11:00 Microbiology 02/10/18 19:50 Gram Stain - Final Arm - Other 02/10/18 19:50 Mycobacterial Smear (VALERIY) - Final Arm - Other Laboratory Results 02/12/18 04:30 02/12/18 04:30 02/11/18 02/12/18 02/13/18 05:59 05:59 05:59 Intake Total 2919 2799 Output Total 130 355 Balance 2789 2444 Zosyn # 2 Cultures 2/2 sets MSSA, gram-positive cocci in chains (only growing anaerobically) Operative culture with growth of E coli and several other organisms pending further identification Transthoracic echocardiogram with right atrial echo density which was seen previously in 2017; no vegetations noted - Physical Exam General Appearance: alert, no apparent distress EENT: No scleral icterus, No thrush, No conjunctival petechiae Respiratory: lungs clear, No respiratory distress Cardiac/Chest: regular rate, rhythm, systolic murmur (2/6 right upper sternal border) Extremities: inflammation (Left posterior thigh with wound VAC in place without surrounding cellulitis) Abdomen: non-tender, No distended ICD10 Worksheet Patient Problems: Problems Problem Status Onset DVT of axillary vein, acute bilateral Acute Pressure ulcer Acute Abnormality of colon Acute At risk for autonomic dysreflexia Acute Hyponatremia Acute Lower abdominal pain Acute Neurogenic bowel Acute Spinal cord injury at C5-C7 level without injury of spinal bone Acute Spinal cord injury, incomplete Acute Urinary tract infection Acute
[2018-02-12] MEDS: HYDROmorphONE/DILAUDID 1 MG/ML INJ IVP PRN (21:51)
[2018-02-12] MEDS: HEPARIN/DEXTROSE 500 ML IV SCH (21:52)
[2018-02-13] MEDS: HYDROmorphONE/DILAUDID 1 MG/ML INJ IVP PRN (03:04)
[2018-02-13] MEDS: PIPERACILLIN/TAZO 3.375 GM/DEX 50 ML IV SCH (05:25)
[2018-02-13 05:52] LABS: PLATELET COUNT 92 10^3/uL (150-400)
[2018-02-13] MEDS: HEPARIN 10,000 UNIT/10 ML MDV (1,000 UNIT/ML) IVP PRN ×2 (06:02→15:00)
--- NOTE | 2018-02-13 08:42 | HOSPPROG ---
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 history of head injury * I suspect she is probably quite close to her baseline * Microcytic Anemia, chronic * Hx of Fe Defic and receiving outpt Fe infusions, though Fe Sat and Ferritin both very high at present * Status post 2 units of red blood cell transfusion here * chronic history of neurogenic bladder, neurogenic bowel, and hemodynamic issues related spine injury PLANS: * Continue antibiotics, reviewed with Dr. Cosme and antibiotic has been tailored to her cultures * Continue wound care with wound VAC * Will watch her next heparin level, and if we are having trouble getting the heparin level up consider using Lovenox in place of IV * Follow cell counts closely * Follow nutrition intake closely * At this time ongoing ICU care, will review with surgery Seen by me today on hospitals rounds as well as multidisciplinary rounds Reviewed in detail with Dr. Bradley Encarnacion SUBJECTIVE: Patient denies any pain but says she is quite hungry Has some sweats OBJECTIVE Vitals reviewed: T-max 37.9, some tachycardia otherwise stable Golf Coach, my review: Sinus Exam: alert knows her name and that she is in hospital and why she is here, but has some clear memory deficits and some disorientation, as best I can tell of this appears to be fairly close to her baseline skin warm dry color ok resps not labored lungs clear BSs heart regular abd soft nondistended nontender, bowel sounds present limbs bilateral proximal leg amputations, large wound medially on the left stump with wound VAC in place, no bleeding, little fluid being removed at this time iv site ok Laboratory data: White count remains high at 15,000 thousand, hemoglobin at 10, platelets 92 Stable chemistry panel Iron saturation at 100% with very high ferritin at this time Objective: Vital Signs Temp Pulse Resp BP Pulse Ox 36.3 C 92 15 132/81 H 94 02/13/18 04:00 02/13/18 06:00 02/13/18 06:00 02/13/18 06:00 02/13/18 06:00 Microbiology 02/10/18 19:50 Gram Stain - Final Arm - Other 02/10/18 19:50 Mycobacterial Smear (VALERIY) - Final Arm - Other Laboratory Results 02/13/18 05:30 02/13/18 05:30 02/12/18 02/13/18 02/14/18 06:59 06:59 06:59 Intake Total 2799 1899 Output Total 355 485 Balance 2444 1414 PT 22.3 SEC (12.0-15.0) H 02/11/18 04:30 INR 1.95 (0.83-1.16) H 02/11/18 04:30 - Time Spent With Patient Time Spent with Patient: greater than 35 minutes Time Spent with Patient: Greater than 35 minutes spent on this patients care, greater than 50% of time spent counseling, educating, and coordinating care regarding the above mentioned plan. ICD10 Worksheet Patient Problems: Problems Problem Status Onset DVT of axillary vein, acute bilateral Acute Pressure ulcer Acute Abnormality of colon Acute At risk for autonomic dysreflexia Acute Hyponatremia Acute Lower abdominal pain Acute Neurogenic bowel Acute Spinal cord injury at C5-C7 level without injury of spinal bone Acute Spinal cord injury, incomplete Acute Urinary tract infection Acute
[2018-02-13] MEDS ORDERED: SENNOSIDES/DOCUSATE SODIUM TAB PO PRN (09:49)
[2018-02-13] MEDS: levETIRAcetam 500 MG TAB PO SCH ×2 (10:23→20:51)
[2018-02-13] MEDS: OXYBUTYNIN CHLORIDE 5 MG TAB PO SCH ×2 (10:23→20:51)
--- NOTE | 2018-02-13 10:52 | PCMIDPN ---
Assessment/Plan: Assessment/Plan: * Polymicrobial Gram-positive bacteremia including MSSA and Streptococcus intermedius: Most likely this is related to patient's decubitus ulceration rather than bilateral upper extremity DVTs - wound culture shows MSSA and operative specimen also shows Streptococcus intermedius. Persistent bacteremia on repeat blood cultures which is not unexpected early in the course of therapy , particularly in the setting of bilateral upper extremity DVT which may prolong clearance of bacteremia. Will repeat blood cultures tomorrow to assess for clearing. Will narrow antibiotic therapy from Zosyn to Unasyn which will provide activity against MSSA, Streptococcus intermedius, E coli, and group B Streptococcus (noted in wound culture). 02/13/18 10:51 Subjective: Patient without specific complaints. Nursing staff notes persistent erythema around suprapubic catheter. Objective: Vital Signs Temp Pulse Resp BP Pulse Ox 36.3 C 92 15 132/81 H 94 02/13/18 04:00 02/13/18 06:00 02/13/18 06:00 02/13/18 06:00 02/13/18 06:00 Microbiology 02/10/18 19:50 Gram Stain - Final Arm - Other 02/10/18 19:50 Mycobacterial Smear (VALERIY) - Final Arm - Other Laboratory Results 02/13/18 05:30 02/13/18 05:30 02/12/18 02/13/18 02/14/18 05:59 05:59 05:59 Intake Total 2799 1899 Output Total 355 485 Balance 2444 1414 Zosyn # 3 Blood cultures 02/12/18 2/2 GPCs in clusters Blood cultures 02/10/2018 2/2 MSSA, Streptococcus intermedius Wound culture with E coli, MSSA, and group B Streptococcus Operative culture from decubitus E coli and Streptococcus intermedius (note labeled arm which is incorrect) - Physical Exam General Appearance: alert, no apparent distress EENT: No scleral icterus, No thrush, No conjunctival petechiae Respiratory: lungs clear, No respiratory distress Cardiac/Chest: regular rate, rhythm, systolic murmur (2/6 right upper sternal border) Extremities: other (Wound VAC in place over left posterior thigh without surrounding cellulitis; bilateral upper extremity edema, right greater than left without tenderness) Abdomen: non-tender, other (Suprapubic site with erythema around insertion consistent with maceration rather than cellulitis), No distended Skin: No embolic lesions ICD10 Worksheet Patient Problems: Problems Problem Status Onset DVT of axillary vein, acute bilateral Acute Pressure ulcer Acute Abnormality of colon Acute At risk for autonomic dysreflexia Acute Hyponatremia Acute Lower abdominal pain Acute Neurogenic bowel Acute Spinal cord injury at C5-C7 level without injury of spinal bone Acute Spinal cord injury, incomplete Acute Urinary tract infection Acute
[2018-02-13] MEDS: AMPICILLIN/SULBACTAM 3 GM in NS 100 ML IV SCH ×3 (13:23→23:49)
--- NOTE | 2018-02-13 16:10 | PDINTPN ---
Steam Hoist Operator Progress Note Assessment/Plan: Assessment: * Paraplegia * Status post bilateral AKA * Bilateral upper extremity DVT. Heparin levels remained subtherapeutic * Probable hypercoagulable state * Severe decubitus pressure ulcer-status post debridement -per surgery -antibiotics per Infectious Disease * Anemia Plan: Increased heparin bolus for low unfractionated heparin level and increase heparin drip both out of protocol. Recheck unfractionated heparin in 3 hr as opposed to 6. Check a PTT with this. Continue care in the intensive care unit as Step Down. Continue wound VAC and changes. Continue antibiotics. 25 min of critical care time spent directly with the patient. Discussed with nursing, id, and the ICU multi disciplinary team. Subjective: No complaints. Objective: Vital Signs Temp Pulse Resp BP Pulse Ox 36.3 C 104 H 21 H 119/106 H 96 02/13/18 04:00 02/13/18 14:43 02/13/18 14:43 02/13/18 14:43 02/13/18 14:43 Microbiology 02/10/18 19:50 Gram Stain - Final Arm - Other 02/10/18 19:50 Mycobacterial Smear (VALERIY) - Final Arm - Other Laboratory Results 02/13/18 05:30 02/13/18 05:30 02/12/18 02/13/18 02/14/18 05:59 05:59 05:59 Intake Total 2799 1899 Output Total 355 485 Balance 2444 1414 PT 22.3 SEC (12.0-15.0) H 02/11/18 04:30 INR 1.95 (0.83-1.16) H 02/11/18 04:30 Physical Exam - Physical Exam General Appearance: alert, no apparent distress EENT: other (On room air) Neck: normal inspection Respiratory: lungs clear, decreased breath sounds Cardiac/Chest: regular rate, rhythm, No gallop Abdomen: normal bowel sounds, non-tender, soft Pelvic Exam: other (Suprapubic catheter) Skin: warm/dry, pallor Extremities: other (Bilateral AKAs) Neuro/Psych: no motor/sensory deficits, No cognition abnormalities ICD10 Worksheet Patient Problems: Problems Problem Status Onset Lower abdominal pain Acute Urinary tract infection Acute Hyponatremia Acute Abnormality of colon Acute At risk for autonomic dysreflexia Acute Neurogenic bowel Acute Spinal cord injury at C5-C7 level without injury of spinal bone Acute Spinal cord injury, incomplete Acute DVT of axillary vein, acute bilateral Acute Pressure ulcer Acute
--- NOTE | 2018-02-13 16:11 | SOAPPROG ---
SOAP Progress Note Assessment/Plan: Assessment: 67-year-old female status post debridement of stage IV decubitus ulcer - VSS, HDS - pain controlled - VAC change today, appreciate WC assistance - Abx per Cx Plan: 02/11/18 08:57 02/12/18 09:22 02/13/18 16:11 Subjective: doing well, no new complaints Objective: Vital Signs Temp Pulse Resp BP Pulse Ox 36.3 C 104 H 21 H 119/106 H 96 02/13/18 04:00 02/13/18 14:43 02/13/18 14:43 02/13/18 14:43 02/13/18 14:43 Microbiology 02/10/18 19:50 Gram Stain - Final Arm - Other 02/10/18 19:50 Mycobacterial Smear (VALERIY) - Final Arm - Other Laboratory Results 02/13/18 05:30 02/13/18 05:30 02/12/18 02/13/18 02/14/18 05:59 05:59 05:59 Intake Total 2799 1899 Output Total 355 485 Balance 2444 1414 PT 22.3 SEC (12.0-15.0) H 02/11/18 04:30 INR 1.95 (0.83-1.16) H 02/11/18 04:30 ICD10 Worksheet Patient Problems: Problems Problem Status Onset DVT of axillary vein, acute bilateral Acute Pressure ulcer Acute Abnormality of colon Acute At risk for autonomic dysreflexia Acute Hyponatremia Acute Lower abdominal pain Acute Neurogenic bowel Acute Spinal cord injury at C5-C7 level without injury of spinal bone Acute Spinal cord injury, incomplete Acute Urinary tract infection Acute
--- NOTE | 2018-02-13 16:55 | WOCRNPDOC ---
WOCRN Advanced Assessment Note - Skin Integrity Problem, Advanced Assess Coccyx Pressure Injury Dressing Type: Black Vac Foam (x1), Wound Vac Dressing Description: Clean/Dry, Intact Closure Description: Not Approximated Exudate Amount: Minimal Exudate Color: Reddish/Yellow Exudate Characteristic(s): Serosanguinous Integumentary Issue Intervention: Dressing Applied Anastasia Wound Tissue: Erythema, Swollen, Painful/Tender Anastasia Wound Swelling: Moderate Wound Bed Color: Black Point-Green [place], Red, Luna Wound Bed Constitution: Granulation Tissue (15%), Red/[place] - Non Granular Tissue (50%), Bone (15%), Subcutaneous Fat (20%) Site Measurement - Head-to-Toe Length X Width X Depth (cm): 4X4X4.2 Pressure Injury Stage: Stage 4 Pressure Injury Present on Admit: Yes Skin Integrity Problem Comment: Present on admission pressure injury, with surgical cleanout on 02/10/18. Patient is bilateral full leg amputation, and requires assistance to position to side for wound vac change. Wound vac dressing removed with adhesive spray remover. Wound bed cleaned with normal saline. Bone palpable and visible in wound bed. Skin prep and mastisol applied to periwound skin, then drape applied to periwound skin. White foam x 1 piece placed in wound bed. One piece small black simplace foam placed over white foam. Track pad attached to dressing. Wound vac set to -125mmHg with no leaks, alarms, or problems. FOUNDER PRESIDENT AND CEO Angelica in room for care. Wound care will round again Tuesday. Left Ischial Tuberosity Pressure Injury Dressing Type: Other Other Dressing Type: covered by wound vac drape Dressing Description: Clean/Dry, Intact Exudate Amount: None Integumentary Issue Intervention: Visualized Under Dressing Anastasia Wound Tissue: Erythema, Swollen Anastasia Wound Swelling: Mild Wound Bed Color: Red, Yellow Wound Bed Constitution: Red/[place] - Non Granular Tissue (25%), Adhered Slough (75 %) Site Measurement - Head-to-Toe Length X Width X Depth (cm): 1x2x0.1 Pressure Injury Stage: Unstageable Pressure Injury Present on Admit: Yes Skin Integrity Problem Comment: Present on admission unstageable pressure injury. Pressure injury is located to the left of larger pressure injury with wound vac applied, and is covered by drape needed to cover periwound skin for vac as the wounds are about 1cm apart. Unable to apply separate wound dressing at this point. Wound care will round again later this week. Sacrum Pressure Injury Dressing Type: Alle[employer] Life Dressing Description: Clean/Dry, Intact Exudate Amount: Minimal Exudate Color: Reddish/Yellow Exudate Characteristic(s): Serosanguinous Integumentary Issue Intervention: Dressing Changed (mepilex border sacrum), Hydrogel Applied Anastasia Wound Tissue: Erythema, Swollen Anastasia Wound Swelling: Mild Wound Bed Color: Black, Red Wound Bed Constitution: Red/[place] - Non Granular Tissue (50%), Adhered Slough (20 %), Mixed Loose & Adhered Slough/Eschar, Stable Eschar (30%) Pressure Injury Stage: Unstageable Pressure Injury Present on Admit: Yes Skin Integrity Problem Comment: Present on admission pressure injury. Unable to visualize wound bed due to slough and eschar. Patient is bilateral amputee and has difficulty moving side to side and maintaining side position to offload sacrum. Patient also had bilateral DVTs in her arms, and states that lying on her arms is painful. Education provided to patient re: need for dressing and wound care orders and frequent repositioning. Wound care will round again later this week.
[2018-02-13] MEDS: ACETAMINOPHEN 325 MG TAB PO PRN (20:53)
[2018-02-13] MEDS ORDERED: SENNOSIDES 17.6 MG/10 ML UDL TUBE SCH (21:00)
[2018-02-13] MEDS: HEPARIN/DEXTROSE 500 ML IV SCH (23:52)
[2018-02-14] MEDS: HEPARIN 10,000 UNIT/10 ML MDV (1,000 UNIT/ML) IVP PRN ×2 (01:29→06:37)
[2018-02-14] MEDS: AMPICILLIN/SULBACTAM 3 GM in NS 100 ML IV SCH ×3 (06:07→17:29)
[2018-02-14] MEDS ORDERED: POTASSIUM CL 10 MEQ TAB PO ONE ×2 (06:56→19:16)
[2018-02-14] MEDS: OXYBUTYNIN CHLORIDE 5 MG TAB PO SCH ×2 (09:28→20:26)
[2018-02-14] MEDS: levETIRAcetam 500 MG TAB PO SCH ×2 (09:29→20:26)
--- NOTE | 2018-02-14 09:51 | HOSPPROG ---
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 history of head injury * I suspect she is probably quite close to her baseline but this is unclear to me * Microcytic Anemia, chronic * Hx of Fe Defic and receiving outpt Fe infusions, though Fe Sat and Ferritin both very high at present * Status post 2 units of red blood cell transfusion here * chronic history of neurogenic bladder, neurogenic bowel, and hemodynamic issues related spine injury PLANS: * Continue Unasyn for E coli staph and strep, reviewed with Dr. Cosme and antibiotic has been tailored to her cultures * Continue wound care with wound VAC, per surgery and wound care staff * Continue adjusting heparin levels * Will repeat CBC in a.m. To recheck platelets which have been decreasing and her hemoglobin * Follow nutrition intake closely, may need to consider supplements * Could change to SDU status Seen by me today on hospitalist rounds as well as multidisciplinary rounds Reviewed in detail with Dr. Bradley Encarnacion SUBJECTIVE: Very difficult for me to assess patient's symptoms today due to combination of some disorientation as well as dysarthria of her speech Patient tells me she has no appetite Per nurses food intake has been very poor OBJECTIVE Vitals reviewed: Afebrile, some mild tachycardia to 102 otherwise stable Auto Radiator Specialist, my review: Sinus Exam: alert knows her name and that she is in hospital and why she is here, but still with disorientation; her baseline is unclear to me at this time but I think she may not be that far from at skin warm dry color ok resps not labored lungs clear BSs heart regular abd soft nondistended nontender, bowel sounds present limbs bilateral proximal leg amputations, large wound medially on the left stump with wound VAC in place, no bleeding, the site with no cellulitis fluctuance or other concerning features, little fluid from the wound VAC so far iv site ok Laboratory data: K in normal range heparin levels continue to be low but better than yesterday Objective: Vital Signs Temp Pulse Resp BP Pulse Ox 36.9 C 98 19 117/81 H 91 L 02/14/18 07:51 02/14/18 07:51 02/14/18 07:51 02/14/18 07:51 02/14/18 07:51 Microbiology 02/10/18 19:50 Gram Stain - Final Arm - Other Laboratory Results 02/13/18 05:30 02/14/18 05:40 02/13/18 02/14/18 02/15/18 06:59 06:59 06:59 Intake Total 1899 1524 Output Total 485 700 Balance 1414 824 PT 22.3 SEC (12.0-15.0) H 02/11/18 04:30 INR 1.95 (0.83-1.16) H 02/11/18 04:30 - Time Spent With Patient Time Spent with Patient: greater than 35 minutes Time Spent with Patient: Greater than 35 minutes spent on this patients care, greater than 50% of time spent counseling, educating, and coordinating care regarding the above mentioned plan. ICD10 Worksheet Patient Problems: Problems Problem Status Onset DVT of axillary vein, acute bilateral Acute Pressure ulcer Acute Abnormality of colon Acute At risk for autonomic dysreflexia Acute Hyponatremia Acute Lower abdominal pain Acute Neurogenic bowel Acute Spinal cord injury at C5-C7 level without injury of spinal bone Acute Spinal cord injury, incomplete Acute Urinary tract infection Acute
--- NOTE | 2018-02-14 12:57 | ASMTCMCOM ---
CM Note CM Note Notes: ST cog eval 02/12/18 " severe cog-communication impairment that would impact her ability to participate in her own Care. MSE= 11/12 Dementia level score. A Palliative Consult was ordered. Her brother, Ángel Miller [phone] is her Guardian and will need to be the person involved with the Palliative Team. Date Signed: 02/14/2018 12:27 PM Electronically Signed By:Geeta Yang LCSW
[2018-02-14] MEDS: NS 1,000 ML IV SCH (14:39)
--- NOTE | 2018-02-14 16:48 | PCMIDPN ---
Assessment/Plan: Assessment/Plan: * Polymicrobial Gram-positive bacteremia including MSSA and Streptococcus intermedius: Most likely this is related to patient's decubitus ulceration rather than bilateral upper extremity DVTs - wound culture shows MSSA and operative specimen also shows Streptococcus intermedius. Persistent bacteremia on repeat blood cultures which is not unexpected early in the course of therapy , particularly in the setting of bilateral upper extremity DVT which may prolong clearance of bacteremia. Repeat blood cultures are pending to assess for clearing of bacteremia. Ideally will hold off on more permanent line placement until blood cultures have cleared. May ultimately require temporary access even if bacteremia still present given peripheral access may not be durable. Continue Unasyn which will cover above polymicrobial janet. 02/14/18 16:46 Subjective: Persistent leakage around suprapubic catheter site. Suprapubic catheter changed yesterday. Plans for family meeting on according to nursing staff. Objective: Vital Signs Temp Pulse Resp BP Pulse Ox 36.5 C 94 24 H 118/75 95 02/14/18 14:00 02/14/18 14:00 02/14/18 14:00 02/14/18 14:00 02/14/18 14:00 Microbiology 02/10/18 19:50 Gram Stain - Final Arm - Other 02/10/18 19:50 Mycobacterial Smear (VALERIY) - Final Arm - Other Laboratory Results 02/13/18 05:30 02/14/18 05:40 02/13/18 02/14/18 02/15/18 05:59 05:59 05:59 Intake Total 1899 1524 Output Total 485 700 Balance 1414 824 Unasyn # 1, antibiotics # 4 Blood cultures 02/12/2018 2/2 MSSA Blood cultures 02/10/18 2/2 MSSA, Streptococcus intermedius Operative cultures from left posterior thigh decubitus with growth of E coli, Streptococcus intermedius, and Clostridium perfringens - Physical Exam General Appearance: no apparent distress, non-toxic EENT: No scleral icterus, No conjunctival petechiae Cardiac/Chest: regular rate, rhythm, systolic murmur (2/6 Right upper sternal border) Extremities: inflammation (Wound VAC in place over left posterior thigh without surrounding erythema), other (Bilateral upper extremity edema, left greater than right) Abdomen: non-tender, No distended Skin: No embolic lesions ICD10 Worksheet Patient Problems: Problems Problem Status Onset DVT of axillary vein, acute bilateral Acute Pressure ulcer Acute Abnormality of colon Acute At risk for autonomic dysreflexia Acute Hyponatremia Acute Lower abdominal pain Acute Neurogenic bowel Acute Spinal cord injury at C5-C7 level without injury of spinal bone Acute Spinal cord injury, incomplete Acute Urinary tract infection Acute
--- NOTE | 2018-02-14 18:46 | PDINTPN ---
Looping Machine Operator Progress Note Assessment/Plan: Assessment: * Paraplegia * Status post bilateral AKA * Bilateral upper extremity DVT. Heparin levels down again this afternoon secondary to infiltration * Probable hypercoagulable state * Severe decubitus pressure ulcer-status post debridement -per surgery -antibiotics per Infectious Disease * Anemia Plan: Continue heparin, increase per protocol. Continue care in the intensive care unit. Continue wound VAC and changes. Continue antibiotics. Will need a port placed for IV access once blood cultures are negative times 48 hr. 30 min of critical care time spent directly with the patient. Discussed with nursing, ID, and the ICU multi disciplinary team. Subjective: No specific complaints. Denies pain, shortness of breath. Indicates she wants to continue present care. Objective: Vital Signs Temp Pulse Resp BP Pulse Ox 36.5 C 98 24 H 128/84 H 96 02/14/18 14:00 02/14/18 17:51 02/14/18 17:51 02/14/18 17:51 02/14/18 17:51 Microbiology 02/10/18 19:50 Gram Stain - Final Arm - Other 02/10/18 19:50 Mycobacterial Smear (VALERIY) - Final Arm - Other Laboratory Results 02/13/18 05:30 02/14/18 17:15 02/13/18 02/14/18 02/15/18 05:59 05:59 05:59 Intake Total 1899 1524 940 Output Total 485 700 225 Balance 1414 824 715 PT 22.3 SEC (12.0-15.0) H 02/11/18 04:30 INR 1.95 (0.83-1.16) H 02/11/18 04:30 Physical Exam - Physical Exam General Appearance: alert, no apparent distress EENT: PERRL/EOMI, other (On room air, 96%) Neck: normal inspection Respiratory: lungs clear, decreased breath sounds (At bases) Cardiac/Chest: regular rate, rhythm, No gallop Abdomen: non-tender, soft, No normal bowel sounds (Decreased, present) Pelvic Exam: other (Suprapubic catheter in place) Skin: warm/dry, pallor Extremities: other (Bilateral below the knee amputation) Neuro/Psych: no motor/sensory deficits (Moves upper extremities equally), No cognition abnormalities ICD10 Worksheet Patient Problems: Problems Problem Status Onset Lower abdominal pain Acute Urinary tract infection Acute Hyponatremia Acute Abnormality of colon Acute At risk for autonomic dysreflexia Acute Neurogenic bowel Acute Spinal cord injury at C5-C7 level without injury of spinal bone Acute Spinal cord injury, incomplete Acute DVT of axillary vein, acute bilateral Acute Pressure ulcer Acute
[2018-02-14] MEDS: ACETAMINOPHEN 325 MG TAB PO PRN (19:32)
[2018-02-15] MEDS: AMPICILLIN/SULBACTAM 3 GM in NS 100 ML IV SCH ×5 (00:27→23:16)
[2018-02-15 03:35] LABS: PLATELET COUNT 129 10^3/uL (150-400)
[2018-02-15] MEDS: OXYBUTYNIN CHLORIDE 5 MG TAB PO SCH ×2 (09:29→21:00)
[2018-02-15] MEDS: levETIRAcetam 500 MG TAB PO SCH ×2 (09:29→21:00)
--- NOTE | 2018-02-15 11:07 | PCMIDPN ---
Assessment/Plan: # MSSA and streptococcal bacteremia # Stage 4 pressure ulcer: likely source of bacteremia, no cellulitis or purulence. Base of wound fairly clean but significant tracking # Extensive B UE DVTs Rec 1) continue monitor blood cx 02/14 2) continue Unasyn which will cover isolates from blood and OR cultures 3) suspect will need prolonged antibiotic therapy, minimum 2 weeks from negative blood cultures 4) continue to assess best modality for longer term IV access Unasyn # 2, antibiotics # 5 Blood cx 02/14/18: NGTD Blood cultures 02/12/2018 2/2 MSSA Blood cultures 02/10/18 22 MSSA, Streptococcus intermedius Operative cultures from left posterior thigh decubitus with growth of E coli, Streptococcus intermedius, and Clostridium perfringens Subjective: patient w/o c/o Objective: Vital Signs Temp Pulse Resp BP Pulse Ox 36.6 C 102 H 19 127/87 H 94 02/15/18 02:00 02/15/18 10:00 02/15/18 10:00 02/15/18 10:00 02/15/18 10:00 Microbiology 02/10/18 19:50 Gram Stain - Final Arm - Other 02/10/18 19:50 Mycobacterial Smear (VALERIY) - Final Arm - Other Laboratory Results 02/15/18 03:05 02/15/18 03:05 02/14/18 02/15/18 02/16/18 05:59 05:59 05:59 Intake Total 1524 2361 Output Total 700 550 Balance 824 1811 - Physical Exam General Appearance: alert EENT: pale conjunctiva, No thrush Respiratory: lungs clear, No accessory muscle use Neck: supple Cardiac/Chest: regular rate, rhythm, No systolic murmur Extremities: other (B high AKAs; large deep wound L perineal area no purulence or erythema, significant tracking in multiple directions about 4cm) Skin: pallor, No rash Neuro/Psych: alert, depressed affect - Line/s other Lines: other (L radial A line and R PIV on shoulder; care coordinated w wound healing team), No drainage, No erythema - Time Spent With Patient Time Spent with Patient: greater than 35 minutes Time Spent with Patient: Greater than 35 minutes spent on this patients care, greater than 50% of time spent counseling, educating, and coordinating care regarding the above mentioned plan. ICD10 Worksheet Patient Problems: Problems Problem Status Onset DVT of axillary vein, acute bilateral Acute Pressure ulcer Acute Abnormality of colon Acute At risk for autonomic dysreflexia Acute Hyponatremia Acute Lower abdominal pain Acute Neurogenic bowel Acute Spinal cord injury at C5-C7 level without injury of spinal bone Acute Spinal cord injury, incomplete Acute Urinary tract infection Acute
[2018-02-15] MEDS: ENOXAPARIN 40 MG/0.4 ML SYR SC SCH ×2 (11:20→20:54)
--- NOTE | 2018-02-15 11:53 | PDINTPN ---
Business Mail Entry Clerk Progress Note Assessment/Plan: Assessment: * Paraplegia * Status post bilateral AKA * Bilateral upper extremity DVT. On IV heparin drip with unfractionated heparin levels now high. Will change to subcu Lovenox per her body weight. * Probable hypercoagulable state * Severe decubitus pressure ulcer-status post debridement: per surgery and wound care. ID seeing patient. On Unasyn * Anemia: Hematocrit stable at 29 * Prophylaxis: On enoxaparin, eating * Venous access: Remains poor comma 1 small upper extremity IV in place. Bilateral upper extremity DVTs preclude another PICC line. A port is being considered as she will likely need long-term venous access in the future. Plan: D/c heparin, start Lovenox at 40 twice daily. Continue care in the intensive care unit as SDU. Continue wound VAC and changes. Continue antibiotics. Will need a port placed for IV access once blood cultures are negative times 48 hr. 35 min of critical care time spent directly with the patient. Discussed with nursing, ID, and the ICU multi disciplinary team. Subjective: Denies pain or shortness of breath. Says she is comfortable. Does not really know why she is in the hospital. Objective: Vital Signs Temp Pulse Resp BP Pulse Ox 36.6 C 102 H 19 127/87 H 94 02/15/18 02:00 02/15/18 10:00 02/15/18 10:00 02/15/18 10:00 02/15/18 10:00 Microbiology 02/10/18 19:50 Gram Stain - Final Arm - Other 02/10/18 19:50 Mycobacterial Smear (VALERIY) - Final Arm - Other Laboratory Results 02/15/18 03:05 02/15/18 03:05 02/14/18 02/15/18 02/16/18 05:59 05:59 05:59 Intake Total 1524 2361 Output Total 700 550 Balance 824 1811 PT 22.3 SEC (12.0-15.0) H 02/11/18 04:30 INR 1.95 (0.83-1.16) H 02/11/18 04:30 Physical Exam - Physical Exam General Appearance: alert, no apparent distress EENT: PERRL/EOMI, other (On room air) Neck: normal inspection Respiratory: lungs clear, decreased breath sounds (As well as inspiratory effort ), No rales, No rhonchi Cardiac/Chest: regular rate, rhythm, No gallop Abdomen: normal bowel sounds, non-tender, soft Pelvic Exam: other (Suprapubic catheter in place) Skin: warm/dry, pallor Extremities: swelling (Anasarca present upper extremities and pelvic/abdominal tissues), other (Bilateral AKA) Neuro/Psych: cognition abnormalities (Underlying cognitive deficits present. Probably close to baseline), No no motor/sensory deficits ICD10 Worksheet Patient Problems: Problems Problem Status Onset Lower abdominal pain Acute Urinary tract infection Acute Hyponatremia Acute Abnormality of colon Acute At risk for autonomic dysreflexia Acute Neurogenic bowel Acute Spinal cord injury at C5-C7 level without injury of spinal bone Acute Spinal cord injury, incomplete Acute DVT of axillary vein, acute bilateral Acute Pressure ulcer Acute
--- NOTE | 2018-02-15 12:02 | WOCRNPDOC ---
[facility] Advanced Assessment Note - Skin Integrity Problem, Advanced Assess Coccyx Pressure Injury Dressing Type: Wound Vac (1 piece black foam and 1 piece white foam removed) Dressing Description: Clean/Dry, Intact Exudate Amount: Minimal Exudate Characteristic(s): Serosanguinous Integumentary Issue Intervention: Dressing Changed Anastasia Wound Tissue: Blanching, Swollen Anastasia Wound Swelling: Moderate Wound Bed Color: Red, Yellow, White Wound Bed Constitution: Granulation Tissue (20%), Red/[place] - Non Granular Tissue (35%), Tunneling (6cm at 2 o'clock), Bone (15%), Adhered Slough (30%) Wound Edges: Attached Site Odor: None Site Measurement - Head-to-Toe Length X Width X Depth (cm): 4x4x4.5 with tunneling at 2 o'clock to 6cm Pressure Injury Stage: Stage 4 Pressure Injury Present on Admit: Yes Skin Integrity Problem Comment: Dressing removed for Dr. Woodard to assess wound. Dr. Durán updated on wound via text. To fully assess wound, patient must be positioned both on her right side and on her back. Wound was cleansed with NS and gauze. Mastisol applied to periwound followed by drape. One piece of white foam was placed into the tunnel at 2 o'clock with the tail then placed covering the bone in the wound bed. This was covered with a single piece of small black simplace foam that was then tracked to patient's left stump. Drape was applied and NPWT was achieved at -125mmHg with no leaks detected. Patient is very edematous, including labia. Josy RN aware. Marlee GORDILLO and Josy GORDILLO were in room to assist. Wound care will round again on Tuesday. Left Ischial Tuberosity Pressure Injury Exudate Characteristic(s): None Anastasia Wound Tissue: Blanching, Swollen Wound Bed Color: Red, Yellow Wound Bed Constitution: Red/[place] - Non Granular Tissue (25%), Adhered Slough (75 %) Site Measurement - Head-to-Toe Length X Width X Depth (cm): 1x2x0.1 Pressure Injury Stage: Unstageable Pressure Injury Present on Admit: Yes Skin Integrity Problem Comment: Wound has not changed from prior assessment. Given close proximity to the larger wound that has a wound vac, unable to place a separate dressing on it. Wound was cleansed with NS and gauze. Wound care will round again later in the week. Sacrum Pressure Injury Dressing Type: Mepilex Border Dressing Description: Intact, Soiled Exudate Amount: Minimal Exudate Characteristic(s): Serosanguinous Integumentary Issue Intervention: Dressing Changed, Hydrogel Applied Anastasia Wound Tissue: Blanching Wound Bed Color: Black, Red Wound Bed Constitution: Red/[place] - Non Granular Tissue (50%), Mixed Loose & Adhered Slough/Eschar (50%) Site Measurement - Head-to-Toe Length X Width X Depth (cm): 3x4x0.3 Pressure Injury Stage: Unstageable Pressure Injury Present on Admit: Yes Skin Integrity Problem Comment: Dressing removed due to being soiled. Wound cleansed and wound gel applied. New sacral dressing applied upside down to help prevent it from being soiled. No change from previous assessment. Wound care will round again later in the week.
[2018-02-15] MEDS: FUROSEMIDE 40 MG/4 ML VIAL IVP SCH (12:58)
[2018-02-15] MEDS: ONDANSETRON 4 MG/2 ML VIAL IVP PRN ×2 (16:10→20:58)
--- NOTE | 2018-02-15 17:39 | HOSPPROG ---
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 with acute infection of that wound * Wound VAC currently in place; looks good to exam with the wound VAC in place * Acute DVT in both arms related to PICC lines which have been removed; prior history of DVTs * Has been on heparin, switching to Lovenox today * Cog deficit with disorientation, expressive speech abnormalities, with history of dementia * I suspect she is probably quite close to her baseline but this is not entirely clear to me * Microcytic Anemia, chronic * Hx of Fe Defic and receiving outpt Fe infusions, though Fe Sat and Ferritin both very high at present * Status post 2 units of red blood cell transfusion here * chronic history of neurogenic bladder with suprapubic catheter, neurogenic bowel, and hemodynamic issues related spine injury * Suprapubic cath has been changed for new catheter here during this admission PLANS: * Continue Unasyn for E coli staph and strep * Continue wound care with wound VAC, per surgery and wound care staff * Switch to Lovenox today for anticoagulant * Will repeat CBC in a.m. 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 Bradley Encarnacion SUBJECTIVE: Patient states she feels more comfortable today, and has better appetite, denies dyspnea or pain Per nurses food intake has been better today OBJECTIVE Vitals reviewed: Afebrile, still some intermittent tachycardia and tachypnea but blood pressure is good Clinical Research Physician, my review: Sinus Exam: alert knows her name and that she is in hospital and why she is here, but still with disorientation and memory issues, some expressive language dysfunction is probably at her baseline skin warm dry color ok resps not labored lungs clear BSs heart regular abd soft nondistended nontender, bowel sounds present limbs bilateral proximal leg amputations, large wound medially on the left leg stump with wound VAC in place, no bleeding, the site with no cellulitis, fluctuance or other concerning features, little fluid from the wound VAC so far iv site ok Laboratory data: White count 24932, hemoglobin decreased today at 9.4, platelets stable Heparin levels after being low for a couple of days are now high Stable metabolic panel Objective: Vital Signs Temp Pulse Resp BP Pulse Ox 36.3 C 85 22 H 114/82 H 95 02/15/18 16:12 02/15/18 16:12 02/15/18 16:12 02/15/18 16:12 02/15/18 16:12 Microbiology 02/10/18 19:50 Gram Stain - Final Arm - Other 02/10/18 19:50 Mycobacterial Smear (VALERIY) - Final Arm - Other Laboratory Results 02/15/18 03:05 02/15/18 03:05 02/14/18 02/15/18 02/16/18 06:59 06:59 06:59 Intake Total 1524 2361 Output Total 700 550 Balance 824 1811 PT 22.3 SEC (12.0-15.0) H 02/11/18 04:30 INR 1.95 (0.83-1.16) H 02/11/18 04:30 - Time Spent With Patient Time Spent with Patient: greater than 35 minutes Time Spent with Patient: Greater than 35 minutes spent on this patients care, greater than 50% of time spent counseling, educating, and coordinating care regarding the above mentioned plan. ICD10 Worksheet Patient Problems: Problems Problem Status Onset DVT of axillary vein, acute bilateral Acute Pressure ulcer Acute Abnormality of colon Acute At risk for autonomic dysreflexia Acute Hyponatremia Acute Lower abdominal pain Acute Neurogenic bowel Acute Spinal cord injury at C5-C7 level without injury of spinal bone Acute Spinal cord injury, incomplete Acute Urinary tract infection Acute
[2018-02-15] MEDS: CALCIUM CARBONATE 500 MG CHEWABLE TAB PO PRN (17:49)
[2018-02-16] MEDS: AMPICILLIN/SULBACTAM 3 GM in NS 100 ML IV SCH ×3 (05:00→17:12)
[2018-02-16] MEDS: OXYBUTYNIN CHLORIDE 5 MG TAB PO SCH ×2 (08:45→20:35)
[2018-02-16] MEDS: ENOXAPARIN 40 MG/0.4 ML SYR SC SCH ×2 (08:45→20:35)
[2018-02-16] MEDS: FUROSEMIDE 40 MG/4 ML VIAL IVP SCH (08:45)
[2018-02-16] MEDS: levETIRAcetam 500 MG TAB PO SCH ×2 (08:45→20:35)
--- NOTE | 2018-02-16 09:56 | HOSPPROG ---
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 with acute infection of that wound * Wound VAC currently in place; looks good to exam with the wound VAC in place * Acute DVT in both arms related to PICC lines which have been removed; prior history of DVTs * Has been on heparin, switched to Lovenox on 02/15 * Cog deficit with disorientation, expressive speech abnormalities, with history of dementia * I suspect she is probably quite close to her baseline but this is not entirely clear to me * Microcytic Anemia, chronic * Hx of Fe Defic and receiving outpt Fe infusions, though Fe Sat and Ferritin both very high at present * Status post 2 units of red blood cell transfusion here * chronic history of neurogenic bladder with suprapubic catheter, neurogenic bowel, and hemodynamic issues related spine injury * Suprapubic cath has been changed for new catheter here during this admission PLANS: * Continue Unasyn for E coli staph and strep, f/u ID recs, repeat blood cultures tomorrow * Continue wound care with wound VAC, per surgery and wound care staff * Continue Lovenox for anticoagulant * Follow nutrition intake closely, may need to consider supplements * palliative consult with family this afternoon at 12:30 * DISPO: it is not felt 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 Bradley Encarnacion Subjective: Patient reports improving pain in bilateral upper extremities Objective: Vital Signs Temp Pulse Resp BP Pulse Ox 36.6 C 91 19 110/68 94 02/16/18 08:02 02/16/18 08:02 02/16/18 08:02 02/16/18 08:02 02/16/18 08:02 Microbiology 02/10/18 19:50 Gram Stain - Final Arm - Other Laboratory Results 02/15/18 03:05 02/16/18 06:18 02/15/18 02/16/18 02/17/18 05:59 05:59 05:59 Intake Total 2361 1764 Output Total 550 950 Balance 1811 814 PT 22.3 SEC (12.0-15.0) H 02/11/18 04:30 INR 1.95 (0.83-1.16) H 02/11/18 04:30 - Physical Exam Constitutional: no apparent distress Eyes: PERRL Ears, Nose, Mouth, Throat: moist mucous membranes Cardiovascular: regular rate and rhythym Respiratory: no respiratory distress Gastrointestinal: normoactive bowel sounds Genitourinary: no bladder tenderness Skin: warm, other (wound vac in place, LLE stump) Musculoskeletal: no muscle tenderness, generalized weakness Neurologic: AAOx3 Psychiatric: flat affect ICD10 Worksheet Patient Problems: Problems Problem Status Onset DVT of axillary vein, acute bilateral Acute Pressure ulcer Acute Abnormality of colon Acute At risk for autonomic dysreflexia Acute Hyponatremia Acute Lower abdominal pain Acute Neurogenic bowel Acute Spinal cord injury at C5-C7 level without injury of spinal bone Acute Spinal cord injury, incomplete Acute Urinary tract infection Acute
--- NOTE | 2018-02-16 11:55 | PCMIDPN ---
Assessment/Plan: 1. MSSA/streptococcal bacteremia felt secondary to decubitus ulceration: Bacteremia burden diminishing, with only 1/4 bottles positive for gram-positive cocci in clusters. For now, would repeat blood cultures tomorrow morning and otherwise continue Unasyn as is. Reviewed previous echocardiogram on admission ; abnormalities along the tricuspid valve are felt to be old. Would not pursue LUCY. In the setting of the patient's history of bilateral upper extremity deep venous thromboses, will likely need prolonged therapy with Unasyn, perhaps upwards of 6 weeks. By report of the nurse, wound VAC was changed yesterday and underlying wound is healing nicely. In so far as access is concerned, she has a peripheral IV that so far is stable. Would like blood cultures to be negative and a minimum of 24 hr before proceeding with more long-term access. Over 25 min spent with this patient today. 02/16/18 11:52 Subjective: Very talkative this morning. Asking me if I have children, etc. Wants to talk. Denies pain. Ate a large breakfast this morning. Objective: Unasyn 3 g IV q.6 hours day 3 (antibiotics day 6) No fevers Vital Signs Temp Pulse Resp BP Pulse Ox 36.6 C 91 19 110/68 94 02/16/18 08:02 02/16/18 08:02 02/16/18 08:02 02/16/18 08:02 02/16/18 08:02 Microbiology 02/10/18 19:50 Gram Stain - Final Arm - Other Laboratory Results 02/15/18 03:05 02/16/18 06:18 02/15/18 02/16/18 02/17/18 05:59 05:59 05:59 Intake Total 2361 1764 400 Output Total 550 950 Balance 1811 814 400 Blood cultures March 06 sets 1/4 bottles with gram-positive cocci in clusters February 12 blood cultures x2 from the radial arterial line 2/4 bottles Staph aureus Previous cultures on February 10 with Staph aureus and strep intermedius Wound cultures with Staph aureus, strep intermedius, E coli, Clostridium perfringens, and group B strep - Physical Exam General Appearance: alert, no apparent distress EENT: pharynx normal, No thrush Respiratory: lungs clear Cardiac/Chest: regular rate, rhythm Extremities: other (Bilateral upper extremities are edematous in the setting of underlying DVTs) Abdomen: non-tender, soft Skin: other (Wound VAC in place left BKA stump area. Suprapubic catheter in place that was changed yesterday. Minimal amount of erythema. No obvious skin maceration.), No embolic lesions Neuro/Psych: oriented x 3 ICD10 Worksheet Patient Problems: Problems Problem Status Onset DVT of axillary vein, acute bilateral Acute Pressure ulcer Acute Abnormality of colon Acute At risk for autonomic dysreflexia Acute Hyponatremia Acute Lower abdominal pain Acute Neurogenic bowel Acute Spinal cord injury at C5-C7 level without injury of spinal bone Acute Spinal cord injury, incomplete Acute Urinary tract infection Acute
[2018-02-16] MEDS: BISACODYL 10 MG SUPP PR SCH (11:56)
--- NOTE | 2018-02-16 12:47 | SOAPPROG ---
SOAP Progress Note Assessment/Plan: Assessment: 67-year-old female status post debridement of stage IV decubitus ulcer - VSS, HDS - saw pics from the VAC change yesterday, the wound bed looks good, there is minimal slough - Patient is persistently bacteremic, will need durable IV access, likely a PORT. Will gladly place with ID clears, likely once cultures are negative. Plan: 02/11/18 08:57 02/12/18 09:22 02/13/18 16:11 02/16/18 12:46 Subjective: denies pain Objective: Vital Signs Temp Pulse Resp BP Pulse Ox 36.6 C 106 H 16 130/76 H 99 02/16/18 08:02 02/16/18 11:47 02/16/18 11:47 02/16/18 11:47 02/16/18 11:47 Microbiology 02/10/18 19:50 Gram Stain - Final Arm - Other Laboratory Results 02/15/18 03:05 02/16/18 06:18 02/15/18 02/16/18 02/17/18 05:59 05:59 05:59 Intake Total 2361 1764 400 Output Total 550 950 Balance 1811 814 400 PT 22.3 SEC (12.0-15.0) H 02/11/18 04:30 INR 1.95 (0.83-1.16) H 02/11/18 04:30 ICD10 Worksheet Patient Problems: Problems Problem Status Onset DVT of axillary vein, acute bilateral Acute Pressure ulcer Acute Abnormality of colon Acute At risk for autonomic dysreflexia Acute Hyponatremia Acute Lower abdominal pain Acute Neurogenic bowel Acute Spinal cord injury at C5-C7 level without injury of spinal bone Acute Spinal cord injury, incomplete Acute Urinary tract infection Acute
--- NOTE | 2018-02-16 13:11 | PDINTPN ---
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 On Lovenox. * Possible hypercoagulable state but all studies so far ordered by Hematology are negative * Severe decubitus pressure ulcer-status post debridement: per surgery and wound care. ID seeing patient. On Unasyn * Bacteremia. Blood cultures as of 02/14 remain positive * Anemia: Hematocrit stable at 29 * Prophylaxis: eating * Venous access: Remains poor, 1 small upper extremity IV in place. Bilateral upper extremity DVTs preclude another PICC line. A port is being considered as she will likely need long-term venous access in the future. Plan: Continue Lovenox at 40 twice daily. Continue care in the intensive care unit as SDU. Continue wound VAC and changes. Continue antibiotics. Will need a port placed for IV access once blood cultures are negative times 48 hr. ID to help with the timing of this decision. For further cultures today. 35 min of critical care time spent directly with the patient. Discussed with nursing, ID, and the ICU multi disciplinary team. Objective: Vital Signs Temp Pulse Resp BP Pulse Ox 36.6 C 106 H 16 130/76 H 99 02/16/18 08:02 02/16/18 11:47 02/16/18 11:47 02/16/18 11:47 02/16/18 11:47 Microbiology 02/10/18 19:50 Gram Stain - Final Arm - Other Laboratory Results 02/15/18 03:05 02/16/18 06:18 02/15/18 02/16/18 02/17/18 05:59 05:59 05:59 Intake Total 2361 1764 400 Output Total 550 950 Balance 1811 814 400 PT 22.3 SEC (12.0-15.0) H 02/11/18 04:30 INR 1.95 (0.83-1.16) H 02/11/18 04:30 Microbiology 02/14/18 05:40 Blood Blood Culture - Preliminary Gram Positive Cocci Clusters Physical Exam - Physical Exam General Appearance: alert, no apparent distress EENT: PERRL/EOMI Neck: normal inspection Respiratory: lungs clear, decreased breath sounds Cardiac/Chest: tachycardia Abdomen: normal bowel sounds, non-tender, soft Pelvic Exam: other (Suprapubic catheter in place) Skin: warm/dry, pallor, decubitus Extremities: swelling, other (Bilateral AKA) Neuro/Psych: no motor/sensory deficits, cognition abnormalities (Oriented but somewhat confused regarding events, why she is here, etc. Does not appear to be truly decisional) ICD10 Worksheet Patient Problems: Problems Problem Status Onset Lower abdominal pain Acute Urinary tract infection Acute Hyponatremia Acute Abnormality of colon Acute At risk for autonomic dysreflexia Acute Neurogenic bowel Acute Spinal cord injury at C5-C7 level without injury of spinal bone Acute Spinal cord injury, incomplete Acute DVT of axillary vein, acute bilateral Acute Pressure ulcer Acute
--- NOTE | 2018-02-16 14:50 | ASMTCMCOM ---
CM Note CM Note Notes: Palliative care meeting today with Patient's mother, CHASE, patient's son, Mario, patient's brother and co-conservator, Ángel, Dr. Morrissey, Dorian [facility], Palliative Care, [place], patient's RN, Emilia, PCP RN, and myself,COURTNEY Simpson.Dr. Morrissey reviewed patient's current medical status and answered questions regarding prognosis. Dr. Morrissey was not able to address prognosis completely as he is just getting to know the patient. Patient's PCP and nurse Emilia feel patient needs a higher level of care, SNF. The family is in agreement with this. Dorian reviewed what Palliative care can do for the patient and her care. In addition he addressed goals of care and family expressed they want to continue medical treatment at this time. They did agree to a palliative referral being made. [facility] was discussed and the referral will be made to them. Patient's mother is recovering from a CVA/TX and can no longer provide care for the patient, her daughter. Mario will be the sole caregiver in the future as Ángel has a recovering from surgery and he works maritime guard.Referrals have been made to [facility], [facility]. Mario would like the facility to be close to [place] if possible. A referral has been made to [facility] for Medicaid application for patient. Emilia's number is [phone] with patient's PCP office. Patient continues to need IV ABX and wound vac changes. A port is being considered for access once her blood cultures are negative x's 48 hours. Nurse Nieto states patient's cognitive issues are related to her TBI and not to dementia. Nurse Nieto states the dementia references in the notes are inaccurate. CM will follow. Date Signed: 02/16/2018 02:49 PM Electronically Signed By:Tatiana Dewitt LCSW
[2018-02-16] MEDS: CALCIUM CARBONATE 500 MG CHEWABLE TAB PO PRN (16:23)
[2018-02-16] MEDS: ONDANSETRON 4 MG/2 ML VIAL IVP PRN (18:03)
[2018-02-16] MEDS ORDERED: POLYETHYLENE GLYCOL 3350 17 GM PKT PO PRN (21:00)
[2018-02-17] MEDS: AMPICILLIN/SULBACTAM 3 GM in NS 100 ML IV SCH ×2 (00:15→06:39)
[2018-02-17] MEDS ORDERED: POTASSIUM CL 10 MEQ TAB PO ONE (08:34)
[2018-02-17] MEDS ORDERED: POTASSIUM CL 20 MEQ/15 ML UDCUP TUBE ONE (09:00)
[2018-02-17] MEDS: levETIRAcetam 500 MG TAB PO SCH ×2 (11:03→21:42)
[2018-02-17] MEDS: OXYBUTYNIN CHLORIDE 5 MG TAB PO SCH ×2 (11:03→21:42)
[2018-02-17] MEDS: ENOXAPARIN 40 MG/0.4 ML SYR SC SCH (11:04)
--- NOTE | 2018-02-17 11:34 | HOSPPROG ---
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 with acute infection of that wound * Wound VAC currently in place; looks good to exam with the wound VAC in place * Acute DVT in both arms related to PICC lines which have been removed; prior history of DVTs * Has been on heparin, switched to Lovenox on 02/15 * Cog deficit with disorientation, expressive speech abnormalities, with history of dementia * I suspect she is probably quite close to her baseline but this is not entirely clear to me * Microcytic Anemia, chronic * Hx of Fe Defic and receiving outpt Fe infusions, though Fe Sat and Ferritin both very high at present * Status post 2 units of red blood cell transfusion here * chronic history of neurogenic bladder with suprapubic catheter, neurogenic bowel, and hemodynamic issues related spine injury * Suprapubic cath has been changed for new catheter here during this admission PLANS: * Continue Unasyn for E coli staph and strep, f/u ID recs, repeat blood cultures this morning * Continue wound care with wound VAC, per surgery and wound care staff * Continue Lovenox for anticoagulant, transition to Xarelto after access is obtained * Follow nutrition intake closely, may need to consider supplements * palliative consult with family yesterday, plan to d/c to SNF when ready, palliative care to follow as OP * DISPO: it is not felt 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 Bradley Encarnacion Subjective: Patient reports no complaints this morning Objective: Vital Signs Temp Pulse Resp BP Pulse Ox 36.3 C 88 17 118/82 H 96 02/17/18 08:00 02/17/18 08:00 02/17/18 08:00 02/17/18 08:00 02/17/18 08:00 Microbiology 02/10/18 19:50 Gram Stain - Final Arm - Other Laboratory Results 02/17/18 04:20 02/17/18 04:20 02/16/18 02/17/18 02/18/18 05:59 05:59 05:59 Intake Total 1764 2951 Output Total 474 1425 Balance 814 1526 PT 22.3 SEC (12.0-15.0) H 02/11/18 04:30 INR 1.95 (0.83-1.16) H 02/11/18 04:30 - Physical Exam Constitutional: chronically ill appearing, unkempt Eyes: PERRL Ears, Nose, Mouth, Throat: moist mucous membranes Cardiovascular: regular rate and rhythym Respiratory: clear to auscultation Gastrointestinal: soft, non-tender abdomen Genitourinary: other (suprapubic catheter ) Skin: warm, other (wound vac in place) Musculoskeletal: other (b/l AKA ) Neurologic: AAOx3 Psychiatric: flat affect ICD10 Worksheet Patient Problems: Problems Problem Status Onset DVT of axillary vein, acute bilateral Acute Pressure ulcer Acute Abnormality of colon Acute At risk for autonomic dysreflexia Acute Hyponatremia Acute Lower abdominal pain Acute Neurogenic bowel Acute Spinal cord injury at C5-C7 level without injury of spinal bone Acute Spinal cord injury, incomplete Acute Urinary tract infection Acute
--- NOTE | 2018-02-17 11:44 | PCMIDPN ---
Assessment/Plan: 1. MSSA/streptococcal bacteremia felt secondary to decubitus ulceration: Patient has lost her IV access. Thankfully, blood cultures drawn on February 14 reveal only coagulase-negative Staphylococcus, consistent with contamination. No growth of Staph aureus. I think it is fine at this point to place a port; this will likely be done tomorrow. In the interim, would start Augmentin 875 p.o. Twice daily until intravenous access reestablished. Regarding the extensive decubitus ulceration, I was able to see it without the VAC today; the area that I could appreciate seems to be granulating nicely, although there is a deeper area that is not able to be visualized. 2. Leukocytosis: Patient's white blood cell count is slightly elevated today. Has been having some loose stool, but has been taking cathartics. She is at risk for fungemia in the setting of broad-spectrum antibiotics. Will continue to follow closely. Over 25 mins spent with pt today. 02/17/18 11:44 Subjective: Getting wound VAC changed. Nurse reports loose stool, but on medications to cause this. Objective: Unasyn 3 g IV q.6 hours day 4 (antibiotics day 7). Received last dose this morning at 6:40 a.m. In the morning before her IV fell out T-max 37.1 degrees Vital Signs Temp Pulse Resp BP Pulse Ox 36.3 C 88 17 118/82 H 96 02/17/18 08:00 02/17/18 08:00 02/17/18 08:00 02/17/18 08:00 02/17/18 08:00 Microbiology 02/10/18 19:50 Gram Stain - Final Arm - Other Laboratory Results 02/17/18 04:20 02/17/18 04:20 02/16/18 02/17/18 02/18/18 05:59 05:59 05:59 Intake Total 1764 2951 Output Total 950 1425 Balance 814 1526 Blood cultures February 17 pending Blood cultures February 1405/19 bottles with coagulase-negative Staphylococcus February 12 blood cultures with Staph aureus - Physical Exam General Appearance: alert, no apparent distress EENT: pharynx normal, No thrush Respiratory: lungs clear Extremities: other (Bilateral upper extremity edema unchanged) Abdomen: non-tender, distended Skin: other (Patient wound VAC is off: The patient has an extensive deep open wound that extends to bone. Tissue underneath looks clean without evidence of necrosis or devitalized tissue), No rash ICD10 Worksheet Patient Problems: Problems Problem Status Onset DVT of axillary vein, acute bilateral Acute Pressure ulcer Acute Abnormality of colon Acute At risk for autonomic dysreflexia Acute Hyponatremia Acute Lower abdominal pain Acute Neurogenic bowel Acute Spinal cord injury at C5-C7 level without injury of spinal bone Acute Spinal cord injury, incomplete Acute Urinary tract infection Acute
--- NOTE | 2018-02-17 12:20 | WOCRNPDOC ---
MARGARITA Advanced Assessment Note - Skin Integrity Problem, Advanced Assess Right Ischial Tuberosity Pressure Injury Dressing Type: Allevyn Life (gentle 4x4 ) Dressing Description: Clean/Dry, Intact Exudate Amount: None Integumentary Issue Intervention: Dressing Removed Anastasia Wound Tissue: Blanching Wound Bed Constitution: Healed Site Measurement - Head-to-Toe Length X Width X Depth (cm): 2.1x1x0 Pressure Injury Stage: Stage 2 (at least) Pressure Injury Present on Admit: Yes Skin Integrity Problem Comment: Present on admission pressure injury of unknown previous stage that has fully healed. Presents as an area of erythematic scar tissue that is blanching. It was at least a stage 2, therefore it will be charted as a stage 2 at this time, but it may have been a full thickness wound. Left Ischial Tuberosity Pressure Injury Dressing Type: Black Vac Foam (x1), White Vac Foam (x1), Wound Vac Dressing Description: Clean/Dry, Intact Exudate Amount: Scant Exudate Characteristic(s): Serosanguinous Integumentary Issue Intervention: Dressing Changed Anastasia Wound Tissue: Erythema, Macerated (mildly around 3-6 oclock) Anastasia Wound Swelling: None Wound Bed Color: Red, Yellow Wound Bed Constitution: Granulation Tissue (80%), Red/[place] - Non Granular Tissue (10%), Undermining (Pocket from 12-2 oclock 7.5 cm at 12 oclock), Bone ( 30%), Adhered Slough (10%) Wound Edges: Not Attached Pressure Injury Stage: Stage 4 Pressure Injury Present on Admit: Yes Skin Integrity Problem Comment: Dressing change was not painful for patient. She was positioned on her right side. Change can be done with 2 people. There is a significant amount of bone exposed in the visible portion of the wound bed. The wound tunnels/undermines proximally toward her sacrum at 12 oclock. The tissue in the tunnel/undermining area is slippery and bone is very close to the surface but covered. There is a hole in the skin covering the undermining/ tunnel. Though it was previously charted as the "left ischial pressure injury", it is not a seperate wound. The "coccyx" and "left ischial pressure injury" wounds are the same wound and will both now be charted under "left ischial pressure injury". From a wound care standpoint, it would be beneficial to remove the skin at least to the secondary hole (and expose the wound bed) so that the wound could be visualized and black foam could be placed there. The tunnel is currently so long, that white foam must be used. Granulation tissue does not form as well with white foam. Wound was flushed with ns. Skin prep was applied anastasia wound. Drape was used to extend trac pad to mons pubis. x2 pieces of small black simplace used and one piece of white foam into wound bed. Vac restarted at -125 mm Hg continuous suction without any leaks. Kathy RN and Lalitha RN's assisted with care. Dr. Woo also visualized wound. Next vac change due Tuesday. Sacrum Pressure Injury Dressing Type: Mepilex Border Dressing Description: Clean/Dry, Intact Exudate Amount: Minimal Exudate Characteristic(s): Serosanguinous Integumentary Issue Intervention: Visualized Under Dressing Anastasia Wound Tissue: Blanching, Erythema Anastasia Wound Swelling: None Wound Bed Color: Black, Brown, Yellow Wound Bed Constitution: Mixed Loose & Adhered Slough/Eschar (100%) Wound Edges: Attached Site Measurement - Head-to-Toe Length X Width X Depth (cm): 4x4.2x0.1 Pressure Injury Stage: Stage 4 Pressure Injury Present on Admit: Yes Skin Integrity Problem Comment: Full thickness wound that is completely covered in necrosis. Was previously charted as unstagable, however due to evidence of muscle flap surgery in this area, the classifcation is changed to a re-opening stage 4 pressure injury. Wound dimensions larger than assessment two days ago. Support surface changed to clinitron mattress for better offloading. Proximal Sacrum Pressure Injury Dressing Type: Mepilex Border Dressing Description: Clean/Dry, Intact Exudate Amount: None Integumentary Issue Intervention: Visualized Under Dressing Anastasia Wound Tissue: Erythema, Non-blanching Site Measurement - Head-to-Toe Length X Width X Depth (cm): 1.1x3.8x0 Pressure Injury Stage: Deep Tissue Injury (DTI) Pressure Injury Present on Admit: Yes Skin Integrity Problem Comment: New area of deep tissue injury within margins of previous flap surgery.
[2018-02-17] MEDS: FUROSEMIDE 40 MG/4 ML VIAL IVP SCH (12:39)
[2018-02-17] MEDS: AMOXICILLIN/CLAVULANATE POT 875/125 MG TAB PO SCH ×2 (13:29→21:42)
--- NOTE | 2018-02-17 14:10 | PDINTPN ---
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 On Lovenox. * Possible hypercoagulable state but all studies so far ordered by Hematology are negative * Severe decubitus pressure ulcer-status post debridement: per surgery and wound care. ID seeing patient. On Unasyn * Bacteremia. Blood cultures 02/14 is a contaminant, not MSSA. Okay from ID to proceed with port. * Anemia: Hematocrit slightly down at 26. Following. * Prophylaxis: eating * Venous access: Remains poor, lost the 1 remaining small IV today. Attempts to get in another so far are unsuccessful. For a port tomorrow however she will need IV access prior to surgery for anesthesia. Lasix and antibiotics temporarily can be given orally. Plan: Continue Lovenox at 40 twice daily. Continue care in the intensive care unit as SDU. Continue wound VAC and changes. Continue antibiotics. For port placement tomorrow. Continue to try to establish a peripheral IV today. If this cannot be done then a IJ PICC done by IR can be considered.. 30 min of critical care time spent directly with the patient. Discussed with nursing, ID, and the ICU multi disciplinary team. Subjective: No complaints, denies pain or shortness of breath. Objective: Vital Signs Temp Pulse Resp BP Pulse Ox 36.4 C 98 22 H 114/66 94 02/17/18 11:58 02/17/18 11:58 02/17/18 11:58 02/17/18 12:00 02/17/18 11:58 Microbiology 02/10/18 19:50 Gram Stain - Final Arm - Other Anaerobic Culture - Final Escherichia Coli Streptococcus Intermedius Clostridium Perfringens Laboratory Results 02/17/18 04:20 02/17/18 04:20 02/16/18 02/17/18 02/18/18 05:59 05:59 05:59 Intake Total 1764 2951 Output Total 950 1425 Balance 814 1526 PT 22.3 SEC (12.0-15.0) H 02/11/18 04:30 INR 1.95 (0.83-1.16) H 02/11/18 04:30 Microbiology 02/14/18 05:40 Blood Blood Culture - Preliminary Staphylococcus Epidermidis Physical Exam - Physical Exam General Appearance: no apparent distress, other (Unchanged, sleepy, in bed. Arouses, responds, pleasant) EENT: PERRL/EOMI, other (Nasal cannula in place at 2 L) Neck: normal inspection (No JVD) Respiratory: lungs clear, decreased breath sounds (At bases. Shallow respiratory effort) Cardiac/Chest: regular rate, rhythm Abdomen: non-tender, soft, No normal bowel sounds (Decreased, present) Pelvic Exam: other (Suprapubic catheter in place, adequate urine output) Skin: warm/dry, pallor Extremities: swelling (Anasarca), other (Bilateral AKA) Neuro/Psych: cognition abnormalities (Unchanged), No no motor/sensory deficits ICD10 Worksheet Patient Problems: Problems Problem Status Onset Lower abdominal pain Acute Urinary tract infection Acute Hyponatremia Acute Abnormality of colon Acute At risk for autonomic dysreflexia Acute Neurogenic bowel Acute Spinal cord injury at C5-C7 level without injury of spinal bone Acute Spinal cord injury, incomplete Acute DVT of axillary vein, acute bilateral Acute Pressure ulcer Acute
[2018-02-18] MEDS ORDERED: PROPOFOL 200 MG/20 ML VIAL ONE (07:47)
[2018-02-18] MEDS ORDERED: LIDOCAINE 2% 2 ML INJ ONE ×2 (07:48)
[2018-02-18] MEDS ORDERED: FUROSEMIDE 40 MG TAB PO ONE (08:00)
--- NOTE | 2018-02-18 08:13 | PDANEPAE ---
ANE History of Present Illness port placement ANE Past Medical History - Cardiovascular History Hx Hypertension: No Hx Arrhythmias: No Hx Chest Pain: No Hx Coronary Artery / Peripheral Vascular Disease: No Hx CHF / Valvular Disease: No Hx Palpitations: No - Pulmonary History Hx COPD: No Hx Asthma/Reactive Airway Disease: No Hx Recent Upper Respiratory Infection: No Hx Oxygen in Use at Home: No Hx Sleep Apnea: No Sleep Apnea Screening Result - Last Documented: Negative - Endocrine History Hx Diabetes: No Hypothyroid: No Hyperthyroid: No Obesity: no - Neurological & Psychiatric Hx Hx Neurological and Psychiatric Disorders: Yes - Other Health History Other Health History: b/l aka - Chronic Pain History Chronic Pain: No ANE Review of Systems Review of systems is: negative Review of Systems: - Exercise capacity Exercise capacity: <4 METS, limited by disability ANE Patient History - Allergies Allergies/Adverse Reactions: pseudoephedrine [From Sudafed] Allergy (Verified 08/14/16 12:59) - Home Medications Home medications: home medication list seen and reviewed Home Medications: Multivitamins [Multivitamin (*)] 1 each PO DAILY 08/14/16 [Last Taken 02/10/18] Oxybutynin Chloride [Ditropan] 5 mg PO BID 08/14/16 [Last Taken 08/25/16 08:25] levETIRAcetam [Keppra 500 mg (*)] 500 mg PO BID 08/14/16 [Last Taken 02/10/18 09 :00] Lisinopril [Zestril 10 mg (*)] 10 mg PO DAILY 02/11/18 [Last Taken 02/11/18] Sennosides/Docusate Sodium [Senokot-S (OTC)] 1 each PO DAILY PRN 02/11/18 [Last Taken Unknown] - NPO status NPO Since - Liquids (Date): 02/17/18 NPO Since - Liquids (Time): 23:00 NPO Since - Solids (Date): 02/17/18 NPO Since - Solids (Time): 18:00 - Anes Hx Anes Hx: no prior problems - Smoking Hx Smoking Status: Never smoked - Alcohol Use Alcohol Use: None ANE Labs/Vital Signs - Labs Result Diagrams: 02/17/18 04:20 02/17/18 04:20 - Vital Signs Blood Pressure: 126/87 Heart Rate: 79 Respiratory Rate: 16 O2 Sat (%): 96 Height: 121.92 cm Weight: 38.55 kg ANE Physical Exam - Airway Neck exam: FROM Mallampati Score: Class 3 Mouth exam: poor dentition - Pulmonary Pulmonary: no respiratory distress - Cardiovascular Cardiovascular: regular rate and rhythym - ASA Status ASA Status: III ANE Anesthesia Plan Anesthesia Plan: GA with mask (pending IV access)
[2018-02-18] MEDS ORDERED: BUPIVACAINE 0.25% 30 ML SDV ONE (08:15)
[2018-02-18] MEDS ORDERED: LIDOCAINE 1% 300 MG/30 ML SDV ONE ×2 (08:16→09:11)
--- NOTE | 2018-02-18 09:55 | POSTOPPROG ---
Post Op Note Date of Operation: 02/18/18 Surgeon: Sky Durán Anesthesiologist: Isiah Anesthesia: Local (Specify) (Lidocaine) Pre-op Diagnosis: DVT, bacteremia Post-op Diagnosis: same Procedure: Us guided L IJ port placement c fluoro Inf/Abcess present in the surg proc area at time of surgery?: No EBL: Minimal
[2018-02-18] MEDS ORDERED: ALBUTEROL 3 ML DEYVIAL IH PRN (10:04)
[2018-02-18] MEDS ORDERED: ACETAMINOPHEN 500 MG TAB PO PRN (10:04)
[2018-02-18] MEDS ORDERED: ONDANSETRON 4 MG/2 ML VIAL IVP PRN (10:04)
[2018-02-18] MEDS ORDERED: LR 500 ML IV PRN (10:04)
[2018-02-18] MEDS ORDERED: NALOXONE HCL 0.4 MG/ML INJ IVP PRN (10:04)
[2018-02-18] MEDS ORDERED: fentaNYL 100 MCG/2 ML INJ IVP PRN (10:04)
--- NOTE | 2018-02-18 10:04 | POSTANESTH ---
Post Anesthetic Evaluation Cardiovascular Status: Normal, Stable Respiratory Status: Normal, Stable Level of Consciousness/Mental Status: Can Participate in Eval, Mildly Sleepy, Arousable Pain Control: Adequate, Prn Tx Ordered Nausea/Vomiting Control: Adequate, Prn Tx Ordered Complications Possibly Related to Anesthesia: None Noted
--- NOTE | 2018-02-18 10:48 | HOSPPROG ---
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 with acute infection of that wound * Wound VAC currently in place; looks good to exam with the wound VAC in place * Acute DVT in both arms related to PICC lines which have been removed; prior history of DVTs * Has been on heparin, switched to Lovenox on 02/15 * Cog deficit with disorientation, expressive speech abnormalities, with history of dementia * I suspect she is probably quite close to her baseline * Microcytic Anemia, chronic * Hx of Fe Defic and receiving outpt Fe infusions, though Fe Sat and Ferritin both very high at present * Status post 2 units of red blood cell transfusion here * chronic history of neurogenic bladder with suprapubic catheter, neurogenic bowel, and hemodynamic issues related spine injury * Suprapubic cath has been changed for new catheter here during this admission PLANS: * Continue Unasyn for E coli staph and strep once IV access is reestablished, Augmentin ordered by ID yesterday due to loss of IV access * Plan for port placement today * Continue wound care with wound VAC, per surgery and wound care staff * Continue Lovenox for anticoagulant, transition to Xarelto after access is obtained * Follow nutrition intake closely, may need to consider supplements * palliative consult with family on 02/16, plan to d/c to SNF when ready, palliative care to follow as OP * DISPO: 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 Bradley Encarnacion Subjective: Patient reports no complaints this morning Objective: Vital Signs Temp Pulse Resp BP Pulse Ox 36.2 C 93 20 132/90 H 90 L 02/18/18 10:27 02/18/18 10:27 02/18/18 10:30 02/18/18 10:30 02/18/18 10:30 Microbiology 02/12/18 13:25 Blood Culture - Final Blood Staphylococcus Aureus 02/12/18 12:00 Blood Culture - Final Blood Staphylococcus Aureus 02/10/18 19:50 Gram Stain - Final Arm - Other Anaerobic Culture - Final Escherichia Coli Streptococcus Intermedius Clostridium Perfringens Laboratory Results 02/17/18 04:20 02/17/18 04:20 02/17/18 02/18/18 02/19/18 05:59 05:59 05:59 Intake Total 2951 1860 200 Output Total 1425 600 Balance 1526 1260 200 PT 22.3 SEC (12.0-15.0) H 02/11/18 04:30 INR 1.95 (0.83-1.16) H 02/11/18 04:30 - Physical Exam Constitutional: chronically ill appearing Eyes: PERRL Ears, Nose, Mouth, Throat: moist mucous membranes Cardiovascular: regular rate and rhythym Respiratory: no respiratory distress Gastrointestinal: soft, non-tender abdomen Genitourinary: other (suprapubic catheter in place) Skin: warm, other (wound vac in place) Musculoskeletal: other (B/l AKA ) Neurologic: AAOx3 Psychiatric: flat affect ICD10 Worksheet Patient Problems: Problems Problem Status Onset DVT of axillary vein, acute bilateral Acute Pressure ulcer Acute Abnormality of colon Acute At risk for autonomic dysreflexia Acute Hyponatremia Acute Lower abdominal pain Acute Neurogenic bowel Acute Spinal cord injury at C5-C7 level without injury of spinal bone Acute Spinal cord injury, incomplete Acute Urinary tract infection Acute
[2018-02-18] MEDS ORDERED: FUROSEMIDE 40 MG/4 ML VIAL IVP ONE (12:32)
--- NOTE | 2018-02-18 12:38 | PDINTPN ---
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 On full-dose Lovenox. * Possible hypercoagulable state but all studies so far ordered by Hematology are negative * Severe decubitus pressure ulcer-status post debridement: per surgery and wound care. MSSA on cultures/blood. ID seeing patient. On Unasyn * Bacteremia. Blood cultures 02/14 is a contaminant, not MSSA. * Suprapubic catheter * Anemia: Hematocrit slightly down at 26. Following. * Prophylaxis: eating preop. NPO now secondary to somnolence and probable associated swallow dysfunction * Venous access: Status post port placement. Will restart IV medications Plan: Continue Lovenox at 40 twice daily. Continue care in the intensive care unit as SDU. Continue wound VAC and changes. Continue antibiotics and Lasix diuresis. For port placement tomorrow. Restart medications intravenously: See orders. 35 min of critical care time spent directly with the patient. Discussed with nursing, surgery, and the ICU multi disciplinary team. Subjective: Somnolent post operatively. Arouses Objective: Vital Signs Temp Pulse Resp BP Pulse Ox 36.4 C 97 22 H 118/70 95 02/18/18 10:57 02/18/18 10:57 02/18/18 10:57 02/18/18 10:57 02/18/18 10:57 Microbiology 02/12/18 13:25 Blood Culture - Final Blood Staphylococcus Aureus 02/12/18 12:00 Blood Culture - Final Blood Staphylococcus Aureus 02/10/18 19:50 Gram Stain - Final Arm - Other Anaerobic Culture - Final Escherichia Coli Streptococcus Intermedius Clostridium Perfringens Laboratory Results 02/17/18 04:20 02/17/18 04:20 02/17/18 02/18/18 02/19/18 05:59 05:59 05:59 Intake Total 2951 1860 200 Output Total 1425 600 Balance 1526 1260 200 PT 22.3 SEC (12.0-15.0) H 02/11/18 04:30 INR 1.95 (0.83-1.16) H 02/11/18 04:30 CXR: Port in good position. Right-sided pleural effusion and mid lung atelectasis Physical Exam - Physical Exam General Appearance: other (Somnolent) EENT: PERRL/EOMI, other (Mask in place at 5-6 L) Neck: normal inspection Respiratory: decreased breath sounds, rhonchi (Central rhonchi present), No lungs clear Cardiac/Chest: regular rate, rhythm, other (New port site) Abdomen: normal bowel sounds, non-tender, soft Pelvic Exam: other (Suprapubic catheter) Skin: warm/dry, pallor Extremities: swelling, other (Bilateral AKAs) Neuro/Psych: no motor/sensory deficits (Moves upper extremities weakly), cognition abnormalities (Somnolent postop) ICD10 Worksheet Patient Problems: Problems Problem Status Onset Lower abdominal pain Acute Urinary tract infection Acute Hyponatremia Acute Abnormality of colon Acute At risk for autonomic dysreflexia Acute Neurogenic bowel Acute Spinal cord injury at C5-C7 level without injury of spinal bone Acute Spinal cord injury, incomplete Acute DVT of axillary vein, acute bilateral Acute Pressure ulcer Acute
[2018-02-18] MEDS: HYDROmorphONE/DILAUDID 1 MG/ML INJ IVP PRN (13:54)
[2018-02-18] MEDS: AMPICILLIN/SULBACTAM 3 GM in NS 100 ML IV SCH ×2 (14:15→20:27)
--- NOTE | 2018-02-18 14:24 | PCMIDPN ---
Assessment/Plan: 1. MSSA/streptococcal bacteremia felt secondary to decubitus ulceration: Blood cultures have cleared, and patient now has access in the form of a port in her left chest. Continue Unasyn as is. No other new recommendations. Continue wound care. 2. Leukocytosis: No diarrhea. Repeat CBC tomorrow, along with liver function tests. 3. Oral candidiasis, mild: Will start nystatin swish and spit. 02/18/18 14:23 Subjective: Status post port placement this morning. Patient is in good spirits. Objective: Unasyn 3 g IV q.6 hours day 5 (antibiotics day 8) No fevers Vital Signs Temp Pulse Resp BP Pulse Ox 36.4 C 93 19 133/72 H 98 02/18/18 12:00 02/18/18 12:00 02/18/18 12:00 02/18/18 12:00 02/18/18 12:00 Microbiology 02/12/18 13:25 Blood Culture - Final Blood Staphylococcus Aureus 02/12/18 12:00 Blood Culture - Final Blood Staphylococcus Aureus 02/10/18 19:50 Gram Stain - Final Arm - Other Anaerobic Culture - Final Escherichia Coli Streptococcus Intermedius Clostridium Perfringens Laboratory Results 02/17/18 04:20 02/17/18 04:20 02/17/18 02/18/18 02/19/18 05:59 05:59 05:59 Intake Total 2951 1860 200 Output Total 1425 600 Balance 1526 1260 200 Blood cultures February 17 no growth Previous blood cultures with 1/4 bottles of coagulase-negative Staphylococcus, contaminant - Physical Exam General Appearance: alert, no apparent distress EENT: thrush Respiratory: lungs clear Cardiac/Chest: regular rate, rhythm, other (There is a new port in her left chest without erythema or tenderness) Extremities: other (Wound VAC, left side. Bilateral upper extremity edema unchanged) Abdomen: non-tender, soft, other (Feeding tube in place.) Skin: No rash ICD10 Worksheet Patient Problems: Problems Problem Status Onset DVT of axillary vein, acute bilateral Acute Pressure ulcer Acute Abnormality of colon Acute At risk for autonomic dysreflexia Acute Hyponatremia Acute Lower abdominal pain Acute Neurogenic bowel Acute Spinal cord injury at C5-C7 level without injury of spinal bone Acute Spinal cord injury, incomplete Acute Urinary tract infection Acute
[2018-02-18] MEDS: OXYBUTYNIN CHLORIDE 5 MG TAB PO SCH ×2 (14:46→21:37)
[2018-02-18] MEDS: BISACODYL 10 MG SUPP PR SCH (14:46)
[2018-02-18] MEDS: AMOXICILLIN/CLAVULANATE POT 875/125 MG TAB PO SCH (14:47)
[2018-02-18] MEDS: levETIRAcetam 500 MG TAB PO SCH (14:48)
[2018-02-18] MEDS: levETIRAcetam 500MG/NACL 100 ML IV SCH ×2 (14:51→21:37)
[2018-02-18] MEDS: NYSTATIN SUSP 500000 UNIT/5 ML UD LIQ PO SCH ×2 (18:18→21:37)
[2018-02-18] MEDS: POTASSIUM Cl (KCl) 50 ML IV SCH ×3 (18:23→20:27)
[2018-02-18] MEDS: ENOXAPARIN 40 MG/0.4 ML SYR SC SCH (21:37)
[2018-02-19] MEDS: AMPICILLIN/SULBACTAM 3 GM in NS 100 ML IV SCH ×4 (01:25→18:01)
[2018-02-19 04:29] LABS: PLATELET COUNT 309 10^3/uL (150-400)
[2018-02-19] MEDS: NYSTATIN SUSP 500000 UNIT/5 ML UD LIQ PO SCH ×4 (06:11→21:37)
[2018-02-19] MEDS ORDERED: HYDROmorphONE/DILAUDID 1 MG/ML INJ IVP PRN (07:33)
[2018-02-19] MEDS ORDERED: FUROSEMIDE 40 MG/4 ML VIAL IVP SCH (09:00)
[2018-02-19] MEDS: ENOXAPARIN 40 MG/0.4 ML SYR SC SCH ×2 (09:53→21:37)
[2018-02-19] MEDS: levETIRAcetam 500MG/NACL 100 ML IV SCH ×2 (09:55→21:37)
[2018-02-19] MEDS: OXYBUTYNIN CHLORIDE 5 MG TAB PO SCH ×4 (09:55→21:37)
--- NOTE | 2018-02-19 11:00 | HOSPPROG ---
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 with acute infection of that wound * Wound VAC currently in place; looks good to exam with the wound VAC in place * Acute DVT in both arms related to PICC lines which have been removed; prior history of DVTs * Has been on heparin, switched to Lovenox on 02/15 * Cog deficit with disorientation, expressive speech abnormalities, with history of dementia * I suspect she is probably quite close to her baseline * Microcytic Anemia, chronic * Hx of Fe Defic and receiving outpt Fe infusions, though Fe Sat and Ferritin both very high at present * Status post 2 units of red blood cell transfusion here * chronic history of neurogenic bladder with suprapubic catheter, neurogenic bowel, and hemodynamic issues related spine injury * Suprapubic cath has been changed for new catheter here during this admission * Anasarca * Increase dose of Lasix to 40 mg BID IV PLANS: * Continue Unasyn for E coli staph and strep, will discuss duration with ID * S/p port placement on 02/18 * Continue wound care with wound VAC, per surgery and wound care staff * Continue Lovenox for anticoagulant, transition to Xarelto prior to discharge * Follow nutrition intake closely, may need to consider supplements * palliative consult with family on 02/16, plan to d/c to SNF when ready, palliative care to follow as OP Seen by me today on hospitalist rounds as well as multidisciplinary rounds Reviewed in detail with Dr. Bradley Encarnacion Subjective: Patient reports no complaints this AM Objective: Vital Signs Temp Pulse Resp BP Pulse Ox 36.3 C 61 20 140/98 H 99 02/19/18 08:00 02/19/18 08:00 02/19/18 08:00 02/19/18 08:45 02/19/18 08:00 Microbiology 02/14/18 05:40 Blood Culture - Final Blood Staphylococcus Epidermidis 02/14/18 05:10 Blood Culture - Final Blood 02/12/18 13:25 Blood Culture - Final Blood Staphylococcus Aureus 02/12/18 12:00 Blood Culture - Final Blood Staphylococcus Aureus Laboratory Results 02/19/18 04:15 02/19/18 04:15 02/18/18 02/19/18 02/20/18 05:59 05:59 05:59 Intake Total 1860 1642 Output Total 600 1825 Balance 1260 -183 PT 22.3 SEC (12.0-15.0) H 02/11/18 04:30 INR 1.95 (0.83-1.16) H 02/11/18 04:30 - Physical Exam Constitutional: no apparent distress Eyes: PERRL Ears, Nose, Mouth, Throat: moist mucous membranes Cardiovascular: regular rate and rhythym Respiratory: no respiratory distress Gastrointestinal: soft, non-tender abdomen Genitourinary: other (suprapubic catheter) Skin: warm Musculoskeletal: other (b/l AKA) Neurologic: AAOx3 Psychiatric: interacting appropriately, poor insight ICD10 Worksheet Patient Problems: Problems Problem Status Onset DVT of axillary vein, acute bilateral Acute Pressure ulcer Acute Abnormality of colon Acute At risk for autonomic dysreflexia Acute Hyponatremia Acute Lower abdominal pain Acute Neurogenic bowel Acute Spinal cord injury at C5-C7 level without injury of spinal bone Acute Spinal cord injury, incomplete Acute Urinary tract infection Acute
--- NOTE | 2018-02-19 12:57 | SOAPPROG ---
SOAP Progress Note Assessment/Plan: Assessment/Plan: 67yo F s/p debridement of stage IV debucitus ulcer. POD#1 s/p L IJ port placement for IV access. Admitted with wound infection, bactremia, acute BUE DVTs. Wound vac change MWF Port functioning well Appreciate hospitalist management of comorbidities S: patient with no complaints. Nurse reports port is working well. No increased swelling of L neck O: Lying in bed, comfortable, no acute distress No increased work of breathing Left chest port accessed, no surrounding erythema. She has ecchymosis of the left neck near IJ access site, no significant swelling, tenseness, tenderness. No active drainage. Incisions clean, dry and intact Wound VAC intact to suction Objective: Vital Signs Temp Pulse Resp BP Pulse Ox 36.3 C 77 21 H 110/80 99 02/19/18 12:00 02/19/18 12:00 02/19/18 12:00 02/19/18 12:00 02/19/18 12:00 Microbiology 02/14/18 05:40 Blood Culture - Final Blood Staphylococcus Epidermidis 02/14/18 05:10 Blood Culture - Final Blood 02/12/18 13:25 Blood Culture - Final Blood Staphylococcus Aureus 02/12/18 12:00 Blood Culture - Final Blood Staphylococcus Aureus Laboratory Results 02/19/18 04:15 02/19/18 04:15 02/18/18 02/19/18 02/20/18 05:59 05:59 05:59 Intake Total 1860 1642 Output Total 600 1825 Balance 1260 -183 PT 22.3 SEC (12.0-15.0) H 02/11/18 04:30 INR 1.95 (0.83-1.16) H 02/11/18 04:30 ICD10 Worksheet Patient Problems: Problems Problem Status Onset DVT of axillary vein, acute bilateral Acute Pressure ulcer Acute Abnormality of colon Acute At risk for autonomic dysreflexia Acute Hyponatremia Acute Lower abdominal pain Acute Neurogenic bowel Acute Spinal cord injury at C5-C7 level without injury of spinal bone Acute Spinal cord injury, incomplete Acute Urinary tract infection Acute
--- NOTE | 2018-02-19 13:04 | PDINTPN ---
Clinical Trainer Progress Note Assessment/Plan: Assessment: * Paraplegia * Status post bilateral AKA * Bilateral upper extremity DVT. On full-dose Lovenox. * Possible hypercoagulable state but all studies so far ordered by Hematology are negative * Severe decubitus pressure ulcer-status post debridement: per surgery and wound care. MSSA on cultures/blood. ID seeing patient. On Unasyn. She will need this skilled nursing. * Bacteremia. Blood cultures 02/14 is a contaminant, not MSSA. * Suprapubic catheter. This has been leaking occasionally. Catheter changed several days ago. Will have Urology evaluate tomorrow. * Anemia: Hematocrit stable: 27. Following. * Prophylaxis: eating preop. Re-evaluating swallow function * Venous access: Status post port placement, on IV medications Plan: Continue Lovenox at 40 twice daily. Increase Lasix to twice daily 40. Continue care in the intensive care unit as SDU. Continue wound VAC and changes. Continue antibiotics per recommendations of ID. Continue to work on disposition. Likely will need LTAC secondary to her severe decubitus and wound VAC. 30 min of critical care time spent directly with the patient. Discussed with nursing, surgery, and the ICU multi disciplinary team. Subjective: Denies pain or shortness of breath, not uncomfortable. Oriented x2. Objective: Vital Signs Temp Pulse Resp BP Pulse Ox 36.3 C 77 21 H 110/80 99 02/19/18 12:00 02/19/18 12:00 02/19/18 12:00 02/19/18 12:00 02/19/18 12:00 Microbiology 02/14/18 05:40 Blood Culture - Final Blood Staphylococcus Epidermidis 02/14/18 05:10 Blood Culture - Final Blood 02/12/18 13:25 Blood Culture - Final Blood Staphylococcus Aureus 02/12/18 12:00 Blood Culture - Final Blood Staphylococcus Aureus Laboratory Results 02/19/18 04:15 02/19/18 04:15 02/18/18 02/19/18 02/20/18 05:59 05:59 05:59 Intake Total 1860 1642 Output Total 600 1825 Balance 1260 -183 PT 22.3 SEC (12.0-15.0) H 02/11/18 04:30 INR 1.95 (0.83-1.16) H 09/29/18 04:30 Physical Exam - Physical Exam General Appearance: alert, no apparent distress, other (Unchanged, remains in bed, not uncomfortable) EENT: PERRL/EOMI, other (2 L nasal cannula in place: 99%) Neck: normal inspection Respiratory: lungs clear, decreased breath sounds (At bases) Cardiac/Chest: regular rate, rhythm, No gallop Abdomen: normal bowel sounds, non-tender, soft Pelvic Exam: other (Suprapubic catheter in place) Skin: warm/dry, pallor Extremities: swelling (Anasarca persists upper extremities as well as over her remaining lower extremities in hips) Neuro/Psych: no motor/sensory deficits (Moves upper extremities weakly), cognition abnormalities (No change, oriented x2. Known cognitive impairment. Probably close to baseline.) ICD10 Worksheet Patient Problems: Problems Problem Status Onset Lower abdominal pain Acute Urinary tract infection Acute Hyponatremia Acute Abnormality of colon Acute At risk for autonomic dysreflexia Acute Neurogenic bowel Acute Spinal cord injury at C5-C7 level without injury of spinal bone Acute Spinal cord injury, incomplete Acute DVT of axillary vein, acute bilateral Acute Pressure ulcer Acute
[2018-02-19] MEDS: FUROSEMIDE 40 MG/4 ML VIAL IVP SCH (21:37)
[2018-02-20] MEDS: AMPICILLIN/SULBACTAM 3 GM in NS 100 ML IV SCH ×4 (00:07→18:13)
[2018-02-20] MEDS: NYSTATIN SUSP 500000 UNIT/5 ML UD LIQ PO SCH ×3 (05:43→16:39)
[2018-02-20] MEDS: FUROSEMIDE 40 MG/4 ML VIAL IVP SCH ×2 (08:31→20:19)
[2018-02-20] MEDS: ENOXAPARIN 40 MG/0.4 ML SYR SC SCH ×2 (08:32→20:19)
[2018-02-20] MEDS: levETIRAcetam 500MG/NACL 100 ML IV SCH (08:33)
[2018-02-20] MEDS: OXYBUTYNIN CHLORIDE 5 MG TAB PO SCH (08:42)
--- NOTE | 2018-02-20 09:13 | SOAPPROG ---
SOAP Progress Note Assessment/Plan: Assessment: 67-year-old female status post debridement of stage IV decubitus ulcer - doing well from port placement, some bruising but no hematoma. Functioning appropriately - wound VAC change this AM, still has big tunnel. If continues to stagnate will consider opening op but will make pretty large wound and dont want to compromise tissue for possible future closure Plan: 02/11/18 08:57 02/12/18 09:22 02/13/18 16:11 02/16/18 12:46 02/20/18 09:12 Subjective: feels well, eating breakfast Objective: Vital Signs Temp Pulse Resp BP Pulse Ox 36.4 C 73 21 H 132/78 H 99 02/20/18 08:00 02/20/18 08:00 02/20/18 08:00 02/20/18 08:00 02/20/18 08:00 Microbiology 02/14/18 05:40 Blood Culture - Final Blood Staphylococcus Epidermidis 02/14/18 05:10 Blood Culture - Final Blood Laboratory Results 02/19/18 04:15 02/19/18 04:15 02/19/18 02/20/18 02/21/18 05:59 05:59 05:59 Intake Total 1642 1731 Output Total 1825 1020 Balance -183 711 PT 22.3 SEC (12.0-15.0) H 02/11/18 04:30 INR 1.95 (0.83-1.16) H 02/11/18 04:30 ICD10 Worksheet Patient Problems: Problems Problem Status Onset DVT of axillary vein, acute bilateral Acute Pressure ulcer Acute Abnormality of colon Acute At risk for autonomic dysreflexia Acute Hyponatremia Acute Lower abdominal pain Acute Neurogenic bowel Acute Spinal cord injury at C5-C7 level without injury of spinal bone Acute Spinal cord injury, incomplete Acute Urinary tract infection Acute
--- NOTE | 2018-02-20 09:35 | GOP ---
DATE OF OPERATION: 02/18/2018 SURGEON: Syk Durán MD MACHINIST BENCH: None. ANESTHESIA: LMA. ANESTHESIOLOGIST: Dr. Hansel Joyce PREOPERATIVE DIAGNOSIS: Bilateral upper extremity deep vein thromboses and bacteremia. POSTOPERATIVE DIAGNOSIS: Bilateral upper extremity deep vein thromboses and bacteremia. PROCEDURE PERFORMED: Ultrasound-guided left internal jugular central venous port placement with intr aoperative fluoroscopy. FINDINGS: Successful placement of power port into the left IJ port, both flushed and withdrawn appro priately. SPECIMENS: None. ESTIMATED BLOOD LOSS: 5 cc. DESCRIPTION OF PROCEDURE: The patient was greeted in the preoperative suite. The procedure was disc ussed with her. Consent was ultimately signed by her MD ARAUJO. She was then brought back to the opera tive suite and placed on the OR table in the supine position. After all anesthesia machines, includi ng SCDs were on and functioning, the [employer] time-out was performed. Given the lac k of IV access, the patient was gently sedated by the anesthesiologist. I initially attempted cathet er placement on the right side for appropriate induction but was unsuccessful given the lack of appro priate veins. The decision was made to proceed with port placement on the left side as the internal jugular vein was really the only appropriate vein for any kind of durable vascular access. The patie nt's left neck was prepped and draped in typical sterile fashion. Using the ultrasound, I identified the left internal jugular vein. I anesthetized the skin and muscle overlying the vein and successfu lly accessed it. The guidewire was then placed through it and into the superior vena cava. The dila tor was then placed. I then selected a spot approximately 2 fingerbreadths beneath her left clavicle . I anesthetized the area. I made a 1 inch incision. I created a pocket inferiorly. I then tunnel ed the catheter from the pocket to the peel-away sheath and successfully placed it within, sizing it to the atrial caval junction. The peel-away catheter was then removed. The catheter itself was then placed to the port and both were withdrawn and flushed appropriately. It was placed within the pock et and attached to the underlying chest wall with an interrupted Prolene stitch. The skin was then c losed in layers, first with a 3-0 interrupted Vicryl followed by 4-0 Monocryl over which Dermabond wa s placed. The port was then accessed. It withdrew and flushed appropriately. It was left accessed so that the postoperative and ICU nurses could use it appropriately. The patient tolerated the procedure well without any complications. DRAINS: None. COUNTS: All counts were reported as correct x2. /[id number]/MODL
--- NOTE | 2018-02-20 09:51 | WOCRNPDOC ---
MARGARITA Advanced Assessment Note - Skin Integrity Problem, Advanced Assess Left Ischial Tuberosity Pressure Injury Dressing Type: Black Vac Foam (x1 in wound x1 for bridge), White Vac Foam (x1), Wound Vac Exudate Amount: Minimal Exudate Characteristic(s): Serosanguinous Integumentary Issue Intervention: Dressing Changed Anastasia Wound Tissue: Blanching, Erythema Wound Bed Constitution: Granulation Tissue (90% ), Undermining (9 cm at 12 oclock, dropping to 5 cm at 2 oclock) Site Measurement - Head-to-Toe Length X Width X Depth (cm): 6.2x3.4x3.3 Pressure Injury Stage: Stage 4 Pressure Injury Present on Admit: Yes Skin Integrity Problem Comment: Wound bed that can be visualized appears full of granulation. The size of the pocket is getting bigger/deeper, but it is less slimy to the touch. Amount of bone exposed has not changed. Flushed wound with ns well with. Drape applied anastasia wound in anterior portion of wound edges and bridged to lower abdomen. One piece of small white foam to wound bed pocket. It covers all exposed bone. One piece of small black foam covering the white foam and another bridging it to abdomen. Vac set to -125 mm Hg continuous suction without leaks. Rufina FOOD PRODUCTION WORKER assisted with positioning and vac change. Next change due Wed. Sacrum Pressure Injury Dressing Type: Mepilex Border Exudate Amount: Minimal Exudate Characteristic(s): Serosanguinous Integumentary Issue Intervention: Visualized Under Dressing Anastasia Wound Tissue: Blanching, Erythema Wound Bed Constitution: Mixed Loose & Adhered Slough/Eschar (100%) Wound Edges: Attached Site Measurement - Head-to-Toe Length X Width X Depth (cm): 3x3.6x0.1 Pressure Injury Stage: Stage 4 Pressure Injury Present on Admit: Yes Skin Integrity Problem Comment: Wound looks improved since tuesday. Seems to be a bit smaller and necrosis seems to be softening. No iodoflex over wound. RAND Boogie will apply today. None found in room but another packet tubed down. Proximal Sacrum Pressure Injury Dressing Type: Mepilex Border Dressing Description: Clean/Dry, Intact Exudate Amount: None Wound Bed Constitution: Stable Eschar Site Measurement - Head-to-Toe Length X Width X Depth (cm): [id number] Pressure Injury Stage: Unstageable Pressure Injury Present on Admit: No Skin Integrity Problem Comment: DTI that has evolved to a small shallow unstagable wound.
[2018-02-20] MEDS: BISACODYL 10 MG SUPP PR SCH (10:44)
--- NOTE | 2018-02-20 12:16 | HOSPPROG ---
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 with acute infection of that wound * Wound VAC currently in place; changed today * Acute DVT in both arms related to PICC lines which have been removed; prior history of DVTs * Has been on heparin, switched to Lovenox on 02/15 * Cog deficit with disorientation, expressive speech abnormalities, with history of dementia * I suspect she is probably quite close to her baseline * Microcytic Anemia, chronic * Hx of Fe Defic and receiving outpt Fe infusions, though Fe Sat and Ferritin both very high at present * Status post 2 units of red blood cell transfusion here * chronic history of neurogenic bladder with suprapubic catheter, neurogenic bowel, and hemodynamic issues related spine injury * Suprapubic cath has been changed for new catheter here during this admission, leaking around site * Anasarca * Increased dose of Lasix to 40 mg BID IV on 02/19 PLANS: * Continue Unasyn for E coli staph and strep, will discuss duration with ID * S/p port placement on 02/18 * Continue wound care with wound VAC, per surgery and wound care staff * Continue Lovenox for anticoagulant, transition to Xarelto prior to discharge * Follow nutrition intake closely, may need to consider supplements * palliative consult with family on 02/16, plan to d/c to SNF when ready, palliative care to follow as OP * Consulted Urology today for evaluation of leakage around Suprapubic site Seen by me today on hospitalist rounds as well as multidisciplinary rounds Reviewed in detail with Dr. Oshea Subjective: Patient reports no complaints this AM Objective: Vital Signs Temp Pulse Resp BP Pulse Ox 36.4 C 73 21 H 132/78 H 99 02/20/18 08:00 02/20/18 08:00 02/20/18 08:00 02/20/18 08:00 02/20/18 08:00 Microbiology 02/14/18 05:40 Blood Culture - Final Blood Staphylococcus Epidermidis 02/14/18 05:10 Blood Culture - Final Blood Laboratory Results 02/19/18 04:15 02/19/18 04:15 02/19/18 02/20/18 02/21/18 05:59 05:59 05:59 Intake Total 1642 1731 Output Total 1825 1020 Balance -183 711 PT 22.3 SEC (12.0-15.0) H 02/11/18 04:30 INR 1.95 (0.83-1.16) H 02/11/18 04:30 - Physical Exam Constitutional: no apparent distress, chronically ill appearing Eyes: PERRL Ears, Nose, Mouth, Throat: moist mucous membranes Cardiovascular: regular rate and rhythym Respiratory: clear to auscultation Gastrointestinal: soft, non-tender abdomen Genitourinary: other (suprapubic cathter, leakage around site) Skin: warm, other (B/l AKA, wound vac in place) Musculoskeletal: generalized weakness Neurologic: AAOx3 Psychiatric: flat affect ICD10 Worksheet Patient Problems: Problems Problem Status Onset DVT of axillary vein, acute bilateral Acute Pressure ulcer Acute Abnormality of colon Acute At risk for autonomic dysreflexia Acute Hyponatremia Acute Lower abdominal pain Acute Neurogenic bowel Acute Spinal cord injury at C5-C7 level without injury of spinal bone Acute Spinal cord injury, incomplete Acute Urinary tract infection Acute
--- NOTE | 2018-02-20 16:08 | PDINTPN ---
It Help Desk Technician Progress Note Assessment/Plan: Assessment: * Paraplegia * Status post bilateral AKA * Bilateral upper extremity DVT. On full-dose Lovenox. * Possible hypercoagulable state but all studies so far ordered by Hematology are negative * Severe decubitus pressure ulcer-status post debridement: per surgery and wound care. MSSA on cultures/blood, subsequently cleared. ID seeing patient. On Unasyn. She will need this ad terminal makeup operator. * Bacteremia. Blood cultures 02/14 is a contaminant, not MSSA. * Suprapubic catheter. This has been leaking occasionally. Catheter changed several days ago. Will have Urology evaluate tomorrow. * Anemia: Hematocrit stable: 27. Following. * Prophylaxis: eating preop. Re-evaluating swallow function * Venous access: Status post port placement, on IV medications * Thrush: Resolved with 3 days of Nystatin Plan: Continue Lovenox at 40 twice daily. Increase Lasix to twice daily 40. Add albumin BID. Continue care in the intensive care unit as SDU. Continue wound VAC and changes. Continue antibiotics per recommendations of ID. Stop Nystatin. Increase activity. Continue to work on disposition. Likely will need LTAC secondary to her severe decubitus and wound VAC. 02/20/18 16:14 Subjective: Still quite weak, but improved a bit, able to sit in chair. Denies oral pain. Objective: Vital Signs Temp Pulse Resp BP Pulse Ox 36.1 C 83 19 116/80 93 02/20/18 15:42 02/20/18 15:42 02/20/18 15:42 02/20/18 15:42 02/20/18 15:42 Laboratory Results 02/19/18 04:15 02/19/18 04:15 02/19/18 02/20/18 02/21/18 05:59 05:59 05:59 Intake Total 1642 1731 Output Total 1825 1020 900 Balance -183 711 -900 PT 22.3 SEC (12.0-15.0) H 02/11/18 04:30 INR 1.95 (0.83-1.16) H 02/11/18 04:30 Physical Exam - Physical Exam General Appearance: alert, no apparent distress EENT: normal ENT inspection Neck: normal inspection Respiratory: lungs clear Cardiac/Chest: regular rate, rhythm, edema (1+ upper extremity) Abdomen: non-tender, distended Skin: normal color, warm/dry Extremities: normal inspection (upperextremities) Neuro/Psych: alert, normal mood/affect, No oriented x 3 ICD10 Worksheet Patient Problems: Problems Problem Status Onset DVT of axillary vein, acute bilateral Acute Pressure ulcer Acute Abnormality of colon Acute At risk for autonomic dysreflexia Acute Hyponatremia Acute Lower abdominal pain Acute Neurogenic bowel Acute Spinal cord injury at C5-C7 level without injury of spinal bone Acute Spinal cord injury, incomplete Acute Urinary tract infection Acute
--- NOTE | 2018-02-20 16:46 | ASMTCMCOM ---
CM Note CM Note Notes: Up dated patient info to SNF's[facility]. Referrals sent to area [facility]'s [facility]. Date Signed: 02/20/2018 04:46 PM Electronically Signed By:Geeta Yang LCSW
--- NOTE | 2018-02-20 16:52 | ASMTCMCOM ---
CM Note CM Note Notes: Patient continues to be confused. On ABX and insulin, had a Sz on 02/19, tube feeding. Needs a Lift to get from bed to chair. To early to determine discharge needs. Date Signed: 02/20/2018 04:52 PM Electronically Signed By:Geeta Yang LCSW
--- NOTE | 2018-02-20 16:55 | ASMTCMCOM ---
CM Note CM Note Notes: Disregard CM Note 02/20/18 16:52-written on wrong patient. Date Signed: 02/20/2018 04:54 PM Electronically Signed By:Geeta Yang LCSW
--- NOTE | 2018-02-20 18:37 | SOAPPROG ---
SOAP Progress Note Assessment/Plan: Assessment: 1. Chronic neurogenic bladder w/ indwelling 16 Fr. SP tube. 2. Chronic urinary incontinence around SP tube. 3. History of bladder calculi. Plan: 1. Switch to extended release oxybutinin. 2. Noncontrast CT scan (to assess for tract stone disease). See dictated consult note (# ). Objective: Vital Signs Temp Pulse Resp BP Pulse Ox 36.1 C 83 19 116/80 93 02/20/18 15:42 02/20/18 15:42 02/20/18 15:42 02/20/18 15:42 02/20/18 15:42 Laboratory Results 02/19/18 04:15 02/19/18 04:15 02/19/18 02/20/18 02/21/18 05:59 05:59 05:59 Intake Total 1642 1731 1423 Output Total 1825 1020 1150 Balance -183 711 273 PT 22.3 SEC (12.0-15.0) H 02/11/18 04:30 INR 1.95 (0.83-1.16) H 02/11/18 04:30 ICD10 Worksheet Patient Problems: Problems Problem Status Onset DVT of axillary vein, acute bilateral Acute Pressure ulcer Acute Abnormality of colon Acute At risk for autonomic dysreflexia Acute Hyponatremia Acute Lower abdominal pain Acute Neurogenic bowel Acute Spinal cord injury at C5-C7 level without injury of spinal bone Acute Spinal cord injury, incomplete Acute Urinary tract infection Acute
[2018-02-20] MEDS: ALBUMIN 25% 100 ML IV SCH (20:19)
[2018-02-20] MEDS: levETIRAcetam 500 MG/5 ML UDCUP PO SCH (20:19)
[2018-02-21] MEDS: AMPICILLIN/SULBACTAM 3 GM in NS 100 ML IV SCH ×4 (00:04→17:11)
[2018-02-21] MEDS: FUROSEMIDE 40 MG/4 ML VIAL IVP SCH ×2 (08:53→20:40)
[2018-02-21] MEDS: OXYBUTYNIN 5 MG EXT REL TAB PO SCH (08:53)
[2018-02-21] MEDS: ENOXAPARIN 40 MG/0.4 ML SYR SC SCH (08:53)
[2018-02-21] MEDS: ALBUMIN 25% 100 ML IV SCH ×2 (08:53→20:40)
[2018-02-21] MEDS: levETIRAcetam 500 MG/5 ML UDCUP PO SCH ×2 (08:53→20:40)
--- NOTE | 2018-02-21 09:13 | HOSPPROG ---
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 with acute infection of that wound * Wound VAC currently in place; changed today * Acute DVT in both arms related to PICC lines which have been removed; prior history of DVTs * Has been on heparin, switched to Lovenox on 02/15 * Cog deficit with disorientation, expressive speech abnormalities, with history of dementia * I suspect she is probably quite close to her baseline * Microcytic Anemia, chronic * Hx of Fe Defic and receiving outpt Fe infusions, though Fe Sat and Ferritin both very high at present * Status post 2 units of red blood cell transfusion here * chronic history of neurogenic bladder with suprapubic catheter, neurogenic bowel, and hemodynamic issues related spine injury * Suprapubic cath has been changed for new catheter here during this admission, leaking around site * Anasarca * Increased dose of Lasix to 40 mg BID IV on 02/19 PLANS: * Continue Unasyn for E coli staph and strep, will discuss duration with ID * S/p port placement on 02/18 * Continue wound care with wound VAC, per surgery and wound care staff * Continue Lovenox for anticoagulant, consider transition to Xarelto prior to discharge (was previously on this) * Follow nutrition intake closely, may need to consider supplements * palliative consult with family on 02/16, plan to d/c to SNF vs. LTAC when ready , palliative care to follow as OP * Consulted Urology yesterday for evaluation of leakage around Suprapubic site Seen by me today on hospitalist rounds as well as multidisciplinary rounds Reviewed in detail with Dr. Oshea Subjective: Patient reports no complaints this AM Objective: Vital Signs Temp Pulse Resp BP Pulse Ox 36.4 C 66 22 H 138/76 H 91 L 02/21/18 08:30 02/21/18 08:30 02/21/18 08:30 02/21/18 08:30 02/21/18 08:30 Laboratory Results 02/19/18 04:15 02/19/18 04:15 02/20/18 02/21/18 02/22/18 05:59 05:59 05:59 Intake Total 1731 2394 Output Total 1020 3695 Balance 711 -281 PT 22.3 SEC (12.0-15.0) H 02/11/18 04:30 INR 1.95 (0.83-1.16) H 02/11/18 04:30 - Physical Exam Constitutional: no apparent distress, chronically ill appearing Eyes: PERRL Ears, Nose, Mouth, Throat: dry mucous membranes Cardiovascular: regular rate and rhythym Respiratory: inspiratory crackles Gastrointestinal: soft, non-tender abdomen Genitourinary: other (suprapubic thompson in place) Skin: abrasion Musculoskeletal: generalized weakness Neurologic: weakness Psychiatric: not anxious Lymph, Heme, Immunologic: ecchymoses ICD10 Worksheet Patient Problems: Problems Problem Status Onset DVT of axillary vein, acute bilateral Acute Pressure ulcer Acute Abnormality of colon Acute At risk for autonomic dysreflexia Acute Hyponatremia Acute Lower abdominal pain Acute Neurogenic bowel Acute Spinal cord injury at C5-C7 level without injury of spinal bone Acute Spinal cord injury, incomplete Acute Urinary tract infection Acute
--- NOTE | 2018-02-21 11:41 | SOAPPROG ---
SOAP Progress Note Assessment/Plan: Assessment: 67-year-old female status post debridement of stage IV decubitus ulcer - Port site bruised but no apparent hematoma, functioning appropriately - Wound is healing, VAC change yesterday. Plan ultimately will be transfer to LTAC for plastics flap closure once stable from other medical issues Plan: 02/11/18 08:57 02/12/18 09:22 02/13/18 16:11 02/16/18 12:46 02/20/18 09:12 02/21/18 11:40 Subjective: no complaints Objective: Vital Signs Temp Pulse Resp BP Pulse Ox 36.4 C 66 22 H 138/76 H 85 L 02/21/18 08:30 02/21/18 08:30 02/21/18 08:30 02/21/18 08:30 02/21/18 08:35 Laboratory Results 02/19/18 04:15 02/19/18 04:15 02/20/18 02/21/18 02/22/18 05:59 05:59 05:59 Intake Total 1731 2394 Output Total 1020 2055 Balance 711 -281 PT 22.3 SEC (12.0-15.0) H 02/11/18 04:30 INR 1.95 (0.83-1.16) H 02/11/18 04:30 ICD10 Worksheet Patient Problems: Problems Problem Status Onset DVT of axillary vein, acute bilateral Acute Pressure ulcer Acute Abnormality of colon Acute At risk for autonomic dysreflexia Acute Hyponatremia Acute Lower abdominal pain Acute Neurogenic bowel Acute Spinal cord injury at C5-C7 level without injury of spinal bone Acute Spinal cord injury, incomplete Acute Urinary tract infection Acute
--- NOTE | 2018-02-21 15:45 | SOAPPROG ---
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 Her ATIII level is slightly decreased, probably due to the acute episode of thrombosis, and not due to congenital ATIII defficiency. I agree with the planned transition to Xarelto. Given her h/o multiple thrombotic episodes in the past, recommend indefinite anticoagulation. ATIII level could be repeated by Dr. Rowell (her primary taximeter repairer) once discharged. She should follow up with Dr. Rowell following discharge. 02/21/18 15:40 Subjective: No acute distress. Does not answer questions. Xarelto to begin tonight. Objective: Vital Signs Temp Pulse Resp BP Pulse Ox 36.5 C 95 20 126/76 H 94 02/21/18 11:50 02/21/18 11:50 02/21/18 11:50 02/21/18 11:50 02/21/18 11:50 Microbiology 02/10/18 19:50 Mycobacterial Smear (VALERIY) - Final Arm - Other Laboratory Results 02/19/18 04:15 02/19/18 04:15 02/20/18 02/21/18 02/22/18 05:59 05:59 05:59 Intake Total 1731 2394 600 Output Total 1020 2675 800 Balance 711 -281 -200 PT 22.3 SEC (12.0-15.0) H 02/11/18 04:30 INR 1.95 (0.83-1.16) H 02/11/18 04:30 - Time Spent With Patient Time Spent With Patient: 15 minutes Physical Exam - Physical Exam General Appearance: no apparent distress Neuro/Psych: other (Does not answer questions) ICD10 Worksheet Patient Problems: Problems Problem Status Onset DVT of axillary vein, acute bilateral Acute Pressure ulcer Acute Abnormality of colon Acute At risk for autonomic dysreflexia Acute Hyponatremia Acute Lower abdominal pain Acute Neurogenic bowel Acute Spinal cord injury at C5-C7 level without injury of spinal bone Acute Spinal cord injury, incomplete Acute Urinary tract infection Acute
--- NOTE | 2018-02-21 16:18 | PDINTPN ---
Segmental Paving Supervisor Progress Note Assessment/Plan: Assessment: * Paraplegia * Status post bilateral AKA * Bilateral upper extremity DVT. On full-dose Lovenox. * Possible hypercoagulable state but all studies so far ordered by Hematology are negative * Severe decubitus pressure ulcer-status post debridement: per surgery and wound care. MSSA on cultures/blood, subsequently cleared. ID seeing patient. On Unasyn. She will need this termite control technician. * Bacteremia. Blood cultures 02/14 is a contaminant, not MSSA. * Suprapubic catheter. This has been leaking occasionally. Catheter changed several days ago. Urology has seen. * Anemia: Hematocrit 27 on 02/19 * Nutrition: Eating fairly well * Venous access: Status post port placement, on IV medications * Thrush: Resolved with 3 days of Nystatin Plan: Started Xarelto. Continue Lasix 40 BID. Continue care in the intensive care unit as SDU. Continue wound VAC and changes. Continue antibiotics per recommendations of ID. Increase activity. Continue to work on disposition. Likely will need LTAC secondary to her severe decubitus and wound VAC. Start FeSO4, follow H/H 02/21/18 16:18 Subjective: Feels OK, sitting in chair. Denies pain. Appetite good. Objective: Vital Signs Temp Pulse Resp BP Pulse Ox 36.7 C 88 19 132/84 H 95 02/21/18 15:44 02/21/18 15:44 02/21/18 15:44 02/21/18 15:44 02/21/18 15:44 Microbiology 02/10/18 19:50 Mycobacterial Smear (VALERIY) - Final Arm - Other Laboratory Results 02/19/18 04:15 02/19/18 04:15 02/20/18 02/21/18 02/22/18 05:59 05:59 05:59 Intake Total 1731 2394 840 Output Total 1020 4485 1450 Balance 711 -281 -610 PT 22.3 SEC (12.0-15.0) H 02/11/18 04:30 INR 1.95 (0.83-1.16) H 02/11/18 04:30 Physical Exam - Physical Exam General Appearance: alert, no apparent distress EENT: normal ENT inspection Neck: normal inspection Respiratory: lungs clear, No normal breath sounds Cardiac/Chest: regular rate, rhythm, edema (trace upper extremities.) Abdomen: normal bowel sounds, non-tender Skin: normal color, warm/dry Extremities: normal inspection (upper extremities) Neuro/Psych: alert, normal mood/affect, oriented x 3 ICD10 Worksheet Patient Problems: Problems Problem Status Onset DVT of axillary vein, acute bilateral Acute Pressure ulcer Acute Abnormality of colon Acute At risk for autonomic dysreflexia Acute Hyponatremia Acute Lower abdominal pain Acute Neurogenic bowel Acute Spinal cord injury at C5-C7 level without injury of spinal bone Acute Spinal cord injury, incomplete Acute Urinary tract infection Acute
--- NOTE | 2018-02-21 16:32 | ASMTCMCOM ---
CM Note CM Note Notes: Feedback from numerous SNF's and LTAC's. [facility] has a plastic surgeon they work with. [facility] felt that patient might be at their facility for 6wks then go to their facilitated SNF for 2wks (where their plastic surgery also rounds) for continuous care and then she will be able to return home. This CM spoke with pt's Guardian and her son. The son spoke with pt's PCP RN, Emilia, and feels comfortable that this is the best plan. Family ready for pt's discharge Tuesday and [facility] ready to admit. Need Orders, last MD Reports, Med list, D/C Summary. CM to make contact deidra/Javier [phone] in AM to discuss time of transport. Date Signed: 02/21/2018 04:31 PM Electronically Signed By:Geeta Yang LCSW
[2018-02-21] MEDS: FERROUS SULFATE 325 MG TAB PO SCH (16:59)
[2018-02-21] MEDS: RIVAROXABAN 15 MG TAB PO SCH (16:59)
[2018-02-22] MEDS: AMPICILLIN/SULBACTAM 3 GM in NS 100 ML IV SCH ×3 (00:28→12:57)
[2018-02-22] MEDS ORDERED: POTASSIUM CL 20 MEQ TAB PO ONE (05:42)
[2018-02-22] MEDS: BISACODYL 10 MG SUPP PR SCH (07:32)
[2018-02-22] MEDS ORDERED: PROTOCOL POTASSIUM 1 DOSE MISC PRN ×2 (09:23→10:07)
[2018-02-22] MEDS: FUROSEMIDE 40 MG/4 ML VIAL IVP SCH (09:23)
[2018-02-22] MEDS: OXYBUTYNIN 5 MG EXT REL TAB PO SCH (09:23)
[2018-02-22] MEDS: FERROUS SULFATE 325 MG TAB PO SCH (09:23)
[2018-02-22] MEDS: RIVAROXABAN 15 MG TAB PO SCH (09:23)
[2018-02-22] MEDS: levETIRAcetam 500 MG/5 ML UDCUP PO SCH (09:25)
[2018-02-22] MEDS ORDERED: PROTOCOL MAGNESIUM 1 DOSE IV PRN (10:07)
--- NOTE | 2018-02-22 10:55 | WOCRNPDOC ---
WOCRN Advanced Assessment Note - Skin Integrity Problem, Advanced Assess Left Ischial Tuberosity Pressure Injury Dressing Type: Black Vac Foam (x2), White Vac Foam (x1), Wound Vac Dressing Description: Soiled (urine) Exudate Amount: Scant Exudate Characteristic(s): Serosanguinous Integumentary Issue Intervention: Dressing Changed, Dressing Removed Anastasia Wound Tissue: Erythema Wound Bed Constitution: Granulation Tissue (in visible wound bed), Undermining ( 12 oclock ) Wound Edges: Not Attached Pressure Injury Present on Admit: Yes Skin Integrity Problem Comment: Vac canister was filled with approximately 350 ml of urine. Took down dressing and flushed wound with copious ns. Repacked wound bed with saline moistened kerlix and covered with ABD. Secured with medipore tape. Bren and Manuel RN's in room for care. Suprapubic denuded Dressing Type: Open to Air Exudate Amount: Excessive Exudate Characteristic(s): Urine Skin Integrity Problem Comment: Extensive urine flowing from around suprapubic catheter. It has been hard to manage. Staff tried to pouch around the catheter which worked for a while, but with the Lasix there is quite a bit of urine overflowing. This contaminated the wound vac dressing and will likely contaminate the wet to dry placed there as well. A new pouch was placed with aid Gloria and RAND Jackson assisting with suction and keeping area dry. Anticipate that if lasix is reduced hopefully the overflow of urine will slow.
--- NOTE | 2018-02-22 11:25 | HOSPPROG ---
Hospitalist Progress Note Assessment/Plan: 67yo paraplegic F with chronic suprapubic catheter, cognitive impairment, bilateral AKA after thrombotic events presented with new upper extremity DVT and polymicrobial bacteremia attributed to chronic decubitus wounds. #Polymicrobial bacteremia: MSSA, Strep intermedius, E coli. 02/17 cultures negative. Not septic. - Continue unasyn x6 weeks (through 03/28). Has port #Infected stage IV decubitus ulcer: S/p debridement 02/10. - Wound vac in place #Acute bilateral UE DVT: PICC associated, which have now been removed - Xarelto #Anasarca: Bilateral pleural effusions, ascites. From low albumin, fluid this admission. - Switch from IV to PO lasix 40mg qd #Hypokalemia: New problem. Related to diuresis - Replete, recheck this PM #Suprapubic catheter with leakage: Unclear if leaking new or chronic issue - Will hopefully improve with reduction in diuresis - Extended release oxybutynin #Iron deficiency anemia: s/p 2u PRBC this admission. Ferritin high, likely acute reactant. - PO Fe supplementation #Cognitive impairment: Chronic. Reportedly at baseline. Unclear etiology of this. #Spinal cord injury with paraplegia: Neurogenic bowel/bladder and hemodynamic issues related to this. #Seizure disorder: Continue home keppra #Hypercoaguable state: History of PE/DVT and arterial thrombosis. Heme consulted this admission. Work up negative for FVL, anti-thrombin 3 mutation, APLA. Diet: regular Code: DNR Dispo: Will recheck K this afternoon, if ok can hopefully discharge to LTAC with outpatient palliative care services. Subjective: Doing ok this morning. Denies pain. No appetite. She states that urine draining around suprapubic catheter is rather new problem. Objective: Vital Signs Temp Pulse Resp BP Pulse Ox 35.4 C L 69 18 132/90 H 98 02/22/18 07:48 02/22/18 07:48 02/22/18 07:48 02/22/18 04:00 02/22/18 07:48 Microbiology 02/17/18 06:35 Blood Culture - Final Blood 02/17/18 06:05 Blood Culture - Final Blood 02/10/18 19:50 Mycobacterial Smear (VALERIY) - Final Arm - Other Laboratory Results 02/22/18 04:05 02/22/18 04:05 02/21/18 02/22/18 02/23/18 05:59 05:59 05:59 Intake Total 2397 2925 Output Total 9003 7150 Balance -281 -275 PT 22.3 SEC (12.0-15.0) H 02/11/18 04:30 INR 1.95 (0.83-1.16) H 02/11/18 04:30 - Physical Exam Constitutional: no apparent distress, appears nourished, not in pain Eyes: PERRL, anicteric sclera, EOMI Ears, Nose, Mouth, Throat: moist mucous membranes, hearing normal, ears appear normal, no oral mucosal ulcers Cardiovascular: regular rate and rhythym, no murmur, rub, or gallop Respiratory: no respiratory distress, no rales or rhonchi, clear to auscultation Gastrointestinal: soft, non-tender abdomen, No tenderness, No guarding Genitourinary: other (suprapubic thompson with copious amount of urine saturing pad on bed) Skin: other (wound vac over left ishcial tuberosity) Musculoskeletal: other (bilateral AKA) Neurologic: other (alert, occasionally incorrectly answering questions) Psychiatric: encephalopathic ICD10 Worksheet Patient Problems: Problems Problem Status Onset DVT of axillary vein, acute bilateral Acute Pressure ulcer Acute Abnormality of colon Acute At risk for autonomic dysreflexia Acute Hyponatremia Acute Lower abdominal pain Acute Neurogenic bowel Acute Spinal cord injury at C5-C7 level without injury of spinal bone Acute Spinal cord injury, incomplete Acute Urinary tract infection Acute
[2018-02-22 13:13] VITALS: BP 92/60
[2018-02-22] MEDS ORDERED: POTASSIUM CL 20 MEQ/15 ML UDCUP PO ONE (14:00)
[2018-02-22] MEDS ORDERED: POTASSIUM Cl (KCl) 100 ML IV SCH (14:00)
--- NOTE | 2018-02-22 14:03 | PDINTPN ---
Measuring Clerk Progress Note Assessment/Plan: Assessment: * Paraplegia * Status post bilateral AKA * Bilateral upper extremity DVT. On full-dose Xarelto. * Possible hypercoagulable state but all studies so far ordered by Hematology are negative * Severe decubitus pressure ulcer-status post debridement: per surgery and wound care. MSSA on cultures/blood, subsequently cleared. ID seeing patient. On Unasyn. She will need this terminal manager. * Bacteremia. Blood cultures 02/14 is a contaminant, not MSSA. * Suprapubic catheter. This has been leaking occasionally. Catheter changed several days ago. Urology has seen, on oxybutynin for hypertonic bladder. * Anemia: Hematocrit down to 25 * Nutrition: Eating fairly well * Venous access: Status post port placement, on IV medications * Thrush: Resolved with 3 days of Nystatin * Hypokalemia Plan: Started Xarelto. Continue Lasix, reduce dose and change to PO. K+ replacement. Continue wound VAC and changes. Continue antibiotics per recommendations of ID. Increase activity. Likely will need LTAC secondary to her severe decubitus and wound VAC, could go later today or tomorrow. Continue FeSO4, follow H/H 02/22/18 14:01 02/22/18 14:03 Subjective: Feels OK, stronger. Denies pain. Objective: Vital Signs Temp Pulse Resp BP Pulse Ox 36.3 C 65 18 92/60 L 98 02/22/18 11:53 02/22/18 11:53 02/22/18 11:53 02/22/18 13:13 02/22/18 11:53 Microbiology 02/17/18 06:35 Blood Culture - Final Blood 02/17/18 06:05 Blood Culture - Final Blood 02/10/18 19:50 Mycobacterial Smear (VALERIY) - Final Arm - Other Laboratory Results 02/22/18 04:05 02/22/18 11:50 02/21/18 02/22/18 02/23/18 05:59 05:59 05:59 Intake Total 2394 2925 Output Total 5755 3200 Balance -281 -275 PT 22.3 SEC (12.0-15.0) H 02/11/18 04:30 INR 1.95 (0.83-1.16) H 02/11/18 04:30 Physical Exam - Physical Exam General Appearance: alert, no apparent distress EENT: pharynx normal Neck: normal inspection Respiratory: lungs clear, normal breath sounds Cardiac/Chest: regular rate, rhythm, No edema Abdomen: normal bowel sounds, non-tender Skin: normal color, warm/dry Extremities: normal inspection (upper) Neuro/Psych: alert, normal mood/affect, oriented x 3 ICD10 Worksheet Patient Problems: Problems Problem Status Onset DVT of axillary vein, acute bilateral Acute Pressure ulcer Acute Abnormality of colon Acute At risk for autonomic dysreflexia Acute Hyponatremia Acute Lower abdominal pain Acute Neurogenic bowel Acute Spinal cord injury at C5-C7 level without injury of spinal bone Acute Spinal cord injury, incomplete Acute Urinary tract infection Acute
--- NOTE | 2018-02-22 14:46 | PDIAF ---
- Diagnosis Code Status: Do Not Resuscitate - Medication Management Discharge Medications: Medications to Continue on Transfer Multivitamins [Multivitamin (*)] 1 each PO DAILY 08/14/16 [Last Taken 02/10/18] levETIRAcetam [Keppra 500 mg (*)] 500 mg PO BID 08/14/16 [Last Taken 02/10/18 09 :00] Calcium Carbonate [Tums 500MG (*)] 500 mg PO TID PRN #0 tab.chew 08/25/16 [Last Taken Unknown] Sennosides/Docusate Sodium [Senokot-S] 1 each PO DAILY PRN 02/11/18 [Last Taken Unknown] Acetaminophen [Tylenol 325mg (*)] 650 mg PO Q4 PRN tab 02/22/18 [Last Taken Unknown] Ampicillin/Sulbactam [Unasyn] 3 gm IV Q6HRS vial 02/22/18 [Last Taken Unknown] Ferrous Sulfate [Ferrous Sulf 325 MG (*)] 325 mg PO DAILY tab 02/22/18 [Last Taken Unknown] Furosemide [Lasix 40 MG (*)] 40 mg PO DAILY tab 02/22/18 [Last Taken Unknown] Oxybutynin Chloride Xl [Ditropan Xl 5mg (*)] 10 mg PO DAILY tab 02/22/18 [Last Taken Unknown] Polyethylene Glycol 3350 [Miralax 17 gm (*)] 17 gm PO DAILY PRN pkt 02/22/18 [ Last Taken Unknown] Potassium Chloride 20 meq PO DAILY #30 tablet.er 02/22/18 [Last Taken Unknown] Rivaroxaban [Xarelto 15mg (*)] 15 mg PO BIDMEAL tab 02/22/18 [Last Taken Unknown] Discharge Medications: Refer to the Discharge Home Medication list for PRN reason. - Orders Diet Texture: Regular Texture Diet, Thin Liquids, Meds Whole w/Liquids Additional Instructions: Here are your discharge instructions: 1. You should receive IV Unasyn for 6 weeks, through 03/28/2018. 2. We have started you on 40mg PO lasix daily with potassium supplementation. Your volume status should be monitored and this can likely be weaned off in the near future. 3. You are on xarelto for your blood clots. You currently are receiving 15mg twice daily and should switch to 20mg once daily after 21 days on 03/15/2018. 4. You should continue your oxybutynin. 5. We have started you on iron replacement for your anemia. 6. We have discontinued your lisinopril. Please follow up within 3- 4 weeks of discharge with outpatient [facility] if you continue to have issues with your wounds: You may reach them at [phone] for an appointment and continued management of your wounds. Please call them ashley to schedule your appointment as they fill up quickly. If before that time you have any issues please follow up with your PCP. Patient should be on a clinitron mattress. Wound care: Change dressings to Sacrum every 3 days and PRN 1. Clean with ns and gauze 2. Skin prep niles wound 3. Cut a piece of iodoflex (may use iodosorb from wound cart instead which is this in a gel form) to fit inside wound edges but to cover all the yellow and brown/black necrotic tissue. It should not overlap onto intact skin. Take off the mesh from one side of the dressing. Apply the side without the mesh down to cover the wound bed. 4. Cover with Mepilex border Sacral dressing Mary Ann Torab CWON Wound Vac: Change MWF. Use white foam to cover bone and to pack into pocket. Cover with black foam and bridge to anterior lower abdomen. -125 mm Hg continuous suction. Bedsore (Pressure injury) care: You have an unstageable pressure injury (also known as a bedsore) on the very lowest part of your back (the sacrum.) To help heal this wound and avoid further injury please do the followin. Reposition yourself frequently, at least every 15 minutes when sitting. We recommend sitting on an air cushion. Please never use a doughnut. 2. When youre in bed, try to rest on your side as much as possible, and change position every two hours (for example, turn or tilt from your right side toward your left).~ If you sleep on a sleep number or medical bed, keep the head of the bed below 30 degrees and keep all pressure off your low back for at least 5 minutes at least every two hours.~ 3. As needed, you may use Calazime, dimethicone moisture barrier cream, or any [id number] diaper rash cream to help prevent or treat a moisture-related rash to your bottom area and buttocks. 4. Please contact [facility] outpatient [facility] for an appointment, at [phone], If your wounds re/open or dont improve, or if you have any further questions or concerns. - Follow Up Care Current Providers and Referrals: Adrian Smyth, [Primary Care Provider] - As per Instructions
--- NOTE | 2018-02-22 14:53 | PDDCSUM ---
Discharge Summary Discharge Summary: Date of Admission: 02/10/2018 Date of Discharge: 02/22/2018 Consultants: general surgery, infectious disease, hematology, textile worker, urology, wound care Procedures: I&D with washout of large decubitus ulcer (02/10/2018), left internal jugular port placement (02/18/2018), TTE, bilateral upper extremity venous duplex Disposition: [facility] with outpatient palliative care Discharge Diagnoses: 1. Infected stage IV decubitus ulcer, present on arrival 2. Polymicrobial bacteremia 3. Acute bilateral upper extremity DVT with history of PE and arterial thromboses 4. Anasarca 5. Spinal cord injury with paraplegia 6. Chronic suprapubic catheter with intermittent leakage 7. Cognitive impairment 8. Seizure disorder 9. Iron deficiency anemia 10. Hypokalemia Brief Hospital Course: 67yo paraplegic F with chronic suprapubic catheter, cognitive impairment, bilateral AKA after thrombotic events presented 02/10 with upper extremity swelling. She recently had PICC-associated DVT in [facility] so PICC was placed in [facility] (she had PICC as she was receiving IV iron). Shortly thereafter, she developed swelling in right arm and came to ED where she was diagnosed with bilateral upper extremity DVTs. She was started on heparin and transitioned to rivaroxaban. Hematology was consulted as she reportedly has an extensive thromboembolic history including PE and lower extremity arterial thromboses necessitating bilateral LE above knee amputations; however, a hypercoaguable work up (FVL, AT3, APLA) was negative. She was also found to have an infected left ischial stage IV decubitus ulcer. This was debrided in the OR and a wound vac was placed. This was complicated by polymicrobial bacteremia with blood cultures growing MSSA and Strep intermedius. ID was consulted and plan is to complete 6 weeks of IV Unasyn. A left IJ port was placed for administration of this. Her blood cultures cleared on 02/17. Throughout the course of her hospitalization, she became quite anasarcic with pleural effusions and ascites. We began IV diuresis and switched her over to PO prior to discharge. She is on KCl supplementation. She developed leakage around her suprapubic catheter after initiating diuresis. We consulted urology who recommended long-acting oxybutynin but no further intervention as this should improve once we stop diuresis. Otherwise, her home medications were continued including her keppra for a seizure disorder. Because of her numerous co-morbid conditions, the palliative team met with patient and family with plan to continue following as an outpatient. Medications: Please refer to EMR for complete list. Changes this admission include addition of Unasyn, switching from BID to extended release oxybutynin, addition of furosemide and KCl supplementation, discontinuation of lisinopril, addition of FeSO4, switching from xarelto 20mg qd to 15mg BID. Follow Up Plan: 1. Check BMP in 2-3 days to monitor electrolytes, renal function 2. To complete IV unasyn after 6 weeks on 03/28/2018 at which time recommend port removal 3. Switch from loading dose xarelto (15mg BID) to 20mg daily dosing on 2017 4. Wound vac care, follow up in wound clinic in 3-4 weeks Physical Exam: Vitals reviewed, normotensive and afebrile. Alert, answering questions but not fully oriented. No focal neurologic deficits. RRR without murmur, lungs clear anterolaterally, abdomen soft and nontender. Suprapubic catheter with some leakage. Left ischial tuberosity wound vac in place. Bilateral high above knee amputations.
--- NOTE | 2018-02-22 15:14 | ASMTLACE ---
[facility]ACE Length of stay for Answers: 7-13 days current admission Acuity / Level of Answers: Yes Care: Did the patient have an inpatient admission? # of Emergency department Answers: 1-2 visits in the last 6 months Score: 9 Date Signed: 02/22/2018 03:13 PM Electronically Signed By:Geeta Yang LCSW
--- NOTE | 2018-02-22 15:17 | ASMTDCNOTE ---
Case Management Discharge Discharge Order Complete? Answers: Yes Patient to Obtain Answers: Other Notes: [facility] Transportation Arranged Answers: [facility] will Pick (Date 02/22/2018 05:00 PM & Time) Case Management Transport Answers: Yes Form Complete Faxed Final Orders Answers: Yes Notes: [facility] Agency/Facility Transfer Answers: Yes Report Printed & Faxed to Receiving Agency Family Notified Answers: Yes Notes: Guardian and son contacted Discharge Comments Notes: Patient has been discharged to [facility] where they specialize in wound care. Date Signed: 02/22/2018 03:16 PM Electronically Signed By:Geeta Yang LCSW
--- NOTE | 2018-02-22 15:23 | ASDISCHSUM ---
Discharge Information Plan Status:LTAC Medically Cleared to Leave:02/22/2018 Discharge Date:02/22/2018 CM D/C Disposition:[facility] D/C Disposition:Rehab [facility] Care Projected Discharge Date:02/22/2018 05:00 PM Transportation at D/C:ALS/BLS Discharge Delay Reason: Follow-Up Date:02/22/2018 05:00 PM Discharge Slot:3 - 18:01 pm - 12:00 am Final Diagnosis:Stage Iv decubitus hip stump, Bilat DVT's UE Placement Information Referral Type:*Senior Care/SNF Referral ID:[id number] Provider Name: Address 1: Phone Number: Address 2: Fax Number: City: Selection Factors: State: Referral Type:Palliative Care Referral ID:[id number] Provider Name: Address 1: Phone Number: Address 2: Fax Number: City: Selection Factors: State: Referral Type:[facility] Referral ID:[id number] Provider Name:[facility] [address] Address 2: City:[place] Selection Factors: State:[place] Patient Contact Information Contact Name:CARISSA Relationship: Address:[address] [facility] Work Phone: City:[place] Phone: [facility]/Zip Code:[place] [address] Email: Financial Information Financial Class:Medicare Primary Plan Desc:MEDICARE OUTPATIENT Primary Plan Number:[id number] Secondary Plan Desc:TONY/AMY SUPPLEMENT Secondary Plan Number:[id number] Assessment Information LACE MAGDALENA Length of stay for Answers: 7-13 days current admission Acuity / Level of Answers: Yes Care: Did the patient have an inpatient admission? # of Emergency department Answers: 1-2 visits in the last 6 months Score: 9 Date Signed: 02/22/2018 03:13 PM Electronically Signed By:Geeta Yang LCSW [facility] Progress Note CM Note Note Notes: Patient admitted via ED for bilateral UE DVT, also found to have a stage IV pressure ulcer on L hip. She was taken to the OR yesterday by Dr Durán where he debrided the wound and placed a vac. It was reported to me that patient lives with her adult son and elderly mother, but staff have had a lot of questions about that situation. Patient was not very forthcoming with answers; however, we received a call that patient is current with [facility], so I tracked down her HH RN Keila who gave a lot of background. Keila corroborated that patient lives with 85 yo mother (also named Chase) and 45 yo son Mario. Until recently, pt's mother Chase has been her primary caregiver. Pt is a bilateral amputee for 40 years, has suprapubic cath, does bowel protocol, etc. Again, her elderly mother has been her caregiver with [facility] RN providing monthly cath care. However, in December, patient had a GI bleed and went to [facility]. At the same time, her mother had an NV/CVA. Both of them were eventually discharged home which thrust pt's son Mario into a new caregiving role. Per Keila RN, he has not taken well to the new responsibility ("he can be sorta slow"). Vikash has been working with him extensively, especially around how to provide PICC care (pt got a PICC because she needed Fe infusions), but unfortunately, patient has been deteriorating. In fact, Keila the RN has started coming daily rather than monthly during the last two weeks. She has seen what was a manageble State 1 or 2 wound become unstageable very quickly. Keila says that patient is followed by Dr Pittman and had planned to have surgery next week. It's quite impressive that Vikash has remained in this family's home - they see both the patient and her mother for RN/PT/OT services and have recently added Social Work, as well. Conversations have begun regarding moving the mother to an HALF-WAY, but she has been resistant. Apparently her PCP, as well as patient's PCP Dr Smyth, are both very involved with the family. It seems that everyone is anticipating that patient will need SNF or LTAC after this hospitalization. Fortunately [facility] has not been involved with this family because they have been so well supported by their PCPs and this home health agency. Per Keila, the RN, things really took a turn for the worse with the unfortunate events that befell patient's elderly mother and caregiver. D/C needs TBD, Case Management will follow closely. Date Signed: 02/11/2018 01:54 PM Electronically Signed By:Kadie Whitt RN [facility] CM Progress Note CM Note CM Note Notes: ST cog eval 02/12/18 " severe cog-communication impairment that would impact her ability to participate in her own Care. MSE= 6/30 Dementia level score. A Palliative Consult was ordered. Her brother, Ángel Miller [phone] is her Guardian and will need to be the person involved with the Palliative Team. Date Signed: 02/14/2018 12:27 PM Electronically Signed By:Geeta Yang LCSW [facility] COURTNEY Progress Note CM Note CM Note Notes: Palliative care meeting today with Patient's mother, CHASE, patient's son, Mario, patient's brother and co-conservator, Dr. Ghanshyam Neal, Dorian [place], Palliative Care, [place], patient's RN, Emilia, PCP RN, and myself,COURTNEY Simpson.Dr. Morrissey reviewed patient's current medical status and answered questions regarding prognosis. Dr. Morrissey was not able to address prognosis completely as he is just getting to know the patient. Patient's PCP and nurse Emilia feel patient needs a higher level of care, SNF. The family is in agreement with this. Dorian reviewed what Palliative care can do for the patient and her care. In addition he addressed goals of care and family expressed they want to continue medical treatment at this time. They did agree to a palliative referral being made. [facility] was discussed and the referral will be made to them. Patient's mother is recovering from a CVA/NV and can no longer provide care for the patient, her daughter. Mario will be the sole caregiver in the future as Ángel has a recovering from surgery and he works daytime caregiver.Referrals have been made to [facility], [facility], [facility]. Mario would like the facility to be close to [place] if possible. A referral has been made to [facility] for Medicaid application for patient. Emilia's number is [phone] with patient's PCP office. Patient continues to need IV ABX and wound vac changes. A port is being considered for access once her blood cultures are negative x's 48 hours. Nurse Nieto states patient's cognitive issues are related to her TBI and not to dementia. Nurse Nieto states the dementia references in the notes are inaccurate. CM will follow. Date Signed: 02/16/2018 02:49 PM Electronically Signed By:Tatiana Dewitt LCSW [facility] Progress Note CM Note CM Note Notes: Up dated patient info to SNF's-[facility] and [facility]. Referrals sent to area LTAC's to [facility]. Date Signed: 02/20/2018 04:46 PM Electronically Signed By:Geeta Yang LCSW [facility] CM Progress Note CM Note CM Note Notes: Patient continues to be confused. On ABX and insulin, had a Sz on 02/19, tube feeding. Needs a Lift to get from bed to chair. To early to determine discharge needs. Date Signed: 02/20/2018 04:52 PM Electronically Signed By:Geeta Yang LCSW [facility] CM Progress Note CM Note CM Note Notes: Disregard CM Note 02/20/18 16:52-written on wrong patient. Date Signed: 02/20/2018 04:54 PM Electronically Signed By:Geeta Yang LCSW [facility] CM Progress Note CM Note CM Note Notes: Feedback from numerous SNF's and LTAC's. [facility] has a plastic surgeon they work with. [facility] felt that patient might be at their facility for 6wks then go to their facilitated SNF for 2wks (where their plastic surgery also rounds) for continuous care and then she will be able to return home. This CM spoke with pt's Guardian and her son. The son spoke with pt's PCP RN, Emilia, and feels comfortable that this is the best plan. Family ready for pt's discharge Tuesday and [facility] ready to admit. Need Orders, last MD Reports, Med list, D/C Summary. CM to make contact deidra/Javier [phone] in AM to discuss time of transport. Date Signed: 02/21/2018 04:31 PM Electronically Signed By:Geeta Yang LCSW Case Management Discharge Plan Note Case Management Discharge Discharge Order Complete? Answers: Yes Patient to Obtain Answers: Other Notes: [facility] Transportation Arranged Answers: [facility] Stretcher Transport will Pick (Date 02/22/2018 05:00 PM & Time) Case Management Transport Answers: Yes Form Complete Faxed Final Orders Answers: Yes Notes: [facility] Agency/Facility Transfer Answers: Yes Report Printed & Faxed to Receiving Agency Family Notified Answers: Yes Notes: Guardian and son contacted Discharge Comments Notes: Patient has been discharged to [facility] where they specialize in wound care. Date Signed: 02/22/2018 03:16 PM Electronically Signed By:Geeta Yang LCSW Intervention Information
--- NOTE | 2018-02-22 16:34 | PCMIDPN ---
Assessment/Plan: Assessment/Plan: * Polymicrobial Gram-positive bacteremia including MSSA and Streptococcus intermedius: Most likely this is related to patient's decubitus ulceration. r Repeat blood cultures show clearing of bacteremia and now port has been placed. Continue Unasyn for activity against polymicrobial janet including that isolated from decubitus ulcer over left posterior thigh with probable associated underlying osteomyelitis. Plan 6 weeks of therapy in total given this finding as well as presence of bilateral upper extremity DVTs. 02/22/18 16:32 Subjective: Patient without specific complaints. Sitting up eating lunch. Objective: Vital Signs Temp Pulse Resp BP Pulse Ox 36.3 C 65 18 92/60 L 98 02/22/18 11:53 02/22/18 11:53 02/22/18 11:53 02/22/18 13:13 02/22/18 11:53 Microbiology 02/17/18 06:35 Blood Culture - Final Blood 02/17/18 06:05 Blood Culture - Final Blood 02/10/18 19:50 Mycobacterial Smear (VAL[facility]) - Final Arm - Other Laboratory Results 02/22/18 04:05 02/22/18 11:50 02/21/18 02/22/18 02/23/18 05:59 05:59 05:59 Intake Total 2394 2925 Output Total 2675 3200 Balance -281 -275 Unasyn # 9, antibiotics # 12 Laboratory Tests 02/19/18 02/22/18 04:15 04:05 Creatinine 0.7 Albumin 1.5 L - Physical Exam General Appearance: alert, no apparent distress EENT: No scleral icterus, No conjunctival petechiae Respiratory: lungs clear, No respiratory distress Cardiac/Chest: regular rate, rhythm, other (Port nontender with surrounding ecchymosis) Abdomen: non-tender, No distended ICD10 Worksheet Patient Problems: Problems Problem Status Onset DVT of axillary vein, acute bilateral Acute Pressure ulcer Acute Abnormality of colon Acute At risk for autonomic dysreflexia Acute Hyponatremia Acute Lower abdominal pain Acute Neurogenic bowel Acute Spinal cord injury at C5-C7 level without injury of spinal bone Acute Spinal cord injury, incomplete Acute Urinary tract infection Acute
[2018-02-23] MEDS ORDERED: FUROSEMIDE 40 MG TAB PO SCH (09:00)
== END 2018-02-22 17:56 | DRG 580 ==
LOC: FSGY 17:02 → F2N 22:03
PROVIDERS: ADMIT Internal Medicine; ATTEND Surgery
PROC: 30233N1 Transfusion of Nonautologous Red Blood Cells into Peripheral Vein, Percutaneous Approach (ICD-10-PCS; 2018-02-10)
PROC: 0H9JXZZ Drainage of Left Upper Leg Skin, External Approach (ICD-10-PCS; principal; 2018-02-10 18:45)
PROC: 0QB30ZZ Excision of Left Pelvic Bone, Open Approach (ICD-10-PCS; principal; 2018-02-10 18:45)
PROC: 0JH60XZ Insertion of Tunneled Vascular Access Device into Chest Subcutaneous Tissue and Fascia, Open Approach (ICD-10-PCS; 2018-02-18)
PROC: 02HV33Z Insertion of Infusion Device into Superior Vena Cava, Percutaneous Approach (ICD-10-PCS; 2018-02-18)
DX: L89.44 Pressure ulcer of contiguous site of back, buttock and hip, stage 4 (principal); T82.868A Thrombosis due to vascular prosthetic devices, implants and grafts, initial encounter; I82.623 Acute embolism and thrombosis of deep veins of upper extremity, bilateral; R78.81 Bacteremia; B96.20 Unspecified Escherichia coli [E. coli] as the cause of diseases classified elsewhere; B95.1 Streptococcus, group B, as the cause of diseases classified elsewhere; B96.7 Clostridium perfringens [C. perfringens] as the cause of diseases classified elsewhere; E87.6 Hypokalemia; B37.0 Candidal stomatitis; D50.9 Iron deficiency anemia, unspecified; D68.4 Acquired coagulation factor deficiency; R60.1 Generalized edema; G31.84 Mild cognitive impairment of uncertain or unknown etiology; N31.9 Neuromuscular dysfunction of bladder, unspecified; K59.2 Neurogenic bowel, not elsewhere classified; Z86.73 Personal history of transient ischemic attack (TIA), and cerebral infarction without residual deficits; Z89.611 Acquired absence of right leg above knee; Z89.612 Acquired absence of left leg above knee; Z99.3 Dependence on wheelchair; Z86.711 Personal history of pulmonary embolism; Z87.442 Personal history of urinary calculi; Z96.0 Presence of urogenital implants; Z66 Do not resuscitate
CPT/HCPCS: 85300-90; 85520-90; 86147-90; 86870-90; 86905-90; 92507-GN; 92523-GN; 92526-GN; 92610-GN; 97110-GP; 97162-GP; 97164-GP; 97166-GO; 97530-GO; 97530-GP; 97535-GO; 99001-90; C1788; G8978-GP-CL; G8978-GP-CM; G8979-GP-CJ; G8979-GP-CK; G8987-GO-CM; G8988-GO-CK; G8996-GN-CJ; G8997-GN-CJ; G8998-GN-CJ; G9168-GN-CL; G9169-GN-CJ; J0295; J0690; J1170; J1642; J1644; J1650; J1940; J1953; J2250; J2370; J2405; J2543; J2704; J3010; J3370; J3480; P9016; P9047